=== PATIENT | female | born 1985 | race Caucasian/White ===

== ENCOUNTER → 2018-02-19 11:28 | Outpatient (CLI) | payer OTHER, MEDICAID, SELFPAY | PROVIDERS: Visit Provider Obstetrics & Gynecology | DX: Z34.02 Encounter for supervision of normal first pregnancy, second trimester (principal); Z53.9 Procedure and treatment not carried out, unspecified reason ==

== ENCOUNTER → 2018-03-06 10:58 | Outpatient (CLI) | payer OTHER, MEDICAID, SELFPAY ==
[2018-03-06 12:52] LABS: Hematocrit 36.6 % (36-46); Hemoglobin 12.4 g/dL (12.0-16.0)
[2018-03-06 13:40] LABS: GTT (PREG) 1 Hour PP 50gm Dose 102 mg/dL (76-139)
== END ==
PROVIDERS: Visit Provider Obstetrics & Gynecology
DX: Z34.02 Encounter for supervision of normal first pregnancy, second trimester (principal)
CPT/HCPCS: 36415; 82950; 85014; 85018

== ENCOUNTER → 2018-05-08 14:38 | Outpatient (CLI) | payer OTHER, MEDICAID, SELFPAY ==
[2018-05-09 16:52] LABS: Strep Grp B PCR POS for Grp B Strep
== END ==
PROVIDERS: Visit Provider Obstetrics & Gynecology
DX: Z34.03 Encounter for supervision of normal first pregnancy, third trimester (principal)
CPT/HCPCS: 87653

== ENCOUNTER 2018-05-15 15:46 | Outpatient (CLI) | payer OTHER, MEDICAID, SELFPAY ==
--- NOTE | 2018-05-15 16:25 | P.TNLD_ITS ---
Visit Information Visit Information Date of evaluation: 05/15/18 Primary OB Provider: Nadeen Mcgovern On-call OB Provider: Nadeen Mcgovern Reason for Evaluation: Yes non-stress test non-stress test reason: other (SGA, borderline oligo) Evaluation Evaluation Baseline heart rate: 135 Variability: Moderate (11-25) monitor accelerations: Present monitor decelerations: Absent Category of Tracing: I Diagnosis, Plan/Disposition Final Diagnosis (1) SGA (small for gestational age), , affecting care of mother, antepartum : Current Visit: Yes Status: Acute Plan/Disposition Plan: D/C to home Follow up 3 days for NST kick counts OB Disposition: home
== END 2018-05-15 16:45 | disposition home or self-care (01) ==
LOC: LABOR 15:58 → OB 05-16 14:46
PROVIDERS: Visit Provider Obstetrics & Gynecology
DX: Z34.03 Encounter for supervision of normal first pregnancy, third trimester (principal); Z3A.37 37 weeks gestation of pregnancy
CPT/HCPCS: 59025; G0378; G0379

== ENCOUNTER 2018-05-18 10:25 | Outpatient (CLI) | payer OTHER, MEDICAID, SELFPAY | END 2018-05-18 11:11 | disposition home or self-care (01) | LOC: OB 05-20 11:13 | PROVIDERS: Visit Provider Family Medicine | DX: Z34.03 Encounter for supervision of normal first pregnancy, third trimester (principal); Z3A.38 38 weeks gestation of pregnancy | CPT/HCPCS: 59025; G0378; G0379 ==

== ENCOUNTER → 2018-05-20 16:48 | Outpatient (CLI) | payer OTHER, MEDICAID, SELFPAY | END | disposition home or self-care (01) | PROVIDERS: Visit Provider Obstetrics & Gynecology | DX: Z34.03 Encounter for supervision of normal first pregnancy, third trimester (principal); Z3A.38 38 weeks gestation of pregnancy | CPT/HCPCS: 59025; 76815; G0378; G0379 ==

== ENCOUNTER 2018-05-24 11:23 | Outpatient (CLI) | payer OTHER, MEDICAID, SELFPAY | END 2018-05-24 12:17 | disposition home or self-care (01) | LOC: OB 05-28 15:49 | PROVIDERS: Visit Provider Obstetrics & Gynecology | DX: Z34.03 Encounter for supervision of normal first pregnancy, third trimester (principal); Z3A.38 38 weeks gestation of pregnancy | CPT/HCPCS: 59025; G0378; G0379 ==

== ENCOUNTER 2018-05-27 21:20 | Inpatient (IN) | payer OTHER, MEDICAID, SELFPAY ==
[2018-05-27] MEDS: PENICILLIN G POTASSIUM 5,000,000 UNIT in DEXTROSE 5% IN WATER 250 ML IV (22:20)
[2018-05-27] MEDS: miSOPROStol 25 MCG TABLET VAG (22:20)
[2018-05-27] MEDS: LACTATED RINGERS 1,000 ML 125 ML IV (22:20)
[2018-05-27 23:39] VITALS: BP 120/81
[2018-05-28 01:56] LABS: Add Manual Diff / Slide Review NO; Basophils Percent Auto 0.5 % (0-2); Eosinophils Percent Auto 0.4 % (2-4); Hematocrit 41.3 % (36-46); Hemoglobin 13.9 g/dL (12.0-16.0); Lymphocytes Percent Auto 21.5 % (25-40); Mean Corpuscular HGB Conc 33.5 % (30-36); Mean Corpuscular Hemoglobin 31.1 PG (26-34); Mean Corpuscular Volume 92.9 fL (80-100); Monocytes Percent Auto 5.9 % (3-14); Neutrophils Absolute Auto 6900 /uL (3000-5900); Neutrophils Percent Auto 71.7 % (50-75); Platelet Count 298 X10^3/uL (150-400); Red Blood Cell Count 4.45 X10^6/uL (4.0-5.2); Red Cell Distribution Width 13.3 % (11.6-14.8); White Blood Cell Count 9.6 X10^3/uL (4.5-11.0)
[2018-05-28] MEDS: PENICILLIN G POTASSIUM 3,000,000 UNIT/50 ML FROZ.PIGGY 100 UNIT IV (02:53)
[2018-05-28] MEDS: ONDANSETRON 4 MG/2 ML INJ IV (05:24)
[2018-05-29 06:54] LABS: Hematocrit 35.9 % (36-46); Hemoglobin 12.3 g/dL (12.0-16.0)
[2018-05-29] MEDS: DOCUSATE 250 MG CAPSULE PO (13:15)
[2018-05-29] MEDS: ACETAMINOPHEN 325 MG TABLET 650 MG PO (13:15)
[2018-05-29] MEDS: PRENATAL VIT,CALC/IRON/FOLIC 1 TABLET 1 TAB PO (13:15)
[2018-05-29 18:13] VITALS: BP 120/81; PULSE 76; RESP 18; TEMP 36.4
--- NOTE | 2018-07-04 15:01 | PM.OBHP.1 ---
OB HPI Date/Time Date of admission: 05/27/18 Date Patient Seen: 05/27/18 Time Patient Seen: 07:40 History of Present Condition Chief complaint: : 1 Para: 0 Estimated Date of Delivery: 06/01/18 Estimated Gestational Age (weeks): 39+ 3 Narrative: Amalia Mortensen is a 32 year old female 1 para 0 at 39-,2/7 weeks gestation who presents for induction of labor secondary to oligohydramnios Indications Indication for induction OB: other (Oligohydramnios) History of Present care: good care, initiated at week # (9), number of visits (11) and pounds weight gain (25) Dating criteria: LMP confirmed by 1st trimester US Ultrasounds: normal 1st trimester US and abnormal US findings (Echogenic intracardiac focus) Obstetrical complications: none Medical complications: none Preadmission Labs Blood type: O (+) positive -: Antibody screen: negative, GBS status: positive, HBsAG: negative, HIV: negative, HSV 1: positive, HSV 2: negative and RPR/VDLR: negative -: Chlamydia screen: not detected and Gonorrhea screen: not detected -: Rubella: immune and Varicella: immune HCT: 36.6 HCAB: negative PAP: Normal Quad screen: Normal Urine: Negative 1 hr GTT: 102 Prior (ies) History: None Evaluation Evaluation Baseline heart rate: 130 Variability: Moderate (11-25) monitor accelerations: Present monitor decelerations: Absent Category of Tracing: I Cervical dilation (cm): 1 Cervical effacement (%): 80 station: -1 Laboratory results: Laboratory Tests 05/27/18 05/27/18 05/29/18 01:36 22:45 06:37 WBC 9.6 RBC 4.45 Hgb 13.9 12.3 Hct 41.3 35.9 L MCV 92.9 MCH 31.1 MCHC 33.5 RDW 13.3 Plt Count 298 Neut % (Auto) 71.7 Lymph % (Auto) 21.5 L [place] % (Auto) 5.9 Eos % (Auto) 0.4 L Baso % (Auto) 0.5 Neut # (Auto) 6900 H Blood Type O Positive Antibody Screen Negative PFSH Social History Smoking Status: Never smoker Meds Home Medications Medication Instructions Recorded Confirmed Type breast pump #1 each 05/08/18 05/28/18 Rx Allergies Allergy/AdvReac Type Severity Reaction Status Date / Time No Known Drug Allergies Allergy Verified 05/27/18 23:43 Exam Vital Signs (past 8 hours): Generally: Patient is sitting up in bed, no acute distress Lungs: Clear to auscultation bilaterally Cardiovascular: Regular rate and rhythm Abdomen: Soft, good bowel sounds Fundal height: 38 cm Estimated weight: 6 and 0.5 lb Extremities: Negative Homans, no edema Objective Labs Result Diagrams: 05/29/18 06:37 Assessment and Plan (1) 39 weeks gestation of : Current visit: No Status: Acute (2) Oligohydramnios: Current visit: No Status: Acute (3) Positive GBS test: Current visit: No Status: Acute Plan: Plan: Assessment: 32-year-old 1 para 0 at 39-,3/7 weeks gestation with oligohydramnios and group B strep positive status post 1 dose of Cytotec Active labor Epidural in place Plan: Expectant management of spontaneous vaginal delivery
--- NOTE | 2018-07-04 15:10 | PM.OBPRVD ---
Events: Labor Induction and Oligohydramnios Delivery date: 05/28/18 Intrapartal events: None Induction method: per misoprostol protocol Delivery augmentation: rupture of membranes Delivery monitor: external FHT and external uterine Route of delivery: Laceration description: Superficial Delivery repair: chromic Estimated blood loss (mL): 100 Anesthesia type: Epidural Complications: None Narrative: Patient complete and pushed for 1 hr and 18 min. At 9:20 a.m., a live male delivered spontaneously over an intact perineum. Nuchal cord x1 was reduced. The remainder of the body delivered without difficulty and was placed on mom's abdomen. The cord was double clamped and cut. Cord bloods were obtained. The placenta delivered intact with a 3 vessel cord at 9:22 a.m.. Apgars 9 at 1 min and 9 at 5 min. Estimated blood loss 100 cc. . A superficial laceration was repaired with 3 0 chromic. Epidural analgesia. Mom and stable to recovery.
--- NOTE | 2018-07-04 15:13 | PM.OBDS.1 ---
Discharge Providers Date of admission: 05/27/18 21:20 Consults: 05/28/18 11:47 Consult to [employer] Waste Technician Routine Comment: Discharge provider: Ndaeen Mcgovern MD Summary Date Patient Seen: 05/29/18 Time Patient Seen: 13:30 Hospital Course: Patient is a 32-year-old 1 para 1 who presented on 05/27/2018 for Cytotec for cervical ripening. Patient was being induced due to oligohydramnios. She received 1 dose of Cytotec which put her into active labor. She had a spontaneous vaginal delivery in the morning of 05/28/2018 without complication. Her course was unremarkable. She was discharged home on postop day # 1. Peripartum Data Infant Delivery Method: Natural Vaginal Laceration description: Superficial Episiotomy description: None Procedures: Spontaneous vaginal delivery Epidural analgesia Cytotec cervical ripening complications: none Discharge Diagnosis (1) 39 weeks gestation of : Status: Acute (2) Oligohydramnios: Status: Acute (3) Positive GBS test: Status: Acute Status at Discharge Functional status at discharge: independent ambulation Overall status at discharge: patient is progressing back to baseline Time Spent with Patient Total time spent providing and/or coordinating discharge services: Less than 30 minutes Objective Labs Result Diagrams: 05/29/18 06:37 Discharge Plan Discharge Plan Patient Disposition: Home Discharge Med Rec/Prescriptions Prescriptions: No Action breast pump [Pump In Style Advanced] device .ROUTE .MEDSUPPLY Qty: 1 RF: 0 Follow up/Referrals: Nadeen Mcgovern MD [Physician] - 07/10/18 3:00 pm Provider Discharge Instructions Diet: Diet as Tolerated Activity: No intercourse Skin/Wound/Dressing Care Report to your healthcare provider any signs of infection, such as:: chills, fever, increased pain and unusual drainage Visit Report/Discharge Packet Instructions: DI for Labor and Delivery, Vaginal Stand Alone Forms: Discharge: Care Visit Report Forms: Stroke Signs & Symptoms Discharge Data Attending Provider: Nadeen Mcgovern Admit Date/Time: 05/27/18 21:20 Discharges patient from system. Discharge Date/Time: 05/29/18 17:30
--- NOTE | 2018-07-04 15:16 | PM.OBHP.1 ---
OB HPI Date/Time Date of admission: 06/25/18 Date Patient Seen: 06/25/18 Time Patient Seen: 07:30 History of Present Condition Chief complaint: : 2 Para: 1 Estimated Date of Delivery: 07/04/18 Estimated Gestational Age (weeks): 38+ 5 Narrative: Amalia Mortensen is a 32 year old female 2 para 1 at 38-,5/7 weeks gestation who presented in active labor with ruptured membranes. She is group B strep positive Patient also has ITP Comments: Platelet count on admission 48,000 Indications Other reason(s) for admission: Active labor History of Present care: limited care, initiated at week # (17), number of visits (3) and pounds weight gain (25) Dating criteria: LMP confirmed by 1st trimester US Ultrasounds: normal mid trimester US Obstetrical complications: other (ITP) Medical complications: other Narrative: ITP Preadmission Labs Blood type: B (+) positive -: Antibody screen: negative, GBS status: positive, HBsAG: negative, HIV: negative, HSV 1: positive, HSV 2: negative and RPR/VDLR: negative -: Rubella: unknown and Varicella: unknown HCT: 36.6 HCAB: negative PAP: Abnormal (Low-grade [place]RISTINA common high-risk HPV negative) Urine: Enterococcus Prior (ies) History: 11/19/2016 39 week spontaneous vaginal delivery [facility] 7 lb 9 oz Evaluation Evaluation Baseline heart rate: 140 Variability: Moderate (11-25) monitor accelerations: Present monitor decelerations: Absent Contraction Frequency (minutes): 2 Category of Tracing: I Cervical dilation (cm): 6 Cervical effacement (%): 75 station: -1 Laboratory results: Laboratory Tests 05/27/18 05/27/18 05/29/18 01:36 22:45 06:37 WBC 9.6 RBC 4.45 Hgb 13.9 12.3 Hct 41.3 35.9 L MCV 92.9 MCH 31.1 MCHC 33.5 RDW 13.3 Plt Count 298 Neut % (Auto) 71.7 Lymph % (Auto) 21.5 L [place] % (Auto) 5.9 Eos % (Auto) 0.4 L Baso % (Auto) 0.5 Neut # (Auto) 6900 H Blood Type O Positive Antibody Screen Negative [facility] Social History Smoking Status: Never smoker Meds Home Medications Medication Instructions Recorded Confirmed Type breast pump #1 each 05/08/18 05/28/18 Rx Allergies Allergy/AdvReac Type Severity Reaction Status Date / Time No Known Drug Allergies Allergy Verified 05/27/18 23:43 Exam Vital Signs (past 8 hours): Generally: A well-developed, well-nourished white female, in moderate distress secondary to contractions Lungs: Clear to auscultation bilaterally Cardiovascular: Regular rate and rhythm Fundal height: 39 cm Estimated weight 7 and 0.5 lb Extremities: Negative Homans, no edema Objective Labs Result Diagrams: 05/29/18 06:37 Labs: Platelet count 48 on admission Assessment and Plan (1) 39 weeks gestation of : Current visit: No Status: Acute (2) Oligohydramnios: Current visit: No Status: Acute (3) Positive GBS test: Current visit: No Status: Acute (4) 38 weeks gestation of : Current visit: No Status: Acute
== END 2018-05-29 17:30 | disposition home or self-care (01) | DRG 560 ==
PROVIDERS: Admitting Provider Obstetrics & Gynecology; Visit Provider Obstetrics & Gynecology
DX: O41.03X0 Oligohydramnios, third trimester, not applicable or unspecified (principal); Z3A.39 39 weeks gestation of pregnancy; Z37.0 Single live birth; O69.81X0 Labor and delivery complicated by cord around neck, without compression, not applicable or unspecified; O70.0 First degree perineal laceration during delivery; O99.824 Streptococcus B carrier state complicating childbirth
CPT/HCPCS: 01967; 36415; 59050; 59200; 59409; 85014; 85018; 85025; 86850; 86900; 86901; G0379; J2405; J2540

== ENCOUNTER 2019-02-16 01:21 | Emergency (ER) | payer OTHER, MEDICAID, SELFPAY ==
[2019-02-16 01:30] VITALS: BP 106/73; PULSE 81; RESP 18; TEMP 37; O2SAT 95; BMI 20.6
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
[2019-02-16 01:58] VITALS: BP 95/53; PULSE 73; RESP 36
[2019-02-16 03:26] VITALS: BP 94/57; PULSE 78; RESP 21
[2019-02-16 04:22] VITALS: BP 92/63; PULSE 75; RESP 15
[2019-02-16 07:48] VITALS: BP 125/82; PULSE 87; RESP 16; O2SAT 98
== END 2019-02-16 07:49 | disposition home or self-care (01) ==
PROVIDERS: Emergency Provider Emergency Medicine
DX: F10.929 Alcohol use, unspecified with intoxication, unspecified (principal); R55 Syncope and collapse; V49.3XXA Car occupant (driver) (passenger) injured in unspecified nontraffic accident, initial encounter
CPT/HCPCS: 93005; 93010; 99283

== ENCOUNTER 2019-11-18 03:04 | Emergency (ER) | payer OTHER, MEDICAID, SELFPAY ==
[2019-11-18 03:12] VITALS: BP 144/99; PULSE 81; RESP 24; TEMP 36.7; O2SAT 98; BMI 21.7
[2019-11-18] MEDS: ONDANSETRON 4 MG/2 ML INJ IV (03:51)
[2019-11-18 04:07] LABS: Add Manual Diff / Slide Review NO; Basophils Absolute Auto 100 /uL (0-100); Basophils Percent Auto 2.3 % (0-2); Eosinophils Absolute Auto 0 /uL (0-450); Eosinophils Percent Auto 0.1 % (2-4); Hematocrit 39.1 % (36-46); Hemoglobin 13.2 g/dL (12.0-16.0); Lymphocytes Absolute Auto 500 /uL (1100-4500); Lymphocytes Percent Auto 14.9 % (25-40); Mean Corpuscular HGB Conc 33.7 % (30-36); Mean Corpuscular Hemoglobin 33.4 PG (26-34); Monocytes Absolute Auto 200 /uL (0-900); Monocytes Percent Auto 6.2 % (3-14); Neutrophils Absolute Auto 2800 /uL (1500-7000); Neutrophils Percent Auto 76.5 % (50-75); Platelet Count 152 X10^3/uL (150-400); Red Blood Cell Count 3.95 X10^6/uL (4.0-5.2); White Blood Cell Count 3.7 X10^3/uL (4.5-11.0)
[2019-11-18 04:08] LABS: Alanine Aminotransferase 120 IU/L (<35); Albumin 4.4 g/dL (3.5-5.0); Albumin Globulin Ratio 1.2 (1.0-2.8); Alkaline Phosphatase 133 U/L (38-126); Aspartate Aminotransferase 167 IU/L (14-36); BUN Creatinine Ratio 22.5 (6-22); Bilirubin Total 1.3 mg/dL (0.2-1.3); Blood Urea Nitrogen 9 mg/dL (7-17); Calcium 9.5 mg/dL (8.4-10.2); Carbon Dioxide 27 mmol/L (22-32); Chloride 94 mmol/L (98-107); Creatine Kinase 74 U/L (30-135); Estimated Glomerular Filt Rate > 60.0 mL/min (>60); Globulin 3.6 g/dL (1.7-4.1); Glucose 126 mg/dL (70-100); HEMOLYSIS < 15 (0-50); Magnesium 1.5 mg/dL (1.6-2.3); Sodium 135 mmol/L (137-145)
[2019-11-18 04:23] LABS: Lactate (Lactic Acid) 3.2 mmol/L (0.7-2.1)
[2019-11-18 04:25] LABS: Prolactin 89.8 ng/mL (3.0-18.6)
--- NOTE | 2019-11-18 04:31 | ED_ITS ---
HPI - Seizure General Chief Complaint: Seizure Stated Complaint: Seizure Time Seen by Provider: 11/18/19 03:48 Source: patient Mode of arrival: EMS Limitations: no limitations History of Present Illness HPI Narrative: Chief complaint: Generalized seizure History of present illness the patient is a 34-year-old female who has no previous history of seizures. The patient was transported to the emergency department by EMS and reported that the patient had her 1st grand mal seizure. The history is a little bit sketchy as to who witnessed the patient seizure. The patient was reported to have gone upstairs in then there was a thud and the patient was found on the floor by a roommate who who is a nurse, reported that the patient was for shaking, unresponsive, and incontinent of urine. The patient's significant other then came upstairs and found the patient unresponsive. The patient was out for approximately 2 minutes. The patient then started to move about normal melena and some and in a postictal state until the paramedics arrived. The patient does not remember what happened. She denies a history of asthma hypertension or diabetes mellitus. She denies being . She does not smoke but she drinks daily. She admits to drinking 3+ drinks per day which is most often wine. She denies any pain or discomfort. She has had no headache no numbness or tingling paresthesias in his seizures or paresis. She has had some nasal drainage and a sore throat approximately 1 week ago. She has also had an associated cough at that time. But she denies any of that at this time. She denies any fall or head injury recently. She she denies any chest pain nausea vomiting diarrhea dysuria. She however was incontinent of urine during her seizure. Related Data Home Medications Medication Instructions Recorded Confirmed prenat.vits,barbara,[id number] 1 tab PO DAILY 07/10/18 07/10/18 Previous Rx's Medication Instructions Recorded breast pump #1 each 05/08/18 citalopram 20 mg tablet 20 mg PO DAILY #30 tab 09/25/18 chlordiazepoxide HCl 10 mg PO Q12H PRN #18 cap 11/18/19 levetiracetam [Keppra] 500 mg PO Q12H #60 tab 11/18/19 Allergies Allergy/AdvReac Type Severity Reaction Status Date / Time No Known Drug Allergies Allergy Verified 07/10/18 15:01 Review of Systems Review of Systems ROS Unobtainable: All systems reviewed & are unremarkable except as noted in HPI and below Patient History Medical History Medical history unknown (Acute) Social History Smoking Status: Never smoker Smoking Status: Never smoker alcohol intake frequency: 3 or more drinks per day Substance Use Type: does not use Exam Narrative Exam Narrative: PHYSICAL EXAM: CONSTITUTIONAL: At the time that we are evaluating the patient in the emergency department he she appeared to be awake, alert apprehensive and cooperative. She did not appear to be in any acute distress. She did not appear toxic or ill. HEAD: AT/NC except for a small abrasion over the right lateral the nose with a streak of blood down the cheek. EENT: PERRL, FROM of eyes, no discharge, bilateral horizontal nystagmus. No drainage from the ears, Tympanic membranes intact bilaterally without hemotympanum. The external auditory canals were partially occluded. No epistaxis or nasal drainage Oral mucosa is moist and pink, posterior pharynx is without erythema or exudate. I did not appreciate any tongue biting. NECK: Supple, no obvious JVD, Trachea is midline without stridor, no palpable LN or masses. Full range of motion of the neck to flexion extension right and left lateral rotation and lateral flexion SPINE: No gross deformity, no palpable tenderness of the cervical, thoracic, lumbar or sacral spine. No CVA tenderness. THORAX: No deformity, retractions, chest wall tenderness, subcutaneous air or crepitice. LUNGS: Clear with symmetrical breath sounds without respiratory distress HEART: Normal heart tones, regular rhythm and rate without murmur. ABDOMEN: Soft, non-tender, normal bowel sounds without guarding, rebound, rigidity or palpable mass or organomegaly. LYMPHATIC: no palpable lymph nodes EXTREMITIES: No edema, cyanosis, deformity or tenderness. SKIN: No rash, bruising, petechiae or purpura. NEURO: Awake, alert, oriented, conversive, cranial nerves II-XII are symmetrical and normal, moves all 4 extremities and is ambulatory. The patient appears to have my year old tremor. Initial Vital Signs Initial Vital Signs: Vital Signs Temperature 98.0 F 11/18/19 03:12 Pulse Rate 81 11/18/19 03:12 Respiratory Rate 24 11/18/19 03:12 Blood Pressure 144/99 H 11/18/19 03:12 Pulse Oximetry 98 11/18/19 03:12 Course Course Course Narrative: 0432 the patient admits to drinking alcohol and the old records reveal that she drinks 3 or more drinks per day. She states that she mcnamara s not had a drink in 3 days. I question whether not the patient had an alcohol withdrawal seizure. She denies that she has a history of delirium tremens or alcohol withdrawal seizures. 0550 the patient is much more awake and alert. She has mild tremor so we administered 1 mg of Ativan IV. It was at this time that the patient informed me that she has not had drink in over 1 week. 0645; the patient's CT of her head revealed no acute intracranial abnormality. 0700 I discussed the options with the patient about being admitted for alcohol withdrawal and assistance with her alcohol consumption. She declined and will be discharged home on tapering dose of Librium, 10 mg t.i.d. x3 days, 2 caps x3 days followed by 1 cap x 3 days. Keppra 500 Mg. BID Orders Ordered: Discontinued Medications Sodium Chloride (Normal Saline 0.9%) 1,000 mls @ 1,000 mls/hr IV BOLUS ONE Stop: 11/18/19 04:48 Last Infusion: 11/18/19 05:54 Dose: 0 mls/hr Documented by: Admin: 11/18/19 05:01 Dose: 1,000 mls/hr Documented by: VERA Levetiracetam 1,000 mg/ Sodium (Chloride) 110 mls @ 440 mls/hr IV NOW ONE Stop: 11/18/19 04:43 Last Infusion: 11/18/19 05:32 Dose: 0 mls/hr Documented by: Admin: 11/18/19 05:13 Dose: 440 mls/hr Documented by: VERA Lorazepam (Ativan) 1 mg IV NOW ONE Stop: 11/18/19 05:42 Last Admin: 11/18/19 05:48 Dose: 1 mg Documented by: VERA Ondansetron HCl (Zofran) 4 mg IV NOW ONE Stop: 11/18/19 03:49 Last Admin: 11/18/19 03:51 Dose: 4 mg Documented by: LATESHA Vital Signs Vital signs: Vital Signs - 8 hr 11/18/19 03:12 Temperature 98.0 F Pulse Rate 81 Respiratory Rate 24 Blood Pressure 144/99 H Pulse Oximetry 98 MDM - Seizure Medical Records Attestation: I reviewed the patient's medical records. Lab Data Attestation: I reviewed the patient's lab results. Result diagrams: 11/18/19 03:35 11/18/19 03:35 Labs: Lab Results 11/18/19 11/18/19 11/18/19 Range/Units 03:35 03:35 03:58 WBC 3.7 L (4.5-11.0) X10^3/uL RBC 3.95 L (4.0-5.2) X10^6/uL Hgb 13.2 (12.0-16.0) g/dL Hct 39.1 (36-46) % MCV 99.0 (80-100) fL MCH 33.4 (26-34) PG MCHC 33.7 (30-36) % RDW 14.0 (11.6-14.8) % Plt Count 152 (150-400) X10^3/uL Neut % (Auto) 76.5 H (50-75) % Lymph % (Auto) 14.9 L (25-40) % [place] % (Auto) 6.2 (3-14) % Eos % (Auto) 0.1 L (2-4) % Baso % (Auto) 2.3 H (0-2) % Neut # (Auto) 2800 (8900-0291) /uL Lymph # (Auto) 500 L (9717-0132) /uL [place] # (Auto) 200 (0-900) /uL Eos # (Auto) 0 (0-450) /uL Baso # (Auto) 100 (0-100) /uL Sodium 135 L (137-145) mmol/L Potassium 3.0 L (3.4-5.1) mmol/L Chloride 94 L (98-107) mmol/L Carbon Dioxide 27 (22-32) mmol/L BUN 9 (7-17) mg/dL Creatinine 0.40 L (0.52-1.04) mg/dL Estimated GFR > 60.0 (>60) mL/min BUN/Creatinine Ratio 22.5 H (6-22) Glucose 126 H (70-100) mg/dL Lactate 3.2 H (0.7-2.1) mmol/L Calcium 9.5 (8.4-10.2) mg/dL Magnesium 1.5 L (1.6-2.3) mg/dL Total Bilirubin 1.3 (0.2-1.3) mg/dL AST 167 H (14-36) IU/L ALT 120 H (<35) IU/L Alkaline Phosphatase 133 H (38-126) U/L Total Creatine Kinase 74 (30-135) U/L Total Protein 8.0 (6.3-8.2) g/dL Albumin 4.4 (3.5-5.0) g/dL Globulin 3.6 (1.7-4.1) g/dL Albumin/Globulin Ratio 1.2 (1.0-2.8) Prolactin 89.8 H (3.0-18.6) ng/mL Urine Color Urine Appearance Urine pH (4.5-8.0) Ur Specific [place] (1.000-1.035) Urine Protein (Negative) Urine Glucose (UA) (Negative) g/dL Urine Ketones (NEGATIVE) Urine Occult Blood (Negative) Urine Nitrate (Negative) Urine Bilirubin (NEGATIVE) Urine Urobilinogen (0.2) E.U./dL Ur Leukocyte Esterase (NEGATIVE) U Opiates 300ng/mL cut (Negative) Ur Oxycodone Screen (Negative) Urine Methadone Screen (Negative) Ur Barbiturates Screen (Negative) U Tricyclic Antidepress (Negative) Ur Phencyclidine Scrn (Negative) Ur Amphetamines Screen (Negative) U Methamphetamines Scrn (Negative) Ur MDMA Scrn (Ecstasy) (Negative) U Benzodiazepines Scrn (Negative) Urine Cocaine Screen (Negative) U Marijuana (THC) Screen (Negative) Ethyl Alcohol ( - 10) mg/dL 11/18/19 11/18/19 11/18/19 Range/Units 06:19 06:19 06:45 WBC (4.5-11.0) X10^3/uL RBC (4.0-5.2) X10^6/uL Hgb (12.0-16.0) g/dL Hct (36-46) % MCV (80-100) fL MCH (26-34) PG MCHC (30-36) % RDW (11.6-14.8) % Plt Count (150-400) X10^3/uL Neut % (Auto) (50-75) % Lymph % (Auto) (25-40) % [place] % (Auto) (3-14) % Eos % (Auto) (2-4) % Baso % (Auto) (0-2) % Neut # (Auto) (4063-2380) /uL Lymph # (Auto) (5527-0417) /uL [place] # (Auto) (0-900) /uL Eos # (Auto) (0-450) /uL Baso # (Auto) (0-100) /uL Sodium (137-145) mmol/L Potassium (3.4-5.1) mmol/L Chloride (98-107) mmol/L Carbon Dioxide (22-32) mmol/L BUN (7-17) mg/dL Creatinine (0.52-1.04) mg/dL Estimated GFR (>60) mL/min BUN/Creatinine Ratio (6-22) Glucose (70-100) mg/dL Lactate 1.4 (0.7-2.1) mmol/L Calcium (8.4-10.2) mg/dL Magnesium (1.6-2.3) mg/dL Total Bilirubin (0.2-1.3) mg/dL AST (14-36) IU/L ALT (<35) IU/L Alkaline Phosphatase (38-126) U/L Total Creatine Kinase (30-135) U/L Total Protein (6.3-8.2) g/dL Albumin (3.5-5.0) g/dL Globulin (1.7-4.1) g/dL Albumin/Globulin Ratio (1.0-2.8) Prolactin (3.0-18.6) ng/mL Urine Color Yellow Urine Appearance Clear Urine pH 5.5 (4.5-8.0) Ur Specific [place] 1.025 (1.000-1.035) Urine Protein Trace H (Negative) Urine Glucose (UA) Negative (Negative) g/dL Urine Ketones 1+ H (NEGATIVE) Urine Occult Blood Trace-lysed (Negative) Urine Nitrate Negative (Negative) Urine Bilirubin Negative (NEGATIVE) Urine Urobilinogen 0.2 (0.2) E.U./dL Ur Leukocyte Esterase Negative (NEGATIVE) U Opiates 300ng/mL cut (Negative) Ur Oxycodone Screen (Negative) Urine Methadone Screen (Negative) Ur Barbiturates Screen (Negative) U Tricyclic Antidepress (Negative) Ur Phencyclidine Scrn (Negative) Ur Amphetamines Screen (Negative) U Methamphetamines Scrn (Negative) Ur MDMA Scrn (Ecstasy) (Negative) U Benzodiazepines Scrn (Negative) Urine Cocaine Screen (Negative) U Marijuana (THC) Screen (Negative) Ethyl Alcohol < 10 ( - 10) mg/dL 11/18/19 Range/Units 06:45 WBC (4.5-11.0) X10^3/uL RBC (4.0-5.2) X10^6/uL Hgb (12.0-16.0) g/dL Hct (36-46) % MCV (80-100) fL MCH (26-34) PG MCHC (30-36) % RDW (11.6-14.8) % Plt Count (150-400) X10^3/uL Neut % (Auto) (50-75) % Lymph % (Auto) (25-40) % [place] % (Auto) (3-14) % Eos % (Auto) (2-4) % Baso % (Auto) (0-2) % Neut # (Auto) (5692-8463) /uL Lymph # (Auto) (9827-5646) /uL [place] # (Auto) (0-900) /uL Eos # (Auto) (0-450) /uL Baso # (Auto) (0-100) /uL Sodium (137-145) mmol/L Potassium (3.4-5.1) mmol/L Chloride (98-107) mmol/L Carbon Dioxide (22-32) mmol/L BUN (7-17) mg/dL Creatinine (0.52-1.04) mg/dL Estimated GFR (>60) mL/min BUN/Creatinine Ratio (6-22) Glucose (70-100) mg/dL Lactate (0.7-2.1) mmol/L Calcium (8.4-10.2) mg/dL Magnesium (1.6-2.3) mg/dL Total Bilirubin (0.2-1.3) mg/dL AST (14-36) IU/L ALT (<35) IU/L Alkaline Phosphatase (38-126) U/L Total Creatine Kinase (30-135) U/L Total Protein (6.3-8.2) g/dL Albumin (3.5-5.0) g/dL Globulin (1.7-4.1) g/dL Albumin/Globulin Ratio (1.0-2.8) Prolactin (3.0-18.6) ng/mL Urine Color Urine Appearance Urine pH (4.5-8.0) Ur Specific [place] (1.000-1.035) Urine Protein (Negative) Urine Glucose (UA) (Negative) g/dL Urine Ketones (NEGATIVE) Urine Occult Blood (Negative) Urine Nitrate (Negative) Urine Bilirubin (NEGATIVE) Urine Urobilinogen (0.2) E.U./dL Ur Leukocyte Esterase (NEGATIVE) U Opiates 300ng/mL cut Negative (Negative) Ur Oxycodone Screen Negative (Negative) Urine Methadone Screen Negative (Negative) Ur Barbiturates Screen Negative (Negative) U Tricyclic Antidepress Negative (Negative) Ur Phencyclidine Scrn Negative (Negative) Ur Amphetamines Screen Negative (Negative) U Methamphetamines Scrn Negative (Negative) Ur MDMA Scrn (Ecstasy) Negative (Negative) U Benzodiazepines Scrn Negative (Negative) Urine Cocaine Screen Negative (Negative) U Marijuana (THC) Screen Negative (Negative) Ethyl Alcohol ( - 10) mg/dL ECG Data Attestation: I personally reviewed and interpreted this ECG as follows: Interpretation: The patient's EKG obtained on November 18 at 04:1 12:03 a.m. reveals a normal sinus rhythm with normal intervals. Her QTC is normal at 441 milliseconds. [place] is normal. The patient has inverted T-waves in leads III and V1. There are no other acute diagnostic ST segment changes or T-wave inversions. Her EKG does not show any evidence of ischemia. Discharge Plan Departure Patient Disposition: Home Clinical Impression: Generalized seizure Alcohol withdrawal seizure Qualifiers: Complication of substance-induced condition: with unspecified complication Qualified Code(s): F10.239 - Alcohol dependence with withdrawal, unspecified Discharge Date/Time: 11/18/19 08:22 Instructions: DI for Seizure Disorder -- Adult Activity Restrictions/Additional Instructions: If you have more seizures you need to return to the emergency department. You need to follow-up with your primary care physician. You cannot drive or operate over the any dangerous machinery until he you are cleared and evaluated by your primary care physician. In order to help prevent seizures you have been placed on any anticonvulsant Keppra 500 mg twice a day. To help with the withdrawal and tremors take the tapering dose of Librium as prescribed. Prescriptions: New levetiracetam [Keppra] 500 mg tablet 500 mg PO Q12H Qty: 60 RF: 0 chlordiazepoxide HCl 10 mg capsule 10 mg PO Q12H PRN (Reason: anxiety) Qty: 18 RF: 0 No Action citalopram 20 mg tablet 20 mg PO DAILY Qty: 30 RF: 3 (DME) breast pump [Pump In Style Advanced] device See Dose Instructions .ROUTE .MEDSUPPLY Qty: 1 RF: 0 prenat.vits,barbara,[id number] tablet 1 tab PO DAILY RF: 0
[2019-11-18] MEDS: SODIUM CHLORIDE 0.9% 1,000 ML 1000 ML IV (05:01)
[2019-11-18] MEDS: levETIRAcetam 1,000 MG in SODIUM CHLORIDE 0.9% 100 ML 440 ML IV (05:13)
--- NOTE | 2019-11-18 05:45 | DI.CT.S_ITS ---
PROCEDURE: CT HEAD/BRAIN WO CON INDICATIONS: first time seizure TECHNIQUE: Noncontrast 4.5 mm thick angled axial sections acquired from the foramen magnum to the vertex, with coronal and sagittal reformats. For radiation dose reduction, the following was used: automated exposure control, adjustment of mA and/or kV according to patient size. COMPARISON: None. FINDINGS: Image quality: Excellent. CSF spaces: Basal cisterns are patent. No extra-axial fluid collections. Ventricles are normal in size and shape. Brain: No midline shift. No intracranial masses or hemorrhage. Stanton-white matter interface is normal. Skull and face: Calvarium and visualized facial bones are intact, without suspicious lesions. Sinuses: Visualized sinuses and mastoids are clear. IMPRESSION: CT head without acute intracranial abnormalities. No mass or mass effect identified. No significant discrepancy with the table games shift manager radiology preliminary report. Dictated by: Francisco Dale M.D. on 11/18/2019 at 7:06 Approved by: Francisco Dale M.D. on 11/18/2019 at 7:07
[2019-11-18] MEDS: LORazepam 2 MG/ML INJ 1 MG IV (05:48)
[2019-11-18 06:05] LABS: Reflexed Lactate in 2 Hours Y
[2019-11-18 06:40] LABS: Ethanol (ETOH) < 10 mg/dL
[2019-11-18 06:41] LABS: Lactate 2HR (Lactic Acid Rflx) 1.4 mmol/L (0.7-2.1)
[2019-11-18 06:59] LABS: Appearance Urine UA CLEAR; Bilirubin Urine UA NEGATIVE (NEGATIVE); Color Urine UA YELLOW; Glucose Urine UA NEGATIVE (Negative); Ketones Urine UA 1+ (NEGATIVE); Leukocyte Esterase Urine UA NEGATIVE (NEGATIVE); Nitrite Urine UA NEGATIVE (Negative); Occult Blood Urine UA TRACE-LYSED (Negative); Protein Urine UA TRACE (Negative); Specific Gravity Urine UA 1.025 (1.000-1.035); Urobilinogen Urine UA 0.2 E.U./dL (0.2)
[2019-11-18 07:00] LABS: pH Urine UA 5.5 (4.5-8.0)
[2019-11-18 07:04] LABS: Ur Creatinine Normal (Normal); Ur Specific Gravity Normal (Normal); Urine pH Normal (Normal)
[2019-11-18 07:05] LABS: UR Morphine/Opiate cutoff 300 Negative (Negative); Urine Amphetamines Negative (Negative); Urine Barbiturates Negative (Negative); Urine Benzodiazepines Negative (Negative); Urine Cocaine Negative (Negative); Urine MDMA Negative (Negative); Urine Methadone Negative (Negative); Urine Methamphetamines Negative (Negative); Urine Oxycodone Negative (Negative); Urine Phencyclidine Negative (Negative); Urine Tetrahydrocannabinol Negative (Negative); Urine Tricyclic Antidepressant Negative (Negative)
[2019-11-18 07:41] VITALS: BP 119/84; PULSE 74; RESP 24; O2SAT 98
[2019-11-18 07:58] VITALS: BP 119/84; PULSE 72; RESP 15; O2SAT 99
== END 2019-11-18 08:22 | disposition home or self-care (01) ==
PROVIDERS: Emergency Provider Emergency Medicine
DX: R56.9 Unspecified convulsions (principal); F10.239 Alcohol dependence with withdrawal, unspecified
CPT/HCPCS: 36415; 70450; 80053; 80305; 80320; 81003; 82550; 83605; 83735; 84146; 85025; 93005; 96365; 96375; 99284; 99285; J1953; J2060; J2405

== ENCOUNTER 2020-03-22 18:48 | Observation (INO) | payer OTHER, MEDICAID, SELFPAY ==
[2020-03-22 18:52] VITALS: BP 140/101; PULSE 130; RESP 23; TEMP 36.9; O2SAT 100
[2020-03-22 19:30] VITALS: BP 133/93; PULSE 96; RESP 16; O2SAT 97
--- NOTE | 2020-03-22 19:30 | PC.NURSE ---
Pt arrived via EMS. per EMS pt had witnessed tonic clonic seizure by roomate of unk duration. may have had urinary incontinence. h/o known seizure disorder. states she has only had 2 seizures, the first one being in November. Pt does not see neurologist or take any meds. h/o ETOH. was given 1mg versed in ambulance. IV and labs obtained by EMS. NS infusing on arrival. AAOx3, on arrival HR 123 ST, HR 95 NSR at this time. 97% RA. Seizure precautions in place. suction available. at bedside.
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
[2020-03-22 19:44] LABS: Add Manual Diff / Slide Review NO; Basophils Absolute Auto 100 /uL (0-100); Basophils Percent Auto 2.1 % (0-2); Eosinophils Absolute Auto 0 /uL (0-450); Eosinophils Percent Auto 0.2 % (2-4); Hematocrit 42.3 % (36-46); Hemoglobin 14.4 g/dL (12.0-16.0); Lymphocytes Absolute Auto 1900 /uL (1100-4500); Lymphocytes Percent Auto 42.8 % (25-40); Mean Corpuscular Hemoglobin 34.3 PG (26-34); Monocytes Absolute Auto 300 /uL (0-900); Monocytes Percent Auto 6.8 % (3-14); Neutrophils Absolute Auto 2100 /uL (1500-7000); Neutrophils Percent Auto 48.1 % (50-75); Platelet Count 117 X10^3/uL (150-400); Red Blood Cell Count 4.18 X10^6/uL (4.0-5.2); Red Cell Distribution Width 12.8 % (11.6-14.8); White Blood Cell Count 4.5 X10^3/uL (4.5-11.0)
[2020-03-22 19:48] LABS: BUN Creatinine Ratio 8.6 (6-22); Blood Urea Nitrogen 6 mg/dL (7-17); Calcium 9.4 mg/dL (8.4-10.2); Carbon Dioxide 15 mmol/L (22-32); Chloride 90 mmol/L (98-107); Estimated Glomerular Filt Rate > 60.0 mL/min (>60); Ethanol (ETOH) < 10 mg/dL; Glucose 241 mg/dL (70-100); HEMOLYSIS 18 (0-50); Magnesium 1.5 mg/dL (1.6-2.3); Sodium 136 mmol/L (137-145)
--- NOTE | 2020-03-22 19:49 | DI.CT.S_ITS ---
PROCEDURE: CT HEAD/BRAIN WO CON INDICATIONS: LOC. Probable seizure. TECHNIQUE: Noncontrast 4.5 mm thick angled axial sections acquired from the foramen magnum to the vertex, with coronal and sagittal reformats. For radiation dose reduction, the following was used: automated exposure control, adjustment of mA and/or kV according to patient size. COMPARISON: [facility], CT, CT HEAD/BRAIN WO CON, 11/18/2019, 5:46. FINDINGS: Image quality: Excellent. CSF spaces: Basal cisterns are patent. No extra-axial fluid collections. Ventricles are normal in size and shape. Brain: There is a 8 mm hypodensity in the right putamen, most likely caused by a dilated perivascular. No midline shift. No intracranial masses or hemorrhage. Stanton-white matter interface is normal. Skull and face: Calvarium and visualized facial bones are intact, without suspicious lesions. Sinuses: Visualized sinuses and mastoids are clear. IMPRESSION: 1. No acute intracranial abnormalities. 2. A 8 mm hypodensity in the right putamen, most likely caused by a dilated perivascular space. The differential diagnosis is an old infarct which would be unusual in this young patient. Dictated by: Sven Palacios M.D. on 03/22/2020 at 21:03 Approved by: Sven Palacios M.D. on 03/22/2020 at 21:12
[2020-03-22 20:08] LABS: Potassium 2.5 mmol/L (3.4-5.1)
[2020-03-22 20:10] LABS: Prolactin 124.5 ng/mL (3.0-18.6)
[2020-03-22] MEDS: LORazepam 2 MG/ML INJ IV (20:13)
[2020-03-22] MEDS: POTASSIUM CHLORIDE 20 MEQ TAB PO (20:14)
[2020-03-22] MEDS: POTASSIUM CHLORIDE 20 MEQ in SODIUM CHLORIDE 0.9% 250 ML 130 ML IV (20:33)
[2020-03-22 20:42] LABS: HCG Quantitative /Beta subunit < 2.4 mIU/mL
[2020-03-22] MEDS: MAGNESIUM SULFATE 2 GM/50 ML PIGGYBACK IV (21:00)
[2020-03-22 21:50] VITALS: BP 119/78; PULSE 86; RESP 18; O2SAT 97
[2020-03-22 21:57] LABS: Fractionated Inspired Oxygen 21; HCO3 ABG 31 mmol/L (22-26); Oxygen Saturation ABG 98 % (95-100); PCO2 ABG 39.3 mmHg (35-45); PO2 ABG 94 mmHg (80-100); TCO2 ABG 32 mmol/L (21-31); pH ABG 7.51 (7.35-7.45)
[2020-03-22 22:25] VITALS: BP 119/78; PULSE 79; RESP 20; O2SAT 97
[2020-03-22] MEDS: levETIRAcetam 250 MG TABLET 500 MG PO (23:54)
[2020-03-23 00:09] VITALS: BP 147/96; PULSE 97; RESP 18; TEMP 36.8; O2SAT 100
[2020-03-23 00:13] LABS: HEMOLYSIS < 15 (0-50); Magnesium 2.2 mg/dL (1.6-2.3); Potassium 3.5 mmol/L (3.4-5.1)
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
[2020-03-23 00:26] VITALS: BP 122/69; PULSE 89; RESP 14; O2SAT 99
[2020-03-23] MEDS: SODIUM CHLORIDE 0.9% 1,000 ML 100 ML IV (00:26)
[2020-03-23] MEDS: SODIUM CHLORIDE 0.9% FLUSH 10 ML IV (00:26)
[2020-03-23 00:28] VITALS: BMI 17.8
[2020-03-23] MEDS: POTASSIUM CHLORIDE 20 MEQ TAB 40 MEQ PO (00:46)
[2020-03-23] MEDS: THIAMINE 100 MG TABLET PO ×2 (00:46→08:28)
--- NOTE | 2020-03-23 02:23 | PC.NURSE ---
Patient admitted to room 209 from ER per stretcher at 0009. Ambulated from stretcher into room and then to/from bathroom; shaky on feet. Is alert and oriented. Breath sounds CTA with RA sat of 100%. HRR w/telemetry reading of SR. BP elevated at 147/96. Denies nausea. BT present and abdomen is soft. Denies dysuria, frequency or urgency. Able to move self in bed. Bruising noted on left forearm, left hip and bilateral LE. Has an abrasion on medial aspect of right 4th toe. Seizure pads placed on bed. CIWA score is 1 for mild headache and slight tremor. Bilateral calf SCD's applied. Reported she fell off couch during seizure last evening which is what brought her to the ER. States she has 1-2 drinks/day with last drink being 3 days ago. Fall risk score is high and bed alarm is activated. Oriented to bed controls and call light.
[2020-03-23 03:28] VITALS: BMI 17.8
[2020-03-23 03:29] VITALS: BP 114/75; PULSE 64; RESP 18; TEMP 36.9; O2SAT 97
[2020-03-23 07:00] VITALS: O2SAT 100
[2020-03-23 07:23] LABS: BUN Creatinine Ratio 12.5 (6-22); Blood Urea Nitrogen 6 mg/dL (7-17); Calcium 8.8 mg/dL (8.4-10.2); Carbon Dioxide 28 mmol/L (22-32); Chloride 99 mmol/L (98-107); Estimated Glomerular Filt Rate > 60.0 mL/min (>60); Glucose 94 mg/dL (70-100); HEMOLYSIS < 15 (0-50); Magnesium 2.1 mg/dL (1.6-2.3); Potassium 3.4 mmol/L (3.4-5.1); Sodium 134 mmol/L (137-145)
[2020-03-23 08:00] VITALS: BP 126/95; PULSE 95; RESP 16; TEMP 36.6; O2SAT 100
[2020-03-23] MEDS: levETIRAcetam 250 MG TABLET 500 MG PO (08:28)
[2020-03-23] MEDS: ACETAMINOPHEN 325 MG TABLET 650 MG PO (08:28)
[2020-03-23] MEDS: FOLIC ACID 1 MG TABLET PO (08:28)
[2020-03-23] MEDS: MULTIVITAMIN 1 TABLET 1 TAB PO (08:28)
--- NOTE | 2020-03-23 09:00 | DI.MRI.S_ITS ---
PROCEDURE: MR HEAD/BRAIN WO/W CON INDICATIONS: Abnormality on CT, old TBI TECHNIQUE: Noncontrast axial T1 spin echo, axial T2 fast spin echo, sagittal and axial FLAIR, coronal T2 fast spin echo, axial gradient echo, axial diffusion and ADC through the brain. After the administration of contrast, axial and coronal 3D VIBE or T1 spin echo with fat saturation through the brain. COMPARISON: Located Within [facility], CT, CT HEAD/BRAIN WO CON, 03/22/2020, 20:42. Located Within [facility], CT, CT HEAD/BRAIN WO CON, 11/18/2019, 5:46. FINDINGS: Image quality: Excellent. CSF Spaces: Basal cisterns are patent. No extra-axial fluid collections. Ventricles are normal in size and shape. Note is again made of a mildly dilated perivascular space within the deep white matter below the insular cortex of the right hemisphere, present without globe changer time from the earliest available CT scanning that includes this area, 11/18/19. This measures approximately 8 mm in maximal dimension. Brain: No midline shift. No intracranial bleeds or masses. No abnormal intracranial enhancement. The brainstem appears normal. Diffusion-weighted images demonstrate no acute ischemic insults. No chronic ischemic insults. Normal intravascular flow voids are present. Incidental note is made of a mildly prominent draining vein crossing the right cerebellar hemisphere as a normal variant. No associated hemosiderin deposition. Skull and face: Calvarial marrow is normal in signal. Orbits appear normal. Sinuses: Sinuses and mastoids appear clear. IMPRESSION: Source of suspected seizure activity is not seen, no enhancing lesion is identified. By this examination no acute or subacute ischemic injury is suspected. There is stable appearance of a mildly prominent perivascular space within the deep white matter of the right hemisphere, and also a normal anatomic variant mildly prominent draining vein crossing the right cerebellar hemisphere. No associated hemosiderin deposition, no followup recommended. Dictated by: Noel Sutherland M.D. on 03/23/2020 at 8:44 Approved by: Noel Sutherland M.D. on 03/23/2020 at 8:49
--- NOTE | 2020-03-23 12:13 | PC.NURSE ---
Pt is dressed and ready for discharge home with Spouse. Went over d/c instructions with Pt and Spouse-discussed d/c meds, time of last dose, stroke education, diet (electrolyte management) preventing dehydration, and decreasing alcohol consumption. Pt has a follow up appointment scheduled at [facility]. Pt denies further questions and was taken to [facility] via w/c by RN with all belongings.
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
== END 2020-03-23 12:17 | disposition home or self-care (01) ==
LOC: ED 19:42 → AC 03-23 02:32
PROVIDERS: Admitting Provider Nurse Practitioner Family; Emergency Provider Emergency Medicine; Referring Provider Emergency Medicine; Visit Provider Nurse Practitioner Family
DX: G40.909 Epilepsy, unspecified, not intractable, without status epilepticus (principal); E87.6 Hypokalemia; E83.42 Hypomagnesemia; F10.21 Alcohol dependence, in remission; Z87.820 Personal history of traumatic brain injury; F41.9 Anxiety disorder, unspecified
CPT/HCPCS: 36415; 36600; 70450; 70553; 80048; 80320; 82805; 83735; 84132; 84146; 84702; 85025; 93005; 96361; 96365; 96366; 96374; 96375; 99284; 99291; G0378; J2060; J3480

== ENCOUNTER → 2020-04-21 12:57 | Outpatient (CLI) | payer OTHER, MEDICAID, SELFPAY ==
[2020-03-23 03:28] VITALS: BMI 17.8
[2020-04-21 13:50] LABS: Free T3, Triiodothyronine Free 5.31 pg/mL (2.77-5.27); Free T4, Direct Thyroxine 0.82 ng/dL (0.78-2.19)
[2020-04-21 14:04] LABS: Thyroid Stimulating Hormone 2.46 uIU/mL (0.47-4.68)
[2020-04-21 14:12] LABS: Alanine Aminotransferase 166 IU/L (<35); Albumin 4.4 g/dL (3.5-5.0); Albumin Globulin Ratio 1.4 (1.0-2.8); Alkaline Phosphatase 114 U/L (38-126); Aspartate Aminotransferase 120 IU/L (14-36); BUN Creatinine Ratio 22.7 (6-22); Bilirubin Total 0.4 mg/dL (0.2-1.3); Blood Urea Nitrogen 10 mg/dL (7-17); Calcium 9.7 mg/dL (8.4-10.2); Carbon Dioxide 28 mmol/L (22-32); Chloride 101 mmol/L (98-107); Estimated Glomerular Filt Rate > 60.0 mL/min (>60); Globulin 3.1 g/dL (1.7-4.1); Glucose 99 mg/dL (70-100); HEMOLYSIS < 15 (0-50); Potassium 3.7 mmol/L (3.4-5.1); Sodium 136 mmol/L (137-145); Total Protein 7.5 g/dL (6.3-8.2)
== END ==
PROVIDERS: PCP Nurse Practitioner; Referring Provider Nurse Practitioner; Visit Provider Nurse Practitioner
DX: E83.42 Hypomagnesemia (principal); E87.6 Hypokalemia; F10.11 Alcohol abuse, in remission; R56.9 Unspecified convulsions; R79.89 Other specified abnormal findings of blood chemistry
CPT/HCPCS: 36415; 80053; 84439; 84443; 84481

== ENCOUNTER 2020-05-17 20:50 | Emergency (ER) | payer OTHER, MEDICAID, SELFPAY ==
[2020-05-17 20:53] VITALS: BP 168/101; PULSE 100; RESP 20; TEMP 36.9; O2SAT 98; BMI 20.7
--- NOTE | 2020-05-17 21:31 | ED_ITS ---
HPI - Animal Bite General Chief Complaint: Animal Bite Stated Complaint: dog bite Time Seen by Provider: 05/17/20 21:08 Source: patient Mode of arrival: Ambulatory Limitations: no limitations History of Present Illness HPI narrative: 34-year-old female smoker with noncontributory medical history presents with family in the chief complaint of a dog bite to her left forearm with a puncture wound and minimal bleeding. Her tetanus is current. Her dog and another were starting to become aggressive with 1 another and she to separate them on the other dog bit her arm. She has some pain and minimal bleeding visible wall MD complaint: animal bite Onset (ago): minute(s) Animal: dog Description of animal: unknown animal Mechanism: bite Location - Extremities: Left: arm Pain description: constant Context: animals fighting Associated symptoms: bleeding Treatments prior to arrival: wound dressing(s) Related Data Patient tetanus UTD: Yes Previous Rx's Medication Instructions Recorded levetiracetam 500 mg tablet 500 mg PO BID #90 tab 03/30/20 buspirone 5 mg tablet 5 mg PO BID #60 tab 04/21/20 fluconazole 100 mg tablet 100 mg PO DAILY #2 tab 04/21/20 amoxicillin-pot clavulanate 1 tab PO BID #20 tab 05/17/20 [Augmentin] Allergies Allergy/AdvReac Type Severity Reaction Status Date / Time hydroxyzine Allergy Intermediate Rash Verified 04/21/20 14:40 Review of Systems Constitutional Constitutional: Denies chills, Denies fatigue, Denies fever(s), Denies frequent falls, Denies lethargy and Denies weakness Eyes Eyes: Denies change in vision, Denies eye discharge, Denies irritation and Denies loss of vision ENT Ears, Nose, Mouth, and Throat: Denies change in voice, Denies dizziness, Denies neck pain, Denies sore throat and Denies throat swelling Cardiovascular Cardiovascular: Denies chest pain, Denies irregular heart rhythm, Denies lightheadedness, Denies palpitations, Denies dyspnea, Denies dyspnea on exertion and Denies orthopnea Respiratory Respiratory: Denies cough, Denies dyspnea, Denies dyspnea on exertion and Denies wheezing Gastrointestinal Gastrointestinal: Denies abdominal pain, Denies change in bowel habits, Denies diarrhea, Denies nausea and Denies vomiting Musculoskeletal Musculoskeletal: Denies neck pain and Denies numbness Integumentary/Breasts Skin/Breast: Denies pruritus, Denies erythema, Denies rash and Reports wounds Neurologic Neurologic: Denies behavioral changes, Denies confusion, Denies dizziness, Denies frequent falls, Denies loss of vision, Denies numbness and Denies weakness Psychiatric Psychiatric: Denies anxiety, Denies behavioral changes, Denies confusion, Denies depression, Denies homicidal ideation and Denies suicidal ideation Endocrine Endocrine: Denies fatigue, Denies flushing and Denies palpitations Hematologic/Lymphatic Hematologic/Lymphatic: Denies easy bruising Allergic/Immunologic Allergic/Immunologic: Denies urticaria, Denies throat swelling and Denies wheezing Patient History Medical History Anxiety and depression (Acute) Breast self examination education, encounter for (Acute) Elevated LFTs (Acute) History of alcohol abuse (Chronic) Medical history unknown (Acute) Normal breast exam (Acute) Right foot injury (Acute) Seizure (Acute) TBI (traumatic brain injury) (Acute) Vaginal yeast infection (Acute) Well woman exam (Acute) Surgical History Right arm fracture (Acute) Family History Mother Breast cancer in female Father CVA (cerebral vascular accident) Social History household members: spouse, children and friend(s) Smoking Status: Former smoker alcohol intake: current Smoking Status: Former smoker alcohol intake frequency: 3 or more drinks per day Substance Use Type: does not use Exam Narrative Exam Narrative: GEN: AOx3 and in mild distress EYES: Pupils are equal, round, and reactive to light and accommodation. Extraoccular muscles are intact bilaterally. There is no subconjunctival hemorrhage or exudate. CHEST: Lungs are clear to auscultation bilaterally and free of wheezes, rales, or rhonchi. Heart rate is regular rhythm, there are no murmurs, clicks, rubs, or gallops. There is no chest wall tenderness. ABD: Abdomen is soft and nontender. There is no guarding or rebound. Bowel sounds are normal in all 4 quadrants. There is no mass or organomegaly. EXT: Full painless ROM of all extremities with no loss of sensation or strength. SKIN: 2cm deep puncture with exposed subQ fat on volar left fore arm. Minimal active bleeding. Otherwise warm, pink, and dry. No erythema or rash Initial Vital Signs Initial Vital Signs: Vital Signs Temperature 98.4 F 05/17/20 20:53 Pulse Rate 100 H 05/17/20 20:53 Respiratory Rate 20 05/17/20 20:53 Blood Pressure 168/101 H 05/17/20 20:53 Pulse Oximetry 98 05/17/20 20:53 Procedures Laceration Repair Laceration 1: Site: upper extremity Side (If applicable): left Size (cm): 2 Description: linear and clean Depth: involves muscle layer Local Anesthetic: bupivacaine 0.25% and with epi Amount of anesthesia used (mL): 6 Pre-repair: wound explored Skin layer closed with: nylon Size (cm): 4-0 Number of sutures: 3 Technique: simple, interrupted Subcutaneous layer closed with: vicryl Size: 4-0 Technique: simple, interrupted Course Orders Ordered: ED Orders 05/17/20 21:36 XR forearm LT 2V Stat Discontinued Medications Acetaminophen (Tylenol) 975 mg PO NOW ONE Stop: 05/17/20 21:37 Last Admin: 05/17/20 22:19 Dose: 975 mg Documented by: JAYDA Amoxicillin/Clavulanate Potassium (Augmentin 875-125 Mg) 1 tab PO NOW ONE Stop: 05/17/20 21:37 Last Admin: 05/17/20 22:15 Dose: Not Given Documented by: JAYDA Amoxicillin/Clavulanate Potassium (Augmentin 875-125 Mg) 1 tab PO NOW ONE Stop: 05/17/20 22:16 Last Admin: 05/17/20 22:19 Dose: 1 tab Documented by: JAYDA Bupivacaine HCl/Epinephrine Bitart (Sensorcaine 0.5% W/ Epi (Pf)) 5 ml SUBCUT NOW ONE Stop: 05/17/20 21:37 Last Admin: 05/17/20 22:19 Dose: 5 ml Documented by: JAYDA Vital Signs Vital signs: Vital Signs - 8 hr 05/17/20 20:53 Temperature 98.4 F Pulse Rate 100 H Respiratory Rate 20 Blood Pressure 168/101 H Pulse Oximetry 98 MDM - Animal Bite Imaging Data Extremity x-ray #1: Attestation: I personally reviewed and interpreted this imaging study as follows: My Impression: No fx or FB Discharge Plan Departure Patient Disposition: Home Clinical Impression: Dog bite of extremity Discharge Date/Time: 05/17/20 22:50 Instructions: DI for Animal Bites Activity Restrictions/Additional Instructions: Please keep the wound clean and dry to the best of your ability. Please monitor for signs of infection such as redness to the skin or increasing pain. Have the sutures removed by your doctor in about 7 days. If you are unable to get into your doctor, we would be happy to remove the sutures in that same timefram e. Prescriptions: New amoxicillin-pot clavulanate [Augmentin] 875-125 mg tablet 1 tab PO BID Qty: 20 RF: 0 No Action levetiracetam [Keppra] 500 mg tablet 500 mg PO BID Qty: 90 RF: 3 buspirone 5 mg tablet 5 mg PO BID Qty: 60 RF: 3 fluconazole [Diflucan] 100 mg tablet 100 mg PO DAILY Qty: 2 RF: 0 Referrals: Domenica Crawford ARNP [Primary Care Provider] -
--- NOTE | 2020-05-17 21:36 | DI.RAD.S_ITS ---
PROCEDURE: XR FOREARM RT 2V INDICATIONS: dog bite TECHNIQUE: 2 views of the forearm were acquired. COMPARISON: None. FINDINGS: Bones: No fractures or dislocations. No suspicious bony lesions. Soft tissues: No suspicious soft tissue calcifications or masses. No soft tissue gas or foreign bodies. IMPRESSION: No fracture. No osseous lesion. If symptoms and/or clinical suspicion for pathology persists, further assessment with repeat radiographs (7-10 days) or advanced imaging (e.g. CT, MRI or bone scan) may be helpful. Dictated by: Chandrika Ledbetter MD, PhD on 05/18/2020 at 8:48 Approved by: Chandrika Ledbetter MD, PhD on 05/18/2020 at 8:49
[2020-05-17] MEDS: BUPIVACAINE 0.5% W/ EPI (PF) 30 ML VIAL 5 ML SUBCUT (22:19)
[2020-05-17] MEDS: AMOXICILLIN/CLAV 875/125 MG 1 TAB PO (22:19)
[2020-05-17] MEDS: ACETAMINOPHEN 325 MG TABLET 975 MG PO (22:19)
== END 2020-05-17 22:50 | disposition home or self-care (01) ==
PROVIDERS: Emergency Provider Emergency Medicine; PCP Nurse Practitioner; Referring Provider Nurse Practitioner
DX: S51.852A Open bite of left forearm, initial encounter (principal); W54.0XXA Bitten by dog, initial encounter
CPT/HCPCS: 13120; 73090; 99283

== ENCOUNTER 2020-11-05 19:43 | Emergency (ER) | payer OTHER, MEDICAID, SELFPAY ==
[2020-11-05 19:52] VITALS: BP 120/56; PULSE 88; RESP 18; TEMP 36.7; O2SAT 97
[2020-11-05 20:00] VITALS: PULSE 101; O2SAT 98
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
[2020-11-05 20:01] VITALS: BP 151/70; PULSE 101; O2SAT 97
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
[2020-11-05 20:20] LABS: UR Morphine/Opiate cutoff 300 Negative (Negative); Ur Creatinine Normal (Normal); Ur Specific Gravity Normal (Normal); Urine Amphetamines Negative (Negative); Urine Barbiturates Negative (Negative); Urine Benzodiazepines Negative (Negative); Urine Cocaine Negative (Negative); Urine MDMA Negative (Negative); Urine Methadone Negative (Negative); Urine Methamphetamines Negative (Negative); Urine Oxycodone Negative (Negative); Urine Phencyclidine Negative (Negative); Urine Tetrahydrocannabinol Negative (Negative); Urine Tricyclic Antidepressant Negative (Negative); Urine pH Normal (Normal)
[2020-11-05 20:25] LABS: Add Manual Diff / Slide Review NO; Basophils Absolute Auto 0 /uL (0-100); Basophils Percent Auto 0.4 % (0-2); Eosinophils Absolute Auto 0 /uL (0-450); Eosinophils Percent Auto 0.1 % (2-4); Hematocrit 39.9 % (36-46); Hemoglobin 12.8 g/dL (12.0-16.0); Lymphocytes Absolute Auto 2900 /uL (1100-4500); Lymphocytes Percent Auto 46.3 % (25-40); Mean Corpuscular HGB Conc 32.1 % (30-36); Mean Corpuscular Hemoglobin 30.5 PG (26-34); Mean Corpuscular Volume 94.8 fL (80-100); Monocytes Absolute Auto 300 /uL (0-900); Monocytes Percent Auto 4.8 % (3-14); Neutrophils Absolute Auto 3100 /uL (1500-7000); Neutrophils Percent Auto 48.4 % (50-75); Platelet Count 658 X10^3/uL (150-400); Red Blood Cell Count 4.21 X10^6/uL (4.0-5.2); Red Cell Distribution Width 15.8 % (11.6-14.8); White Blood Cell Count 6.3 X10^3/uL (4.5-11.0)
[2020-11-05 20:34] LABS: BUN Creatinine Ratio 10.3 (6-22); Blood Urea Nitrogen 4 mg/dL (7-17); Calcium 8.8 mg/dL (8.4-10.2); Carbon Dioxide 24 mmol/L (22-32); Chloride 107 mmol/L (98-107); Estimated Glomerular Filt Rate > 60.0 mL/min (>60); Glucose 105 mg/dL (70-100); HEMOLYSIS < 15 (0-50); Potassium 3.4 mmol/L (3.4-5.1); Sodium 145 mmol/L (137-145)
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
[2020-11-05] MEDS: levETIRAcetam 250 MG TABLET 500 MG PO (22:05)
[2020-11-05 23:18] LABS: Ethanol (ETOH) 346 mg/dL
[2020-11-05 23:21] LABS: Prolactin 88.3 ng/mL (3.0-18.6)
[2020-11-05] MEDS: BACITRACIN OINT 0.9 GM PCKT 2 APPLIC TOP (23:22)
[2020-11-05 23:44] VITALS: BP 110/71; PULSE 95; RESP 18; O2SAT 97
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
== END 2020-11-05 23:41 | disposition home or self-care (01) ==
PROVIDERS: Emergency Provider Emergency Medicine; PCP Nurse Practitioner
DX: R41.82 Altered mental status, unspecified (principal); S09.90XA Unspecified injury of head, initial encounter; F10.129 Alcohol abuse with intoxication, unspecified; Y90.8 Blood alcohol level of 240 mg/100 ml or more; S60.511A Abrasion of right hand, initial encounter; S60.512A Abrasion of left hand, initial encounter; Z00.8 Encounter for other general examination; Z86.69 Personal history of other diseases of the nervous system and sense organs; V89.2XXA Person injured in unspecified motor-vehicle accident, traffic, initial encounter
CPT/HCPCS: 36415; 70450; 71046; 72170; 74019; 80048; 80305; 80320; 81025; 84146; 85025; 99284

== ENCOUNTER 2021-01-12 09:22 | Emergency (ER) | payer OTHER, MEDICAID, SELFPAY ==
[2021-01-12] VITALS (24 sets, daily range): BP systolic 110–161; BP diastolic 62–106; PULSE 74–127; RESP 12–46; TEMP 37.1; O2SAT 94–99; BMI 20.1
--- NOTE | 2021-01-12 09:45 | ED_ITS ---
HPI - Seizure General Chief Complaint: Seizure Stated Complaint: hx of seizures/had 3 episodes today Time Seen by Provider: 01/12/21 09:45 Source: patient and old records reviewed Mode of arrival: Ambulatory Limitations: no limitations History of Present Illness HPI Narrative: This is a 35-year-old female who comes to the emergency department with complaint of seizure activity. Patient states she had 3 seizures last evening. She states that she typically has tingling as her prodrome and then develops what sounds like tonic-clonic generalized seizures. Patient states that they were witnessed by her roommates and family. She believes she had 3. She is states they typically last for 15-30 minutes. She states she does have an abrasion on her inner lip. Patient denies any fevers or chills. She does have some nausea and has been vomiting for the last several days. She has been taking her Keppra which was increased from 500 to a 1000 mg b.i.d. patient states when she has a bowel movement of diarrhea like. No acute urinary symptoms. She has not had any incontinence. Patient states that she does drink alcohol, most days of the week is what she describes in typically either a bottle of wine or a bottle of vodka depending on how bad her day is. Patient states she has had withdrawals in the past and has had withdraws in the past and that she has even had hallucinations. She is unsure if she has ever had seizures from her withdraws and states she has never been told this or diagnosed with this specifically. She does have history of anxiety and depression she endorses some suicidal ideation particularly when toxic aided but states she does not right now. She states she feels safe, contracts for safety and does not have any intent to harm herself and defers discussion with social Work. Patient states she is taking her Keppra as well as a antidepressant twice daily. She has had orthopedic surgery on her right upper extremity in her right foot. She denies any tobacco or illicit or recreational drugs. She did see a neurologist in November in Dr. Darian Saldaña. Related Data Home Medications Medication Instructions Recorded Confirmed levetiracetam 500 mg tablet 1,000 mg PO BID tab 11/09/20 Previous Rx's Medication Instructions Recorded buspirone 5 mg tablet 5 mg PO BID #180 tab 09/30/20 cephalexin 500 mg PO BID #10 cap 01/12/21 Allergies Allergy/AdvReac Type Severity Reaction Status Date / Time hydroxyzine Allergy Intermediate Rash Verified 01/12/21 09:34 Review of Systems Review of Systems ROS Unobtainable: All systems reviewed & are unremarkable except as noted in HPI and below Patient History Medical History 39 weeks gestation of Anxiety and depression Breast self examination education, encounter for Elevated LFTs History of alcohol abuse Medical history unknown Normal breast exam Right foot injury Seizure SGA (small for gestational age), , affecting care of mother, antepartum TBI (traumatic brain injury) Vaginal yeast infection Well woman exam Surgical History Right arm fracture Family History Mother Breast cancer in female Father CVA (cerebral vascular accident) Social History household members: spouse, children and friend(s) Smoking Status: Former smoker alcohol intake: current Smoking Status: Former smoker alcohol intake frequency: 3 or more drinks per day Alcohol type: wine Substance Use Type: does not use Exam Narrative Exam Narrative: GEN: Thin female, alert and oriented x 3, patient appears to be in mild distress. Patient is sitting up in the bed cross linking. HEENT: Atraumatic, pupils are equal round reactive to light, extraocular movements are intact, nares are clear, TMs are clear with no fluid, no hemotympanum. Throat is clear without any exudates, erythema, tonsillar enlargement or uvular deviation, there is some mild erythema on the inner lower lip no obvious laceration or abrasions noted. HEART: Tachycardic but Regular rate and rhythm without murmur, clicks, rubs. LUNGS:Lungs clear to auscultation, no wheezes, rales, crackles, chest moves symmetrically ABD:bowel sounds normal, soft, non-tender, no guarding, rebound, rigidity, no masses noted, no hepatosplenomegaly :No CVA tenderness MSCL: Non-tender, no muscle atrophy, muscles strength 5/5 upper and lower extremities, full range of motion, normal gait NEURO:CN 2-12 intact, sensation normal. No tremors noted. SKIN: No rash or other skin changes appreciated. Initial Vital Signs Initial Vital Signs: Vital Signs Temperature 98.8 F 01/12/21 09:28 Pulse Rate 114 H 01/12/21 09:28 Respiratory Rate 18 01/12/21 09:28 Blood Pressure 161/91 H 01/12/21 09:28 Pulse Oximetry 98 01/12/21 09:28 Scores GCS Otley coma scale eye opening: Spontaneous Nahun coma scale verbal response: Orientated Nahun coma scale motor response: Obey commands Nahun coma scale total score: 15 Course Orders Ordered: Discontinued Medications Cephalexin HCl (Cephalexin 250 Mg Capsule) 500 mg PO NOW ONE Stop: 01/12/21 17:11 Last Admin: 01/12/21 17:25 Dose: 500 mg Documented by: ILDA Sodium Chloride (Normal Saline 0.9%) 1,000 mls @ 1,000 mls/hr IV BOLUS ONE Stop: 01/12/21 10:49 Last Infusion: 01/12/21 11:49 Dose: 0 mls/hr Documented by: Admin: 01/12/21 09:57 Dose: 1,000 mls/hr Documented by: MATT Levetiracetam 1,700 mg/ Sodium (Chloride) 117 mls @ 468 mls/hr IV NOW ONE Stop: 01/12/21 09:59 Last Infusion: 01/12/21 11:01 Dose: 0 mls/hr Documented by: Admin: 01/12/21 10:39 Dose: 468 mls/hr Documented by: MATT Lorazepam (Lorazepam 2 Mg/Ml Inj) 1 mg IV NOW ONE Stop: 01/12/21 09:45 Last Admin: 01/12/21 09:49 Dose: 1 mg Documented by: MATT Ondansetron HCl (Ondansetron 4 Mg/2 Ml Inj) 4 mg IV Q6HR PRN PRN Reason: Nausea And Vomiting Last Admin: 01/12/21 17:25 Dose: 4 mg Documented by: ILDA Reevaluation(s) Time: 12:18 Reevaluation #2: Patient awake. She is talking with social work currently. She states that she saw Dr. Peña with neurology but their office states they have never followed with this patient before. Patient has not seen Neurology recently so perhaps she had a very remote visit and has fallen off their list. Time: 13:39 Vital Signs Vital signs: Vital Signs - 8 hr 01/12/21 11:00 01/12/21 11:30 01/12/21 12:00 Pulse Rate 81 82 80 Respiratory Rate 24 21 21 Blood Pressure 119/75 110/63 113/73 Pulse Oximetry 94 94 95 01/12/21 12:30 01/12/21 13:00 01/12/21 13:30 Pulse Rate 84 85 111 H Respiratory Rate 12 17 19 Blood Pressure 110/65 115/73 123/85 Pulse Oximetry 95 95 97 01/12/21 14:00 01/12/21 14:01 01/12/21 14:30 Pulse Rate 93 H 100 H 80 Respiratory Rate 22 26 H 22 Blood Pressure 126/81 114/75 Pulse Oximetry 98 99 97 01/12/21 15:00 01/12/21 15:30 01/12/21 16:00 Pulse Rate 104 H 87 88 Respiratory Rate 18 21 17 Blood Pressure 114/76 124/75 111/62 Pulse Oximetry 97 96 97 01/12/21 16:30 01/12/21 16:40 01/12/21 17:01 Pulse Rate 87 87 Respiratory Rate 32 H Blood Pressure 123/78 Pulse Oximetry 97 99 01/12/21 17:02 01/12/21 17:30 01/12/21 18:00 Pulse Rate 91 H 83 74 Respiratory Rate 17 16 Blood Pressure 118/62 124/76 122/84 Pulse Oximetry 99 98 97 01/12/21 18:30 Pulse Rate 81 Respiratory Rate Blood Pressure 119/82 Pulse Oximetry 97 MDM - Seizure Lab Data Attestation: I reviewed the patient's lab results. Result diagrams: 01/12/21 09:39 01/12/21 09:39 Labs: Lab Results 01/12/21 01/12/21 01/12/21 Range/Units 09:39 09:39 09:58 WBC 7.2 (4.5-11.0) X10^3/uL RBC 4.52 (4.0-5.2) X10^6/uL Hgb 14.3 (12.0-16.0) g/dL Hct 41.8 (36-46) % MCV 92.4 (80-100) fL MCH 31.7 (26-34) PG MCHC 34.3 (30-36) % RDW 13.5 (11.6-14.8) % Plt Count 253 (150-400) X10^3/uL Neut % (Auto) 59.8 (50-75) % Lymph % (Auto) 35.9 (25-40) % [place] % (Auto) 3.2 (3-14) % Eos % (Auto) 0.1 L (2-4) % Baso % (Auto) 1.0 (0-2) % Neut # (Auto) 4300 (5383-5318) /uL Lymph # (Auto) 2600 (8060-8677) /uL [place] # (Auto) 200 (0-900) /uL Eos # (Auto) 0 (0-450) /uL Baso # (Auto) 100 (0-100) /uL Sodium 141 (137-145) mmol/L Potassium 3.5 (3.4-5.1) mmol/L Chloride 99 (98-107) mmol/L Carbon Dioxide 22 (22-32) mmol/L BUN 7 (7-17) mg/dL Creatinine 0.49 L (0.52-1.04) mg/dL Estimated GFR > 60.0 (>60) mL/min BUN/Creatinine Ratio 14.3 (6-22) Glucose 102 H (70-100) mg/dL Calcium 9.0 (8.4-10.2) mg/dL Magnesium 1.9 (1.6-2.3) mg/dL Total Bilirubin 0.6 (0.2-1.3) mg/dL Conjugated Bilirubin 0.0 (0.0-0.3) md/dL Unconjugated Bilirubin 0.6 (0.0-1.1) mg/dL AST 106 H (14-36) IU/L ALT 86 H (<35) IU/L Alkaline Phosphatase 134 H (38-126) U/L Total Protein 9.1 H (6.3-8.2) g/dL Albumin 5.0 (3.5-5.0) g/dL Globulin 4.1 (1.7-4.1) g/dL Albumin/Globulin Ratio 1.2 (1.0-2.8) Lipase 243 (23-300) U/L TSH (0.47-4.68) uIU/mL Prolactin 40.0 H (3.0-18.6) ng/mL Urine RBC (0-5/HPF) Urine WBC (0-5/HPF) Ur Squamous Epith Cells (0-5/HPF) Urine Bacteria (None) Ur Culture Indicated? U Opiates 300ng/mL cut (Negative) Ur Oxycodone Screen (Negative) Urine Methadone Screen (Negative) Ur Barbiturates Screen (Negative) U Tricyclic Antidepress (Negative) Ur Phencyclidine Scrn (Negative) Ur Amphetamines Screen (Negative) U Methamphetamines Scrn (Negative) Ur MDMA Scrn (Ecstasy) (Negative) U Benzodiazepines Scrn (Negative) Urine Cocaine Screen (Negative) U Marijuana (THC) Screen (Negative) Ethyl Alcohol 341 H ( - 10) mg/dL SARS-CoV-2 (PCR) (Negative) 01/12/21 01/12/21 01/12/21 Range/Units 09:58 10:15 17:00 WBC (4.5-11.0) X10^3/uL RBC (4.0-5.2) X10^6/uL Hgb (12.0-16.0) g/dL Hct (36-46) % MCV (80-100) fL MCH (26-34) PG MCHC (30-36) % RDW (11.6-14.8) % Plt Count (150-400) X10^3/uL Neut % (Auto) (50-75) % Lymph % (Auto) (25-40) % [place] % (Auto) (3-14) % Eos % (Auto) (2-4) % Baso % (Auto) (0-2) % Neut # (Auto) (7148-3856) /uL Lymph # (Auto) (0220-6729) /uL [place] # (Auto) (0-900) /uL Eos # (Auto) (0-450) /uL Baso # (Auto) (0-100) /uL Sodium (137-145) mmol/L Potassium (3.4-5.1) mmol/L Chloride (98-107) mmol/L Carbon Dioxide (22-32) mmol/L BUN (7-17) mg/dL Creatinine (0.52-1.04) mg/dL Estimated GFR (>60) mL/min BUN/Creatinine Ratio (6-22) Glucose (70-100) mg/dL Calcium (8.4-10.2) mg/dL Magnesium (1.6-2.3) mg/dL Total Bilirubin (0.2-1.3) mg/dL Conjugated Bilirubin (0.0-0.3) md/dL Unconjugated Bilirubin (0.0-1.1) mg/dL AST (14-36) IU/L ALT (<35) IU/L Alkaline Phosphatase (38-126) U/L Total Protein (6.3-8.2) g/dL Albumin (3.5-5.0) g/dL Globulin (1.7-4.1) g/dL Albumin/Globulin Ratio (1.0-2.8) Lipase (23-300) U/L TSH 1.34 (0.47-4.68) uIU/mL Prolactin (3.0-18.6) ng/mL Urine RBC (0-5/HPF) Urine WBC (0-5/HPF) Ur Squamous Epith Cells (0-5/HPF) Urine Bacteria (None) Ur Culture Indicated? U Opiates 300ng/mL cut Negative (Negative) Ur Oxycodone Screen Negative (Negative) Urine Methadone Screen Negative (Negative) Ur Barbiturates Screen Negative (Negative) U Tricyclic Antidepress Negative (Negative) Ur Phencyclidine Scrn Negative (Negative) Ur Amphetamines Screen Negative (Negative) U Methamphetamines Scrn Negative (Negative) Ur MDMA Scrn (Ecstasy) Negative (Negative) U Benzodiazepines Scrn Negative (Negative) Urine Cocaine Screen Negative (Negative) U Marijuana (THC) Screen Negative (Negative) Ethyl Alcohol ( - 10) mg/dL SARS-CoV-2 (PCR) Negative (Negative) 01/12/21 Range/Units 17:00 WBC (4.5-11.0) X10^3/uL RBC (4.0-5.2) X10^6/uL Hgb (12.0-16.0) g/dL Hct (36-46) % MCV (80-100) fL MCH (26-34) PG MCHC (30-36) % RDW (11.6-14.8) % Plt Count (150-400) X10^3/uL Neut % (Auto) (50-75) % Lymph % (Auto) (25-40) % [place] % (Auto) (3-14) % Eos % (Auto) (2-4) % Baso % (Auto) (0-2) % Neut # (Auto) (4355-0248) /uL Lymph # (Auto) (3922-2326) /uL [place] # (Auto) (0-900) /uL Eos # (Auto) (0-450) /uL Baso # (Auto) (0-100) /uL Sodium (137-145) mmol/L Potassium (3.4-5.1) mmol/L Chloride (98-107) mmol/L Carbon Dioxide (22-32) mmol/L BUN (7-17) mg/dL Creatinine (0.52-1.04) mg/dL Estimated GFR (>60) mL/min BUN/Creatinine Ratio (6-22) Glucose (70-100) mg/dL Calcium (8.4-10.2) mg/dL Magnesium (1.6-2.3) mg/dL Total Bilirubin (0.2-1.3) mg/dL Conjugated Bilirubin (0.0-0.3) md/dL Unconjugated Bilirubin (0.0-1.1) mg/dL AST (14-36) IU/L ALT (<35) IU/L Alkaline Phosphatase (38-126) U/L Total Protein (6.3-8.2) g/dL Albumin (3.5-5.0) g/dL Globulin (1.7-4.1) g/dL Albumin/Globulin Ratio (1.0-2.8) Lipase (23-300) U/L TSH (0.47-4.68) uIU/mL Prolactin (3.0-18.6) ng/mL Urine RBC None seen (0-5/HPF) Urine WBC 5-10/hpf H (0-5/HPF) Ur Squamous Epith Cells 0-1 /hpf (0-5/HPF) Urine Bacteria Many (>30) H (None) Ur Culture Indicated? Specimen cultured U Opiates 300ng/mL cut (Negative) Ur Oxycodone Screen (Negative) Urine Methadone Screen (Negative) Ur Barbiturates Screen (Negative) U Tricyclic Antidepress (Negative) Ur Phencyclidine Scrn (Negative) Ur Amphetamines Screen (Negative) U Methamphetamines Scrn (Negative) Ur MDMA Scrn (Ecstasy) (Negative) U Benzodiazepines Scrn (Negative) Urine Cocaine Screen (Negative) U Marijuana (THC) Screen (Negative) Ethyl Alcohol ( - 10) mg/dL SARS-CoV-2 (PCR) (Negative) Point of Care Testing Test Results Negative Urine Dip Bedside Urine Glucose Negative Bedside Urine Bilirubin - Negative Bedside Urine Ketone +++ 80 Urine Specific Dennison 1.030 Bedside Urine Occult Blood +/- Bedside Urine pH 6.0 Bedside Urine Protein +/- 15 Bedside Urine Urobilinogen - Negative Bedside Urine Nitrite + Positive Bedside Urine Leukocytes - Negative Esterase Imaging Data CT scan - head: Radiologist's Impression: [address] [id number] Scan ReportSigned Patient: Amalia Reed JMR#: [id number]: [id number]:[id number]/Sex: 2 te of Service: 01/12/21Loc: EDAccession Number: [id number] Procedure: CT head/brain wo con Ordering Provider: Syeda Venegas D.O. PROCEDURE: CT HEAD/BRAIN WO CON INDICATIONS: seizures, recurrent, hx etoh TECHNIQUE: Noncontrast 4.5 mm thick angled axial sections acquired from the foramen magnum to the vertex, with coronal and sagittal reformats. For radiation dose reduction, the following was used: automated exposure control, adjustment of mA and/or kV according to patient size. COMPARISON: [facility], CT, CT HEAD/BRAIN WO CON, 03/22/2020, 20:42. [facility], CT, CT HEAD/BRAIN WO CON, 11/18/2019, 5:46. [facility], CT, CT HEAD/BRAIN WO CON, 11/05/2020, 21:35. FINDINGS: Image quality: Excellent. CSF spaces: Basal cisterns are patent. No extra-axial fluid collections. Ventricles are normal in size and shape. Brain: No midline shift. No intracranial masses or hemorrhage. Stanton-white matter interface is normal. Within the right basal ganglia, there is a hypodense lesion again seen measuring 8 mm. Skull and face: Calvarium and visualized facial bones are intact, without suspicious lesions. Sinuses: Visualized sinuses and mastoids are clear. IMPRESSION: No acute abnormality can be seen on this noncontrast head CT, without a cause of seizures identified. Stable 8 mm right basal ganglia hypodensity. Differential diagnosis includes a remote lacunar infarct or a prominent perivascular space. Dictated by: Darron Neal M.D. on 01/12/2021 at 9:13 Approved by: Darron Neal M.D. on 01/12/2021 at 9:15 ECG Data Attestation: I personally reviewed and interpreted this ECG as follows: Prior ECG tracings: available for review Interpretation: Normal sinus rhythm rate of 95 WI 134 QRS is 78 QTC 449. Nonspecific change. Patient has similar EKG from 03/22/[address] segments. MDM Narrative Medical decision making narrative: 35-year-old female comes emergency department with concern for seizures. After discussion with her during her episodes he describes her as still being able to interact, she will sort of move her extremities but does not really describe a tonic clonic specifically type movement pattern. They will typically state with numbness or tingling in her extremities and then resolved. By his description does not really sound like a postictal state typically occurs. Patient here today had questionable seizure activity with no postictal state afterwards. She was given Ativan. Her alcohol was quite elevated. She does drink chronically and typically abuses. We did have a long discussion that if she does have a seizure disorder this will lower her seizure threshold and make her more likely to have active seizures. We also discussed with withdrawing if she has had hallucinations in the past she has very high risk for alcohol withdrawal seizures. She was offered observation for possible medical detox although we did discuss she might require transfer with her seizure history to be properly cared for. I did contact Neurology who stated she had not seen their neurologist but she states that she is sure she saw them on November [id number]. There may have been some misunderstanding about which neurologist she saw during our discussion. Patient has been able to ambulate safely in the department. Her labs do show that she has a urine inf ection and this increase her risk for seizure activity and she was started on oral antibiotics which she tolerated in the department. Social Work also saw the patient and she and her have also been making multiple efforts to help her get assistance for her alcohol abuse and sounds like they have been making strides towards this. JORDAN contacted for phone follow up tomorrow at request of social work. Likely between 11-12pm tomorrow. Patient aware of plan for phone follow up. Patient has been able to ambulate safely in the department without issue. Discharge Plan Departure Patient Disposition: Home Clinical Impression: Alcohol abuse Activity Restrictions/Additional Instructions: Follow up with your physician. They can assist with options for treatment of your alcohol abuse. Alcohol will decrease your seizure threshold and cause you to have seizures. Alcohol withdrawals can also call seizures. These are different from a true seizure and are secondary to actual withdrawals. Please continue your Keppra. Take keflex until gone. Prescription to [facility] in [place]. You should expect a phone call from [facility] for follow up today. If you're feeling suicidal or having suicidal thoughts, contact the suicide hotline (this is also the [facility] resource number for follow up and counseling). . I would recommend that you go through alcohol detox in a medically assisted program or in the hospital as you are high risk for seizures with withdrawl. You may return at any time. Please return if you have fevers, recurrent seizures, severe headaches, persistent vomiting, difficulty with breathing new weakness numbness or loss of sensation or other new or concerning symptoms. Prescriptions: New cephalexin 500 mg capsule 500 mg PO BID Qty: 10 RF: 0 No Action buspirone 5 mg tablet 5 mg PO BID Qty: 180 RF: 3 levetiracetam [Keppra] 500 mg tablet 1,000 mg PO BID RF: 0 Referrals: Domenica Crawford ARNP [Primary Care Provider] - Filiberto Faremr MD [Non-Staff] -
[2021-01-12 09:49] LABS: Add Manual Diff / Slide Review NO; Basophils Absolute Auto 100 /uL (0-100); Eosinophils Absolute Auto 0 /uL (0-450); Eosinophils Percent Auto 0.1 % (2-4); Hematocrit 41.8 % (36-46); Hemoglobin 14.3 g/dL (12.0-16.0); Lymphocytes Absolute Auto 2600 /uL (1100-4500); Lymphocytes Percent Auto 35.9 % (25-40); Mean Corpuscular HGB Conc 34.3 % (30-36); Mean Corpuscular Hemoglobin 31.7 PG (26-34); Mean Corpuscular Volume 92.4 fL (80-100); Monocytes Absolute Auto 200 /uL (0-900); Monocytes Percent Auto 3.2 % (3-14); Neutrophils Absolute Auto 4300 /uL (1500-7000); Neutrophils Percent Auto 59.8 % (50-75); Platelet Count 253 X10^3/uL (150-400); Red Blood Cell Count 4.52 X10^6/uL (4.0-5.2); Red Cell Distribution Width 13.5 % (11.6-14.8); White Blood Cell Count 7.2 X10^3/uL (4.5-11.0)
[2021-01-12] MEDS: LORazepam 2 MG/ML INJ 1 MG IV (09:49)
[2021-01-12] MEDS: ONDANSETRON 4 MG/2 ML INJ (09:50)
[2021-01-12 09:56] LABS: BUN Creatinine Ratio 14.3 (6-22); Blood Urea Nitrogen 7 mg/dL (7-17); Carbon Dioxide 22 mmol/L (22-32); Chloride 99 mmol/L (98-107); Estimated Glomerular Filt Rate > 60.0 mL/min (>60); Glucose 102 mg/dL (70-100); Magnesium 1.9 mg/dL (1.6-2.3); Potassium 3.5 mmol/L (3.4-5.1); Sodium 141 mmol/L (137-145)
[2021-01-12] MEDS: SODIUM CHLORIDE 0.9% 1,000 ML 1000 ML IV (09:57)
--- NOTE | 2021-01-12 09:57 | PC.NURSE ---
Pt AAO x 3 at this time. arrives with and reports 3 seizures--at 4am, 6am, 8am tonic clonic in nature. takes keppra and reports compliance. states she drinks often and has hallucinated in the past. last drink 2200 last night. has been under a large amount of stress lately and states she was supposed to be in court this morning. HR 114-120. BP 161/92. IV placed. seizure pads in place, suction and O2 via NC at bedside. At 0945 pt states she felt like she was about to have a seizure, 1mg ativan and 4mg zofran given via verbal order from Dr Venegas. all other precautions in place.
--- NOTE | 2021-01-12 09:59 | DI.CT.S_ITS ---
PROCEDURE: CT HEAD/BRAIN WO CON INDICATIONS: seizures, recurrent, hx etoh TECHNIQUE: Noncontrast 4.5 mm thick angled axial sections acquired from the foramen magnum to the vertex, with coronal and sagittal reformats. For radiation dose reduction, the following was used: automated exposure control, adjustment of mA and/or kV according to patient size. COMPARISON: [facility], CT, CT HEAD/BRAIN WO CON, 03/22/2020, 20:42. [facility], CT, CT HEAD/BRAIN WO CON, 11/18/2019, 5:46. [facility], CT, CT HEAD/BRAIN WO CON, 11/05/2020, 21:35. FINDINGS: Image quality: Excellent. CSF spaces: Basal cisterns are patent. No extra-axial fluid collections. Ventricles are normal in size and shape. Brain: No midline shift. No intracranial masses or hemorrhage. Stanton-white matter interface is normal. Within the right basal ganglia, there is a hypodense lesion again seen measuring 8 mm. Skull and face: Calvarium and visualized facial bones are intact, without suspicious lesions. Sinuses: Visualized sinuses and mastoids are clear. IMPRESSION: No acute abnormality can be seen on this noncontrast head CT, without a cause of seizures identified. Stable 8 mm right basal ganglia hypodensity. Differential diagnosis includes a remote lacunar infarct or a prominent perivascular space. Dictated by: Darron Neal M.D. on 01/12/2021 at 9:13 Approved by: Darron Neal M.D. on 01/12/2021 at 9:15
[2021-01-12 10:07] LABS: HEMOLYSIS 18 (0-50)
[2021-01-12 10:14] LABS: Alanine Aminotransferase 86 IU/L (<35); Albumin Globulin Ratio 1.2 (1.0-2.8); Alkaline Phosphatase 134 U/L (38-126); Aspartate Aminotransferase 106 IU/L (14-36); Bilirubin Total 0.6 mg/dL (0.2-1.3); Bilirubin Unconjugated 0.6 mg/dL (0.0-1.1); Globulin 4.1 g/dL (1.7-4.1); Lipase 243 U/L (23-300); Total Protein 9.1 g/dL (6.3-8.2)
[2021-01-12 10:16] LABS: HEMOLYSIS < 15 (0-50)
[2021-01-12] MEDS: LEVETIRACETAM IV (10:39)
[2021-01-12] MEDS: SODIUM CHLORIDE 0.9% IV (10:39)
[2021-01-12 10:45] LABS: Thyroid Stimulating Hormone 1.34 uIU/mL (0.47-4.68)
[2021-01-12 10:50] LABS: Ethanol (ETOH) 341 mg/dL
[2021-01-12 12:28] LABS: COVID19 - ADMIT (NP swab/PCR) Negative (Negative)
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
[2021-01-12 17:21] LABS: RBC Urine None Seen (0-5/HPF)
[2021-01-12] MEDS: ONDANSETRON 4 MG/2 ML INJ IV (17:25)
[2021-01-12] MEDS: cephALEXin 250 MG CAPSULE 500 MG PO (17:25)
[2021-01-12 17:28] LABS: UR Morphine/Opiate cutoff 300 Negative (Negative); Ur Creatinine Normal (Normal); Ur Specific Gravity Normal (Normal); Urine Amphetamines Negative (Negative); Urine Barbiturates Negative (Negative); Urine Benzodiazepines Negative (Negative); Urine Cocaine Negative (Negative); Urine MDMA Negative (Negative); Urine Methadone Negative (Negative); Urine Methamphetamines Negative (Negative); Urine Oxycodone Negative (Negative); Urine Phencyclidine Negative (Negative); Urine Tetrahydrocannabinol Negative (Negative); Urine Tricyclic Antidepressant Negative (Negative); Urine pH Normal (Normal)
[2021-01-12 18:20] LABS: Bacteria Urine Many (>30); Culture Indicated Urine Specimen Cultured; Squamous Epithelial Cell Urine 0-1 /HPF (0-5/HPF); WBC Urine 5-10/HPF (0-5/HPF)
== END 2021-01-12 18:52 | disposition home or self-care (01) ==
PROVIDERS: Emergency Provider Emergency Medicine; PCP Nurse Practitioner
DX: F10.10 Alcohol abuse, uncomplicated (principal)
CPT/HCPCS: 36415; 70450; 80048; 80076; 80305; 80320; 81003; 81015; 81025; 83690; 83735; 84146; 84443; 85025; 87077; 87086; 87186; 87635; 93005; 96361; 96365; 96375; 99284; C9803; J1953; J2060; J2405

== ENCOUNTER 2022-10-04 02:16 | Emergency (ER) | payer OTHER, MEDICAID, SELFPAY ==
[2022-03-16 13:38] VITALS: BMI 17.8
[2022-10-04 02:15] VITALS: BP 126/91; PULSE 120; RESP 18; TEMP 36.4; O2SAT 97
--- NOTE | 2022-10-04 02:24 | ED.GENADULT ---
HPI - General Adult General Chief complaint: Seizure Stated complaint: Seizure Time Seen by Provider: 10/04/22 02:22 History of Present Illness HPI narrative: 37-year-old female former smoker with extensive alcohol history, seizure history, anxiety presents by EMS for evaluation of a seizure tonight. She states that she has been highly anxious lately and admits that she did not take her Keppra at all yesterday. She started feeling a bit off and this evening had at least 1 and maybe more seizures. She denies any injury as a consequence, she did not bite her tongue which she did lose control of her bladder. She states that the last time she had a seizure was about 3 months ago. She denies any recent trauma or injury and has no headache, blurred vision, neck pain or fever. She denies chest pain or shortness of breath. Additionally, she states that she had been drinking about half a 5th of vodka daily but had her last drink on . She states she is had withdrawals before and has had seizures as a consequence of her withdrawals before. She denies headache or blurred vision but does feel anxious and a bit agitated. She denies auditory or visual hallucinations. She denies any tactile hallucinations. She denies nausea, vomiting or abdominal pain. Related Data Home Medications Medication Instructions Recorded Confirmed buspirone 15 mg tablet 15 mg PO TID 10/04/22 10/04/22 Previous Rx's Medication Instructions Recorded cetirizine 5 mg-pseudoephedrine ER 1 tab PO Q12H #180 tabs 12/08/21 120 mg tablet,extended release,12hr clonidine HCl 0.1 mg tablet 0.1 mg PO BID PRN anxiety #180 tabs 12/08/21 gabapentin 100 mg capsule 100 mg PO BID #180 caps 12/08/21 levetiracetam 500 mg tablet 1,000 mg PO BID #180 tabs 12/08/21 (Keppra) naltrexone 50 mg tablet 50 mg PO DAILY #90 tabs 12/08/21 rizatriptan 10 mg tablet See Rx Instructions PO .COMPLEX #9 12/08/21 tabs topiramate 50 mg tablet 50 mg PO BID #180 tabs 12/08/21 trazodone 150 mg tablet 150 mg PO BEDTIME PRN insomnia #90 12/08/21 tabs hydroxyzine pamoate 50 mg capsule 50 mg PO BID PRN anxiety #180 caps 12/12/21 venlafaxine 37.5 mg 37.5 mg PO BEDTIME #30 caps 03/30/22 capsule,extended release 24 hr fluticasone propionate 50 2 spray intranasal DAILY #16 grams 08/11/22 mcg/actuation nasal spray,suspension (Flonase Allergy Relief) Allergies Allergy/AdvReac Type Severity Reaction Status Date / Time No Known Drug Allergies Allergy Unverified 08/11/22 13:19 Review of Systems Review of Systems Narrative: GENERAL: Denies chills, fatigue, malaise, fever, sweats. HEENT: Denies sinus pain, ear pain, sore throat, difficulty swallowing, dizziness. RESPIRATORY: Denies dyspnea, cough, wheezing, hemoptysis, sputum. CARDIOVASCULAR: Denies chest pain, palpitations, orthopnea, edema, GASTROINTESTINAL: Denies nausea, vomiting, abdominal pain, diarrhea, constipation, melena. : Denies dysuria, frequency, incontinence, hematuria, urinary retention. MUSCULOSKELETAL: denies weakness, joint pain, or bony pain SKIN: Denies rash, skin lesions, or other NEUROLOGIC: See HPI PSYCHIATRIC: See HPI 12 point review of systems is negative except for those stated above Patient History Medical History 39 weeks gestation of Alcohol dependence in early full remission Allergies Anxiety and depression Breast self examination education, encounter for Elevated LFTs History of alcohol abuse Insomnia Medical history unknown Migraine Normal breast exam Right foot injury SGA (small for gestational age), , affecting care of mother, antepartum Suicidal ideation TBI (traumatic brain injury) Vaginal yeast infection Well woman exam Surgical History Right arm fracture Family History Mother Breast cancer in female Father CVA (cerebral vascular accident) Social History household members: spouse, children and friend(s) Smoking Status: Former smoker alcohol intake: current Smoking Status: Former smoker alcohol intake frequency: 3 or more drinks per day Alcohol type: wine Substance Use Type: does not use Exam Narrative Exam Narrative: GENERAL: [37] year old patient appears stated age. Well-developed patient, in mild distress. HEAD: Atraumatic. Normocephalic. EYES: Pupils equal round and reactive. Extraocular motions intact. No scleral icterus. No injection or drainage. ENT: Nose without bleeding, purulent drainage. Throat without erythema, tonsillar hypertrophy or exudate. Airway patent. NECK: Trachea midline. Non tender CARDIOVASCULAR: Tachycardic but a regular rhythm without murmurs, gallops, or rubs. RESPIRATORY: Clear to auscultation. Breath sounds equal bilaterally. No wheezes, rales, or rhonchi. GASTROINTESTINAL: Abdomen soft, non-tender, nondistended. EXTREMITIES: No edema or joint tenderness. BACK: Nontender without deformity or crepitance. No flank tenderness. NEURO: AOx3. SKIN: No rash or erythema of visible areas Initial Vital Signs Initial Vital Signs: Vital Signs Temperature 97.6 F 10/04/22 02:15 Pulse Rate 120 H 10/04/22 02:15 Respiratory Rate 18 10/04/22 02:15 Blood Pressure 126/91 H 10/04/22 02:15 Pulse Oximetry 97 10/04/22 02:15 Oxygen Delivery Method 10/04/22 02:15 Course Orders Ordered: ED Orders 10/04/22 02:20 Acetaminophen Stat Complete Blood Count AUTO DIFF Stat Comprehensive Metabolic Panel Stat Ethanol (ETOH) Stat Lactate (Lactic Acid) Stat Lipase Stat Magnesium Stat Prothrombin Time INR Stat Salicylate Stat 10/04/22 02:23 Urine Drug Screen, Rapid Stat EKG-12 Lead Stat Discontinued Medications Sodium Chloride (Normal Saline 0.9%) 1,000 mls @ 1,000 mls/hr IV BOLUS ONE Stop: 10/04/22 03:21 Last Infusion: 10/04/22 03:51 Dose: 0 mls/hr Documented By: Admin: 10/04/22 02:51 Dose: 1,000 mls/hr Documented By: GC Levetiracetam 1,000 mg/ Sodium (Chloride) 110 mls @ 440 mls/hr IV NOW ONE Stop: 10/04/22 02:24 Last Infusion: 10/04/22 03:04 Dose: 0 mls/hr Documented By: Admin: 10/04/22 02:49 Dose: 440 mls/hr Documented By: DONNA Lorazepam (Lorazepam 2 Mg/Ml Inj) 1 mg IV NOW ONE Stop: 10/04/22 03:37 Last Admin: 10/04/22 03:53 Dose: 1 mg Documented By: GC Ondansetron HCl (Ondansetron 4 Mg/2 Ml Inj) 4 mg IV NOW ONE Stop: 10/04/22 04:54 Last Admin: 10/04/22 05:04 Dose: 4 mg Documented By: GC Pantoprazole Sodium (Pantoprazole 40 Mg Vial) 40 mg IV NOW ONE Stop: 10/04/22 04:54 Last Admin: 10/04/22 05:03 Dose: 40 mg Documented By: GC Phenobarbital (Phenobarbital 65 Mg/Ml Vial) 260 mg IV NOW ONE Stop: 10/04/22 03:08 Last Admin: 10/04/22 06:29 Dose: Not Given Documented By: AP Vital Signs Vital signs: Vital Signs - 8 hr 10/04/22 02:15 Temperature 97.6 F Pulse Rate 120 H Respiratory Rate 18 Blood Pressure 126/91 H Pulse Oximetry 97 Oxygen Delivery Method Room Air Medical Decision Making Lab Data Result diagrams: 10/04/22 02:20 10/04/22 02:20 Labs: Lab Results 10/04/22 10/04/22 10/04/22 Range/Units 02:20 02:20 02:20 WBC 6.0 (4.5-11.0) X10^3/uL RBC 4.65 (4.0-5.2) X10^6/uL Hgb 14.5 (12.0-16.0) g/dL Hct 43.1 (36-46) % MCV 92.7 (80-100) fL MCH 31.2 (26-34) PG MCHC 33.6 (30-36) % RDW 14.9 H (11.6-14.8) % Plt Count 331 (150-400) X10^3/uL Neut % (Auto) 41.4 L (50-75) % Lymph % (Auto) 54.2 H (25-40) % Mcdonald % (Auto) 3.4 (3-14) % Eos % (Auto) 0.0 L (2-4) % Baso % (Auto) 1.0 (0-2) % Neut # (Auto) 2500 (2115-1067) /uL Lymph # (Auto) 3300 (3022-8259) /uL Mcdonald # (Auto) 200 (0-900) /uL Eos # (Auto) 0 (0-450) /uL Baso # (Auto) 100 (0-100) /uL PT 13.5 H (10.1-12.7) SECONDS INR 1.2 (0.9-1.3) Sodium (137-145) mmol/L Potassium (3.4-5.1) mmol/L Chloride (98-107) mmol/L Carbon Dioxide (22-32) mmol/L BUN (7-17) mg/dL Creatinine (0.52-1.04) mg/dL Estimated GFR (>60) mL/min BUN/Creatinine Ratio (6-22) Glucose (70-100) mg/dL Lactate (0.7-2.1) mmol/L Calcium (8.4-10.2) mg/dL Magnesium (1.6-2.3) mg/dL Total Bilirubin (0.2-1.3) mg/dL AST (14-36) IU/L ALT (<35) IU/L Alkaline Phosphatase (38-126) U/L Total Protein (6.3-8.2) g/dL Albumin (3.5-5.0) g/dL Globulin (1.7-4.1) g/dL Albumin/Globulin Ratio (1.0-2.8) Lipase (23-300) U/L Salicylates < 1.0 (<20) mg/dL Acetaminophen < 10 (10-30) ug/mL Ethyl Alcohol 411 H* ( - 10) mg/dL 10/04/22 10/04/22 10/04/22 Range/Units 02:20 02:20 05:45 WBC (4.5-11.0) X10^3/uL RBC (4.0-5.2) X10^6/uL Hgb (12.0-16.0) g/dL Hct (36-46) % MCV (80-100) fL MCH (26-34) PG MCHC (30-36) % RDW (11.6-14.8) % Plt Count (150-400) X10^3/uL Neut % (Auto) (50-75) % Lymph % (Auto) (25-40) % Mcdonald % (Auto) (3-14) % Eos % (Auto) (2-4) % Baso % (Auto) (0-2) % Neut # (Auto) (4245-1133) /uL Lymph # (Auto) (6146-4155) /uL Mcdonald # (Auto) (0-900) /uL Eos # (Auto) (0-450) /uL Baso # (Auto) (0-100) /uL PT (10.1-12.7) SECONDS INR (0.9-1.3) Sodium 141 (137-145) mmol/L Potassium 3.3 L (3.4-5.1) mmol/L Chloride 97 L (98-107) mmol/L Carbon Dioxide 27 (22-32) mmol/L BUN 4 L (7-17) mg/dL Creatinine 0.46 L (0.52-1.04) mg/dL Estimated GFR > 60 (>60) mL/min BUN/Creatinine Ratio 8.7 (6-22) Glucose 133 H (70-100) mg/dL Lactate 2.7 H 2.3 H (0.7-2.1) mmol/L Calcium 8.5 (8.4-10.2) mg/dL Magnesium 1.8 (1.6-2.3) mg/dL Total Bilirubin 0.7 (0.2-1.3) mg/dL AST 100 H (14-36) IU/L ALT 78 H (<35) IU/L Alkaline Phosphatase 120 (38-126) U/L Total Protein 9.1 H (6.3-8.2) g/dL Albumin 4.7 (3.5-5.0) g/dL Globulin 4.4 H (1.7-4.1) g/dL Albumin/Globulin Ratio 1.1 (1.0-2.8) Lipase 233 (23-300) U/L Salicylates (<20) mg/dL Acetaminophen (10-30) ug/mL Ethyl Alcohol ( - 10) mg/dL MDM Narrative Medical decision making narrative: [29-year-old female heavy drinker with history of seizures presents with a chief complaint of at least 1 seizure tonight] Multiple etiologies for patient's symptoms considered including, but not limited to: [Epileptic seizure, breakthrough versus medical noncompliance versus alcohol withdrawal Given her alcohol level is well over 400 seems highly unlikely that patient has seizure was due to withdrawal. She does state that she had not taken her Keppra and a solid 24 hours which is a much more likely etiology based on this. Other considerations include electrolyte abnormality, none of which are noted] Prior Charts reviewed: Including prior visits from January of 2021 Labs reviewed and interpreted by myself: No significant abnormalities, elevated lactate thought to be related to seizure as she has no infectious complaints, fever, elevated white blood cell count Patient is awake, alert and oriented in the department, speaking without slurring and walking with steady gait in a straight line Patient's symptoms improved over duration of stay with above-stated therapies. Findings and discharge diagnosis discussed with patient/family followed by verbalization of understanding Return precautions discussed with patient/family whom verbalize understanding of diagnosis and plan Discharge Plan Departure Patient Disposition: Home Clinical Impression: Seizure, Alcohol abuse Instructions: DI for Seizure Disorder -- Adult Activity Restrictions/Additional Instructions: *You have been diagnosed with [seizure, likely due to medical noncompliance.] *What to do: *Please continue to take your regular medications as directed. *Please follow up with your primary care provider in 2-3 days, call for an appointment. Let them know you were seen in the Emergency Department and that we ask that you be seen in follow up. We will electronically transmit a record of today's note if your PCP is in our system *If you do not have a primary care provider please contact the [facility] Resource line at [phone]. They will ask some questions about your medical history and help get you set up with a doctor in the community. *Return to Emergency Department if you should have any new, worsening or concerning symptoms, such as [fever greater than 101 F, shaking chills, worsening pain, persistent vomiting or other bothersome symptoms] Prescriptions: No Action hydroxyzine pamoate 50 mg capsule 50 mg PO BID PRN (Reason: anxiety) Qty: 180 3RF Rx Instructions: Take 1 tab twice daily as needed for anxiety gabapentin 100 mg capsule 100 mg PO BID Qty: 180 3RF Rx Instructions: Take 1 capsule up to twice per day for muscle spasms topiramate 50 mg tablet 50 mg PO BID Qty: 180 3RF Rx Instructions: Take 1 tab twice per day for migraine prevention. trazodone 150 mg tablet 150 mg PO BEDTIME PRN (Reason: insomnia) Qty: 90 3RF Rx Instructions: Take 1 tab at bedtime daily for insomnia cetirizine-pseudoephedrine 5-120 mg tablet extended release 12 hr 1 tab PO Q12H Qty: 180 0RF Rx Instructions: Take 1 tab every 12 hours for allergies rizatriptan 10 mg tablet See Rx Instructions PO .COMPLEX Qty: 9 3RF Rx Instructions: take 1 tab at onset of headache; if no relief may repeat 1 tab after at least 2 hrs; max = 3 tabs/24 hr PO clonidine HCl 0.1 mg tablet 0.1 mg PO BID PRN (Reason: anxiety) Qty: 180 3RF Rx Instructions: Take 1 tab twice daily for anxiety levetiracetam [Keppra] 500 mg tablet 1,000 mg PO BID Qty: 180 3RF Rx Instructions: Take 1 tab twice daily for seizures naltrexone 50 mg tablet 50 mg PO DAILY Qty: 90 3RF Rx Instructions: Take 1 tab daily for craving suppression fluticasone propionate [Flonase Allergy Relief] 50 mcg/actuation spray,suspension 2 spray intranasal DAILY Qty: 16 5RF Rx Instructions: administer into each nostril venlafaxine 37.5 mg capsule,extended release 24hr 37.5 mg PO BEDTIME Qty: 30 3RF Rx Instructions: Take 1 capsule at bedtime daily for depression and anxiety buspirone 15 mg tablet 15 mg PO TID Rx Instructions: Take 15mg tab 2x/day Referrals: Domenica Crawford ARNP [Primary Care Provider] -
[2022-10-04 02:34] LABS: Add Manual Diff / Slide Review NO; Basophils Absolute Auto 100 /uL (0-100); Eosinophils Absolute Auto 0 /uL (0-450); Hematocrit 43.1 % (36-46); Hemoglobin 14.5 g/dL (12.0-16.0); Lymphocytes Absolute Auto 3300 /uL (1100-4500); Lymphocytes Percent Auto 54.2 % (25-40); Mean Corpuscular HGB Conc 33.6 % (30-36); Mean Corpuscular Hemoglobin 31.2 PG (26-34); Mean Corpuscular Volume 92.7 fL (80-100); Monocytes Absolute Auto 200 /uL (0-900); Monocytes Percent Auto 3.4 % (3-14); Neutrophils Absolute Auto 2500 /uL (1500-7000); Neutrophils Percent Auto 41.4 % (50-75); Platelet Count 331 X10^3/uL (150-400); Red Blood Cell Count 4.65 X10^6/uL (4.0-5.2); Red Cell Distribution Width 14.9 % (11.6-14.8)
[2022-10-04 02:43] LABS: INR 1.2 (0.9-1.3); Prothrombin Time 13.5 SECONDS (10.1-12.7)
[2022-10-04 02:48] LABS: Acetaminophen < 10 ug/mL (10-30); Salicylate < 1.0 mg/dL (<20)
[2022-10-04 02:49] LABS: Alanine Aminotransferase 78 IU/L (<35); Albumin 4.7 g/dL (3.5-5.0); Albumin Globulin Ratio 1.1 (1.0-2.8); Alkaline Phosphatase 120 U/L (38-126); Aspartate Aminotransferase 100 IU/L (14-36); BUN Creatinine Ratio 8.7 (6-22); Bilirubin Total 0.7 mg/dL (0.2-1.3); Blood Urea Nitrogen 4 mg/dL (7-17); Calcium 8.5 mg/dL (8.4-10.2); Carbon Dioxide 27 mmol/L (22-32); Chloride 97 mmol/L (98-107); Estimated Glomerular Filt Rate > 60 mL/min (>60); Globulin 4.4 g/dL (1.7-4.1); Glucose 133 mg/dL (70-100); HEMOLYSIS < 15 (0-50); Lactate (Lactic Acid) 2.7 mmol/L (0.7-2.1); Lipase 233 U/L (23-300); Magnesium 1.8 mg/dL (1.6-2.3); Potassium 3.3 mmol/L (3.4-5.1); Sodium 141 mmol/L (137-145); Total Protein 9.1 g/dL (6.3-8.2)
[2022-10-04] MEDS: levETIRAcetam 1,000 MG in SODIUM CHLORIDE 0.9% 100 ML 440 MG IV (02:49)
[2022-10-04] MEDS: SODIUM CHLORIDE 0.9% 1,000 ML 1000 ML IV (02:51)
[2022-10-04 03:13] LABS: Ethanol (ETOH) 411 mg/dL
[2022-10-04] MEDS: LORazepam 2 MG/ML INJ 1 MG IV (03:53)
[2022-10-04 04:30] LABS: Reflexed Lactate in 2 Hours Y
[2022-10-04] MEDS: PANTOPRAZOLE 40 MG VIAL IV (05:03)
[2022-10-04] MEDS: ONDANSETRON 4 MG/2 ML INJ IV (05:04)
[2022-10-04 06:04] LABS: Lactate 2HR (Lactic Acid Rflx) 2.3 mmol/L (0.7-2.1)
[2022-10-04 06:53] VITALS: BP 126/78; PULSE 96; RESP 18; TEMP 36.3; O2SAT 97
== END 2022-10-04 07:00 | disposition home or self-care (01) ==
PROVIDERS: Emergency Provider Emergency Medicine; PCP Nurse Practitioner
DX: G40.909 Epilepsy, unspecified, not intractable, without status epilepticus (principal); F10.129 Alcohol abuse with intoxication, unspecified; Y90.8 Blood alcohol level of 240 mg/100 ml or more
CPT/HCPCS: 36415; 80053; 80320; 80329; 83605; 83690; 83735; 85025; 85610; 93005; 96361; 96374; 96375; 99284; C9113; G0480; J1953; J2060; J2405

== ENCOUNTER → 2022-11-13 13:25 | Outpatient (CLI) | payer OTHER, MEDICAID, SELFPAY ==
[2022-03-16 13:38] VITALS: BMI 17.8
[2022-11-13 13:55] LABS: Hematocrit 34.7 % (36-46); Hemoglobin 11.7 g/dL (12.0-16.0); Mean Corpuscular HGB Conc 33.8 % (30-36); Mean Corpuscular Volume 91.7 fL (80-100); Platelet Count 681 X10^3/uL (150-400); Red Blood Cell Count 3.79 X10^6/uL (4.0-5.2); Red Cell Distribution Width 14.8 % (11.6-14.8); White Blood Cell Count 8.2 X10^3/uL (4.5-11.0)
[2022-11-13 14:20] LABS: Alanine Aminotransferase 280 IU/L (<35); Albumin Globulin Ratio 1.1 (1.0-2.8); Alkaline Phosphatase 104 U/L (38-126); Aspartate Aminotransferase 170 IU/L (14-36); BUN Creatinine Ratio 16.7 (6-22); Bilirubin Total 0.4 mg/dL (0.2-1.3); Blood Urea Nitrogen 6 mg/dL (7-17); Calcium 8.7 mg/dL (8.4-10.2); Carbon Dioxide 29 mmol/L (22-32); Chloride 99 mmol/L (98-107); Cholesterol 225 mg/dL (140-199); Estimated Glomerular Filt Rate > 60 mL/min (>60); Globulin 3.8 g/dL (1.7-4.1); Glucose 82 mg/dL (70-100); HDL Cholesterol 54 mg/dL (40-60); HEMOLYSIS < 15 (0-50); LDL Cholesterol Calculated 157 mg/dL (<100); Potassium 3.3 mmol/L (3.4-5.1); Sodium 137 mmol/L (137-145); Total Protein 7.8 g/dL (6.3-8.2); Triglycerides 69 mg/dL (35-150)
[2022-11-13 14:35] LABS: Free T3, Triiodothyronine Free 4.45 pg/mL (2.77-5.27); Free T4, Direct Thyroxine 0.98 ng/dL (0.78-2.19)
[2022-11-13 14:49] LABS: Thyroid Stimulating Hormone 1.98 uIU/mL (0.47-4.68)
== END ==
PROVIDERS: PCP Nurse Practitioner; Referring Provider Nurse Practitioner; Visit Provider Nurse Practitioner
DX: Z00.00 Encounter for general adult medical examination without abnormal findings (principal)
CPT/HCPCS: 36415; 80053; 80061; 84439; 84443; 84481; 85027

== ENCOUNTER → 2022-11-23 15:09 | Outpatient (CLI) | payer OTHER, MEDICAID, SELFPAY ==
[2022-03-16 13:38] VITALS: BMI 17.8
--- NOTE | 2022-11-23 15:10 | DI.US.S_ITS ---
PROCEDURE: US ABDOMEN LIMITED INDICATIONS: ELEVATED LFTS TECHNIQUE: Real-time focused scanning was performed of the abdomen, with image documentation. COMPARISON: None. FINDINGS: The liver demonstrates enlarged size. The liver demonstrates generalized mildly to moderately increased echogenicity. This decreases ultrasound sensitivity for detection of hepatic masses. No findings of gallstones or sludge are seen. The gallbladder wall is not thickened, measuring 3 mm or less. No specific pericholecystic fluid is seen. The sonographic Harvey sign is negative. There is no biliary dilatation, the common bile duct measures 3 mm. No significant pancreatic abnormality is seen on these images. IMPRESSION: Enlarged, fatty liver. Dictated by: Darron Neal M.D. on 11/23/2022 at 16:03 Approved by: Darron Neal M.D. on 11/23/2022 at 16:04
== END ==
PROVIDERS: PCP Nurse Practitioner; Referring Provider Nurse Practitioner; Visit Provider Nurse Practitioner
DX: K76.0 Fatty (change of) liver, not elsewhere classified (principal); R79.89 Other specified abnormal findings of blood chemistry; F10.21 Alcohol dependence, in remission
CPT/HCPCS: 76705

== ENCOUNTER 2023-01-31 07:22 | Inpatient (IN) | payer OTHER, MEDICAID, SELFPAY ==
[2022-03-16 13:38] VITALS: BMI 17.8
[2023-01-31] VITALS (59 sets, daily range): BP systolic 95–138; BP diastolic 56–94; PULSE 69–119; RESP 12–26; TEMP 36.9–37.2; O2SAT 93–100; BMI 21.7
[2023-01-31 07:47] LABS: Add Manual Diff / Slide Review NO; Basophils Absolute Auto 0 /uL (0-100); Basophils Percent Auto 0.6 % (0-2); Eosinophils Absolute Auto 0 /uL (0-450); Hematocrit 42.9 % (36-46); Hemoglobin 14.8 g/dL (12.0-16.0); Lymphocytes Absolute Auto 2500 /uL (1100-4500); Lymphocytes Percent Auto 33.4 % (25-40); Mean Corpuscular HGB Conc 34.6 % (30-36); Mean Corpuscular Volume 89.7 fL (80-100); Monocytes Absolute Auto 400 /uL (0-900); Monocytes Percent Auto 5.8 % (3-14); Neutrophils Absolute Auto 4400 /uL (1500-7000); Neutrophils Percent Auto 60.2 % (50-75); Platelet Count 228 X10^3/uL (150-400); Red Blood Cell Count 4.78 X10^6/uL (4.0-5.2); Red Cell Distribution Width 13.9 % (11.6-14.8); White Blood Cell Count 7.4 X10^3/uL (4.5-11.0)
[2023-01-31] MEDS: SODIUM CHLORIDE 0.9% 1,000 ML 1000 ML IV (07:52)
[2023-01-31] MEDS: PHENobarbital 65 MG/ML VIAL 260 MG IV (07:52)
[2023-01-31 07:53] LABS: Alanine Aminotransferase 66 IU/L (<35); Albumin 4.6 g/dL (3.5-5.0); Albumin Globulin Ratio 1.1 (1.0-2.8); Alkaline Phosphatase 114 U/L (38-126); Aspartate Aminotransferase 156 IU/L (14-36); BUN Creatinine Ratio 15.8 (6-22); Bilirubin Total 0.5 mg/dL (0.2-1.3); Blood Urea Nitrogen 6 mg/dL (7-17); Calcium 8.5 mg/dL (8.4-10.2); Carbon Dioxide 31 mmol/L (22-32); Chloride 90 mmol/L (98-107); Estimated Glomerular Filt Rate > 60 mL/min (>60); Globulin 4.1 g/dL (1.7-4.1); Glucose 155 mg/dL (70-100); HEMOLYSIS 31 (0-50); Lipase 200 U/L (23-300); Magnesium 1.9 mg/dL (1.6-2.3); Potassium 2.8 mmol/L (3.4-5.1); Sodium 137 mmol/L (137-145); Total Protein 8.7 g/dL (6.3-8.2)
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
[2023-01-31] MEDS: PANTOPRAZOLE 40 MG VIAL IV (08:08)
[2023-01-31] MEDS: ONDANSETRON 4 MG/2 ML INJ IV ×2 (08:08→13:47)
[2023-01-31] MEDS: THIAMINE 200 MG in SODIUM CHLORIDE 0.9% 100 ML 408 MG IV (08:08)
[2023-01-31 08:11] LABS: Appearance Urine UA CLEAR; Bilirubin Urine UA NEGATIVE (NEGATIVE); Color Urine UA YELLOW; Glucose Urine UA NEGATIVE (Negative); Ketones Urine UA NEGATIVE (NEGATIVE); Leukocyte Esterase Urine UA 1+ (NEGATIVE); Nitrite Urine UA POSITIVE (Negative); Occult Blood Urine UA TRACE-INTACT (Negative); Protein Urine UA NEGATIVE (Negative); Specific Gravity Urine UA <=1.005 (1.000-1.035); Urobilinogen Urine UA 0.2 E.U./dL (0.2)
[2023-01-31 08:14] LABS: Pregnancy Test Urine Negative (Negative)
[2023-01-31 08:19] LABS: pH Urine UA 6.5 (4.5-8.0)
[2023-01-31 08:20] LABS: Bacteria Urine Many (>30); Culture Indicated Urine Specimen Cultured; RBC Urine 1-5/HPF (0-5/HPF); Squamous Epithelial Cell Urine 5-10 /HPF (0-5/HPF); WBC Urine 5-10/HPF (0-5/HPF)
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
[2023-01-31] MEDS: PHENobarbital 65 MG/ML VIAL 130 MG IV ×2 (09:19→10:15)
[2023-01-31 09:22] LABS: Lactate (Lactic Acid) 3.2 mmol/L (0.7-2.1)
[2023-01-31] MEDS: LACTATED RINGERS 1,000 ML 1000 ML IV (09:36)
[2023-01-31 09:48] LABS: Ethanol (ETOH) 483 mg/dL
[2023-01-31] MEDS: SODIUM CHLORIDE 0.9% 1,000 ML 150 ML IV (10:23)
[2023-01-31] MEDS: levETIRAcetam 1,000 MG in SODIUM CHLORIDE 0.9% 100 ML 440 MG IV (10:34)
[2023-01-31] MEDS: POTASSIUM CHLORIDE IN WATER 10 MEQ/100 ML PIGGYBACK 100 MEQ IV ×4 (10:53→14:51)
[2023-01-31 11:12] LABS: Reflexed Lactate in 2 Hours Y
[2023-01-31 11:43] LABS: COVID19 -Nasal RAPID Negative (Negative)
[2023-01-31 11:57] LABS: Lactate 2HR (Lactic Acid Rflx) 2.6 mmol/L (0.7-2.1)
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
[2023-01-31] MEDS: dexmedeTOMIDine in 0.9 % NaCL 400 MCG/100 ML PLAST..BAG 7.654 MCG IV (13:37)
[2023-01-31] MEDS: LORazepam 2 MG/ML INJ IV ×2 (13:41→21:53)
--- NOTE | 2023-01-31 13:43 | PC.NURSE ---
Addendum entered by Chelsie Barragan R.N. 01/31/23 13:47: MD and nurse aware of patient's comments. she is still intoxicated and rolling around the bed. Original Note: pt took off her radiation monitor leads several times. reportsmy alcohol level is zero . I haven't had a drink in 3 days. When I asked if she had any children her response was a boy. he is a brat. later I asked the patient how old her boy is and what is his name. Her response was david. he is over 4 years and he is an ass. reports he is not cute anymore. states the coin machine collector supervisor takes care of him.
--- NOTE | 2023-01-31 13:53 | PC.NURSE ---
Patient admitted from ED at approximately 1330. Patient extremely agitated and restless, admission assessment and questions completed as best as possible.
[2023-01-31] MEDS: cefTRIAXone 1,000 MG in SODIUM CHLORIDE 0.9% 100 ML 200 MG IV (14:41)
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
[2023-01-31 18:22] LABS: MRSA (Nasal) PCR Not Detected (Not Detect)
[2023-01-31] MEDS: levETIRAcetam 1,000 MG in SODIUM CHLORIDE 0.9% 100 ML 420 MG IV (20:27)
[2023-01-31 22:08] LABS: UR Morphine/Opiate cutoff 300 Negative (Negative); Ur Creatinine 20 (Normal); Ur Specific Gravity 1.025 (Normal); Urine Amphetamines Negative (Negative); Urine Barbiturates Positive (Negative); Urine Benzodiazepines Positive (Negative); Urine Cocaine Negative (Negative); Urine MDMA Negative (Negative); Urine Methadone Negative (Negative); Urine Methamphetamines Negative (Negative); Urine Oxycodone Negative (Negative); Urine Phencyclidine Negative (Negative); Urine Tetrahydrocannabinol Negative (Negative); Urine Tricyclic Antidepressant Negative (Negative); Urine pH 5 (Normal)
[2023-02-01] VITALS (86 sets, daily range): BP systolic 88–129; BP diastolic 51–89; PULSE 53–93; RESP 7–31; TEMP 36.8–37.2; O2SAT 93–100
[2023-02-01] MEDS: dexmedeTOMIDine in 0.9 % NaCL 400 MCG/100 ML PLAST..BAG 6.124 MCG IV ×2 (03:55→16:24)
--- NOTE | 2023-02-01 05:02 | PC.NURSE ---
Addendum entered by Demlis Gandhi R.N. 02/01/23 06:26: abnormal lab results called to Dr. Middleton and new orders noted. medicated with KCL po and IV magnesium. Original Note: Patient remains cooperative and pleasant. Precedex remains at 0.4 at current time. only using ativan once.
[2023-02-01 05:22] LABS: Add Manual Diff / Slide Review NO; Basophils Absolute Auto 100 /uL (0-100); Basophils Percent Auto 0.8 % (0-2); Eosinophils Absolute Auto 0 /uL (0-450); Eosinophils Percent Auto 0.7 % (2-4); Hematocrit 31.4 % (36-46); Hemoglobin 10.8 g/dL (12.0-16.0); Lymphocytes Absolute Auto 1400 /uL (1100-4500); Lymphocytes Percent Auto 22.6 % (25-40); Magnesium 1.2 mg/dL (1.6-2.3); Mean Corpuscular HGB Conc 34.4 % (30-36); Mean Corpuscular Hemoglobin 30.8 PG (26-34); Mean Corpuscular Volume 89.6 fL (80-100); Monocytes Absolute Auto 300 /uL (0-900); Monocytes Percent Auto 4.6 % (3-14); Neutrophils Absolute Auto 4600 /uL (1500-7000); Neutrophils Percent Auto 71.3 % (50-75); Platelet Count 115 X10^3/uL (150-400); Red Cell Distribution Width 13.4 % (11.6-14.8); White Blood Cell Count 6.4 X10^3/uL (4.5-11.0)
[2023-02-01 05:23] LABS: Alanine Aminotransferase 50 IU/L (<35); Albumin 3.1 g/dL (3.5-5.0); Albumin Globulin Ratio 1.1 (1.0-2.8); Alkaline Phosphatase 70 U/L (38-126); Aspartate Aminotransferase 93 IU/L (14-36); BUN Creatinine Ratio 14.3 (6-22); Bilirubin Total 0.7 mg/dL (0.2-1.3); Blood Urea Nitrogen 6 mg/dL (7-17); Calcium 6.9 mg/dL (8.4-10.2); Carbon Dioxide 27 mmol/L (22-32); Chloride 95 mmol/L (98-107); Estimated Glomerular Filt Rate > 60 mL/min (>60); Globulin 2.8 g/dL (1.7-4.1); Glucose 78 mg/dL (70-100); HEMOLYSIS < 15 (0-50); Sodium 129 mmol/L (137-145); Total Protein 5.9 g/dL (6.3-8.2)
[2023-02-01 05:26] LABS: Potassium 2.5 mmol/L (3.4-5.1)
[2023-02-01 05:54] LABS: TSH w/ Reflex to FT4 3.31 uIU/mL (0.47-4.68)
[2023-02-01] MEDS: POTASSIUM CHLORIDE 20 MEQ TAB 40 MEQ PO ×3 (06:01→14:06)
[2023-02-01] MEDS: MAGNESIUM SULFATE 4 GM/100 ML PIGGYBACK IV (06:01)
[2023-02-01] MEDS: FOLIC ACID 1 MG TABLET PO (08:55)
[2023-02-01] MEDS: MULTIVITAMIN 1 TABLET 1 TAB PO (08:55)
[2023-02-01] MEDS: levETIRAcetam 1,000 MG in SODIUM CHLORIDE 0.9% 100 ML 420 MG IV (08:56)
[2023-02-01] MEDS: THIAMINE 100 MG in SODIUM CHLORIDE 0.9% 100 ML 404 MG IV (08:56)
--- NOTE | 2023-02-01 09:44 | P.TELICUPN_ITS ---
Subjective Subjective IF CAMERA ACTIVATED, patient seen via real-time interactive audiovisual communication: Camera activated Consent obtained for tele-machine guide base winder care: Yes Patient Location: ICU Provider location (State): [place] Other participants/roles: RN Interval history: Overnight, patient on Precedex drip and CIWA. Currently at 0.4 on Precedex. Is tolerating PO. Reports mild headache. Current Medications Current Medications Medications: Home Medications clonidine HCl 0.1 mg tablet 0.1 mg PO BID PRN anxiety #180 tabs 12/08/21 [Rx Confirmed 11/13/22] gabapentin 100 mg capsule 100 mg PO BID #180 caps 12/08/21 [Rx Confirmed 11/13/22] levetiracetam 500 mg tablet (Keppra) 1,000 mg PO BID #180 tabs 12/08/21 [Rx Confirmed 11/13/22] naltrexone 50 mg tablet 50 mg PO DAILY #90 tabs 12/08/21 [Rx Confirmed 11/13/22] rizatriptan 10 mg tablet See Rx Instructions PO .COMPLEX #9 tabs 12/08/21 [Rx Confirmed 11/13/22] topiramate 50 mg tablet 50 mg PO BID #180 tabs 12/08/21 [Rx Confirmed 11/13/22] trazodone 150 mg tablet 150 mg PO BEDTIME PRN insomnia #90 tabs 12/08/21 [Rx Confirmed 11/13/22] hydroxyzine pamoate 50 mg capsule 50 mg PO BID PRN anxiety #180 caps 12/12/21 [Rx Confirmed 11/13/22] venlafaxine 37.5 mg capsule,extended release 24 hr 37.5 mg PO BEDTIME #30 caps 03/30/22 [Rx Confirmed 11/13/22] fluticasone propionate 50 mcg/actuation nasal spray,suspension (Flonase Allergy Relief) 2 spray intranasal DAILY #16 grams 08/11/22 [Rx Confirmed 11/13/22] buspirone 15 mg tablet 15 mg PO TID 10/04/22 [History Confirmed 11/13/22] [facility] Iron Supplement See Rx Instructions .Route .COMPLEX 11/13/22 [History Confirmed 11/13/22] cetirizine 5 mg-pseudoephedrine ER 120 mg tablet,extended release,12hr 1 tab PO Q12H #180 tabs 12/26/22 [Rx] Visit Medications (administered) Generic Name Dose Route Start Last Admin Trade Name Jovita PRN Reason Stop Dose Admin Folic Acid 1 mg 02/01/23 09:00 02/01/23 08:55 Folic Acid 1 Mg Tablet PO 1 mg DAILY ZACARIAS Administration Ceftriaxone Sodium 1,000 mg/ 100 mls @ 200 mls/hr 01/31/23 12:00 01/31/23 15:18 Sodium Chloride IV 02/03/23 11:59 Infused Q24H ZACARIAS Infusion Thiamine HCl 100 mg/ Sodium 101 mls @ 404 mls/hr 02/01/23 09:00 02/01/23 08:56 Chloride IV 404 mls/hr DAILY ZACARIAS Administration dexmedeTOMIDine in 0.9 % NaCL 400 mcg in 100 mls @ 3.062 mls/hr 01/31/23 12:00 02/01/23 03:55 Precedex IV 0.4 mcg/kg/hr TITRATE ZACARIAS 6.124 mls/hr Administration Protocol 0.2 MCG/KG/HR Levetiracetam 1,000 mg/ Sodium 110 mls @ 420 mls/hr 01/31/23 21:00 02/01/23 08:56 Chloride IV 420 mls/hr Q12H ZACARIAS Administration Lorazepam 0 mg 01/31/23 11:50 01/31/23 21:53 Lorazepam 2 Mg/Ml Inj IV 2 mg CIWAPRN PRN Administration Alcohol Withdrawal Protocol Multivitamins 1 tab 02/01/23 09:00 02/01/23 08:55 Multivitamin 1 Tablet PO 1 tab DAILY ZACARIAS Administration Objective Labs 02/01/23 04:31 02/01/23 04:31 Labs: Laboratory Results - last 24 hr 01/31/23 01/31/23 01/31/23 07:50 11:12 11:35 WBC RBC Hgb Hct MCV MCH MCHC RDW Plt Count Neut % (Auto) Lymph % (Auto) [place] % (Auto) Eos % (Auto) Baso % (Auto) Neut # (Auto) Lymph # (Auto) [place] # (Auto) Eos # (Auto) Baso # (Auto) Sodium Potassium Chloride Carbon Dioxide BUN Creatinine Estimated GFR BUN/Creatinine Ratio Glucose Lactate 2.6 H Calcium Magnesium Total Bilirubin AST ALT Alkaline Phosphatase Total Protein Albumin Globulin Albumin/Globulin Ratio TSH Nasal Screen MRSA (PCR) U Opiates 300ng/mL cut Ur Oxycodone Screen Urine Methadone Screen Ur Barbiturates Screen U Tricyclic Antidepress Ur Phencyclidine Scrn Ur Amphetamines Screen U Methamphetamines Scrn Ur MDMA Scrn (Ecstasy) U Benzodiazepines Scrn Urine Cocaine Screen U Marijuana (THC) Screen Ethyl Alcohol 483 H* SARS-CoV-2 (PCR) Negative 01/31/23 01/31/23 02/01/23 16:02 21:50 04:13 WBC RBC Hgb Hct MCV MCH MCHC RDW Plt Count Neut % (Auto) Lymph % (Auto) [place] % (Auto) Eos % (Auto) Baso % (Auto) Neut # (Auto) Lymph # (Auto) [place] # (Auto) Eos # (Auto) Baso # (Auto) Sodium Potassium Chloride Carbon Dioxide BUN Creatinine Estimated GFR BUN/Creatinine Ratio Glucose Lactate Calcium Magnesium Total Bilirubin AST ALT Alkaline Phosphatase Total Protein Albumin Globulin Albumin/Globulin Ratio TSH 3.31 Nasal Screen MRSA (PCR) Not detected U Opiates 300ng/mL cut Negative Ur Oxycodone Screen Negative Urine Methadone Screen Negative Ur Barbiturates Screen Positive H U Tricyclic Antidepress Negative Ur Phencyclidine Scrn Negative Ur Amphetamines Screen Negative U Methamphetamines Scrn Negative Ur MDMA Scrn (Ecstasy) Negative U Benzodiazepines Scrn Positive H Urine Cocaine Screen Negative U Marijuana (THC) Screen Negative Ethyl Alcohol SARS-CoV-2 (PCR) 02/01/23 02/01/23 02/01/23 04:31 04:31 04:31 WBC 6.4 RBC 3.50 L Hgb 10.8 L Hct 31.4 L MCV 89.6 MCH 30.8 MCHC 34.4 RDW 13.4 Plt Count 115 L Neut % (Auto) 71.3 Lymph % (Auto) 22.6 L [place] % (Auto) 4.6 Eos % (Auto) 0.7 L Baso % (Auto) 0.8 Neut # (Auto) 4600 Lymph # (Auto) 1400 [place] # (Auto) 300 Eos # (Auto) 0 Baso # (Auto) 100 Sodium 129 L Potassium 2.5 L* Chloride 95 L Carbon Dioxide 27 BUN 6 L Creatinine 0.42 L Estimated GFR > 60 BUN/Creatinine Ratio 14.3 Glucose 78 Lactate Calcium 6.9 L Magnesium 1.2 L Total Bilirubin 0.7 AST 93 H ALT 50 H Alkaline Phosphatase 70 Total Protein 5.9 L Albumin 3.1 L Globulin 2.8 Albumin/Globulin Ratio 1.1 TSH Nasal Screen MRSA (PCR) U Opiates 300ng/mL cut Ur Oxycodone Screen Urine Methadone Screen Ur Barbiturates Screen U Tricyclic Antidepress Ur Phencyclidine Scrn Ur Amphetamines Screen U Methamphetamines Scrn Ur MDMA Scrn (Ecstasy) U Benzodiazepines Scrn Urine Cocaine Screen U Marijuana (THC) Screen Ethyl Alcohol SARS-CoV-2 (PCR) Exam Vital Signs (past 8 hours): - 02/01/23 02:00 02/01/23 02:00 02/01/23 02:02 Temperature Pulse Rate 61 62 Respiratory Rate 19 19 Blood Pressure 100/64 Pulse Oximetry 98 95 Oxygen Delivery Method 02/01/23 02:30 02/01/23 02:30 02/01/23 03:00 Temperature Pulse Rate 60 59 L Respiratory Rate 18 18 Blood Pressure 111/72 Pulse Oximetry 98 96 Oxygen Delivery Method 02/01/23 03:00 02/01/23 03:03 02/01/23 03:30 Temperature Pulse Rate 60 61 Respiratory Rate 19 23 Blood Pressure 106/66 Pulse Oximetry 96 96 Oxygen Delivery Method 02/01/23 03:30 02/01/23 04:00 02/01/23 04:00 Temperature 98.3 F Pulse Rate 73 Respiratory Rate 22 Blood Pressure 101/67 110/70 Pulse Oximetry 98 Oxygen Delivery Method 02/01/23 04:25 02/01/23 04:30 02/01/23 04:30 Temperature Pulse Rate 65 65 Respiratory Rate 20 26 H Blood Pressure 118/70 Pulse Oximetry 95 97 Oxygen Delivery Method 02/01/23 05:00 02/01/23 05:00 02/01/23 05:14 Temperature Pulse Rate 56 L 58 L Respiratory Rate 21 21 Blood Pressure 106/64 Pulse Oximetry 97 97 Oxygen Delivery Method 02/01/23 05:30 02/01/23 05:30 02/01/23 06:01 Temperature Pulse Rate 61 Respiratory Rate 26 H Blood Pressure 93/57 L 106/58 L Pulse Oximetry 97 Oxygen Delivery Method 02/01/23 06:01 02/01/23 06:21 02/01/23 06:00 Temperature Pulse Rate 61 64 76 Respiratory Rate 21 19 21 Blood Pressure Pulse Oximetry 97 98 98 Oxygen Delivery Method 02/01/23 06:15 02/01/23 06:30 02/01/23 06:30 Temperature Pulse Rate 61 67 Respiratory Rate 20 20 Blood Pressure 105/61 Pulse Oximetry 97 97 Oxygen Delivery Method 02/01/23 06:45 02/01/23 07:00 02/01/23 07:47 Temperature 98.8 F Pulse Rate 66 64 Respiratory Rate 19 20 Blood Pressure Pulse Oximetry 96 97 Oxygen Delivery Method 02/01/23 07:00 02/01/23 07:01 02/01/23 07:01 Temperature Pulse Rate 64 Respiratory Rate 14 Blood Pressure 96/51 L Pulse Oximetry 98 Oxygen Delivery Method Room Air 02/01/23 07:15 02/01/23 07:30 02/01/23 07:30 Temperature Pulse Rate 65 65 Respiratory Rate 22 20 Blood Pressure 103/71 Pulse Oximetry 97 97 Oxygen Delivery Method 02/01/23 07:45 02/01/23 08:00 02/01/23 08:00 Temperature Pulse Rate 66 65 Respiratory Rate 20 19 Blood Pressure 98/59 L Pulse Oximetry 97 98 Oxygen Delivery Method Oxygen Delivery Method Room Air Narrative Exam Narrative: HR in the high 50s. VS are otherwise WNL. Patient is awake and conversant. On precedex drip. Assessment & Plan Assessment & Plan narrative: # ETOH Withdrawal # History of Seizures - recent seizure episode in the setting of Keppra noncomp liance, unclear if also due to above # Hypokalemia, HypoMg # Elevated LFTs # History of bipolar disorder - Continue CIWA protocol. Continue Precedex drip today. Would start Librium PO taper and wean off Precedex. - Repeat lactate. If elevated, bolus with LR - Follow up Keppra level. - Continue Keppra but switch to PO - Encourage PO intake - Aggressive electrolyte repletion. Monitor frequently until normalizing. Given poor PO intake, consider refeeding syndrome - Follow up UCx. Continue Ceftriaxone course - MV, Folate, Thiamine ongoing - Seizure precautions.
[2023-02-01] MEDS: cefTRIAXone 1,000 MG in SODIUM CHLORIDE 0.9% 100 ML 200 MG IV (11:50)
[2023-02-01 12:44] LABS: BUN Creatinine Ratio 8.3 (6-22); Blood Urea Nitrogen 3 mg/dL (7-17); Calcium 7.3 mg/dL (8.4-10.2); Carbon Dioxide 28 mmol/L (22-32); Chloride 92 mmol/L (98-107); Estimated Glomerular Filt Rate > 60 mL/min (>60); Glucose 105 mg/dL (70-100); HEMOLYSIS < 15 (0-50); Magnesium 2.2 mg/dL (1.6-2.3); Sodium 127 mmol/L (137-145)
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
[2023-02-01] MEDS: chlordiazePOXIDE 25 MG CAPSULE PO ×2 (14:32→21:23)
[2023-02-01] MEDS: LORATADINE 10 MG TABLET PO (14:34)
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
[2023-02-01] MEDS: LORazepam 1 MG TABLET PO (19:56)
--- NOTE | 2023-02-01 20:56 | PM.ICURNDS ---
- :: This patient was seen via real time interactive two-way audiovisual telecommunication. Note: comfortable, received 1mg of Ativan, continue weaning Precedex.
[2023-02-01] MEDS: levETIRAcetam 250 MG TABLET 1000 MG PO (21:23)
[2023-02-02] VITALS (62 sets, daily range): BP systolic 83–146; BP diastolic 51–89; PULSE 51–100; RESP 11–43; TEMP 36.6–37.2; O2SAT 67–100
[2023-02-02 04:30] LABS: Add Manual Diff / Slide Review NO; Basophils Absolute Auto 0 /uL (0-100); Eosinophils Absolute Auto 200 /uL (0-450); Eosinophils Percent Auto 4.4 % (2-4); Hematocrit 34.6 % (36-46); Hemoglobin 11.8 g/dL (12.0-16.0); Lymphocytes Absolute Auto 1800 /uL (1100-4500); Mean Corpuscular HGB Conc 34.2 % (30-36); Mean Corpuscular Hemoglobin 30.9 PG (26-34); Mean Corpuscular Volume 90.2 fL (80-100); Monocytes Absolute Auto 300 /uL (0-900); Monocytes Percent Auto 6.8 % (3-14); Neutrophils Absolute Auto 1700 /uL (1500-7000); Neutrophils Percent Auto 42.8 % (50-75); Platelet Count 117 X10^3/uL (150-400); Red Blood Cell Count 3.83 X10^6/uL (4.0-5.2); Red Cell Distribution Width 13.3 % (11.6-14.8)
[2023-02-02 04:41] LABS: Alanine Aminotransferase 41 IU/L (<35); Albumin 3.4 g/dL (3.5-5.0); Albumin Globulin Ratio 1.1 (1.0-2.8); Alkaline Phosphatase 90 U/L (38-126); Aspartate Aminotransferase 54 IU/L (14-36); BUN Creatinine Ratio 19.1 (6-22); Bilirubin Total 0.7 mg/dL (0.2-1.3); Blood Urea Nitrogen 9 mg/dL (7-17); Calcium 8.2 mg/dL (8.4-10.2); Carbon Dioxide 25 mmol/L (22-32); Chloride 96 mmol/L (98-107); Estimated Glomerular Filt Rate > 60 mL/min (>60); Globulin 3.2 g/dL (1.7-4.1); Glucose 101 mg/dL (70-100); HEMOLYSIS < 15 (0-50); Potassium 3.2 mmol/L (3.4-5.1); Sodium 130 mmol/L (137-145); Total Protein 6.6 g/dL (6.3-8.2)
[2023-02-02] MEDS: dexmedeTOMIDine in 0.9 % NaCL 400 MCG/100 ML PLAST..BAG 6.124 MCG IV (07:41)
[2023-02-02] MEDS: POTASSIUM CHLORIDE 20 MEQ TAB 40 MEQ PO (08:40)
[2023-02-02] MEDS: chlordiazePOXIDE 25 MG CAPSULE PO ×3 (08:40→21:04)
[2023-02-02] MEDS: FOLIC ACID 1 MG TABLET PO (08:41)
[2023-02-02] MEDS: levETIRAcetam 250 MG TABLET 1000 MG PO ×2 (08:41→21:03)
[2023-02-02] MEDS: MULTIVITAMIN 1 TABLET 1 TAB PO (08:41)
[2023-02-02] MEDS: THIAMINE 100 MG TABLET PO (08:41)
[2023-02-02] MEDS: LORATADINE 10 MG TABLET PO (08:42)
[2023-02-02] MEDS: cefTRIAXone 1,000 MG in SODIUM CHLORIDE 0.9% 100 ML 200 MG IV (11:36)
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
[2023-02-02] MEDS: GABAPENTIN 100 MG CAPSULE PO ×2 (15:59→21:04)
[2023-02-02] MEDS: TOPIRAMATE 25 MG TABLET 50 MG PO ×2 (15:59→21:04)
[2023-02-02] MEDS: BUSPIRONE 5 MG TABLET 15 MG PO ×2 (16:00→21:03)
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
[2023-02-02] MEDS: MELATONIN 3 MG TABLET 6 MG PO (21:04)
[2023-02-02] MEDS: VENLAFAXINE 37.5 MG TABLET PO (21:04)
--- NOTE | 2023-02-02 21:16 | PC.NURSE ---
2100-Patient sitting in bed conversing with her room mate. Patient denies any s/s of withdrawl. Patient states she feels back to normal. Ciwaa is 0. Will discontinue q4hr unless patient is having symptoms at which time will do Ciwaa prn.
[2023-02-03 04:13] VITALS: BP 139/89; PULSE 56; RESP 16; TEMP 37.1; O2SAT 99
[2023-02-03 04:51] LABS: Alanine Aminotransferase 40 IU/L (<35); Albumin 4.1 g/dL (3.5-5.0); Albumin Globulin Ratio 1.2 (1.0-2.8); Alkaline Phosphatase 102 U/L (38-126); Aspartate Aminotransferase 47 IU/L (14-36); BUN Creatinine Ratio 26.8 (6-22); Bilirubin Total 0.7 mg/dL (0.2-1.3); Blood Urea Nitrogen 11 mg/dL (7-17); Calcium 8.7 mg/dL (8.4-10.2); Carbon Dioxide 22 mmol/L (22-32); Chloride 99 mmol/L (98-107); Estimated Glomerular Filt Rate > 60 mL/min (>60); Globulin 3.5 g/dL (1.7-4.1); Glucose 95 mg/dL (70-100); HEMOLYSIS < 15 (0-50); Potassium 3.7 mmol/L (3.4-5.1); Sodium 131 mmol/L (137-145); Total Protein 7.6 g/dL (6.3-8.2)
[2023-02-03 04:53] LABS: Magnesium 1.8 mg/dL (1.6-2.3)
[2023-02-03 05:00] LABS: Add Manual Diff / Slide Review NO; Basophils Absolute Auto 0 /uL (0-100); Basophils Percent Auto 0.7 % (0-2); Eosinophils Absolute Auto 100 /uL (0-450); Eosinophils Percent Auto 1.1 % (2-4); Hematocrit 36.4 % (36-46); Hemoglobin 12.5 g/dL (12.0-16.0); Lymphocytes Absolute Auto 1800 /uL (1100-4500); Lymphocytes Percent Auto 32.4 % (25-40); Mean Corpuscular HGB Conc 34.3 % (30-36); Mean Corpuscular Volume 90.3 fL (80-100); Monocytes Absolute Auto 500 /uL (0-900); Monocytes Percent Auto 8.9 % (3-14); Neutrophils Absolute Auto 3200 /uL (1500-7000); Neutrophils Percent Auto 56.9 % (50-75); Platelet Count 152 X10^3/uL (150-400); Red Blood Cell Count 4.03 X10^6/uL (4.0-5.2); Red Cell Distribution Width 13.4 % (11.6-14.8); White Blood Cell Count 5.7 X10^3/uL (4.5-11.0)
[2023-02-03] MEDS: BUSPIRONE 5 MG TABLET 15 MG PO (08:18)
[2023-02-03] MEDS: chlordiazePOXIDE 25 MG CAPSULE PO (08:18)
[2023-02-03] MEDS: GABAPENTIN 100 MG CAPSULE PO (08:18)
[2023-02-03] MEDS: FOLIC ACID 1 MG TABLET PO (08:18)
[2023-02-03] MEDS: TOPIRAMATE 25 MG TABLET 50 MG PO (08:18)
[2023-02-03] MEDS: MULTIVITAMIN 1 TABLET 1 TAB PO (08:18)
[2023-02-03] MEDS: levETIRAcetam 250 MG TABLET 1000 MG PO (08:18)
[2023-02-03] MEDS: THIAMINE 100 MG TABLET PO (08:18)
[2023-02-03] MEDS: LORATADINE 10 MG TABLET PO (08:18)
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
[2023-02-03] MEDS: cefTRIAXone 1,000 MG in SODIUM CHLORIDE 0.9% 100 ML 200 MG IV (09:02)
[2023-02-05 13:36] LABS: Levetiracetam Keppra 2.2 ug/mL (10.0-40.0)
== END 2023-02-03 09:45 | disposition home or self-care (01) | DRG 53 ==
LOC: ED 10:01 → AC 11:47 → ICU 13:20
PROVIDERS: Emergency Medicine; Admitting Provider Student in an Organized Health Care Education/Training Program; Emergency Provider Emergency Medicine; PCP Nurse Practitioner; Referring Provider Emergency Medicine; Visit Provider Student in an Organized Health Care Education/Training Program
DX: G40.909 Epilepsy, unspecified, not intractable, without status epilepticus (principal); F10.239 Alcohol dependence with withdrawal, unspecified; N39.0 Urinary tract infection, site not specified; E87.6 Hypokalemia; B96.20 Unspecified Escherichia coli [E. coli] as the cause of diseases classified elsewhere; F32.A Depression, unspecified; F41.9 Anxiety disorder, unspecified; Y90.8 Blood alcohol level of 240 mg/100 ml or more; F10.229 Alcohol dependence with intoxication, unspecified; S00.83XA Contusion of other part of head, initial encounter; Y04.2XXA Assault by strike against or bumped into by another person, initial encounter; Z91.148 Patient's other noncompliance with medication regimen for other reason; Z20.822 Contact with and (suspected) exposure to COVID-19; Z87.891 Personal history of nicotine dependence
CPT/HCPCS: 36415; 70450; 70486; 72125; 80048; 80053; 80177; 80305; 80320; 81001; 81025; 83605; 83690; 83735; 84100; 84443; 85025; 87077; 87086; 87186; 87635; 87797; 96365; 96366; 96367; 96368; 96375; 96376; 99233; 99284; 99291; C9803; C9113; J0696; J1953; J2060; J2405; J2560; J3475

== ENCOUNTER 2023-02-16 08:59 | Inpatient (IN) | payer OTHER, MEDICAID, SELFPAY ==
[2023-01-31 12:06] VITALS: BMI 21.7
[2023-02-16] VITALS (17 sets, daily range): BP systolic 110–165; BP diastolic 66–107; PULSE 69–133; RESP 16–23; TEMP 36–36.9; O2SAT 94–99; BMI 21.7
[2023-02-16] MEDS: PHENobarbital 65 MG/ML VIAL 260 MG IV (09:19)
[2023-02-16] MEDS: MULTIVITAMIN 1 TABLET 1 TAB PO (09:20)
[2023-02-16] MEDS: THIAMINE 100 MG TABLET PO (09:20)
[2023-02-16] MEDS: FOLIC ACID 1 MG TABLET PO (09:20)
--- NOTE | 2023-02-16 09:20 | ED.ALCOHOL ---
HPI - Alcohol General Chief Complaint: Toxicology Problem Stated Complaint: ETOH withdrawl, seizures Time Seen by Provider: 02/16/23 09:10 Source: patient, RN notes reviewed and old records reviewed Limitations: no limitations History of Present Illness HPI narrative: This is a 37-year-old female with history of alcohol abuse and reported seizure disorder who takes Keppra. Patient states she has not had any alcohol for at least 3 days she states she is been starting to go with withdrawals and reportedly had 3 seizures this morning. Patient is unaccompanied. She states her roommate saw them she does not know how long they lasted, what they look like or have any other information patient denies any hallucinations. She states that she would like for the seizures to stop but is not interested in detox or other treatment. She states she was drinking a half bottle of vodka daily until 3 days ago. She denies fevers or chills. Denies headache, denies chest pain or shortness of breath. States she is had nausea and vomiting and emesis looked like bile. She states she is had diarrhea alternating with constipation. No bloody stools. She states she is had dark stools for 1 or 2 days. Patient denies any urinary symptoms. She states she feels tingling all over. Patient states she has been taking her Keppra and does not think that she is been throwing it up. She notes that she is had prior orthopedic surgeries. Domenica chance is her primary care physician. She states she is seen a neurologist in the past but not currently. Related Data Home Medications Medication Instructions Recorded Confirmed buspirone 15 mg tablet 15 mg PO TID 10/04/22 11/13/22 [facility] Iron Supplement See Rx Instructions .Route .COMPLEX 11/13/22 11/13/22 Previous Rx's Medication Instructions Recorded clonidine HCl 0.1 mg tablet 0.1 mg PO BID PRN anxiety #180 tabs 12/08/21 gabapentin 100 mg capsule 100 mg PO BID #180 caps 12/08/21 levetiracetam 500 mg tablet 1,000 mg PO BID #180 tabs 12/08/21 (Keppra) naltrexone 50 mg tablet 50 mg PO DAILY #90 tabs 12/08/21 rizatriptan 10 mg tablet See Rx Instructions PO .COMPLEX #9 12/08/21 tabs topiramate 50 mg tablet 50 mg PO BID #180 tabs 12/08/21 trazodone 150 mg tablet 150 mg PO BEDTIME PRN insomnia #90 12/08/21 tabs hydroxyzine pamoate 50 mg capsule 50 mg PO BID PRN anxiety #180 caps 12/12/21 venlafaxine 37.5 mg 37.5 mg PO BEDTIME #30 caps 03/30/22 capsule,extended release 24 hr fluticasone propionate 50 2 spray intranasal DAILY #16 grams 08/11/22 mcg/actuation nasal spray,suspension (Flonase Allergy Relief) cetirizine 5 mg-pseudoephedrine ER 1 tab PO Q12H #180 tabs 12/26/22 120 mg tablet,extended release,12hr chlordiazepoxide HCl 25 mg capsule See Rx Instructions .Route 02/03/23 .COMPLEX #12 caps Allergies Allergy/AdvReac Type Severity Reaction Status Date / Time No Known Drug Allergies Allergy Verified 02/16/23 09:00 Review of Systems Review of Systems ROS Unobtainable: All systems reviewed & are unremarkable except as noted in HPI and below Patient History Medical History 39 weeks gestation of Alcohol dependence in early full remission Alcohol withdrawal seizure Allergies Anxiety and depression Breast self examination education, encounter for Elevated LFTs History of alcohol abuse Insomnia Medical history unknown Migraine Normal breast exam Right foot injury SGA (small for gestational age), , affecting care of mother, antepartum Suicidal ideation TBI (traumatic brain injury) Vaginal yeast infection Well woman exam Surgical History Right arm fracture Family History Mother Breast cancer in female Father CVA (cerebral vascular accident) Social History household members: spouse, children and friend(s) Smoking Status: Former smoker alcohol intake: current Smoking Status: Former smoker alcohol intake frequency: 3 or more drinks per day Alcohol type: wine Substance Use Type: does not use Exam Narrative Exam Narrative: GEN: well nourished, well appearing female, alert and oriented, patient appears to be in moderate distress. HEENT: Atraumatic, pupils are equal round reactive to light, extraocular movements are intact, nares are clear, there is no conjunctival pallor. Throat is clear without any exudates, erythema, tonsillar enlargement or uvular deviation HEART: Tachycardic but Regular rate and rhythm without murmur, clicks, rubs. Pulses are equal in upper and lower extremities LUNGS:Lungs clear to auscultation, no wheezes, rales, crackles, chest moves symmetrically, no tachypnea or accessory muscle use ABD:bowel sounds normal, soft, non-tender, no guarding, rebound, rigidity, no masses noted, no hepatosplenomegaly :No CVA tenderness MSCL: Non-tender, no muscle atrophy, muscles strength 5/5 upper and lower extremities, full range of motion. NEURO:CN 2-12 intact, sensation normal, reflexes 2/4 upper and lower extremities. Patient has generalized tremor. Patient changes position continuing on the bed moving from on her knees on her back with good range of motion but does appear slightly agitated. SKIN: Patient has ecchymosis over the left elbow. Initial Vital Signs Initial Vital Signs: Vital Signs Pulse Rate 133 H 02/16/23 09:03 Pulse Oximetry 97 02/16/23 09:03 Course Orders Ordered: ED Orders 02/16/23 10:00 EKG-12 Lead Stat 02/16/23 10:57 Urine Drug Screen, Rapid Stat Urine Microscopic Stat Acetaminophen (Acetaminophen 325 Mg Tablet) 650 mg PO Q6H PRN PRN Reason: Fever/Mild Pain (1-3) Buspirone HCl (Buspirone 5 Mg Tablet) 15 mg PO TID ZACARIAS Last Admin: 02/16/23 15:00 Dose: Not Given Documented By: SHEILA Clonidine HCl (Clonidine 0.1 Mg Tablet) 0.1 mg PO BID PRN PRN Reason: anxiety Folic Acid (Folic Acid 1 Mg Tablet) 1 mg PO DAILY ZACARIAS Gabapentin (Gabapentin 100 Mg Capsule) 100 mg PO BID ZACARIAS Sodium Chloride (Normal Saline 0.9%) 1,000 mls @ 100 mls/hr IV CONT ZACARIAS Stop: 02/17/23 01:14 Last Admin: 02/16/23 13:49 Dose: 100 mls/hr Documented By: SHEILA dexmedeTOMIDine in 0.9 % NaCL (Precedex) 400 mcg in 100 mls @ 3.062 mls/hr IV TITRATE ZACARIAS; Protocol Last Titration: 02/16/23 15:06 Dose: 0.6 mcg/kg/hr, 9.185 mls/hr Documented By: Admin: 02/16/23 13:49 Dose: 0.4 mcg/kg/hr, 6.124 mls/hr Documented By: SHEILA Levetiracetam 1,000 mg/ Sodium (Chloride) 110 mls @ 440 mls/hr IV Q12H ZACARIAS Lorazepam (Lorazepam 2 Mg/Ml Inj) 0 mg IV CIWAPRN PRN; Protocol PRN Reason: Alcohol Withdrawal Lorazepam (Lorazepam 1 Mg Tablet) 0 mg PO CIWAPRN PRN; Protocol PRN Reason: Alcohol Withdrawal Multivitamins (Multivitamin 1 Tablet) 1 tab PO DAILY ZACARIAS Naloxone HCl (Naloxone 0.4 Mg/Ml Vial) 0.2 mg IV Q2MIN PRN PRN Reason: Opiate Reversal Ondansetron HCl (Ondansetron 4 Mg/2 Ml Inj) 4 mg IV Q4HR [facility] Last Admin: 02/16/23 16:54 Dose: Not Given Documented By: SHEILA Pantoprazole Sodium (Pantoprazole 40 Mg Vial) 40 mg IV DAILY ZACARIAS Last Admin: 02/16/23 13:58 Dose: 40 mg Documented By: SHEILA Thiamine HCl (Thiamine 100 Mg Tablet) 100 mg PO DAILY ZACARIAS Stop: 02/20/23 09:01 Topiramate (Topiramate 25 Mg Tablet) 50 mg PO BID ZACARIAS Venlafaxine HCl (Venlafaxine Er 37.5 Mg Cap) 37.5 mg PO BEDTIME ZACARIAS Discontinued Medications Folic Acid (Folic Acid 1 Mg Tablet) 1 mg PO DAILY ONE Stop: 02/16/23 09:12 Last Admin: 02/16/23 09:20 Dose: 1 mg Documented By: BAY Sodium Chloride (Normal Saline 0.9%) 1,000 mls @ 1,000 mls/hr IV BOLUS ONE Stop: 02/16/23 10:34 Last Infusion: 02/16/23 11:17 Dose: 0 mls/hr Documented By: Admin: 02/16/23 09:46 Dose: 1,000 mls/hr Documented By: GALINA Lactated Ringer's (Lactated Ringers) 1,000 mls @ 1,000 mls/hr IV BOLUS ONE Stop: 02/16/23 12:54 Last Infusion: 02/16/23 13:38 Dose: 0 mls/hr Documented By: Admin: 02/16/23 12:12 Dose: 1,000 mls/hr Documented By: BAY Levetiracetam 1,000 mg/ Sodium (Chloride) 110 mls @ 440 mls/hr IV NOW ONE Stop: 02/16/23 13:00 Last Infusion: 02/16/23 13:38 Dose: 0 mls/hr Documented By: Admin: 02/16/23 13:09 Dose: 440 mls/hr Documented By: BAY Magnesium Sulfate (Magnesium Sulfate) 4 gm in 100 mls @ 25 mls/hr IV NOW ONE Stop: 02/16/23 17:09 Last Admin: 02/16/23 14:09 Dose: 25 mls/hr Documented By: SHEILA Co-signed By: POTASSIUM CHLORIDE IN WATER (Potassium Cl 10 Meq/100 Ml Darline) 10 meq in 100 mls @ 100 mls/hr IV Q1H ZACARIAS Stop: 02/16/23 17:59 Last Admin: 02/16/23 16:52 Dose: 100 mls/hr Documented By: Infusion: 02/16/23 16:50 Dose: 100 mls/hr Documented By: Admin: 02/16/23 15:50 Dose: 100 mls/hr Documented By: Infusion: 02/16/23 15:50 Dose: 100 mls/hr Documented By: Admin: 02/16/23 15:02 Dose: 100 mls/hr Documented By: Infusion: 02/16/23 14:55 Dose: 100 mls/hr Documented By: Admin: 02/16/23 13:55 Dose: 100 mls/hr Documented By: SHEILA Lorazepam (Lorazepam 2 Mg/Ml Inj) 2 mg IV NOW ONE Stop: 02/16/23 09:37 Last Admin: 02/16/23 09:45 Dose: Not Given Documented By: GALINA Lorazepam (Lorazepam 2 Mg/Ml Inj) 1 mg IV NOW ONE Stop: 02/16/23 12:30 Last Admin: 02/16/23 12:31 Dose: 1 mg Documented By: BAY Multivitamins (Multivitamin 1 Tablet) 1 tab PO DAILY ONE Stop: 02/16/23 09:12 Last Admin: 02/16/23 09:20 Dose: 1 tab Documented By: BAY Phenobarbital (Phenobarbital 65 Mg/Ml Vial) 260 mg IV NOW ONE Stop: 02/16/23 09:11 Last Admin: 02/16/23 09:19 Dose: 260 mg Documented By: BAY Phenobarbital (Phenobarbital 65 Mg/Ml Vial) 130 mg IV NOW ONE Stop: 02/16/23 09:39 Last Admin: 02/16/23 09:46 Dose: 130 mg Documented By: GALINA Phenobarbital (Phenobarbital 65 Mg/Ml Vial) 130 mg IV NOW ONE Stop: 02/16/23 11:56 Last Admin: 02/16/23 12:12 Dose: 130 mg Documented By: BAY Thiamine HCl (Thiamine 100 Mg Tablet) 100 mg PO DAILY ONE Stop: 02/16/23 09:12 Last Admin: 02/16/23 09:20 Dose: 100 mg Documented By: BAY Vital Signs Vital signs: Vital Signs - 8 hr 02/16/23 11:30 02/16/23 12:00 02/16/23 12:30 Pulse Rate 119 H 111 H Respiratory Rate 20 20 22 Blood Pressure 165/107 H Pulse Oximetry 98 98 98 Oxygen Delivery Method Room Air Room Air Room Air 02/16/23 13:00 Pulse Rate 89 Respiratory Rate 18 Blood Pressure 132/84 Pulse Oximetry 98 Oxygen Delivery Method Room Air MDM - Alcohol Lab Data 02/16/23 09:10 02/16/23 09:10 Labs: Lab Results 02/16/23 02/16/23 02/16/23 Range/Units 09:10 09:10 09:10 WBC 3.3 L (4.5-11.0) X10^3/uL RBC 4.48 (4.0-5.2) X10^6/uL Hgb 13.9 (12.0-16.0) g/dL Hct 40.0 (36-46) % MCV 89.4 (80-100) fL MCH 30.9 (26-34) PG MCHC 34.6 (30-36) % RDW 14.1 (11.6-14.8) % Plt Count 140 L (150-400) X10^3/uL Neut % (Auto) 48.1 L (50-75) % Lymph % (Auto) 43.6 H (25-40) % Blaine % (Auto) 5.4 (3-14) % Eos % (Auto) 0.0 L (2-4) % Baso % (Auto) 2.9 H (0-2) % Neut # (Auto) 1600 (7444-1609) /uL Lymph # (Auto) 1500 (3877-9850) /uL Blaine # (Auto) 200 (0-900) /uL Eos # (Auto) 0 (0-450) /uL Baso # (Auto) 100 (0-100) /uL PT 13.0 H (10.1-12.7) SECONDS INR 1.1 (0.9-1.3) APTT 27 (26-36) SECONDS Sodium 135 L (137-145) mmol/L Potassium 3.0 L (3.4-5.1) mmol/L Chloride 89 L (98-107) mmol/L Carbon Dioxide 30 (22-32) mmol/L BUN 4 L (7-17) mg/dL Creatinine 0.43 L (0.52-1.04) mg/dL Estimated GFR > 60 (>60) mL/min BUN/Creatinine Ratio 9.3 (6-22) Glucose 160 H (70-100) mg/dL Calcium 8.8 (8.4-10.2) mg/dL Magnesium (1.6-2.3) mg/dL Total Bilirubin 0.7 (0.2-1.3) mg/dL AST 363 H (14-36) IU/L ALT 146 H (<35) IU/L Alkaline Phosphatase 140 H (38-126) U/L Total Protein 8.5 H (6.3-8.2) g/dL Albumin 4.5 (3.5-5.0) g/dL Globulin 4.0 (1.7-4.1) g/dL Albumin/Globulin Ratio 1.1 (1.0-2.8) Lipase 325 H (23-300) U/L Serum , Qual (Negative) Urine RBC (0-5/HPF) Urine WBC (0-5/HPF) Ur Squamous Epith Cells (0-5/HPF) Ur Renal Epithelial Cell (0-1/HPF) Urine Bacteria (None) Ur Culture Indicated? U Opiates 300ng/mL cut (Negative) Ur Oxycodone Screen (Negative) Urine Methadone Screen (Negative) Ur Barbiturates Screen (Negative) U Tricyclic Antidepress (Negative) Ur Phencyclidine Scrn (Negative) Ur Amphetamines Screen (Negative) U Methamphetamines Scrn (Negative) Ur MDMA Scrn (Ecstasy) (Negative) U Benzodiazepines Scrn (Negative) Urine Cocaine Screen (Negative) U Marijuana (THC) Screen (Negative) Ethyl Alcohol 305 H ( - 10) mg/dL 02/16/23 02/16/23 02/16/23 Range/Units 09:10 09:10 10:57 WBC (4.5-11.0) X10^3/uL RBC (4.0-5.2) X10^6/uL Hgb (12.0-16.0) g/dL Hct (36-46) % MCV (80-100) fL MCH (26-34) PG MCHC (30-36) % RDW (11.6-14.8) % Plt Count (150-400) X10^3/uL Neut % (Auto) (50-75) % Lymph % (Auto) (25-40) % Blaine % (Auto) (3-14) % Eos % (Auto) (2-4) % Baso % (Auto) (0-2) % Neut # (Auto) (8825-6581) /uL Lymph # (Auto) (1275-8033) /uL Blaine # (Auto) (0-900) /uL Eos # (Auto) (0-450) /uL Baso # (Auto) (0-100) /uL PT (10.1-12.7) SECONDS INR (0.9-1.3) APTT (26-36) SECONDS Sodium (137-145) mmol/L Potassium (3.4-5.1) mmol/L Chloride (98-107) mmol/L Carbon Dioxide (22-32) mmol/L BUN (7-17) mg/dL Creatinine (0.52-1.04) mg/dL Estimated GFR (>60) mL/min BUN/Creatinine Ratio (6-22) Glucose (70-100) mg/dL Calcium (8.4-10.2) mg/dL Magnesium 1.5 L (1.6-2.3) mg/dL Total Bilirubin (0.2-1.3) mg/dL AST (14-36) IU/L ALT (<35) IU/L Alkaline Phosphatase (38-126) U/L Total Protein (6.3-8.2) g/dL Albumin (3.5-5.0) g/dL Globulin (1.7-4.1) g/dL Albumin/Globulin Ratio (1.0-2.8) Lipase (23-300) U/L Serum , Qual Negative (Negative) Urine RBC (0-5/HPF) Urine WBC (0-5/HPF) Ur Squamous Epith Cells (0-5/HPF) Ur Renal Epithelial Cell (0-1/HPF) Urine Bacteria (None) Ur Culture Indicated? U Opiates 300ng/mL cut Negative (Negative) Ur Oxycodone Screen Negative (Negative) Urine Methadone Screen Negative (Negative) Ur Barbiturates Screen Positive H (Negative) U Tricyclic Antidepress Negative (Negative) Ur Phencyclidine Scrn Negative (Negative) Ur Amphetamines Screen Negative (Negative) U Methamphetamines Scrn Negative (Negative) Ur MDMA Scrn (Ecstasy) Negative (Negative) U Benzodiazepines Scrn Positive H (Negative) Urine Cocaine Screen Negative (Negative) U Marijuana (THC) Screen Negative (Negative) Ethyl Alcohol ( - 10) mg/dL 02/16/23 Range/Units 10:57 WBC (4.5-11.0) X10^3/uL RBC (4.0-5.2) X10^6/uL Hgb (12.0-16.0) g/dL Hct (36-46) % MCV (80-100) fL MCH (26-34) PG MCHC (30-36) % RDW (11.6-14.8) % Plt Count (150-400) X10^3/uL Neut % (Auto) (50-75) % Lymph % (Auto) (25-40) % Blaine % (Auto) (3-14) % Eos % (Auto) (2-4) % Baso % (Auto) (0-2) % Neut # (Auto) (0347-7959) /uL Lymph # (Auto) (2513-8065) /uL Blaine # (Auto) (0-900) /uL Eos # (Auto) (0-450) /uL Baso # (Auto) (0-100) /uL PT (10.1-12.7) SECONDS INR (0.9-1.3) APTT (26-36) SECONDS Sodium (137-145) mmol/L Potassium (3.4-5.1) mmol/L Chloride (98-107) mmol/L Carbon Dioxide (22-32) mmol/L BUN (7-17) mg/dL Creatinine (0.52-1.04) mg/dL Estimated GFR (>60) mL/min BUN/Creatinine Ratio (6-22) Glucose (70-100) mg/dL Calcium (8.4-10.2) mg/dL Magnesium (1.6-2.3) mg/dL Total Bilirubin (0.2-1.3) mg/dL AST (14-36) IU/L ALT (<35) IU/L Alkaline Phosphatase (38-126) U/L Total Protein (6.3-8.2) g/dL Albumin (3.5-5.0) g/dL Globulin (1.7-4.1) g/dL Albumin/Globulin Ratio (1.0-2.8) Lipase (23-300) U/L Serum , Qual (Negative) Urine RBC 0-1/hpf (0-5/HPF) Urine WBC 0-1/hpf (0-5/HPF) Ur Squamous Epith Cells 1-5 /hpf (0-5/HPF) Ur Renal Epithelial Cell 0-1/hpf (0-1/HPF) Urine Bacteria None seen (None) Ur Culture Indicated? Cult not indicated U Opiates 300ng/mL cut (Negative) Ur Oxycodone Screen (Negative) Urine Methadone Screen (Negative) Ur Barbiturates Screen (Negative) U Tricyclic Antidepress (Negative) Ur Phencyclidine Scrn (Negative) Ur Amphetamines Screen (Negative) U Methamphetamines Scrn (Negative) Ur MDMA Scrn (Ecstasy) (Negative) U Benzodiazepines Scrn (Negative) Urine Cocaine Screen (Negative) U Marijuana (THC) Screen (Negative) Ethyl Alcohol ( - 10) mg/dL Point of Care Testing Test Results Negative Urine Dip Bedside Urine Glucose Negative Bedside Urine Bilirubin - Negative Bedside Urine Ketone +/- 5 Urine Specific [place] 1.01 Bedside Urine Occult Blood - Negative Bedside Urine pH 6 Bedside Urine Protein +/- 15 Bedside Urine Urobilinogen - Negative Bedside Urine Nitrite - Negative Bedside Urine Leukocytes +/- 15 Esterase ECG Data Attestation: I personally reviewed and interpreted this ECG as follows: Interpretation: Possible junctional rhythm rate of 101 QRS is 74 QTC 466. Patient may have P waves but they are difficult to see with motion artifact throughout the EKG. MDM Narrative Medical decision making narrative: This is a 37-year-old female with concern for alcohol withdrawal induced seizures, patient does not appear postictal but does appear to be in withdrawal she is tachycardic, while she is alert and oriented and appropriate and answering questions she does appear agitated and has tremor. Patient given phenobarb 260 mg, thiamine, folic acid multivitamin and reassessed patient was still in pretty significant symptoms. Was given additional dose of 130 mg of phenobarbital and on reassessment has improved her heart rate and is now resting comfortably. Workup shows white count 3.3, platelets are slightly low at 140 consistent with patient's prior, no anemia. INR is negative, sodium is 135 testing was 3 was replaced orally, chloride 89 BUN of 4 with a glucose of 160, Mag was low at 1.5 with AST ALT [id number] normal bilirubin and lipase of 325. Patient's ETOH is 305. EKG shows tachycardia appears junctional. Head CT is negative. Urine tox positive for barbiturates but patient had received this in the department. Discussed with hospitalist who accepts for admission. Discussed loading with Carly is patient has reported history of seizures has not had any seizure activity here in the department. She had improvement with phenobarbital but still is having withdrawal symptoms and felt to be appropriate for admission. Patient was given 1 dose of benzodiazepines she was having vomiting here in the department. Discharge Plan Departure Patient Disposition: Admitted As Inpatient Clinical Impression: Alcohol withdrawal Admit Date/Time: 02/16/23 13:02 Admit Provider: Fidel Shields
[2023-02-16 09:28] LABS: Alanine Aminotransferase 146 IU/L (<35); Albumin 4.5 g/dL (3.5-5.0); Albumin Globulin Ratio 1.1 (1.0-2.8); Alkaline Phosphatase 140 U/L (38-126); Aspartate Aminotransferase 363 IU/L (14-36); BUN Creatinine Ratio 9.3 (6-22); Bilirubin Total 0.7 mg/dL (0.2-1.3); Blood Urea Nitrogen 4 mg/dL (7-17); Calcium 8.8 mg/dL (8.4-10.2); Carbon Dioxide 30 mmol/L (22-32); Chloride 89 mmol/L (98-107); Estimated Glomerular Filt Rate > 60 mL/min (>60); Glucose 160 mg/dL (70-100); HEMOLYSIS < 15 (0-50); Lipase 325 U/L (23-300); Magnesium 1.5 mg/dL (1.6-2.3); Sodium 135 mmol/L (137-145); Total Protein 8.5 g/dL (6.3-8.2)
[2023-02-16 09:29] LABS: INR 1.1 (0.9-1.3)
[2023-02-16 09:30] LABS: Add Manual Diff / Slide Review NO; Basophils Absolute Auto 100 /uL (0-100); Basophils Percent Auto 2.9 % (0-2); Eosinophils Absolute Auto 0 /uL (0-450); Hemoglobin 13.9 g/dL (12.0-16.0); Lymphocytes Absolute Auto 1500 /uL (1100-4500); Lymphocytes Percent Auto 43.6 % (25-40); Mean Corpuscular HGB Conc 34.6 % (30-36); Mean Corpuscular Hemoglobin 30.9 PG (26-34); Mean Corpuscular Volume 89.4 fL (80-100); Monocytes Absolute Auto 200 /uL (0-900); Monocytes Percent Auto 5.4 % (3-14); Neutrophils Absolute Auto 1600 /uL (1500-7000); Neutrophils Percent Auto 48.1 % (50-75); Platelet Count 140 X10^3/uL (150-400); Red Blood Cell Count 4.48 X10^6/uL (4.0-5.2); Red Cell Distribution Width 14.1 % (11.6-14.8); White Blood Cell Count 3.3 X10^3/uL (4.5-11.0)
[2023-02-16 09:32] LABS: PTT Partial Thromboplastin Tim 27 SECONDS (26-36)
[2023-02-16 09:35] LABS: Ethanol (ETOH) 305 mg/dL
--- NOTE | 2023-02-16 09:35 | DI.CT.S_ITS ---
PROCEDURE: CT HEAD/BRAIN WO CON INDICATIONS: reported seizure, etoh withdrawl TECHNIQUE: Noncontrast 4.5 mm thick angled axial sections acquired from the foramen magnum to the vertex, with coronal and sagittal reformats. For radiation dose reduction, the following was used: automated exposure control, adjustment of mA and/or kV according to patient size. COMPARISON: [facility], CT, CT HEAD/BRAIN WO CON, 01/31/2023, 9:14. [facility], CT, CT HEAD/BRAIN WO CON, 01/12/2021, 10:03. FINDINGS: Image quality: Excellent. CSF spaces: Basal cisterns are patent. No extra-axial fluid collections. Ventricles are normal in size and shape. Brain: No midline shift. No intracranial masses or hemorrhage. Stanton-white matter interface is normal. Stable small hypodensity in the region of the right basal ganglia. This may represent a remote lacunar infarct. Skull and face: Calvarium and visualized facial bones are intact, without suspicious lesions. Sinuses: Visualized sinuses and mastoids are clear. IMPRESSION: CT head without acute intracranial abnormalities. No mass or mass effect visualized. Dictated by: Francisco Dale M.D. on 02/16/2023 at 10:06 Approved by: Francisco Dale M.D. on 02/16/2023 at 10:07
[2023-02-16] MEDS: PHENobarbital 65 MG/ML VIAL 130 MG IV ×2 (09:46→12:12)
[2023-02-16] MEDS: SODIUM CHLORIDE 0.9% 1,000 ML 1000 ML IV (09:46)
--- NOTE | 2023-02-16 09:59 | PC.NURSE ---
[employer] made aware of situation. wardrobe specialty worker, Jerardo Herrera, #[id number]
--- NOTE | 2023-02-16 10:45 | PC.NURSE ---
Attempted to get pt up to BS for a urine sample. She did not urinate at this time. Pt back to bed and ate some ice chips
[2023-02-16 11:10] LABS: Pregnancy Test Serum,Qual Negative (Negative)
[2023-02-16 11:34] LABS: Urine Benzodiazepines Positive (Negative)
[2023-02-16 11:35] LABS: UR Morphine/Opiate cutoff 300 Negative (Negative); Ur Creatinine Normal (Normal); Ur Specific Gravity Normal (Normal); Urine Amphetamines Negative (Negative); Urine Barbiturates Positive (Negative); Urine Cocaine Negative (Negative); Urine MDMA Negative (Negative); Urine Methadone Negative (Negative); Urine Methamphetamines Negative (Negative); Urine Oxycodone Negative (Negative); Urine Phencyclidine Negative (Negative); Urine Tetrahydrocannabinol Negative (Negative); Urine Tricyclic Antidepressant Negative (Negative); Urine pH Normal (Normal)
[2023-02-16 11:41] LABS: Bacteria Urine None Seen; Culture Indicated Urine Cult Not Indicated; RBC Urine 0-1/HPF (0-5/HPF); Renal Epithelial Cells Urine 0-1/HPF (0-1/HPF); Squamous Epithelial Cell Urine 1-5 /HPF (0-5/HPF); WBC Urine 0-1/HPF (0-5/HPF)
[2023-02-16] MEDS: LACTATED RINGERS 1,000 ML 1000 ML IV (12:12)
[2023-02-16] MEDS: LORazepam 2 MG/ML INJ 1 MG IV (12:31)
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
[2023-02-16] MEDS: levETIRAcetam 1,000 MG in SODIUM CHLORIDE 0.9% 100 ML 440 MG IV ×2 (13:09→23:28)
--- NOTE | 2023-02-16 13:15 | PC.NURSE ---
Pt sleeping at this time. VS WNL. Resp even and unlabored
[2023-02-16] MEDS: SODIUM CHLORIDE 0.9% 1,000 ML 100 ML IV ×2 (13:49→23:07)
[2023-02-16] MEDS: dexmedeTOMIDine in 0.9 % NaCL 400 MCG/100 ML PLAST..BAG 6.124 MCG IV (13:49)
[2023-02-16] MEDS: POTASSIUM CHLORIDE IN WATER 10 MEQ/100 ML PIGGYBACK 100 MEQ IV ×6 (13:55→23:06)
[2023-02-16] MEDS: PANTOPRAZOLE 40 MG VIAL IV (13:58)
--- NOTE | 2023-02-16 14:03 | PC.NURSE ---
Patient still intoxicated and medicated, admission questions answered to best of ability.
[2023-02-16] MEDS: MAGNESIUM SULFATE 4 GM/100 ML PIGGYBACK IV (14:09)
--- NOTE | 2023-02-16 18:59 | P.TELICUCN_ITS ---
History of Present Illness Consult details IF CAMERA ACTIVATED, patient seen via real-time interactive audiovisual communication: Camera activated Date Patient Seen: 02/16/23 Chief complaint: ETOH withdrawl, seizures Reason for consult: Alcohol withdrawal Requesting provider: Fidel Shields Consent obtained for tele-cvt tech care: Yes Patient Location: ICU Provider location (State): [place] Other participants/roles: Bedside RN Narrative: Patient is a 37 year old female wiht history of seizure on keppra and alcohol a buse who presents with alcohol intoxication and seizures. By report patient had 3 seizures prior to admission. In ER she was agitated and started on precedex gtt follow by phenobarb IV. Admitted to ICU for alcohol withdrawal management on precedex gtt. [facility] Medical History 39 weeks gestation of Alcohol dependence in early full remission Alcohol withdrawal seizure Allergies Anxiety and depression Breast self examination education, encounter for Elevated LFTs History of alcohol abuse Insomnia Medical history unknown Migraine Normal breast exam Right foot injury SGA (small for gestational age), , affecting care of mother, antepartum Suicidal ideation TBI (traumatic brain injury) Vaginal yeast infection Well woman exam Surgical History Right arm fracture Family History Mother Breast cancer in female Father CVA (cerebral vascular accident) Social History household members: spouse, children and friend(s) Smoking Status: Former smoker alcohol intake: current Current Medications Current Medications Medications: Home Medications clonidine HCl 0.1 mg tablet 0.1 mg PO BID PRN anxiety #180 tabs 12/08/21 [Rx Confirmed 11/13/22] gabapentin 100 mg capsule 100 mg PO BID #180 caps 12/08/21 [Rx Confirmed 11/13/22] levetiracetam 500 mg tablet (Keppra) 1,000 mg PO BID #180 tabs 12/08/21 [Rx Confirmed 11/13/22] naltrexone 50 mg tablet 50 mg PO DAILY #90 tabs 12/08/21 [Rx Confirmed 11/13/22] rizatriptan 10 mg tablet See Rx Instructions PO .COMPLEX #9 tabs 12/08/21 [Rx Confirmed 11/13/22] topiramate 50 mg tablet 50 mg PO BID #180 tabs 12/08/21 [Rx Confirmed 11/13/22] trazodone 150 mg tablet 150 mg PO BEDTIME PRN insomnia #90 tabs 12/08/21 [Rx Confirmed 11/13/22] hydroxyzine pamoate 50 mg capsule 50 mg PO BID PRN anxiety #180 caps 12/12/21 [Rx Confirmed 11/13/22] venlafaxine 37.5 mg capsule,extended release 24 hr 37.5 mg PO BEDTIME #30 caps 03/30/22 [Rx Confirmed 11/13/22] fluticasone propionate 50 mcg/actuation nasal spray,suspension (Flonase Allergy Relief) 2 spray intranasal DAILY #16 grams 08/11/22 [Rx Confirmed 11/13/22] buspirone 15 mg tablet 15 mg PO TID 10/04/22 [History Confirmed 11/13/22] [facility] Iron Supplement See Rx Instructions .Route .COMPLEX 11/13/22 [History Confirmed 11/13/22] cetirizine 5 mg-pseudoephedrine ER 120 mg tablet,extended release,12hr 1 tab PO Q12H #180 tabs 12/26/22 [Rx] chlordiazepoxide HCl 25 mg capsule See Rx Instructions .Route .COMPLEX #12 caps 02/03/23 [Rx] Visit Medications (administered) Generic Name Dose Route Start Last Admin Trade Name Freq PRN Reason Stop Dose Admin Buspirone HCl 15 mg 02/16/23 15:00 02/16/23 15:00 Buspirone 5 Mg Tablet PO Not Given TID ZACARIAS Sodium Chloride 1,000 mls @ 100 mls/hr 02/16/23 13:15 02/16/23 13:49 Normal Saline 0.9% IV 02/17/23 01:14 100 mls/hr CONT ZACARIAS Administration dexmedeTOMIDine in 0.9 % NaCL 400 mcg in 100 mls @ 3.062 mls/hr 02/16/23 13:15 02/16/23 15:06 Precedex IV 0.6 mcg/kg/hr TITRATE ZACARIAS 9.185 mls/hr Titration Protocol 0.2 MCG/KG/HR Ondansetron HCl 4 mg 02/16/23 17:00 02/16/23 16:54 Ondansetron 4 Mg/2 Ml Inj IV Not Given Q4HR ZACARIAS Pantoprazole Sodium 40 mg 02/16/23 13:15 02/16/23 13:58 Pantoprazole 40 Mg Vial IV 40 mg DAILY ZACARIAS Administration Exam Vital Signs (past 8 hours): - 02/16/23 11:30 02/16/23 12:00 02/16/23 12:30 Temperature Pulse Rate 119 H 111 H Respiratory Rate 20 20 22 Blood Pressure 165/107 H Pulse Oximetry 98 98 98 Oxygen Delivery Method Room Air Room Air Room Air Oxygen Flow Rate 02/16/23 13:00 02/16/23 13:30 02/16/23 13:52 Temperature 96.8 F L Pulse Rate 89 87 122 H Respiratory Rate 18 18 23 Blood Pressure 132/84 116/69 121/66 Pulse Oximetry 98 96 98 Oxygen Delivery Method Room Air Room Air Oxygen Flow Rate 0 02/16/23 13:06 02/16/23 16:54 Temperature 98 F Pulse Rate 90 Respiratory Rate 18 Blood Pressure 114/76 Pulse Oximetry 98 Oxygen Delivery Method Room Air Oxygen Flow Rate 0 Oxygen Delivery Method Room Air Oxygen Flow Rate 0 Narrative Exam Narrative: Sleeping comfortably on precedex gtt at 0.6 mcg. Objective Labs 02/16/23 09:10 02/16/23 09:10 Labs: Laboratory Results - last 24 hr 02/16/23 02/16/23 02/16/23 09:10 09:10 09:10 WBC 3.3 L RBC 4.48 Hgb 13.9 Hct 40.0 MCV 89.4 MCH 30.9 MCHC 34.6 RDW 14.1 Plt Count 140 L Neut % (Auto) 48.1 L Lymph % (Auto) 43.[address] [place] % (Auto) 5.4 Eos % (Auto) 0.0 L Baso % (Auto) 2.9 H Neut # (Auto) 1600 Lymph # (Auto) 1500 [place] # (Auto) 200 Eos # (Auto) 0 Baso # (Auto) 100 PT 13.0 H INR 1.1 APTT 27 Sodium 135 L Potassium 3.0 L Chloride 89 L Carbon Dioxide 30 BUN 4 L Creatinine 0.43 L Estimated GFR > 60 BUN/Creatinine Ratio 9.3 Glucose 160 H Calcium 8.8 Magnesium Total Bilirubin 0.7 AST 363 H ALT 146 H Alkaline Phosphatase 140 H Total Protein 8.5 H Albumin 4.5 Globulin 4.0 Albumin/Globulin Ratio 1.1 Lipase 325 H Serum , Qual Urine RBC Urine WBC Ur Squamous Epith Cells Ur Renal Epithelial Cell Urine Bacteria Ur Culture Indicated? U Opiates 300ng/mL cut Ur Oxycodone Screen Urine Methadone Screen Ur Barbiturates Screen U Tricyclic Antidepress Ur Phencyclidine Scrn Ur Amphetamines Screen U Methamphetamines Scrn Ur MDMA Scrn (Ecstasy) U Benzodiazepines Scrn Urine Cocaine Screen U Marijuana (THC) Screen Ethyl Alcohol 305 H 02/16/23 02/16/23 02/16/23 09:10 09:10 10:57 WBC RBC Hgb Hct MCV MCH MCHC RDW Plt Count Neut % (Auto) Lymph % (Auto) [place] % (Auto) Eos % (Auto) Baso % (Auto) Neut # (Auto) Lymph # (Auto) [place] # (Auto) Eos # (Auto) Baso # (Auto) PT INR APTT Sodium Potassium Chloride Carbon Dioxide BUN Creatinine Estimated GFR BUN/Creatinine Ratio Glucose Calcium Magnesium 1.5 L Total Bilirubin AST ALT Alkaline Phosphatase Total Protein Albumin Globulin Albumin/Globulin Ratio Lipase Serum , Qual Negative Urine RBC Urine WBC Ur Squamous Epith Cells Ur Renal Epithelial Cell Urine Bacteria Ur Culture Indicated? U Opiates 300ng/mL cut Negative Ur Oxycodone Screen Negative Urine Methadone Screen Negative Ur Barbiturates Screen Positive H U Tricyclic Antidepress Negative Ur Phencyclidine Scrn Negative Ur Amphetamines Screen Negative U Methamphetamines Scrn Negative Ur MDMA Scrn (Ecstasy) Negative U Benzodiazepines Scrn Positive H Urine Cocaine Screen Negative U Marijuana (THC) Screen Negative Ethyl Alcohol 02/16/23 10:57 WBC RBC Hgb Hct MCV MCH MCHC RDW Plt Count Neut % (Auto) Lymph % (Auto) [place] % (Auto) Eos % (Auto) Baso % (Auto) Neut # (Auto) Lymph # (Auto) [place] # (Auto) Eos # (Auto) Baso # (Auto) PT INR APTT Sodium Potassium Chloride Carbon Dioxide BUN Creatinine Estimated GFR BUN/Creatinine Ratio Glucose Calcium Magnesium Total Bilirubin AST ALT Alkaline Phosphatase Total Protein Albumin Globulin Albumin/Globulin Ratio Lipase Serum , Qual Urine RBC 0-1/hpf Urine WBC 0-1/hpf Ur Squamous Epith Cells 1-5 /hpf Ur Renal Epithelial Cell 0-1/hpf Urine Bacteria None seen Ur Culture Indicated? Cult not indicated U Opiates 300ng/mL cut Ur Oxycodone Screen Urine Methadone Screen Ur Barbiturates Screen U Tricyclic Antidepress Ur Phencyclidine Scrn Ur Amphetamines Screen U Methamphetamines Scrn Ur MDMA Scrn (Ecstasy) U Benzodiazepines Scrn Urine Cocaine Screen U Marijuana (THC) Screen Ethyl Alcohol Assessment & Plan Assessment & Plan narrative: NEURO: # Alcohol withdrawal -- On precedex gtt -- Cont thiamine, MTV, and folic acid -- Received phenobarb push -- Cont ativan per [facility] protocol # Seizure -- Secondary to noncompliance and alcohol abuse -- On keppra and topiramate -- On seizure precaution -- Ativan as needed for seizure RESP: -- On room air -- Encourage IS and OOB ENDO: -- Goal BS < 180 Time Spent With Patient Time with patient: less than 30 minutes
[2023-02-16] MEDS: ONDANSETRON 4 MG/2 ML INJ IV (19:45)
[2023-02-16 19:55] LABS: HEMOLYSIS < 15 (0-50); Magnesium 2.3 mg/dL (1.6-2.3); Potassium 2.8 mmol/L (3.4-5.1)
[2023-02-16] MEDS: TOPIRAMATE 25 MG TABLET 50 MG PO (21:58)
[2023-02-16] MEDS: BUSPIRONE 5 MG TABLET 15 MG PO (21:59)
[2023-02-16] MEDS: GABAPENTIN 100 MG CAPSULE PO (21:59)
[2023-02-16] MEDS: VENLAFAXINE ER 37.5 MG CAP PO (22:00)
[2023-02-17] VITALS (22 sets, daily range): BP systolic 119–148; BP diastolic 73–96; PULSE 52–95; RESP 15–33; TEMP 36.7–37.1; O2SAT 98–100
[2023-02-17] MEDS: POTASSIUM CHLORIDE IN WATER 10 MEQ/100 ML PIGGYBACK 100 MEQ IV ×2 (00:14→02:22)
[2023-02-17] MEDS: dexmedeTOMIDine in 0.9 % NaCL 400 MCG/100 ML PLAST..BAG 9.185 MCG IV (00:16)
[2023-02-17 05:22] LABS: Add Manual Diff / Slide Review NO; Basophils Absolute Auto 0 /uL (0-100); Eosinophils Absolute Auto 0 /uL (0-450); Eosinophils Percent Auto 0.9 % (2-4); Hematocrit 32.4 % (36-46); Hemoglobin 11.2 g/dL (12.0-16.0); Lymphocytes Absolute Auto 700 /uL (1100-4500); Lymphocytes Percent Auto 29.6 % (25-40); Mean Corpuscular HGB Conc 34.5 % (30-36); Mean Corpuscular Volume 89.7 fL (80-100); Monocytes Absolute Auto 200 /uL (0-900); Monocytes Percent Auto 6.8 % (3-14); Neutrophils Absolute Auto 1400 /uL (1500-7000); Neutrophils Percent Auto 60.7 % (50-75); Red Blood Cell Count 3.61 X10^6/uL (4.0-5.2); Red Cell Distribution Width 13.7 % (11.6-14.8); White Blood Cell Count 2.2 X10^3/uL (4.5-11.0)
[2023-02-17 05:29] LABS: Magnesium 1.9 mg/dL (1.6-2.3)
[2023-02-17 05:45] LABS: Platelet Count 76 X10^3/uL (150-400)
[2023-02-17 06:44] LABS: BUN Creatinine Ratio 7.7 (6-22); Blood Urea Nitrogen 3 mg/dL (7-17); Calcium 7.7 mg/dL (8.4-10.2); Carbon Dioxide 24 mmol/L (22-32); Chloride 92 mmol/L (98-107); Estimated Glomerular Filt Rate > 60 mL/min (>60); Glucose 94 mg/dL (70-100); HEMOLYSIS < 15 (0-50); Sodium 126 mmol/L (137-145)
[2023-02-17] MEDS: FOLIC ACID 1 MG TABLET PO (09:52)
[2023-02-17] MEDS: PANTOPRAZOLE 40 MG VIAL IV (09:52)
[2023-02-17] MEDS: TOPIRAMATE 25 MG TABLET 50 MG PO ×2 (09:53→21:03)
[2023-02-17] MEDS: BUSPIRONE 5 MG TABLET 15 MG PO ×3 (09:53→21:03)
[2023-02-17] MEDS: THIAMINE 100 MG TABLET PO (09:53)
[2023-02-17] MEDS: MULTIVITAMIN 1 TABLET 1 TAB PO (09:56)
[2023-02-17] MEDS: GABAPENTIN 100 MG CAPSULE PO ×2 (09:56→21:04)
[2023-02-17] MEDS: POTASSIUM CHLORIDE 20 MEQ TAB 40 MEQ PO ×2 (10:04→14:58)
[2023-02-17] MEDS: levETIRAcetam 1,000 MG in SODIUM CHLORIDE 0.9% 100 ML 440 MG IV ×2 (11:12→22:57)
[2023-02-17] MEDS: CALCIUM GLUCONATE 9.3 MEQ in SODIUM CHLORIDE 0.9% 50 ML 140 MEQ IV (12:14)
[2023-02-17] MEDS: SODIUM CHLORIDE 0.9% 1,000 ML 125 ML IV ×2 (12:15→20:36)
[2023-02-17] MEDS: ACETAMINOPHEN 325 MG TABLET 650 MG PO ×2 (12:31→23:06)
--- NOTE | 2023-02-17 15:11 | P.TELICUPN_ITS ---
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 in NAD Current Medications Current Medications Medications: Home Medications clonidine HCl 0.1 mg tablet 0.1 mg PO BID PRN anxiety #180 tabs 12/08/21 [Rx Confirmed 11/13/22] gabapentin 100 mg capsule 100 mg PO BID #180 caps 12/08/21 [Rx Confirmed 11/13/22] levetiracetam 500 mg tablet (Keppra) 1,000 mg PO BID #180 tabs 12/08/21 [Rx Confirmed 11/13/22] naltrexone 50 mg tablet 50 mg PO DAILY #90 tabs 12/08/21 [Rx Confirmed 11/13/22] rizatriptan 10 mg tablet See Rx Instructions PO .COMPLEX #9 tabs 12/08/21 [Rx Confirmed 11/13/22] topiramate 50 mg tablet 50 mg PO BID #180 tabs 12/08/21 [Rx Confirmed 11/13/22] trazodone 150 mg tablet 150 mg PO BEDTIME PRN insomnia #90 tabs 12/08/21 [Rx Confirmed 11/13/22] hydroxyzine pamoate 50 mg capsule 50 mg PO BID PRN anxiety #180 caps 12/12/21 [Rx Confirmed 11/13/22] venlafaxine 37.5 mg capsule,extended release 24 hr 37.5 mg PO BEDTIME #30 caps 03/30/22 [Rx Confirmed 11/13/22] fluticasone propionate 50 mcg/actuation nasal spray,suspension (Flonase Allergy Relief) 2 spray intranasal DAILY #16 grams 08/11/22 [Rx Confirmed 11/13/22] buspirone 15 mg tablet 15 mg PO TID 10/04/22 [History Confirmed 11/13/22] [facility] Iron Supplement See Rx Instructions .Route .COMPLEX 11/13/22 [History Confirmed 11/13/22] cetirizine 5 mg-pseudoephedrine ER 120 mg tablet,extended release,12hr 1 tab PO Q12H #180 tabs 12/26/22 [Rx] chlordiazepoxide HCl 25 mg capsule See Rx Instructions .Route .COMPLEX #12 caps 02/03/23 [Rx] Visit Medications (administered) Generic Name Dose Route Start Last Admin Trade Name Jovita PRN Reason Stop Dose Admin Acetaminophen 650 mg 02/16/23 13:12 02/17/23 12:31 Acetaminophen 325 Mg Tablet PO 650 mg Q6H PRN Administration Fever/Mild Pain (1-3) Buspirone HCl 15 mg 02/16/23 15:00 02/17/23 14:58 Buspirone 5 Mg Tablet PO 15 mg TID ZACARIAS Administration Folic Acid 1 mg 02/17/23 09:00 02/17/23 09:52 Folic Acid 1 Mg Tablet PO 1 mg DAILY ZACARIAS Administration Gabapentin 100 mg 02/16/23 21:00 02/17/23 09:56 Gabapentin 100 Mg Capsule PO 100 mg BID ZACARIAS Administration dexmedeTOMIDine in 0.9 % NaCL 400 mcg in 100 mls @ 3.062 mls/hr 02/16/23 13:15 02/17/23 00:16 Precedex IV 0.6 mcg/kg/hr TITRATE ZACARIAS 9.185 mls/hr Administration Protocol 0.2 MCG/KG/HR Levetiracetam 1,000 mg/ Sodium 110 mls @ 440 mls/hr 02/16/23 23:00 02/17/23 12:14 Chloride IV Infused Q12H ZACARIAS Infusion Sodium Chloride 1,000 mls @ 125 mls/hr 02/17/23 12:00 02/17/23 12:15 Normal Saline 0.9% IV 125 mls/hr CONT ZACARIAS Administration Multivitamins 1 tab 02/17/23 09:00 02/17/23 09:56 Multivitamin 1 Tablet PO 1 tab DAILY ZACARIAS Administration Ondansetron HCl 4 mg 02/16/23 17:00 02/17/23 12:39 Ondansetron 4 Mg/2 Ml Inj IV Not Given Q4HR ZACARIAS Pantoprazole Sodium 40 mg 02/16/23 13:15 02/17/23 09:52 Pantoprazole 40 Mg Vial IV 40 mg DAILY ZACARIAS Administration Thiamine HCl 100 mg 02/17/23 09:00 02/17/23 09:53 Thiamine 100 Mg Tablet PO 02/20/23 09:01 100 mg DAILY ZACARIAS Administration Topiramate 50 mg 02/16/23 21:00 02/17/23 09:53 Topiramate 25 Mg Tablet PO 50 mg BID ZACARIAS Administration Venlafaxine HCl 37.5 mg 02/16/23 21:00 02/16/23 22:00 Venlafaxine Er 37.5 Mg Cap PO 37.5 mg BEDTIME ZACARIAS Administration Objective Labs 02/17/23 04:45 02/17/23 04:45 Labs: Laboratory Results - last 24 hr 02/16/23 02/17/23 02/17/23 19:30 04:45 04:45 WBC 2.2 L RBC 3.61 L Hgb 11.2 L Hct 32.4 L MCV 89.7 MCH 31.0 MCHC 34.5 RDW 13.7 Plt Count 76 L Neut % (Auto) 60.7 Lymph % (Auto) 29.6 [place] % (Auto) 6.8 Eos % (Auto) 0.9 L Baso % (Auto) 2.0 Neut # (Auto) 1400 L Lymph # (Auto) 700 L [place] # (Auto) 200 Eos # (Auto) 0 Baso # (Auto) 0 Sodium Potassium 2.8 L Chloride Carbon Dioxide BUN Creatinine Estimated GFR BUN/Creatinine Ratio Glucose Calcium Magnesium 2.3 1.9 02/17/23 04:45 WBC RBC Hgb Hct MCV MCH MCHC RDW Plt Count Neut % (Auto) Lymph % (Auto) [place] % (Auto) Eos % (Auto) Baso % (Auto) Neut # (Auto) Lymph # (Auto) [place] # (Auto) Eos # (Auto) Baso # (Auto) Sodium 126 L Potassium 3.0 L Chloride 92 L Carbon Dioxide 24 BUN 3 L Creatinine 0.39 L Estimated GFR > 60 BUN/Creatinine Ratio 7.7 Glucose 94 Calcium 7.7 L Magnesium Exam Vital Signs (past 8 hours): - 02/17/23 07:30 02/17/23 07:36 02/17/23 07:36 Temperature Pulse Rate 56 L 95 H Respiratory Rate 17 15 Blood Pressure 148/96 H Pulse Oximetry 99 98 Oxygen Flow Rate 02/17/23 08:00 02/17/23 08:00 02/17/23 08:30 Temperature Pulse Rate 59 L 68 Respiratory Rate 16 17 Blood Pressure 132/90 Pulse Oximetry 99 98 Oxygen Flow Rate 02/17/23 13:05 Temperature 98.8 F Pulse Rate 75 Respiratory Rate 18 Blood Pressure 132/93 H Pulse Oximetry 100 Oxygen Flow Rate 0 Oxygen Delivery Method Room Air Oxygen Flow Rate 0 Narrative Exam Narrative: surrogate for full exam is primary team Const Other: NAD Resp Other: aymmetric chest rise Cardio Other: edwige on monitor Assessment & Plan Assessment & Plan narrative: NEURO: # Alcohol withdrawal -- On precedex gtt - wean off as tolerated -- Cont thiamine, MTV, and folic acid -- Cont ativan per [facility] protocol # Seizure -- Secondary to noncompliance and alcohol abuse -- On keppra and topiramate -- On seizure precaution -- Ativan as needed for seizure total criticl care time 35 min Time Spent With Patient Time with patient: less than 30 minutes
[2023-02-17 15:34] LABS: Alanine Aminotransferase 120 IU/L (<35); Albumin 4.1 g/dL (3.5-5.0); Albumin Globulin Ratio 1.1 (1.0-2.8); Alkaline Phosphatase 113 U/L (38-126); Aspartate Aminotransferase 195 IU/L (14-36); Blood Urea Nitrogen 3 mg/dL (7-17); Calcium 9.1 mg/dL (8.4-10.2); Carbon Dioxide 24 mmol/L (22-32); Chloride 94 mmol/L (98-107); Estimated Glomerular Filt Rate > 60 mL/min (>60); Globulin 3.8 g/dL (1.7-4.1); Glucose 93 mg/dL (70-100); HEMOLYSIS < 15 (0-50); Potassium 3.5 mmol/L (3.4-5.1); Sodium 129 mmol/L (137-145); Total Protein 7.9 g/dL (6.3-8.2)
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
--- NOTE | 2023-02-17 17:41 | P.PN_ITS ---
Subjective Subjective Interval history: Patient feeling better. Eager to eat real food for dinner. No new complaints. Exam Vital Signs (past 8 hours): - 02/17/23 13:05 Temperature 98.8 F Pulse Rate 75 Respiratory Rate 18 Blood Pressure 132/93 H Pulse Oximetry 100 Oxygen Flow Rate 0 Oxygen Delivery Method Room Air Oxygen Flow Rate 0 Narrative Exam Narrative: GEN: answers questions appropriately, in no acute distress. HEENT: moist mucous membranes, PERRL NECK: trachea midline, no JVD CV: regular rate and rhythm, no murmurs PULM: clear bilaterally ABD: soft, nontender, nondistended, no organomegaly EXT: warm and well perfused with no edema NEURO: oriented, no focal deficits Objective Labs 02/17/23 04:45 02/17/23 15:00 Labs: Laboratory Results - last 24 hr 02/16/23 02/17/23 02/17/23 19:30 04:45 04:45 WBC 2.2 L RBC 3.61 L Hgb 11.2 L Hct 32.4 L MCV 89.7 MCH 31.0 MCHC 34.5 RDW 13.7 Plt Count 76 L Neut % (Auto) 60.7 Lymph % (Auto) 29.6 [place] % (Auto) 6.8 Eos % (Auto) 0.9 L Baso % (Auto) 2.0 Neut # (Auto) 1400 L Lymph # (Auto) 700 L [place] # (Auto) 200 Eos # (Auto) 0 Baso # (Auto) 0 Sodium Potassium 2.8 L Chloride Carbon Dioxide BUN Creatinine Estimated GFR BUN/Creatinine Ratio Glucose Calcium Magnesium 2.3 1.9 Total Bilirubin AST ALT Alkaline Phosphatase Total Protein Albumin Globulin Albumin/Globulin Ratio 02/17/23 02/17/23 04:45 15:00 WBC RBC Hgb Hct MCV MCH MCHC RDW Plt Count Neut % (Auto) Lymph % (Auto) [place] % (Auto) Eos % (Auto) Baso % (Auto) Neut # (Auto) Lymph # (Auto) [place] # (Auto) Eos # (Auto) Baso # (Auto) Sodium 126 L 129 L Potassium 3.0 L 3.5 Chloride 92 L 94 L Carbon Dioxide 24 24 BUN 3 L 3 L Creatinine 0.39 L 0.43 L Estimated GFR > 60 > 60 BUN/Creatinine Ratio 7.7 7.0 Glucose 94 93 Calcium 7.7 L 9.1 Magnesium Total Bilirubin 1.0 AST 195 H ALT 120 H Alkaline Phosphatase 113 Total Protein 7.9 Albumin 4.1 Globulin 3.8 Albumin/Globulin Ratio 1.1 PFSH Medical History 39 weeks gestation of Alcohol dependence in early full remission Alcohol withdrawal seizure Allergies Anxiety and depression Breast self examination education, encounter for Elevated LFTs History of alcohol abuse Insomnia Medical history unknown Migraine Normal breast exam Right foot injury SGA (small for gestational age), , affecting care of mother, antepartum Suicidal ideation TBI (traumatic brain injury) Vaginal yeast infection Well woman exam Surgical History Right arm fracture Family History Mother Breast cancer in female Father CVA (cerebral vascular accident) Social History household members: spouse, children and friend(s) Smoking Status: Former smoker alcohol intake: current Assessment & Plan Assessment & Plan narrative: # acute alcohol withdrawals/DT's with seizures in setting of seizure disorder and noncompliance with keppra -agitated in DT's in the ED, given phenobarb. Unclear if seizure was from not taking keppra or withdrawals. -keppra level during last admission low at 2.2, repeat pending -loaded with keppra and continue 1g keppra IV BID -seizure precautions -ethanol level of 305 on admission, although she states last drink 3 days ago -CIWA ordered, precedex drip -receivedp phenobarb in ED due to agitation -currently has stabilized. # alcohol dependence -PARTNER MANAGEMENT CONSULTANT consult for treatment options -patient has been resistant in the past to substance abuse treatment # hypokalemia and hypomagnesemia -K 3.0 on admission, mag 1.5 -now both normal. -replete and monitor # elevated LFT's -2:1 ratio of AST:ALT suggesting alcohol related -trend, improving, continue to follow # elevated lipase. Improving. Continue to follow. # hyponatremia. Improving. Continue follow. Code status is full code. COVID negative. DVT prophylaxis with SCDs.
[2023-02-17 19:37] LABS: HEMOLYSIS < 15 (0-50); Potassium 3.7 mmol/L (3.4-5.1)
[2023-02-17] MEDS: ONDANSETRON 4 MG/2 ML INJ IV (21:03)
[2023-02-17] MEDS: VENLAFAXINE ER 37.5 MG CAP PO (21:04)
[2023-02-18 04:00] VITALS: BP 140/94; PULSE 79; RESP 17; TEMP 37.2; O2SAT 100
[2023-02-18 04:28] LABS: Alanine Aminotransferase 102 IU/L (<35); Albumin 4.3 g/dL (3.5-5.0); Albumin Globulin Ratio 1.2 (1.0-2.8); Alkaline Phosphatase 117 U/L (38-126); Aspartate Aminotransferase 123 IU/L (14-36); Bilirubin Total 0.8 mg/dL (0.2-1.3); Bilirubin Unconjugated 0.5 mg/dL (0.0-1.1); Globulin 3.6 g/dL (1.7-4.1); HEMOLYSIS < 15 (0-50); Total Protein 7.9 g/dL (6.3-8.2)
[2023-02-18 04:29] LABS: Basophils Absolute Auto 0 /uL (0-100); Basophils Percent Auto 1.2 % (0-2); Eosinophils Absolute Auto 0 /uL (0-450); Eosinophils Percent Auto 0.3 % (2-4); Hematocrit 36.6 % (36-46); Hemoglobin 12.6 g/dL (12.0-16.0); Lymphocytes Absolute Auto 800 /uL (1100-4500); Lymphocytes Percent Auto 25.2 % (25-40); Mean Corpuscular HGB Conc 34.4 % (30-36); Mean Corpuscular Hemoglobin 30.8 PG (26-34); Mean Corpuscular Volume 89.6 fL (80-100); Monocytes Absolute Auto 200 /uL (0-900); Monocytes Percent Auto 7.4 % (3-14); Neutrophils Absolute Auto 2200 /uL (1500-7000); Neutrophils Percent Auto 65.9 % (50-75); Platelet Count 96 X10^3/uL (150-400); Red Blood Cell Count 4.09 X10^6/uL (4.0-5.2); Red Cell Distribution Width 13.8 % (11.6-14.8); White Blood Cell Count 3.3 X10^3/uL (4.5-11.0)
[2023-02-18 04:30] LABS: Magnesium 1.6 mg/dL (1.6-2.3)
[2023-02-18 04:31] LABS: Alanine Aminotransferase 103 IU/L (<35); Albumin 4.1 g/dL (3.5-5.0); Albumin Globulin Ratio 1.1 (1.0-2.8); Alkaline Phosphatase 111 U/L (38-126); Aspartate Aminotransferase 120 IU/L (14-36); BUN Creatinine Ratio 7.1 (6-22); Bilirubin Total 0.7 mg/dL (0.2-1.3); Blood Urea Nitrogen 3 mg/dL (7-17); Calcium 8.3 mg/dL (8.4-10.2); Carbon Dioxide 21 mmol/L (22-32); Chloride 96 mmol/L (98-107); Estimated Glomerular Filt Rate > 60 mL/min (>60); Globulin 3.6 g/dL (1.7-4.1); Glucose 98 mg/dL (70-100); HEMOLYSIS < 15 (0-50); Lipase 361 U/L (23-300); Potassium 3.4 mmol/L (3.4-5.1); Sodium 129 mmol/L (137-145); Total Protein 7.7 g/dL (6.3-8.2)
[2023-02-18] MEDS: ACETAMINOPHEN 325 MG TABLET 650 MG PO (04:41)
[2023-02-18 04:48] LABS: Add Manual Diff / Slide Review SLIDE REVIEW
[2023-02-18 05:06] LABS: RBC Morphology Normal Morphology
[2023-02-18] MEDS: PANTOPRAZOLE DR 40 MG TABLET PO (06:39)
[2023-02-18] MEDS: BUSPIRONE 5 MG TABLET 15 MG PO (09:19)
[2023-02-18] MEDS: THIAMINE 100 MG TABLET PO (09:20)
[2023-02-18] MEDS: GABAPENTIN 100 MG CAPSULE PO (09:20)
[2023-02-18] MEDS: MULTIVITAMIN 1 TABLET 1 TAB PO (09:20)
[2023-02-18] MEDS: FOLIC ACID 1 MG TABLET PO (09:20)
[2023-02-18] MEDS: TOPIRAMATE 25 MG TABLET 50 MG PO (09:20)
[2023-02-18] MEDS: POTASSIUM CHLORIDE 20 MEQ TAB 40 MEQ PO (09:23)
[2023-02-18] MEDS: MAGNESIUM CHLORIDE 64 MG TABLET 128 MG PO (10:26)
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
[2023-02-18] MEDS: levETIRAcetam 1,000 MG in SODIUM CHLORIDE 0.9% 100 ML 440 MG IV (11:48)
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
[2023-02-19 18:34] LABS: Levetiracetam Keppra 38.8 ug/mL (10.0-40.0)
== END 2023-02-18 13:34 | disposition home or self-care (01) | DRG 775 ==
LOC: ED 13:02 → AC 13:03 → ICU 13:22
PROVIDERS: Internal Medicine Pulmonary Disease; Neuromusculoskeletal Medicine, Sports Medicine; Admitting Provider Student in an Organized Health Care Education/Training Program; Emergency Provider Emergency Medicine; PCP Nurse Practitioner; Referring Provider Emergency Medicine; Visit Provider Student in an Organized Health Care Education/Training Program
DX: F10.231 Alcohol dependence with withdrawal delirium (principal); E87.1 Hypo-osmolality and hyponatremia; G40.909 Epilepsy, unspecified, not intractable, without status epilepticus; E83.42 Hypomagnesemia; F10.229 Alcohol dependence with intoxication, unspecified; F41.9 Anxiety disorder, unspecified; G47.00 Insomnia, unspecified; F32.A Depression, unspecified; E83.51 Hypocalcemia; Y90.8 Blood alcohol level of 240 mg/100 ml or more; Z91.148 Patient's other noncompliance with medication regimen for other reason; Z87.891 Personal history of nicotine dependence; Z20.822 Contact with and (suspected) exposure to COVID-19
CPT/HCPCS: 36415; 70450; 80048; 80053; 80076; 80177; 80305; 80320; 81003; 81015; 81025; 83690; 83735; 84132; 84703; 85025; 85610; 85730; 93005; 96365; 96375; 96376; 99284; 99285; C9113; J0612; J1953; J2060; J2405; J2560; J3475

== ENCOUNTER 2023-04-03 16:16 | Emergency (ER) | payer OTHER, MEDICAID, SELFPAY ==
[2023-04-03] VITALS (13 sets, daily range): BP systolic 106–135; BP diastolic 60–87; PULSE 74–101; RESP 15–37; TEMP 36.8; O2SAT 95–99; BMI 20.9
--- NOTE | 2023-04-03 16:26 | ED_ITS ---
HPI - Seizure General Chief Complaint: Seizure Stated Complaint: seizures Time Seen by Provider: 04/03/23 16:20 History of Present Illness HPI Narrative: Patient is a 37-year-old female history of alcohol abuse and reported seizure disorder who takes 1000 mg of Keppra twice a day. She reports that she drank yesterday and says that she had 2 seizures today. She says no seizures were not witnessed but she just knows that she woke up and seizure. Sometimes she gets left hand tingling after a seizure. She was very confused. She says that she bit her tongue. She was actually seen and admitted here February 16 through February 18 for an alcohol withdrawal seizure. She reports that she drinks vodka regularly. She denies any infection like symptoms she has no abdominal pain, no fever chills or painful or frequent urination. Related Data Home Medications Medication Instructions Recorded Confirmed buspirone 15 mg tablet 15 mg PO TID 10/04/22 11/13/22 [facility] Iron Supplement See Rx Instructions .Route .COMPLEX 11/13/22 11/13/22 Previous Rx's Medication Instructions Recorded clonidine HCl 0.1 mg tablet 0.1 mg PO BID PRN anxiety #180 tabs 12/08/21 gabapentin 100 mg capsule 100 mg PO BID #180 caps 12/08/21 levetiracetam 500 mg tablet 1,000 mg PO BID #180 tabs 12/08/21 (Keppra) naltrexone 50 mg tablet 50 mg PO DAILY #90 tabs 12/08/21 rizatriptan 10 mg tablet See Rx Instructions PO .COMPLEX #9 12/08/21 tabs topiramate 50 mg tablet 50 mg PO BID #180 tabs 12/08/21 trazodone 150 mg tablet 150 mg PO BEDTIME PRN insomnia #90 12/08/21 tabs hydroxyzine pamoate 50 mg capsule 50 mg PO BID PRN anxiety #180 caps 12/12/21 venlafaxine 37.5 mg 37.5 mg PO BEDTIME #30 caps 03/30/22 capsule,extended release 24 hr fluticasone propionate 50 2 spray intranasal DAILY #16 grams 08/11/22 mcg/actuation nasal spray,suspension (Flonase Allergy Relief) cetirizine 5 mg-pseudoephedrine ER 1 tab PO Q12H #180 tabs 12/26/22 120 mg tablet,extended release,12hr chlordiazepoxide HCl 25 mg capsule See Rx Instructions .Route 02/03/23 .COMPLEX #12 caps folic acid 1 mg tablet 1 mg PO DAILY #15 tabs 02/18/23 multivitamin with folic acid 400 1 tab PO DAILY #30 tabs 02/18/23 mcg tablet (Tab-A-Mickey) pantoprazole 40 mg granules 40 mg PO DAILY #30 ea 02/18/23 delayed-release for susp in packet thiamine mononitrate (vit B1) 100 100 mg PO DAILY #15 tabs 02/18/23 mg tablet cephalexin 500 mg capsule 500 mg PO BID 5 days #10 caps 04/03/23 Allergies Allergy/AdvReac Type Severity Reaction Status Date / Time No Known Drug Allergies Allergy Verified 04/03/23 16:24 Review of Systems Review of Systems ROS Unobtainable: All systems reviewed & are unremarkable except as noted in HPI and below Patient History Medical History 39 weeks gestation of Alcohol dependence in early full remission Alcohol withdrawal seizure Allergies Anxiety and depression Breast self examination education, encounter for Elevated LFTs History of alcohol abuse Insomnia Medical history unknown Migraine Normal breast exam Right foot injury SGA (small for gestational age), , affecting care of mother, antepartum Suicidal ideation TBI (traumatic brain injury) Vaginal yeast infection Well woman exam Surgical History Right arm fracture Family History Mother Breast cancer in female Father CVA (cerebral vascular accident) Social History household members: spouse, children and friend(s) Smoking Status: Former smoker alcohol intake: current Smoking Status: Former smoker alcohol intake frequency: 3 or more drinks per day Alcohol type: wine Substance Use Type: does not use Exam Initial Vital Signs Initial Vital Signs: Vital Signs Temperature 98.3 F 04/03/23 16:17 Pulse Rate 97 H 04/03/23 16:17 Respiratory Rate 15 04/03/23 16:17 Blood Pressure 135/87 04/03/23 16:17 Pulse Oximetry 97 04/03/23 16:17 Oxygen Delivery Method Room Air 04/03/23 16:17 GENERAL: Alert 37-year-old female HEENT: Head atraumatic,EOMI, pupils reactive, face symmetric, moist mucous membranes CARDIOVASCULAR: Regular rate and rhythm without murmurs, rubs or gallops. RESPIRATORY: Breath sounds equal bilaterally, no wheezes rales or rhonchi. ABDOMEN: Soft, nontender. Normoactive bowel sounds all 4 quadrants. No guarding or rebound. EXTREMITIES: Normal range of motion, no clubbing or edema. Neurovascularly intact NEUROLOGICAL: Alert and oriented x4. Moving all extremities slurring of speech. Repairer Helper strength equal bilaterally SKIN: Warm, dry, no laceration, no petechiae, no rashes or lesions. Course Orders Ordered: ED Orders 04/03/23 16:25 CBC Auto Diff [Complete Blood Count AUTO DIFF] Stat CMP [Comprehensive Metabolic Panel] Stat ETOH [Ethanol (ETOH)] Stat Lipase Stat PT [Prothrombin Time INR] Stat PTT Partial Thromboplastin Nilesh Stat Test Serum,Qual Stat Prolactin Stat 04/03/23 16:38 CT head/brain wo con Stat 04/03/23 18:05 Urine Culture Stat Urine Drug Screen, Rapid Stat Urine Microscopic Stat Discontinued Medications Sodium Chloride (Normal Saline 0.9%) 1,000 mls @ 1,000 mls/hr IV BOLUS ONE Stop: 04/03/23 17:26 Last Infusion: 04/03/23 18:05 Dose: 0 mls/hr Documented By: Admin: 04/03/23 16:47 Dose: 1,000 mls/hr Documented By: CASA Vital Signs Vital signs: Vital Signs - 8 hr 04/03/23 16:17 04/03/23 16:22 04/03/23 16:22 Temperature 98.3 F Pulse Rate 97 H 97 H Respiratory Rate 15 Blood Pressure 135/87 135/87 Pulse Oximetry 97 96 Oxygen Delivery Method Room Air 04/03/23 16:30 04/03/23 16:31 04/03/23 16:31 Temperature Pulse Rate 101 H 98 H Respiratory Rate 22 21 Blood Pressure 135/80 Pulse Oximetry 97 97 Oxygen Delivery Method 04/03/23 16:45 04/03/23 17:00 04/03/23 17:00 Temperature Pulse Rate 100 H 88 Respiratory Rate 32 H Blood Pressure 127/69 Pulse Oximetry Oxygen Delivery Method 04/03/23 17:15 04/03/23 17:30 04/03/23 17:30 Temperature Pulse Rate 74 82 Respiratory Rate 23 37 H Blood Pressure 109/60 Pulse Oximetry 95 99 Oxygen Delivery Method 04/03/23 17:45 04/03/23 18:00 04/03/23 18:09 Temperature Pulse Rate 86 80 Respiratory Rate Blood Pressure 106/80 Pulse Oximetry 99 97 Oxygen Delivery Method 04/03/23 18:09 04/03/23 18:15 04/03/23 18:15 Temperature Pulse Rate 85 78 Respiratory Rate Blood Pressure 108/82 Pulse Oximetry 98 99 Oxygen Delivery Method 04/03/23 18:30 04/03/23 18:30 Temperature Pulse Rate 92 H Respiratory Rate Blood Pressure 118/86 Pulse Oximetry 98 Oxygen Delivery Method MDM - Seizure Lab Data 04/03/23 16:25 04/03/23 16:25 Labs: Lab Results 04/03/23 04/03/23 04/03/23 Range/Units 16:25 16:25 16:25 WBC 5.2 (4.5-11.0) X10^3/uL RBC 4.40 (4.0-5.2) X10^6/uL Hgb 13.4 (12.0-16.0) g/dL Hct 39.7 (36-46) % MCV 90.2 (80-100) fL MCH 30.5 (26-34) PG MCHC 33.9 (30-36) % RDW 16.1 H (11.6-14.8) % Plt Count 599 H (150-400) X10^3/uL Neut % (Auto) 62.1 (50-75) % Lymph % (Auto) 32.6 (25-40) % Hill % (Auto) 3.1 (3-14) % Eos % (Auto) 0.0 L (2-4) % Baso % (Auto) 2.2 H (0-2) % Neut # (Auto) 3200 (9778-7351) /uL Lymph # (Auto) 1700 (2013-3747) /uL Hill # (Auto) 200 (0-900) /uL Eos # (Auto) 0 (0-450) /uL Baso # (Auto) 100 (0-100) /uL PT 11.4 (10.1-12.7) SECONDS INR 1.0 (0.9-1.3) APTT 27 (26-36) SECONDS Sodium 141 (137-145) mmol/L Potassium 3.0 L (3.4-5.1) mmol/L Chloride 95 L (98-107) mmol/L Carbon Dioxide 31 (22-32) mmol/L BUN 4 L (7-17) mg/dL Creatinine 0.37 L (0.52-1.04) mg/dL Estimated GFR > 60 (>60) mL/min BUN/Creatinine Ratio 10.8 (6-22) Glucose 134 H (70-100) mg/dL Calcium 8.1 L (8.4-10.2) mg/dL Total Bilirubin 0.4 (0.2-1.3) mg/dL AST 103 H (14-36) IU/L ALT 99 H (<35) IU/L Alkaline Phosphatase 128 H (38-126) U/L Total Protein 8.1 (6.3-8.2) g/dL Albumin 4.5 (3.5-5.0) g/dL Globulin 3.6 (1.7-4.1) g/dL Albumin/Globulin Ratio 1.3 (1.0-2.8) Lipase 455 H (23-300) U/L Prolactin 50.2 H (3.0-18.6) ng/mL Serum , Qual (Negative) Urine RBC (0-5/HPF) Urine WBC (0-5/HPF) Ur Squamous Epith Cells (0-5/HPF) Urine Bacteria (None) U Opiates 300ng/mL cut (Negative) Ur Oxycodone Screen (Negative) Urine Methadone Screen (Negative) Ur Barbiturates Screen (Negative) U Tricyclic Antidepress (Negative) Ur Phencyclidine Scrn (Negative) Ur Amphetamines Screen (Negative) U Methamphetamines Scrn (Negative) Ur MDMA Scrn (Ecstasy) (Negative) U Benzodiazepines Scrn (Negative) Urine Cocaine Screen (Negative) U Marijuana (THC) Screen (Negative) Ethyl Alcohol 487 H* ( - 10) mg/dL 04/03/23 04/03/23 04/03/23 Range/Units 16:25 18:05 18:05 WBC (4.5-11.0) X10^3/uL RBC (4.0-5.2) X10^6/uL Hgb (12.0-16.0) g/dL Hct (36-46) % MCV (80-100) fL MCH (26-34) PG MCHC (30-36) % RDW (11.6-14.8) % Plt Count (150-400) X10^3/uL Neut % (Auto) (50-75) % Lymph % (Auto) (25-40) % Hill % (Auto) (3-14) % Eos % (Auto) (2-4) % Baso % (Auto) (0-2) % Neut # (Auto) (8614-6410) /uL Lymph # (Auto) (0986-4377) /uL Hill # (Auto) (0-900) /uL Eos # (Auto) (0-450) /uL Baso # (Auto) (0-100) /uL PT (10.1-12.7) SECONDS INR (0.9-1.3) APTT (26-36) SECONDS Sodium (137-145) mmol/L Potassium (3.4-5.1) mmol/L Chloride (98-107) mmol/L Carbon Dioxide (22-32) mmol/L BUN (7-17) mg/dL Creatinine (0.52-1.04) mg/dL Estimated GFR (>60) mL/min BUN/Creatinine Ratio (6-22) Glucose (70-100) mg/dL Calcium (8.4-10.2) mg/dL Total Bilirubin (0.2-1.3) mg/dL AST (14-36) IU/L ALT (<35) IU/L Alkaline Phosphatase (38-126) U/L Total Protein (6.3-8.2) g/dL Albumin (3.5-5.0) g/dL Globulin (1.7-4.1) g/dL Albumin/Globulin Ratio (1.0-2.8) Lipase (23-300) U/L Prolactin (3.0-18.6) ng/mL Serum , Qual Negative (Negative) Urine RBC 0-1/hpf (0-5/HPF) Urine WBC 10-30/hpf H (0-5/HPF) Ur Squamous Epith Cells 10-30 /hpf H D (0-5/HPF) Urine Bacteria Many (>30) H (None) U Opiates 300ng/mL cut Negative (Negative) Ur Oxycodone Screen Negative (Negative) Urine Methadone Screen Negative (Negative) Ur Barbiturates Screen Negative (Negative) U Tricyclic Antidepress Negative (Negative) Ur Phencyclidine Scrn Negative (Negative) Ur Amphetamines Screen Negative (Negative) U Methamphetamines Scrn Negative (Negative) Ur MDMA Scrn (Ecstasy) Negative (Negative) U Benzodiazepines Scrn Negative (Negative) Urine Cocaine Screen Negative (Negative) U Marijuana (THC) Screen Negative (Negative) Ethyl Alcohol ( - 10) mg/dL Urine Dip Bedside Urine Glucose Negative Bedside Urine Bilirubin - Negative Bedside Urine Ketone - Negative Urine Specific Cl[place] 1.010 Bedside Urine Occult Blood +/- Bedside Urine pH 6.0 Bedside Urine Protein - Negative Bedside Urine Urobilinogen 0.2 Bedside Urine Nitrite + Positive Bedside Urine Leukocytes +/- [address] scan - head: Radiologist's Impression: PROCEDURE:? CT HEAD/BRAIN WO CON ? INDICATIONS:? seizure, ETOH ? TECHNIQUE:? Noncontrast 4.5 mm thick angled axial sections acquired from the foramen magnum to the vertex, with coronal and sagittal reformats.? For radiation dose reduction, the following was used:? automated exposure control, adjustment of mA and/or kV according to patient size.? ? COMPARISON:? [facility], CT, CT HEAD/BRAIN WO CON, 02/16/2023, 9:41. ? FINDINGS:? Image quality:? Good ? CSF spaces: Basal cisterns are patent. Lateral ventricles are symmetric. Volume:? Vascular calcifications. Periventricular white matter disease is commonly seen with chronic microangiopathy. Volume loss is present. These findings are mild, but probably premature for age ? Brain: No intracranial hemorrhage. Stanton-white differentiation is grossly maintained. ? Craniofacial structures:? Small right maxillary mucous retention cyst. ? IMPRESSION: ? no acute intracranial abnormality.? If there is high concern for parenchymal pathology, consider further evaluation with MRI. ? ? Dictated by: Chencho Stern M.D. on 04/03/2023 at 16:54 ? ? Approved by: Chencho Stern M.D. on 04/03/2023 at 16:56 ? MDM Narrative Medical decision making narrative: Patient 37-year-old female with alcohol dependence and seizure disorder presenting today with possible seizure. He reports having 2 seizures today her prolactin is elevated at 50 however her alcohol level significantly elevated 487. Patient denies drinking any alcohol today. She reports that she is compliant with her Keppra 1000 twice daily. It appears that she has been on topiramate 50 mg twice a day for migraine prevention she reports that she only takes it on an as-needed basis. She level if she had alcohol withdrawal seizure versus seizure secondary to alcohol use. I do not suspect an alcohol withdrawal seizure at this time she is still slurring her words and slightly clinically intoxicated although still able to talk on the phone. I spoke with Dr. Graham on-call [facility] neurologist in regards to patient. At this time he does not recommend changing any of her medication. She will need an EEG. He is happy to help arrange a tele health follow-up appointment. Discussion with Neurology follow-up and alcohol use patient. Patient is strongly encouraged to detox she will likely have seizures from alcohol withdrawal. She reports that she is been to detox he clearly did not work she also was admitted at least twice here for alcohol withdrawal. She also may need seizure medication adjustment. Patient has a friend at bedside who is happy to drive her home slurring of speech has improved and is now more clinically sober Discharge Plan Departure Patient Disposition: Home Clinical Impression: Seizure, UTI (urinary tract infection), Alcohol abuse Instructions: DI for Seizure Disorder -- Adult, DI for Urinary Tract Infection (UTI) Activity Restrictions/Additional Instructions: *You have been diagnosed with alcohol abuse, UTI *What to do: At this time if you choose to stop drinking it definitely needs to be done under supervision you will need medication and you will likely have seizures. A neurologist from [facility] will call you within the next week to schedule telehealth follow-up appointment to discuss medication and options. *Continue to take medications as directed Continue Keppra 1000 mg twice a day Take topiramate 50 mg twice daily (this is also for seizures not just migraine) Keflex 500 mg twice a day for 5 days--> [facility] *Follow up with your primary care provider in 2-3 days or call [phone] *Return to ER if you should have recurrent seizure [or] any new, worsening or concerning symptoms Prescriptions: New cephalexin 500 mg capsule 500 mg PO BID 5 Days Qty: 10 0RF No Action hydroxyzine pamoate 50 mg capsule 50 mg PO BID PRN (Reason: anxiety) Qty: 180 3RF Rx Instructions: Take 1 tab twice daily as needed for anxiety cetirizine-pseudoephedrine 5-120 mg tablet extended release 12 hr 1 tab PO Q12H Qty: 180 3RF Rx Instructions: Take 1 tab every 12 hours for allergies gabapentin 100 mg capsule 100 mg PO BID Qty: 180 3RF Rx Instructions: Take 1 capsule up to twice per day for muscle spasms topiramate 50 mg tablet 50 mg PO BID Qty: 180 3RF Rx Instructions: Take 1 tab twice per day for migraine prevention. trazodone 150 mg tablet 150 mg PO BEDTIME PRN (Reason: insomnia) Qty: 90 3RF Rx Instructions: Take 1 tab at bedtime daily for insomnia rizatriptan 10 mg tablet See Rx Instructions PO .COMPLEX Qty: 9 3RF Rx Instructions: take 1 tab at onset of headache; if no relief may repeat 1 tab after at least 2 hrs; max = 3 tabs/24 hr PO clonidine HCl 0.1 mg tablet 0.1 mg PO BID PRN (Reason: anxiety) Qty: 180 3RF Rx Instructions: Take 1 tab twice daily for anxiety levetiracetam [Keppra] 500 mg tablet 1,000 mg PO BID Qty: 180 3RF Rx Instructions: Take 1 tab twice daily for seizures naltrexone 50 mg tablet 50 mg PO DAILY Qty: 90 3RF Rx Instructions: Take 1 tab daily for craving suppression fluticasone propionate [Flonase Allergy Relief] 50 mcg/actuation spray,suspen soy 2 spray intranasal DAILY Qty: 16 5RF Rx Instructions: administer into each nostril venlafaxine 37.5 mg capsule,extended release 24hr 37.5 mg PO BEDTIME Qty: 30 3RF Rx Instructions: Take 1 capsule at bedtime daily for depression and anxiety [facility] Iron Supplement See Rx Instructions .ROUTE .COMPLEX Rx Instructions: 1-2 capsules daily for iron supplement; folic acid 1 mg Tablet 1 mg PO DAILY Qty: 15 0RF multivitamin with folic acid [Tab-A-Mickey] 400 mcg Tablet 1 tab PO DAILY Qty: 30 0RF pantoprazole [address] for susp in packet 40 mg PO DAILY Qty: 30 0RF thiamine mononitrate (vit B1) 100 mg Tablet 100 mg PO DAILY Qty: 15 0RF buspirone 15 mg tablet 15 mg PO TID Rx Instructions: Take 15mg tab 2x/day chlordiazepoxide HCl 25 mg capsule See Rx Instructions .ROUTE .COMPLEX Qty: 12 0RF Rx Instructions: take 25mg orally three times daily for 2 days, then 25mg twice daily for 2 days, then 25mg daily for 2 days then stop Referrals: Domenica Crawford ARNP [Primary Care Provider] - Stand Alone Forms: Patient Portal/API
--- NOTE | 2023-04-03 16:38 | DI.CT.S_ITS ---
PROCEDURE: CT HEAD/BRAIN WO CON INDICATIONS: seizure, ETOH TECHNIQUE: Noncontrast 4.5 mm thick angled axial sections acquired from the foramen magnum to the vertex, with coronal and sagittal reformats. For radiation dose reduction, the following was used: automated exposure control, adjustment of mA and/or kV according to patient size. COMPARISON: [facility], CT, CT HEAD/BRAIN WO CON, 02/16/2023, 9:41. FINDINGS: Image quality: Good CSF spaces: Basal cisterns are patent. Lateral ventricles are symmetric. Volume: Vascular calcifications. Periventricular white matter disease is commonly seen with chronic microangiopathy. Volume loss is present. These findings are mild, but probably premature for age Brain: No intracranial hemorrhage. Stanton-white differentiation is grossly maintained. Craniofacial structures: Small right maxillary mucous retention cyst. IMPRESSION: no acute intracranial abnormality. If there is high concern for parenchymal pathology, consider further evaluation with MRI. Dictated by: Chencho Stern M.D. on 04/03/2023 at 16:54 Approved by: Chencho Stern M.D. on 04/03/2023 at 16:56
[2023-04-03 16:41] LABS: Add Manual Diff / Slide Review NO; Basophils Absolute Auto 100 /uL (0-100); Basophils Percent Auto 2.2 % (0-2); Eosinophils Absolute Auto 0 /uL (0-450); Hematocrit 39.7 % (36-46); Hemoglobin 13.4 g/dL (12.0-16.0); Lymphocytes Absolute Auto 1700 /uL (1100-4500); Lymphocytes Percent Auto 32.6 % (25-40); Mean Corpuscular HGB Conc 33.9 % (30-36); Mean Corpuscular Hemoglobin 30.5 PG (26-34); Mean Corpuscular Volume 90.2 fL (80-100); Monocytes Absolute Auto 200 /uL (0-900); Monocytes Percent Auto 3.1 % (3-14); Neutrophils Absolute Auto 3200 /uL (1500-7000); Neutrophils Percent Auto 62.1 % (50-75); Platelet Count 599 X10^3/uL (150-400); Red Cell Distribution Width 16.1 % (11.6-14.8); White Blood Cell Count 5.2 X10^3/uL (4.5-11.0)
[2023-04-03] MEDS: SODIUM CHLORIDE 0.9% 1,000 ML 1000 ML IV (16:47)
[2023-04-03 17:04] LABS: Alanine Aminotransferase 99 IU/L (<35); Albumin 4.5 g/dL (3.5-5.0); Albumin Globulin Ratio 1.3 (1.0-2.8); Alkaline Phosphatase 128 U/L (38-126); Aspartate Aminotransferase 103 IU/L (14-36); BUN Creatinine Ratio 10.8 (6-22); Bilirubin Total 0.4 mg/dL (0.2-1.3); Blood Urea Nitrogen 4 mg/dL (7-17); Calcium 8.1 mg/dL (8.4-10.2); Carbon Dioxide 31 mmol/L (22-32); Chloride 95 mmol/L (98-107); Estimated Glomerular Filt Rate > 60 mL/min (>60); Globulin 3.6 g/dL (1.7-4.1); Glucose 134 mg/dL (70-100); HEMOLYSIS < 15 (0-50); Lipase 455 U/L (23-300); Prothrombin Time 11.4 SECONDS (10.1-12.7); Sodium 141 mmol/L (137-145); Total Protein 8.1 g/dL (6.3-8.2)
[2023-04-03 17:06] LABS: Pregnancy Test Serum,Qual Negative (Negative)
[2023-04-03 17:07] LABS: PTT Partial Thromboplastin Tim 27 SECONDS (26-36)
[2023-04-03 17:12] LABS: Ethanol (ETOH) 487 mg/dL
[2023-04-03 17:20] LABS: Prolactin 50.2 ng/mL (3.0-18.6)
[2023-04-03 18:28] LABS: UR Morphine/Opiate cutoff 300 Negative (Negative); Ur Creatinine Normal (Normal); Ur Specific Gravity Normal (Normal); Urine Amphetamines Negative (Negative); Urine Barbiturates Negative (Negative); Urine Benzodiazepines Negative (Negative); Urine Cocaine Negative (Negative); Urine MDMA Negative (Negative); Urine Methadone Negative (Negative); Urine Methamphetamines Negative (Negative); Urine Oxycodone Negative (Negative); Urine Phencyclidine Negative (Negative); Urine Tetrahydrocannabinol Negative (Negative); Urine Tricyclic Antidepressant Negative (Negative); Urine pH Normal (Normal)
[2023-04-03 18:30] LABS: Bacteria Urine Many (>30); RBC Urine 0-1/HPF (0-5/HPF); Squamous Epithelial Cell Urine 10-30 /HPF (0-5/HPF); WBC Urine 10-30/HPF (0-5/HPF)
== END 2023-04-03 18:42 | disposition home or self-care (01) ==
PROVIDERS: Emergency Medicine; Emergency Provider Emergency Medicine; PCP Nurse Practitioner
DX: G40.909 Epilepsy, unspecified, not intractable, without status epilepticus (principal); N39.0 Urinary tract infection, site not specified; F10.129 Alcohol abuse with intoxication, unspecified; Y90.8 Blood alcohol level of 240 mg/100 ml or more; Z79.899 Other long term (current) drug therapy
CPT/HCPCS: 36415; 70450; 80053; 80305; 80320; 81003; 81015; 83690; 84146; 84703; 85025; 85610; 85730; 87077; 87086; 87186; 96360; 99284

== ENCOUNTER 2023-04-05 04:09 | Emergency (ER) | payer OTHER, MEDICAID, SELFPAY ==
[2023-04-05] VITALS (25 sets, daily range): BP systolic 96–153; BP diastolic 55–93; PULSE 58–97; RESP 14–27; TEMP 36.1; O2SAT 95–100; BMI 20.9
--- NOTE | 2023-04-05 04:13 | ED_ITS ---
HPI - General Adult <Darien White DO - Last Filed: 04/06/23 03:50> General Chief complaint: Seizure Stated complaint: seizures, vomiting Time Seen by Provider: 04/05/23 04:13 History of Present Illness HPI narrative: 37-year-old female former smoker with history of heavy alcohol abuse and prior alcohol withdrawal including seizures and?seizure disorder on Keppra presents this morning with a chief complaint of 3 seizures this morning which lasted upwards of 20 minutes a piece the most recent being about 1 hour ago. She states that the seizures were witnessed by a friend, she states she did bite her tongue and lose control of her bladder. She states that she has been taking her medications as directed. She denies any recent trauma or injury. She is had no fever or chills. Though she does admit to a history of heavy alcohol abuse she states that she has not had any alcohol since her last visit here a few days ago. Related Data Home Medications Medication Instructions Recorded Confirmed buspirone 15 mg tablet 15 mg PO TID 10/04/22 11/13/22 [facility] Iron Supplement See Rx Instructions .Route .COMPLEX 11/13/22 11/13/22 Previous Rx's Medication Instructions Recorded clonidine HCl 0.1 mg tablet 0.1 mg PO BID PRN anxiety #180 tabs 12/08/21 gabapentin 100 mg capsule 100 mg PO BID #180 caps 12/08/21 levetiracetam 500 mg tablet 1,000 mg PO BID #180 tabs 12/08/21 (Keppra) naltrexone 50 mg tablet 50 mg PO DAILY #90 tabs 12/08/21 rizatriptan 10 mg tablet See Rx Instructions PO .COMPLEX #9 12/08/21 tabs topiramate 50 mg tablet 50 mg PO BID #180 tabs 12/08/21 trazodone 150 mg tablet 150 mg PO BEDTIME PRN insomnia #90 12/08/21 tabs hydroxyzine pamoate 50 mg capsule 50 mg PO BID PRN anxiety #180 caps 12/12/21 venlafaxine 37.5 mg 37.5 mg PO BEDTIME #30 caps 03/30/22 capsule,extended release 24 hr fluticasone propionate 50 2 spray intranasal DAILY #16 grams 08/11/22 mcg/actuation nasal spray,suspension (Flonase Allergy Relief) cetirizine 5 mg-pseudoephedrine ER 1 tab PO Q12H #180 tabs 12/26/22 120 mg tablet,extended release,12hr chlordiazepoxide HCl 25 mg capsule See Rx Instructions .Route 02/03/23 .COMPLEX #12 caps folic acid 1 mg tablet 1 mg PO DAILY #15 tabs 02/18/23 multivitamin with folic acid 400 1 tab PO DAILY #30 tabs 02/18/23 mcg tablet (Tab-A-Mickey) pantoprazole 40 mg granules 40 mg PO DAILY #30 ea 02/18/23 delayed-release for susp in packet thiamine mononitrate (vit B1) 100 100 mg PO DAILY #15 tabs 02/18/23 mg tablet cephalexin 500 mg capsule 500 mg PO BID 5 days #10 caps 04/03/23 Allergies Allergy/AdvReac Type Severity Reaction Status Date / Time No Known Drug Allergies Allergy Verified 04/03/23 16:24 Review of Systems <Darien White DO - Last Filed: 04/06/23 03:50> Review of Systems Narrative: GENERAL: Denies chills, fatigue, malaise, fever, sweats. HEENT: Denies sinus pain, ear pain, sore throat, difficulty swallowing, dizziness. RESPIRATORY: Denies dyspnea, cough, wheezing, hemoptysis, sputum. CARDIOVASCULAR: Denies chest pain, palpitations, orthopnea, edema, GASTROINTESTINAL: Denies nausea, vomiting, abdominal pain, diarrhea, constipation, melena. : Denies dysuria, frequency, incontinence, hematuria, urinary retention. MUSCULOSKELETAL: denies weakness, joint pain, or bony pain SKIN: Denies rash, skin lesions, or other NEUROLOGIC: See HPI PSYCHIATRIC: No concerning psychosocial issues. 12 point review of systems is negative except for those stated above Patient History <Darien White DO - Last Filed: 04/06/23 03:50> Medical History 39 weeks gestation of Alcohol dependence in early full remission Alcohol withdrawal seizure Allergies Anxiety and depression Breast self examination education, encounter for Elevated LFTs History of alcohol abuse Insomnia Medical history unknown Migraine Normal breast exam Right foot injury SGA (small for gestational age), , affecting care of mother, antepartum Suicidal ideation TBI (traumatic brain injury) Vaginal yeast infection Well woman exam Surgical History Right arm fracture Family History Mother Breast cancer in female Father CVA (cerebral vascular accident) Social History household members: spouse, children and friend(s) Smoking Status: Former smoker alcohol intake: current Smoking Status: Former smoker alcohol intake frequency: 3 or more drinks per day Alcohol type: wine Substance Use Type: does not use Exam <Darien White DO - Last Filed: 04/06/23 03:50> Narrative Exam Narrative: GENERAL: [37] year old patient appears stated age. Well-developed patient, in mild distress. Anxious, minimal resting tremor, answering appropriately but slurring slightly HEAD: Atraumatic. Normocephalic. EYES: Pupils equal round and reactive. Extraocular motions intact. No scleral icterus. No injection or drainage. ENT: No tongue laceration Nose without bleeding, purulent drainage. Throat without erythema, tonsillar hypertrophy or exudate. Airway patent. NECK: Trachea midline. Non tender CARDIOVASCULAR: Regular rate and rhythm without murmurs, gallops, or rubs. RESPIRATORY: Clear to auscultation. Breath sounds equal bilaterally. No wheezes, rales, or rhonchi. GASTROINTESTINAL: Abdomen soft, non-tender, nondistended. EXTREMITIES: No edema or joint tenderness. BACK: Nontender without deformity or crepitance. No flank tenderness. NEURO: AOx3. SKIN: No rash or erythema of visible areas Initial Vital Signs Initial Vital Signs: Vital Signs Temperature 97 F L 04/05/23 04:15 Pulse Rate 97 H 04/05/23 04:15 Respiratory Rate 15 04/05/23 04:15 Blood Pressure 142/93 H 04/05/23 04:15 Pulse Oximetry 98 04/05/23 04:15 Oxygen Delivery Method Room Air 04/05/23 04:15 <Leighann Dean DO - Last Filed: 04/05/23 10:01> Initial Vital Signs Initial Vital Signs: Vital Signs Temperature 97 F L 04/05/23 04:15 Pulse Rate 97 H 04/05/23 04:15 Respiratory Rate 15 04/05/23 04:15 Blood Pressure 142/93 H 04/05/23 04:15 Pulse Oximetry 98 04/05/23 04:15 Oxygen Delivery Method Room Air 04/05/23 04:15 Course <Darien White, DO - Last Filed: 04/06/23 03:50> Orders Ordered: Discontinued Medications Sodium Chloride (Normal Saline 0.9%) 1,000 mls @ 1,000 mls/hr IV BOLUS ONE Stop: 04/05/23 05:14 Last Infusion: 04/05/23 05:41 Dose: 0 mls/hr Documented By: Admin: 04/05/23 04:35 Dose: 1,000 mls/hr Documented By: JONATHON Thiamine HCl 200 mg/ Sodium (Chloride) 102 mls @ 408 mls/hr IV NOW ONE Stop: 04/05/23 04:24 Last Infusion: 04/05/23 05:05 Dose: 0 mls/hr Documented By: Admin: 04/05/23 04:47 Dose: 408 mls/hr Documented By: JONATHON POTASSIUM CHLORIDE IN WATER (Potassium Cl 10 Meq/100 Ml Darline) 10 meq in 100 mls @ 100 mls/hr IV Q1H ZACARIAS Stop: 04/05/23 09:14 Last Infusion: 04/05/23 09:40 Dose: 0 mls/hr Documented By: Admin: 04/05/23 08:57 Dose: Not Given Documented By: Admin: 04/05/23 08:33 Dose: 100 mls/hr Documented By: Infusion: 04/05/23 08:25 Dose: 100 mls/hr Documented By: Admin: 04/05/23 07:25 Dose: 100 mls/hr Documented By: Infusion: 04/05/23 07:18 Dose: 0 mls/hr Documented By: Infusion: 04/05/23 06:37 Dose: 100 mls/hr Documented By: Infusion: 04/05/23 06:00 Dose: 0 mls/hr Documented By: Admin: 04/05/23 05:33 Dose: 100 mls/hr Documented By: VANDANA Levetiracetam 1,000 mg/ Sodium (Chloride) 110 mls @ 440 mls/hr IV NOW ONE Stop: 04/05/23 05:52 Last Infusion: 04/05/23 06:36 Dose: 0 mls/hr Documented By: Admin: 04/05/23 06:01 Dose: 440 mls/hr Documented By: JONATHON Sodium Chloride (Normal Saline 0.9%) 1,000 mls @ 1,000 mls/hr IV BOLUS ONE Stop: 04/05/23 08:29 Last Infusion: 04/05/23 09:40 Dose: 0 mls/hr Documented By: Admin: 04/05/23 07:44 Dose: 600 mls/hr Documented By: CASA Ceftriaxone Sodium 1,000 mg/ (Sodium Chloride) 100 mls @ 200 mls/hr IV NOW ONE Stop: 04/05/23 07:31 Last Infusion: 04/05/23 08:19 Dose: 0 mls/hr Documented By: Admin: 04/05/23 07:43 Dose: 200 mls/hr Documented By: CASA Metoclopramide HCl (Metoclopramide 10 Mg/2 Ml Inj) 10 mg IV NOW ONE Stop: 04/05/23 07:49 Last Admin: 04/05/23 07:58 Dose: 10 mg Documented By: CASA Ondansetron HCl (Ondansetron 4 Mg/2 Ml Inj) 4 mg IV NOW ONE Stop: 04/05/23 04:16 Last Admin: 04/05/23 04:44 Dose: 4 mg Documented By: JONATHON Pantoprazole Sodium (Pantoprazole 40 Mg Vial) 40 mg IV NOW ONE Stop: 04/05/23 04:16 Last Admin: 04/05/23 04:46 Dose: 40 mg Documented By: JONATHON Phenobarbital (Phenobarbital 65 Mg/Ml Vial) 260 mg IV NOW ONE Stop: 04/05/23 04:24 Last Admin: 04/05/23 04:49 Dose: 260 mg Documented By: JONATHON Potassium Chloride (Potassium Chloride 20 Meq/15 Ml Udc) 40 meq PO NOW ONE Stop: 04/05/23 05:10 Last Admin: 04/05/23 05:33 Dose: 40 meq Documented By: VANDANA Vital Signs Vital signs: Vital Signs - 8 hr 04/05/23 04:15 04/05/23 04:54 04/05/23 05:00 Temperature 97 F L Pulse Rate 97 H 64 Respiratory Rate 15 20 Blood Pressure 142/93 H 108/63 Pulse Oximetry 98 97 Oxygen Delivery Method Room Air 04/05/23 05:00 04/05/23 05:15 04/05/23 05:30 Temperature Pulse Rate 61 76 Respiratory Rate 25 H 24 Blood Pressure 132/91 H Pulse Oximetry 98 99 Oxygen Delivery Method 04/05/23 05:30 04/05/23 05:45 04/05/23 06:00 Temperature Pulse Rate 76 76 Respiratory Rate 27 H 26 H Blood Pressure 110/62 Pulse Oximetry 100 99 Oxygen Delivery Method 04/05/23 06:00 04/05/23 06:15 04/05/23 06:30 Temperature Pulse Rate 74 66 Respiratory Rate 23 21 Blood Pressure 96/55 L Pulse Oximetry 96 95 Oxygen Delivery Method 04/05/23 06:30 04/05/23 06:45 04/05/23 07:00 Temperature Pulse Rate 69 64 Respiratory Rate 19 17 Blood Pressure 116/67 Pulse Oximetry 95 95 Oxygen Delivery Method 04/05/23 07:00 04/05/23 07:15 04/05/23 07:30 Temperature Pulse Rate 66 90 Respiratory Rate 18 17 Blood Pressure 148/91 H Pulse Oximetry 95 99 Oxygen Delivery Method 04/05/23 07:30 04/05/23 07:45 04/05/23 07:46 Temperature Pulse Rate 81 76 76 Respiratory Rate 27 H 14 19 Blood Pressure Pulse Oximetry 99 99 100 Oxygen Delivery Method 04/05/23 07:46 04/05/23 08:00 04/05/23 08:01 Temperature Pulse Rate 73 Respiratory Rate Blood Pressure 116/82 153/93 H Pulse Oximetry 99 Oxygen Delivery Method 04/05/23 08:01 04/05/23 08:15 04/05/23 08:15 Temperature Pulse Rate 77 77 Respiratory Rate Blood Pressure 131/72 Pulse Oximetry 98 100 Oxygen Delivery Method 04/05/23 08:30 04/05/23 08:30 04/05/23 08:47 Temperature Pulse Rate 68 84 Respiratory Rate Blood Pressure 120/80 Pulse Oximetry 96 96 Oxygen Delivery Method 04/05/23 08:49 04/05/23 08:49 04/05/23 09:00 Temperature Pulse Rate 80 Respiratory Rate 19 Blood Pressure 139/77 112/67 Pulse Oximetry 100 Oxygen Delivery Method 04/05/23 09:00 04/05/23 09:15 04/05/23 09:15 Temperature Pulse Rate 58 L 62 Respiratory Rate Blood Pressure 101/62 Pulse Oximetry 96 96 Oxygen Delivery Method 04/05/23 09:30 04/05/23 09:30 04/05/23 09:35 Temperature Pulse Rate 58 L Respiratory Rate 19 Blood Pressure 105/68 103/68 Pulse Oximetry 96 Oxygen Delivery Method 04/05/23 09:35 Temperature Pulse Rate 85 Respiratory Rate 22 Blood Pressure Pulse Oximetry 96 Oxygen Delivery Method <Leighann Dean DO - Last Filed: 04/05/23 10:01> Orders Ordered: Discontinued Medications Sodium Chloride (Normal Saline 0.9%) 1,000 mls @ 1,000 mls/hr IV BOLUS ONE Stop: 04/05/23 05:14 Last Infusion: 04/05/23 05:41 Dose: 0 mls/hr Documented By: Admin: 04/05/23 04:35 Dose: 1,000 mls/hr Documented By: JONATHON Thiamine HCl 200 mg/ Sodium (Chloride) 102 mls @ 408 mls/hr IV NOW ONE Stop: 04/05/23 04:24 Last Infusion: 04/05/23 05:05 Dose: 0 mls/hr Documented By: Admin: 04/05/23 04:47 Dose: 408 mls/hr Documented By: JONATHON POTASSIUM CHLORIDE IN WATER (Potassium Cl 10 Meq/100 Ml Darline) 10 meq in 100 mls @ 100 mls/hr IV Q1H ZACARIAS Stop: 04/05/23 09:14 Last Infusion: 04/05/23 09:40 Dose: 0 mls/hr Documented By: Admin: 04/05/23 08:57 Dose: Not Given Documented By: Admin: 04/05/23 08:33 Dose: 100 mls/hr Documented By: Infusion: 04/05/23 08:25 Dose: 100 mls/hr Documented By: Admin: 04/05/23 07:25 Dose: 100 mls/hr Documented By: Infusion: 04/05/23 07:18 Dose: 0 mls/hr Documented By: Infusion: 04/05/23 06:37 Dose: 100 mls/hr Documented By: Infusion: 04/05/23 06:00 Dose: 0 mls/hr Documented By: Admin: 04/05/23 05:33 Dose: 100 mls/hr Documented By: VANDANA Levetiracetam 1,000 mg/ Sodium (Chloride) 110 mls @ 440 mls/hr IV NOW ONE Stop: 04/05/23 05:52 Last Infusion: 04/05/23 06:36 Dose: 0 mls/hr Documented By: Admin: 04/05/23 06:01 Dose: 440 mls/hr Documented By: JONATHON Sodium Chloride (Normal Saline 0.9%) 1,000 mls @ 1,000 mls/hr IV BOLUS ONE Stop: 04/05/23 08:29 Last Infusion: 04/05/23 09:40 Dose: 0 mls/hr Documented By: Admin: 04/05/23 07:44 Dose: 600 mls/hr Documented By: RB Ceftriaxone Sodium 1,000 mg/ (Sodium Chloride) 100 mls @ 200 mls/hr IV NOW ONE Stop: 04/05/23 07:31 Last Infusion: 04/05/23 08:19 Dose: 0 mls/hr Documented By: Admin: 04/05/23 07:43 Dose: 200 mls/hr Documented By: CASA Metoclopramide HCl (Metoclopramide 10 Mg/2 Ml Inj) 10 mg IV NOW ONE Stop: 04/05/23 07:49 Last Admin: 04/05/23 07:58 Dose: 10 mg Documented By: CASA Ondansetron HCl (Ondansetron 4 Mg/2 Ml Inj) 4 mg IV NOW ONE Stop: 04/05/23 04:16 Last Admin: 04/05/23 04:44 Dose: 4 mg Documented By: JONATHON Pantoprazole Sodium (Pantoprazole 40 Mg Vial) 40 mg IV NOW ONE Stop: 04/05/23 04:16 Last Admin: 04/05/23 04:46 Dose: 40 mg Documented By: JONATHON Phenobarbital (Phenobarbital 65 Mg/Ml Vial) 260 mg IV NOW ONE Stop: 04/05/23 04:24 Last Admin: 04/05/23 04:49 Dose: 260 mg Documented By: JONATHON Potassium Chloride (Potassium Chloride 20 Meq/15 Ml Udc) 40 meq PO NOW ONE Stop: 04/05/23 05:10 Last Admin: 04/05/23 05:33 Dose: 40 meq Documented By: MAIG Vital Signs Vital signs: Vital Signs - 8 hr 04/05/23 04:15 04/05/23 04:54 04/05/23 05:00 Temperature 97 F L Pulse Rate 97 H 64 Respiratory Rate 15 20 Blood Pressure 142/93 H 108/63 Pulse Oximetry 98 97 Oxygen Delivery Method Room Air 04/05/23 05:00 04/05/23 05:15 04/05/23 05:30 Temperature Pulse Rate 61 76 Respiratory Rate 25 H 24 Blood Pressure 132/91 H Pulse Oximetry 98 99 Oxygen Delivery Method 04/05/23 05:30 04/05/23 05:45 04/05/23 06:00 Temperature Pulse Rate 76 76 Respiratory Rate 27 H 26 H Blood Pressure 110/62 Pulse Oximetry 100 99 Oxygen Delivery Method 04/05/23 06:00 04/05/23 06:15 04/05/23 06:30 Temperature Pulse Rate 74 66 Respiratory Rate 23 21 Blood Pressure 96/55 L Pulse Oximetry 96 95 Oxygen Delivery Method 04/05/23 06:30 04/05/23 06:45 04/05/23 07:00 Temperature Pulse Rate 69 64 Respiratory Rate 19 17 Blood Pressure 116/67 Pulse Oximetry 95 95 Oxygen Delivery Method 04/05/23 07:00 04/05/23 07:15 04/05/23 07:30 Temperature Pulse Rate 66 90 Respiratory Rate 18 17 Blood Pressure 148/91 H Pulse Oximetry 95 99 Oxygen Delivery Method 04/05/23 07:30 04/05/23 07:45 04/05/23 07:46 Temperature Pulse Rate 81 76 76 Respiratory Rate 27 H 14 19 Blood Pressure Pulse Oximetry 99 99 100 Oxygen Delivery Method 04/05/23 07:46 04/05/23 08:00 04/05/23 08:01 Temperature Pulse Rate 73 Respiratory Rate Blood Pressure 116/82 153/93 H Pulse Oximetry 99 Oxygen Delivery Method 04/05/23 08:01 04/05/23 08:15 04/05/23 08:15 Temperature Pulse Rate 77 77 Respiratory Rate Blood Pressure 131/72 Pulse Oximetry 98 100 Oxygen Delivery Method 04/05/23 08:30 04/05/23 08:30 04/05/23 08:47 Temperature Pulse Rate 68 84 Respiratory Rate Blood Pressure 120/80 Pulse Oximetry 96 96 Oxygen Delivery Method 04/05/23 08:49 04/05/23 08:49 04/05/23 09:00 Temperature Pulse Rate 80 Respiratory Rate 19 Blood Pressure 139/77 112/67 Pulse Oximetry 100 Oxygen Delivery Method 04/05/23 09:00 04/05/23 09:15 04/05/23 09:15 Temperature Pulse Rate 58 L 62 Respiratory Rate Blood Pressure 101/62 Pulse Oximetry 96 96 Oxygen Delivery Method 04/05/23 09:30 04/05/23 09:30 04/05/23 09:35 Temperature Pulse Rate 58 L Respiratory Rate 19 Blood Pressure 105/68 103/68 Pulse Oximetry 96 Oxygen Delivery Method 04/05/23 09:35 Temperature Pulse Rate 85 Respiratory Rate 22 Blood Pressure Pulse Oximetry 96 Oxygen Delivery Method Medical Decision Making <Darien White, DO - Last Filed: 04/06/23 03:50> Lab Data 04/05/23 04:38 04/05/23 04:38 Labs: Lab Results 04/05/23 04/05/23 04/05/23 Range/Units 04:38 04:38 04:38 WBC 4.2 L (4.5-11.0) X10^3/uL RBC 4.44 (4.0-5.2) X10^6/uL Hgb 13.6 (12.0-16.0) g/dL Hct 39.7 (36-46) % MCV 89.3 (80-100) fL MCH 30.7 (26-34) PG MCHC 34.4 (30-36) % RDW 15.9 H (11.6-14.8) % Plt Count 448 H (150-400) X10^3/uL Neut % (Auto) 37.6 L D (50-75) % Lymph % (Auto) 56.2 H D (25-40) % Schuyler % (Auto) 4.0 (3-14) % Eos % (Auto) 0.1 L (2-4) % Baso % (Auto) 2.1 H (0-2) % Neut # (Auto) 1600 (0800-9664) /uL Lymph # (Auto) 2300 (0177-0382) /uL Schuyler # (Auto) 200 (0-900) /uL Eos # (Auto) 0 (0-450) /uL Baso # (Auto) 100 (0-100) /uL Sodium 143 (137-145) mmol/L Potassium 2.9 L (3.4-5.1) mmol/L Chloride 97 L (98-107) mmol/L Carbon Dioxide 33 H (22-32) mmol/L BUN 3 L (7-17) mg/dL Creatinine 0.44 L (0.52-1.04) mg/dL Estimated GFR > 60 (>60) mL/min BUN/Creatinine Ratio 6.8 (6-22) Glucose 102 H (70-100) mg/dL Lactate (0.7-2.1) mmol/L Calcium 8.3 L (8.4-10.2) mg/dL Magnesium 1.9 (1.6-2.3) mg/dL Total Bilirubin 0.6 (0.2-1.3) mg/dL AST 237 H (14-36) IU/L ALT 117 H (<35) IU/L Alkaline Phosphatase 119 (38-126) U/L Total Protein 8.0 (6.3-8.2) g/dL Albumin 4.4 (3.5-5.0) g/dL Globulin 3.6 (1.7-4.1) g/dL Albumin/Globulin Ratio 1.2 (1.0-2.8) Lipase 349 H (23-300) U/L Prolactin 74.1 H (3.0-18.6) ng/mL Ethyl Alcohol ( - 10) mg/dL 04/05/23 04/05/23 04/05/23 Range/Units 04:38 04:38 07:13 WBC (4.5-11.0) X10^3/uL RBC (4.0-5.2) X10^6/uL Hgb (12.0-16.0) g/dL Hct (36-46) % MCV (80-100) fL MCH (26-34) PG MCHC (30-36) % RDW (11.6-14.8) % Plt Count (150-400) X10^3/uL Neut % (Auto) (50-75) % Lymph % (Auto) (25-40) % Schuyler % (Auto) (3-14) % Eos % (Auto) (2-4) % Baso % (Auto) (0-2) % Neut # (Auto) (3641-7022) /uL Lymph # (Auto) (4393-7621) /uL Schuyler # (Auto) (0-900) /uL Eos # (Auto) (0-450) /uL Baso # (Auto) (0-100) /uL Sodium (137-145) mmol/L Potassium (3.4-5.1) mmol/L Chloride (98-107) mmol/L Carbon Dioxide (22-32) mmol/L BUN (7-17) mg/dL Creatinine (0.52-1.04) mg/dL Estimated GFR (>60) mL/min BUN/Creatinine Ratio (6-22) Glucose (70-100) mg/dL Lactate 3.0 H 2.6 H (0.7-2.1) mmol/L Calcium (8.4-10.2) mg/dL Magnesium (1.6-2.3) mg/dL Total Bilirubin (0.2-1.3) mg/dL AST (14-36) IU/L ALT (<35) IU/L Alkaline Phosphatase (38-126) U/L Total Protein (6.3-8.2) g/dL Albumin (3.5-5.0) g/dL Globulin (1.7-4.1) g/dL Albumin/Globulin Ratio (1.0-2.8) Lipase (23-300) U/L Prolactin (3.0-18.6) ng/mL Ethyl Alcohol 503 H* ( - 10) mg/dL Urine Dip Bedside Urine Glucose Negative Bedside Urine Bilirubin - Negative Bedside Urine Ketone - Negative Urine Specific [place] 1.010 Bedside Urine Occult Blood - Negative Bedside Urine pH 6.5 Bedside Urine Protein - Negative Bedside Urine Urobilinogen - Negative Bedside Urine Nitrite + Positive Bedside Urine Leukocytes + 70 Esterase Point of care testing: Urine Dip Bedside Urine Glucose Negative Bedside Urine Bilirubin - Negative Bedside Urine Ketone - Negative Urine Specific [place] 1.010 Bedside Urine Occult Blood - Negative Bedside Urine pH 6.5 Bedside Urine Protein - Negative Bedside Urine Urobilinogen - Negative Bedside Urine Nitrite + Positive Bedside Urine Leukocytes + 70 Esterase <Leighann Dean, DO - Last Filed: 04/05/23 10:01> Lab Data Labs: Lab Results 04/05/23 04/05/23 04/05/23 Range/Units 04:38 04:38 04:38 WBC 4.2 L (4.5-11.0) X10^3/uL RBC 4.44 (4.0-5.2) X10^6/uL Hgb 13.6 (12.0-16.0) g/dL Hct 39.7 (36-46) % MCV 89.3 (80-100) fL MCH 30.7 (26-34) PG MCHC 34.4 (30-36) % RDW 15.9 H (11.6-14.8) % Plt Count 448 H (150-400) X10^3/uL Neut % (Auto) 37.6 L D (50-75) % Lymph % (Auto) 56.2 H D (25-40) % Schuyler % (Auto) 4.0 (3-14) % Eos % (Auto) 0.1 L (2-4) % Baso % (Auto) 2.1 H (0-2) % Neut # (Auto) 1600 (2592-7563) /uL Lymph # (Auto) 2300 (7345-3923) /uL Schuyler # (Auto) 200 (0-900) /uL Eos # (Auto) 0 (0-450) /uL Baso # (Auto) 100 (0-100) /uL Sodium 143 (137-145) mmol/L Potassium 2.9 L (3.4-5.1) mmol/L Chloride 97 L (98-107) mmol/L Carbon Dioxide 33 H (22-32) mmol/L BUN 3 L (7-17) mg/dL Creatinine 0.44 L (0.52-1.04) mg/dL Estimated GFR > 60 (>60) mL/min BUN/Creatinine Ratio 6.8 (6-22) Glucose 102 H (70-100) mg/dL Lactate (0.7-2.1) mmol/L Calcium 8.3 L (8.4-10.2) mg/dL Magnesium 1.9 (1.6-2.3) mg/dL Total Bilirubin 0.6 (0.2-1.3) mg/dL AST 237 H (14-36) IU/L ALT 117 H (<35) IU/L Alkaline Phosphatase 119 (38-126) U/L Total Protein 8.0 (6.3-8.2) g/dL Albumin 4.4 (3.5-5.0) g/dL Globulin 3.6 (1.7-4.1) g/dL Albumin/Globulin Ratio 1.2 (1.0-2.8) Lipase 349 H (23-300) U/L Prolactin 74.1 H (3.0-18.6) ng/mL Ethyl Alcohol ( - 10) mg/dL 04/05/23 04/05/23 04/05/23 Range/Units 04:38 04:38 07:13 WBC (4.5-11.0) X10^3/uL RBC (4.0-5.2) X10^6/uL Hgb (12.0-16.0) g/dL Hct (36-46) % MCV (80-100) fL MCH (26-34) PG MCHC (30-36) % RDW (11.6-14.8) % Plt Count (150-400) X10^3/uL Neut % (Auto) (50-75) % Lymph % (Auto) (25-40) % Schuyler % (Auto) (3-14) % Eos % (Auto) (2-4) % Baso % (Auto) (0-2) % Neut # (Auto) (3016-6309) /uL Lymph # (Auto) (5787-1481) /uL Schuyler # (Auto) (0-900) /uL Eos # (Auto) (0-450) /uL Baso # (Auto) (0-100) /uL Sodium (137-145) mmol/L Potassium (3.4-5.1) mmol/L Chloride (98-107) mmol/L Carbon Dioxide (22-32) mmol/L BUN (7-17) mg/dL Creatinine (0.52-1.04) mg/dL Estimated GFR (>60) mL/min BUN/Creatinine Ratio (6-22) Glucose (70-100) mg/dL Lactate 3.0 H 2.6 H (0.7-2.1) mmol/L Calcium (8.4-10.2) mg/dL Magnesium (1.6-2.3) mg/dL Total Bilirubin (0.2-1.3) mg/dL AST (14-36) IU/L ALT (<35) IU/L Alkaline Phosphatase (38-126) U/L Total Protein (6.3-8.2) g/dL Albumin (3.5-5.0) g/dL Globulin (1.7-4.1) g/dL Albumin/Globulin Ratio (1.0-2.8) Lipase (23-300) U/L Prolactin (3.0-18.6) ng/mL Ethyl Alcohol 503 H* ( - 10) mg/dL Urine Dip Bedside Urine Glucose Negative Bedside Urine Bilirubin - Negative Bedside Urine Ketone - Negative Urine Specific [place] 1.010 Bedside Urine Occult Blood - Negative Bedside Urine pH 6.5 Bedside Urine Protein - Negative Bedside Urine Urobilinogen - Negative Bedside Urine Nitrite + Positive Bedside Urine Leukocytes + 70 Esterase Point of care testing: Urine Dip Bedside Urine Glucose Negative Bedside Urine Bilirubin - Negative Bedside Urine Ketone - Negative Urine Specific [place] 1.010 Bedside Urine Occult Blood - Negative Bedside Urine pH 6.5 Bedside Urine Protein - Negative Bedside Urine Urobilinogen - Negative Bedside Urine Nitrite + Positive Bedside Urine Leukocytes + 70 Esterase MDM Narrative Medical decision making narrative: Patient signed out to me by Dr. White I have seen evaluated patient myself. I am familiar with the patient I saw her 2 days ago. History of alcohol abuse and seizure disorder. She reports that she is been taking her Keppra. She was diagnosed with a UTI 2 days ago Keflex was sent to safely but she is not picked up her prescription she is again positive for nitrates in her urine. She has no sign of sepsis. He apparently has been seen by [facility]. Awaiting call back from them. She continues to be significantly intoxicated with an alcohol level greater than 500 but still able to communicate. I spoke with , neurology at [facility], at this time does not recommend any change in medication. Recommends with staining alcohol use agrees with measuring Keppra level. Discussion with hospitalist in regards to admission versus discharge home. At this time patient would benefit from outpatient detox. Long micheal discussion with patient about needing to stop alcohol use and to go to detox. She reports that she previously went to detox and rehab for 6 months and was sober for 9 months in 2020. She apparently is going through a divorce. At this time she does not want to be admitted to the hospital she would like to go to detox. Nursing staff made calls and arrangements [facility] had bed available however patient is choosing to go home. Patient was discharged she had a ride however ride decided not to pick her up. Patient left the department before we could call her a taxi cab. She would a steady gait speaking clearly. Attempted to call patient back however no answer. Discharge Plan Departure Patient Disposition: Home Clinical Impression: Seizure, Alcohol abuse Instructions: DI for Seizure Disorder -- Adult, Alcohol Withdrawal Activity Restrictions/Additional Instructions: *You have been diagnosed with UTI, alcohol abuse and seizure disorder *What to do: In order for your seizures to permanently. You must stop drinking. You will need to go to detox you need to stop drinking under direct supervision. 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 If you have multiple do not reading consciousness than please come to the emergency department *Continue to take medications as directed *Follow up with your primary care provider in 2-3 days or call [phone] *Return to ER if you should have unconscious, multiple recurrent seizures, or any new, worsening or concerning symptoms Prescriptions: No Action hydroxyzine pamoate 50 mg capsule 50 mg PO BID PRN (Reason: anxiety) Qty: 180 3RF Rx Instructions: Take 1 tab twice daily as needed for anxiety cetirizine-pseudoephedrine 5-120 mg tablet extended release 12 hr 1 tab PO Q12H Qty: 180 3RF Rx Instructions: Take 1 tab every 12 hours for allergies gabapentin 100 mg capsule 100 mg PO BID Qty: 180 3RF Rx Instructions: Take 1 capsule up to twice per day for muscle spasms topiramate 50 mg tablet 50 mg PO BID Qty: 180 3RF Rx Instructions: Take 1 tab twice per day for migraine prevention. trazodone 150 mg tablet 150 mg PO BEDTIME PRN (Reason: insomnia) Qty: 90 3RF Rx Instructions: Take 1 tab at bedtime daily for insomnia rizatriptan 10 mg tablet See Rx Instructions PO .COMPLEX Qty: 9 3RF Rx Instructions: take 1 tab at onset of headache; if no relief may repeat 1 tab after at least 2 hrs; max = 3 tabs/24 hr PO clonidine HCl 0.1 mg tablet 0.1 mg PO BID PRN (Reason: anxiety) Qty: 180 3RF Rx Instructions: Take 1 tab twice daily for anxiety levetiracetam [Keppra] 500 mg tablet 1,000 mg PO BID Qty: 180 3RF Rx Instructions: Take 1 tab twice daily for seizures naltrexone 50 mg tablet 50 mg PO DAILY Qty: 90 3RF Rx Instructions: Take 1 tab daily for craving suppression fluticasone propionate [Flonase Allergy Relief] 50 mcg/actuation spray,suspension 2 spray intranasal DAILY Qty: 16 5RF Rx Instructions: administer into each nostril venlafaxine 37.5 mg capsule,extended release 24hr 37.5 mg PO BEDTIME Qty: 30 3RF Rx Instructions: Take 1 capsule at bedtime daily for depression and anxiety [facility] Iron Supplement See Rx Instructions .ROUTE .COMPLEX Rx Instructions: 1-2 capsules daily for iron supplement; folic acid 1 mg Tablet 1 mg PO DAILY Qty: 15 0RF multivitamin with folic acid [Tab-A-Mickey] 400 mcg Tablet 1 tab PO DAILY Qty: 30 0RF pantoprazole [address] for susp in packet 40 mg PO DAILY Qty: 30 0RF thiamine mononitrate (vit B1) 100 mg Tablet 100 mg PO DAILY Qty: 15 0RF cephalexin 500 mg capsule 500 mg PO BID 5 Days Qty: 10 0RF buspirone 15 mg tablet 15 mg PO TID Rx Instructions: Take 15mg tab 2x/day chlordiazepoxide HCl 25 mg capsule See Rx Instructions .ROUTE .COMPLEX Qty: 12 0RF Rx Instructions: take 25mg orally three times daily for 2 days, then 25mg twice daily for 2 d ays, then 25mg daily for 2 days then stop Referrals: Domenica Crawford ARNP [Primary Care Provider] - Stand Alone Forms: Patient Portal/API
[2023-04-05] MEDS: SODIUM CHLORIDE 0.9% 1,000 ML 1000 ML IV (04:35)
[2023-04-05] MEDS: ONDANSETRON 4 MG/2 ML INJ IV (04:44)
[2023-04-05] MEDS: PANTOPRAZOLE 40 MG VIAL IV (04:46)
[2023-04-05] MEDS: THIAMINE 200 MG in SODIUM CHLORIDE 0.9% 100 ML 408 MG IV (04:47)
[2023-04-05] MEDS: PHENobarbital 65 MG/ML VIAL 260 MG IV (04:49)
[2023-04-05 04:58] LABS: Add Manual Diff / Slide Review NO; Basophils Absolute Auto 100 /uL (0-100); Basophils Percent Auto 2.1 % (0-2); Eosinophils Absolute Auto 0 /uL (0-450); Eosinophils Percent Auto 0.1 % (2-4); Hematocrit 39.7 % (36-46); Hemoglobin 13.6 g/dL (12.0-16.0); Lymphocytes Absolute Auto 2300 /uL (1100-4500); Lymphocytes Percent Auto 56.2 % (25-40); Mean Corpuscular HGB Conc 34.4 % (30-36); Mean Corpuscular Hemoglobin 30.7 PG (26-34); Mean Corpuscular Volume 89.3 fL (80-100); Monocytes Absolute Auto 200 /uL (0-900); Neutrophils Absolute Auto 1600 /uL (1500-7000); Neutrophils Percent Auto 37.6 % (50-75); Platelet Count 448 X10^3/uL (150-400); Red Blood Cell Count 4.44 X10^6/uL (4.0-5.2); Red Cell Distribution Width 15.9 % (11.6-14.8); White Blood Cell Count 4.2 X10^3/uL (4.5-11.0)
[2023-04-05 05:04] LABS: Alanine Aminotransferase 117 IU/L (<35); Albumin 4.4 g/dL (3.5-5.0); Albumin Globulin Ratio 1.2 (1.0-2.8); Alkaline Phosphatase 119 U/L (38-126); Aspartate Aminotransferase 237 IU/L (14-36); BUN Creatinine Ratio 6.8 (6-22); Bilirubin Total 0.6 mg/dL (0.2-1.3); Blood Urea Nitrogen 3 mg/dL (7-17); Calcium 8.3 mg/dL (8.4-10.2); Carbon Dioxide 33 mmol/L (22-32); Chloride 97 mmol/L (98-107); Estimated Glomerular Filt Rate > 60 mL/min (>60); Globulin 3.6 g/dL (1.7-4.1); Glucose 102 mg/dL (70-100); HEMOLYSIS < 15 (0-50); Lipase 349 U/L (23-300); Magnesium 1.9 mg/dL (1.6-2.3); Potassium 2.9 mmol/L (3.4-5.1); Sodium 143 mmol/L (137-145)
[2023-04-05 05:15] LABS: Ethanol (ETOH) 503 mg/dL
[2023-04-05 05:20] LABS: Prolactin 74.1 ng/mL (3.0-18.6)
[2023-04-05] MEDS: POTASSIUM CHLORIDE 20 MEQ/15 ML UDC 40 MEQ PO (05:33)
[2023-04-05] MEDS: POTASSIUM CHLORIDE IN WATER 10 MEQ/100 ML PIGGYBACK 100 MEQ IV ×3 (05:33→08:33)
[2023-04-05] MEDS: levETIRAcetam 1,000 MG in SODIUM CHLORIDE 0.9% 100 ML 440 MG IV (06:01)
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
[2023-04-05 06:52] LABS: Reflexed Lactate in 2 Hours Y
--- NOTE | 2023-04-05 07:03 | PC.NURSE ---
Friend Noal called States Pt texted family that she is being discharged now This Chartered Wealth Manager informed Nola that the Pt is currently resting on her gurney with her eyes closed. Nola States The family wants her committed for Tx and would like SW to call her/Them when they can.
[2023-04-05 07:40] LABS: Lactate 2HR (Lactic Acid Rflx) 2.6 mmol/L (0.7-2.1)
[2023-04-05] MEDS: cefTRIAXone 1,000 MG in SODIUM CHLORIDE 0.9% 100 ML 200 MG IV (07:43)
[2023-04-05] MEDS: SODIUM CHLORIDE 0.9% 1,000 ML 600 ML IV (07:44)
[2023-04-05] MEDS: METOCLOPRAMIDE 10 MG/2 ML INJ IV (07:58)
--- NOTE | 2023-04-05 08:30 | PC.NURSE ---
TUGBOAT DISPATCHER Notes: Paged out to [facility] Neuro Dr. Linda for consultation at [phone].
--- NOTE | 2023-04-05 08:49 | PC.NURSE ---
This RN with provider talked to patient about detox options. Provider reviewed inpatient option and patient declined. This RN reached out to [facility] and recieved list of detox facilities that were available locally. This RN reviewed the list with the patient who expressed interest in going to [facility]. This RN called and talked to the facility and confirmed that they had open beds and that the patient would need an ETOH level below 300 for acceptance. When representing this option patient was grateful but refused to enter a facility prior to seeing their child. Patient requested the information to contact the facility herself after discharge. This RN provided the resource per patient wishes.
--- NOTE | 2023-04-05 09:45 | PC.NURSE ---
Patient was asked to call for her ride. Patient stated that ride was coming to get her. Patient discharge instructions were gone over and encouraged to fruit or nut picker her previous prescription for antibiotics. Patient provided information for [facility]. Patient called her ride again while this RN was in the room. Patient friend stated that they were not coming to get them. Patient asked to wait for ride to come pick them up. Patient refused and said she was leaving and left the room and the department. Patient had normal gait without slurred speech and was alert and orientated x 4. Provider immediately notified and asked for this RN to try to encourage patient to accept a taxi ride with taxi voucher system in place. This RN went to the lobby and outside to try to catch the patient. This RN called patient on file phone number and there was no answer. This RN left patient message and asked them to return. The second phone call was sent straight to voicemail.
[2023-04-09 17:04] LABS: Levetiracetam Keppra 3.1 ug/mL (10.0-40.0)
== END 2023-04-05 09:45 | disposition home or self-care (01) ==
PROVIDERS: Emergency Medicine; Emergency Provider Emergency Medicine; PCP Nurse Practitioner
DX: G40.909 Epilepsy, unspecified, not intractable, without status epilepticus (principal); F10.129 Alcohol abuse with intoxication, unspecified; Y90.8 Blood alcohol level of 240 mg/100 ml or more
CPT/HCPCS: 36415; 80053; 80177; 80320; 81003; 83605; 83690; 83735; 84146; 85025; 96365; 96367; 96375; 99284; C9113; J0696; J1953; J2405; J2560; J2765

== ENCOUNTER → 2023-04-12 12:12 | Outpatient (CLI) | payer OTHER, MEDICAID, SELFPAY | PROVIDERS: PCP Nurse Practitioner; Visit Provider Nurse Practitioner Family | DX: N89.8 Other specified noninflammatory disorders of vagina (principal) | CPT/HCPCS: 87210 ==

== ENCOUNTER 2023-05-19 04:40 | Emergency (ER) | payer OTHER, MEDICAID, SELFPAY ==
[2023-05-19] VITALS (11 sets, daily range): BP systolic 131–150; BP diastolic 77–108; PULSE 85–119; RESP 17; TEMP 36.7–36.9; O2SAT 92–97; BMI 20.9
--- NOTE | 2023-05-19 04:56 | ED_ITS ---
HPI - Seizure General Chief Complaint: Seizure Stated Complaint: has had 5 seizures since 12 am Time Seen by Provider: 05/19/23 04:41 Source: patient Mode of arrival: Wheelchair Limitations: no limitations History of Present Illness HPI Narrative: Patient is a 37-year-old female. Has a history of seizure disorder. Is on Keppra. She also has a significant history of alcohol abuse. Has been seen here in the emergency department multiple times for alcohol withdrawal seizures, seizures and also alcohol intoxication. She states that she is taking her Keppra. She states she is been taking 1000 mg of Keppra 1 time a day. She states that since midnight last night she is had 5 seizures. She states that her last drink was 3 days ago. She comes in the emergency department today because of the seizures. Related Data Home Medications Medication Instructions Recorded Confirmed buspirone 15 mg tablet 15 mg PO TID 10/04/22 04/12/23 [facility] Iron Supplement See Rx Instructions .Route .COMPLEX 11/13/22 04/12/23 Previous Rx's Medication Instructions Recorded clonidine HCl 0.1 mg tablet 0.1 mg PO BID PRN anxiety #180 tabs 12/08/21 gabapentin 100 mg capsule 100 mg PO BID #180 caps 12/08/21 levetiracetam 500 mg tablet 1,000 mg PO BID #180 tabs 12/08/21 (Keppra) naltrexone 50 mg tablet 50 mg PO DAILY #90 tabs 12/08/21 rizatriptan 10 mg tablet See Rx Instructions PO .COMPLEX #9 12/08/21 tabs topiramate 50 mg tablet 50 mg PO BID #180 tabs 12/08/21 trazodone 150 mg tablet 150 mg PO BEDTIME PRN insomnia #90 12/08/21 tabs hydroxyzine pamoate 50 mg capsule 50 mg PO BID PRN anxiety #180 caps 12/12/21 venlafaxine 37.5 mg 37.5 mg PO BEDTIME #30 caps 03/30/22 capsule,extended release 24 hr fluticasone propionate 50 2 spray intranasal DAILY #16 grams 08/11/22 mcg/actuation nasal spray,suspension (Flonase Allergy Relief) cetirizine 5 mg-pseudoephedrine ER 1 tab PO Q12H #180 tabs 12/26/22 120 mg tablet,extended release,12hr folic acid 1 mg tablet 1 mg PO DAILY #15 tabs 02/18/23 multivitamin with folic acid 400 1 tab PO DAILY #30 tabs 02/18/23 mcg tablet (Tab-A-Mickey) pantoprazole 40 mg granules 40 mg PO DAILY #30 ea 02/18/23 delayed-release for susp in packet thiamine mononitrate (vit B1) 100 100 mg PO DAILY #15 tabs 02/18/23 mg tablet miconazole nitrate 4 % (200 mg)-2 See Rx Instructions vaginal 04/12/23 % (9 gram)vaginal,prefill .COMPLEX #24 grams appl,cream (Monistat 3) Allergies Allergy/AdvReac Type Severity Reaction Status Date / Time No Known Drug Allergies Allergy Verified 04/12/23 12:05 Review of Systems Constitutional Constitutional: Reports system reviewed and no additional complaints, except as documented Integumentary/Breasts Skin/Breast: Reports system reviewed and no additional complaints, except as documented Neurologic Neurologic: Reports system reviewed and no additional complaints, except as documented Psychiatric Psychiatric: Reports system reviewed and no additional complaints, except as documented Patient History Medical History 39 weeks gestation of Alcohol dependence in early full remission Alcohol withdrawal seizure Allergies Anxiety and depression Breast self examination education, encounter for Elevated LFTs History of alcohol abuse Insomnia Medical history unknown Migraine Normal breast exam Right foot injury SGA (small for gestational age), , affecting care of mother, antepartum Suicidal ideation TBI (traumatic brain injury) Vaginal itching Vaginal yeast infection Well woman exam Surgical History Right arm fracture Family History Mother Breast cancer in female Father CVA (cerebral vascular accident) Social History household members: spouse, children and friend(s) Smoking Status: Former smoker alcohol intake: current Smoking Status: Former smoker alcohol intake frequency: 3 or more drinks per day Alcohol type: wine Substance Use Type: does not use Exam Initial Vital Signs Initial Vital Signs: Vital Signs Temperature 98.4 F 05/19/23 04:50 Pulse Rate 108 H 05/19/23 04:50 Respiratory Rate 17 05/19/23 04:50 Blood Pressure 135/99 H 05/19/23 04:50 Pulse Oximetry 97 05/19/23 04:50 Oxygen Delivery Method Room Air 05/19/23 04:50 Const General: cooperative, comfortable and No ill appearing HENIN Head: normal to inspection and normocephalic Resp Effort & Inspection: normal respiratory effort Cardio Rate: regular rate GI Inspection: non-distended Neuro General: patient alert, patient awake and moves all extremities Speech: speech normal Extrem General: capillary refill normal Course Orders Ordered: ED Orders 05/19/23 05:05 Basic Metabolic Panel Stat Complete Blood Count AUTO DIFF Stat Ethanol (ETOH) Stat Levetiracetam Keppra Stat Discontinued Medications Levetiracetam 1,000 mg/ Sodium (Chloride) 110 mls @ 440 mls/hr IV NOW ONE Stop: 05/19/23 05:14 Last Infusion: 05/19/23 06:08 Dose: 0 mls/hr Documented By: Admin: 05/19/23 05:46 Dose: 440 mls/hr Documented By: ALEJO Vital Signs Vital signs: Vital Signs - 8 hr 05/19/23 04:50 Temperature 98.4 F Pulse Rate 108 H Respiratory Rate 17 Blood Pressure 135/99 H Pulse Oximetry 97 Oxygen Delivery Method Room Air MDM - Seizure Lab Data 05/19/23 05:05 05/19/23 05:05 Labs: Lab Results 05/19/23 05/19/23 Range/Units 05:05 05:05 WBC 5.7 (4.5-11.0) X10^3/uL RBC 4.66 (4.0-5.2) X10^6/uL Hgb 14.5 (12.0-16.0) g/dL Hct 42.5 (36-46) % MCV 91.2 (80-100) fL MCH 31.0 (26-34) PG MCHC 34.0 (30-36) % RDW 15.3 H (11.6-14.8) % Plt Count 308 (150-400) X10^3/uL Neut % (Auto) 46.9 L (50-75) % Lymph % (Auto) 50.6 H (25-40) % Walker % (Auto) 1.6 L (3-14) % Eos % (Auto) 0.1 L (2-4) % Baso % (Auto) 0.8 (0-2) % Neut # (Auto) 2700 (0898-5592) /uL Lymph # (Auto) 2900 (5526-1299) /uL Walker # (Auto) 100 (0-900) /uL Eos # (Auto) 0 (0-450) /uL Baso # (Auto) 0 (0-100) /uL Sodium 141 (137-145) mmol/L Potassium 3.1 L (3.4-5.1) mmol/L Chloride 95 L (98-107) mmol/L Carbon Dioxide 30 (22-32) mmol/L BUN 5 L (7-17) mg/dL Creatinine 0.43 L (0.52-1.04) mg/dL Estimated GFR > 60 (>60) mL/min BUN/Creatinine Ratio 11.6 (6-22) Glucose 114 H (70-100) mg/dL Calcium 8.0 L (8.4-10.2) mg/dL Ethyl Alcohol 416 H* ( - 10) mg/dL MDM Narrative Medical decision making narrative: Patient is intoxicated with his significant a elevated alcohol level despite stating that her last drink was 3 days ago. During her time here in the ER she called the nurse stating that she was having a seizure. I went into evaluate her. She did seem to be dry heaving. She would no shaking activity. She told me that she was having a seizure. I informed her that her symptoms were not consistent with seizure activity. I had a discussion with her upon arrival in appears that she has only been taking her Keppra once a day. I showed her her medication list from her last primary doctor's appointment that shows she should be taking 1000 mg twice a day. It appears this is not been what is happening. I told her that this maybe what is causing her seizures. She was given 1 g of Keppra here in the ER. She is been sleeping afterwards. This is not a postictal state. Given her significantly elevated alcohol level patient should be observed for period of time until you can be re-evaluated. Care turned over to Dr. Venegas to follow up and dispo. Discharge Plan Departure Clinical Impression: Alcohol intoxication Prescriptions: No Action hydroxyzine pamoate 50 mg capsule 50 mg PO BID PRN (Reason: anxiety) Qty: 180 3RF Rx Instructions: Take 1 tab twice daily as needed for anxiety cetirizine-pseudoephedrine 5-120 mg tablet extended release 12 hr 1 tab PO Q12H Qty: 180 3RF Rx Instructions: Take 1 tab every 12 hours for allergies miconazole nitrate [Monistat 3] 4 % (200 mg)- 2 % (9 gram) comb pack,prefill appl, cream See Rx Instructions vaginal .COMPLEX Qty: 24 0RF Rx Instructions: put 1 supp in vagina at bedtime x 3nites;use cream on area outside vagina 2X/day for up to 7days vaginal gabapentin 100 mg capsule 100 mg PO BID Qty: 180 3RF Rx Instructions: Take 1 capsule up to twice per day for muscle spasms topiramate 50 mg tablet 50 mg PO BID Qty: 180 3RF Rx Instructions: Take 1 tab twice per day for migraine prevention. trazodone 150 mg tablet 150 mg PO BEDTIME PRN (Reason: insomnia) Qty: 90 3RF Rx Instructions: Take 1 tab at bedtime daily for insomnia rizatriptan 10 mg tablet See Rx Instructions PO .COMPLEX Qty: 9 3RF Rx Instructions: take 1 tab at onset of headache; if no relief may repeat 1 tab after at least 2 hrs; max = 3 tabs/24 hr PO clonidine HCl 0.1 mg tablet 0.1 mg PO BID PRN (Reason: anxiety) Qty: 180 3RF Rx Instructions: Take 1 tab twice daily for anxiety levetiracetam [Keppra] 500 mg tablet 1,000 mg PO BID Qty: 180 3RF Rx Instructions: Take 1 tab twice daily for seizures naltrexone 50 mg tablet 50 mg PO DAILY Qty: 90 3RF Rx Instructions: Take 1 tab daily for craving suppression fluticasone propionate [Flonase Allergy Relief] 50 mcg/actuation spray,suspension 2 spray intranasal DAILY Qty: 16 5RF Rx Instructions: administer into each nostril venlafaxine 37.5 mg capsule,extended release 24hr 37.5 mg PO BEDTIME Qty: 30 3RF Rx Instructions: Take 1 capsule at bedtime daily for depression and anxiety [facility] Iron Supplement See Rx Instructions .ROUTE .COMPLEX Rx Instructions: 1-2 capsules daily for iron supplement; folic acid 1 mg Tablet 1 mg PO DAILY Qty: 15 0RF multivitamin with folic acid [Tab-A-Mickey] 400 mcg Tablet 1 tab PO DAILY Qty: 30 0RF pantoprazole [address] for susp in packet 40 mg PO DAILY Qty: 30 0RF thiamine mononitrate (vit B1) 100 mg Tablet 100 mg PO DAILY Qty: 15 0RF buspirone 15 mg tablet 15 mg PO TID Rx Instructions: Take 15mg tab 2x/day Referrals: Domenica Crawford ARNP [Primary Care Provider] -
[2023-05-19 05:13] LABS: Add Manual Diff / Slide Review NO; Basophils Absolute Auto 0 /uL (0-100); Basophils Percent Auto 0.8 % (0-2); Eosinophils Absolute Auto 0 /uL (0-450); Eosinophils Percent Auto 0.1 % (2-4); Hematocrit 42.5 % (36-46); Hemoglobin 14.5 g/dL (12.0-16.0); Lymphocytes Absolute Auto 2900 /uL (1100-4500); Lymphocytes Percent Auto 50.6 % (25-40); Mean Corpuscular Volume 91.2 fL (80-100); Monocytes Absolute Auto 100 /uL (0-900); Monocytes Percent Auto 1.6 % (3-14); Neutrophils Absolute Auto 2700 /uL (1500-7000); Neutrophils Percent Auto 46.9 % (50-75); Platelet Count 308 X10^3/uL (150-400); Red Blood Cell Count 4.66 X10^6/uL (4.0-5.2); Red Cell Distribution Width 15.3 % (11.6-14.8); White Blood Cell Count 5.7 X10^3/uL (4.5-11.0)
[2023-05-19 05:22] LABS: BUN Creatinine Ratio 11.6 (6-22); Blood Urea Nitrogen 5 mg/dL (7-17); Carbon Dioxide 30 mmol/L (22-32); Chloride 95 mmol/L (98-107); Estimated Glomerular Filt Rate > 60 mL/min (>60); Glucose 114 mg/dL (70-100); HEMOLYSIS < 15 (0-50); Potassium 3.1 mmol/L (3.4-5.1); Sodium 141 mmol/L (137-145)
[2023-05-19 05:35] LABS: Ethanol (ETOH) 416 mg/dL
[2023-05-19] MEDS: levETIRAcetam 1,000 MG in SODIUM CHLORIDE 0.9% 100 ML 440 MG IV (05:46)
[2023-05-19 07:39] LABS: Pregnancy Test Serum,Qual Negative (Negative)
--- NOTE | 2023-05-19 08:04 | ED.SEIZURE ---
HPI - Seizure General Chief Complaint: Seizure Stated Complaint: has had 5 seizures since 12 am Time Seen by Provider: 05/19/23 04:41 Source: patient Mode of arrival: Wheelchair Limitations: no limitations Related Data Home Medications Medication Instructions Recorded Confirmed buspirone 15 mg tablet 15 mg PO TID 10/04/22 04/12/23 [facility] Iron Supplement See Rx Instructions .Route .COMPLEX 11/13/22 04/12/23 Previous Rx's Medication Instructions Recorded clonidine HCl 0.1 mg tablet 0.1 mg PO BID PRN anxiety #180 tabs 12/08/21 gabapentin 100 mg capsule 100 mg PO BID #180 caps 12/08/21 levetiracetam 500 mg tablet 1,000 mg PO BID #180 tabs 12/08/21 (Keppra) naltrexone 50 mg tablet 50 mg PO DAILY #90 tabs 12/08/21 rizatriptan 10 mg tablet See Rx Instructions PO .COMPLEX #9 12/08/21 tabs topiramate 50 mg tablet 50 mg PO BID #180 tabs 12/08/21 trazodone 150 mg tablet 150 mg PO BEDTIME PRN insomnia #90 12/08/21 tabs hydroxyzine pamoate 50 mg capsule 50 mg PO BID PRN anxiety #180 caps 12/12/21 venlafaxine 37.5 mg 37.5 mg PO BEDTIME #30 caps 03/30/22 capsule,extended release 24 hr fluticasone propionate 50 2 spray intranasal DAILY #16 grams 08/11/22 mcg/actuation nasal spray,suspension (Flonase Allergy Relief) cetirizine 5 mg-pseudoephedrine ER 1 tab PO Q12H #180 tabs 12/26/22 120 mg tablet,extended release,12hr folic acid 1 mg tablet 1 mg PO DAILY #15 tabs 02/18/23 multivitamin with folic acid 400 1 tab PO DAILY #30 tabs 02/18/23 mcg tablet (Tab-A-Mickey) pantoprazole 40 mg granules 40 mg PO DAILY #30 ea 02/18/23 delayed-release for susp in packet thiamine mononitrate (vit B1) 100 100 mg PO DAILY #15 tabs 02/18/23 mg tablet miconazole nitrate 4 % (200 mg)-2 See Rx Instructions vaginal 04/12/23 % (9 gram)vaginal,prefill .COMPLEX #24 grams appl,cream (Monistat 3) Allergies Allergy/AdvReac Type Severity Reaction Status Date / Time No Known Drug Allergies Allergy Verified 04/12/23 12:05 Review of Systems Neurologic Neurologic: Reports system reviewed and no additional complaints, except as documented Patient History Medical History 39 weeks gestation of Alcohol dependence in early full remission Alcohol withdrawal seizure Allergies Anxiety and depression Breast self examination education, encounter for Elevated LFTs History of alcohol abuse Insomnia Medical history unknown Migraine Normal breast exam Right foot injury SGA (small for gestational age), , affecting care of mother, antepartum Suicidal ideation TBI (traumatic brain injury) Vaginal itching Vaginal yeast infection Well woman exam Surgical History Right arm fracture Family History Mother Breast cancer in female Father CVA (cerebral vascular accident) Social History household members: spouse, children and friend(s) Smoking Status: Former smoker alcohol intake: current Smoking Status: Former smoker alcohol intake frequency: 3 or more drinks per day Alcohol type: wine Substance Use Type: does not use Exam Initial Vital Signs Initial Vital Signs: Vital Signs Pulse Rate 119 H 05/19/23 04:44 Blood Pressure 135/99 H 05/19/23 04:44 Pulse Oximetry 96 05/19/23 04:44 Course Orders Ordered: Discontinued Medications Levetiracetam 1,000 mg/ Sodium (Chloride) 110 mls @ 440 mls/hr IV NOW ONE Stop: 05/19/23 05:14 Last Infusion: 05/19/23 06:08 Dose: 0 mls/hr Documented By: Admin: 05/19/23 05:46 Dose: 440 mls/hr Documented By: ALEJO Vital Signs Vital signs: Vital Signs - 8 hr 05/19/23 04:50 Temperature 98.4 F Pulse Rate 108 H Respiratory Rate 17 Blood Pressure 135/99 H Pulse Oximetry 97 Oxygen Delivery Method Room Air MDM - Seizure Lab Data 05/19/23 05:05 05/19/23 05:05 Labs: Lab Results 05/19/23 05/19/23 05/19/23 Range/Units 05:05 05:05 05:05 WBC 5.7 (4.5-11.0) X10^3/uL RBC 4.66 (4.0-5.2) X10^6/uL Hgb 14.5 (12.0-16.0) g/dL Hct 42.5 (36-46) % MCV 91.2 (80-100) fL MCH 31.0 (26-34) PG MCHC 34.0 (30-36) % RDW 15.3 H (11.6-14.8) % Plt Count 308 (150-400) X10^3/uL Neut % (Auto) 46.9 L (50-75) % Lymph % (Auto) 50.6 H (25-40) % [place]verse % (Auto) 1.6 L (3-14) % Eos % (Auto) 0.1 L (2-4) % Baso % (Auto) 0.8 (0-2) % Neut # (Auto) 2700 (0817-2567) /uL Lymph # (Auto) 2900 (2279-3968) /uL [place]verse # (Auto) 100 (0-900) /uL Eos # (Auto) 0 (0-450) /uL Baso # (Auto) 0 (0-100) /uL Sodium 141 (137-145) mmol/L Potassium 3.1 L (3.4-5.1) mmol/L Chloride 95 L (98-107) mmol/L Carbon Dioxide 30 (22-32) mmol/L BUN 5 L (7-17) mg/dL Creatinine 0.43 L (0.52-1.04) mg/dL Estimated GFR > 60 (>60) mL/min BUN/Creatinine Ratio 11.6 (6-22) Glucose 114 H (70-100) mg/dL Calcium 8.0 L (8.4-10.2) mg/dL Serum , Qual Negative (Negative) Ethyl Alcohol 416 H* ( - 10) mg/dL Discharge Plan Departure Patient Disposition: Home Clinical Impression: Alcohol intoxication Activity Restrictions/Additional Instructions: Follow-up with your physicians. It is recommend you increase your Keppra to a 1000 mg or 2 tablets twice daily. Is also recommended you avoid any use of alcohol. There is a Keppra level pending, this is a send out lab and typically take several days to result. Please return for new or worsening changes, altered mental status, persistent vomiting or other new or concerning changes. Prescriptions: No Action hydroxyzine pamoate 50 mg capsule 50 mg PO BID PRN (Reason: anxiety) Qty: 180 3RF Rx Instructions: Take 1 tab twice daily as needed for anxiety cetirizine-pseudoephedrine 5-120 mg tablet extended release 12 hr 1 tab PO Q12H Qty: 180 3RF Rx Instructions: Take 1 tab every 12 hours for allergies miconazole nitrate [Monistat 3] 4 % (200 mg)- 2 % (9 gram) comb pack,prefill appl, cream See Rx Instructions vaginal .COMPLEX Qty: 24 0RF Rx Instructions: put 1 supp in vagina at bedtime x 3nites;use cream on area outside vagina 2X/day for up to 7days vaginal gabapentin 100 mg capsule 100 mg PO BID Qty: 180 3RF Rx Instructions: Take 1 capsule up to twice per day for muscle spasms topiramate 50 mg tablet 50 mg PO BID Qty: 180 3RF Rx Instructions: Take 1 tab twice per day for migraine prevention. trazodone 150 mg tablet 150 mg PO BEDTIME PRN (Reason: insomnia) Qty: 90 3RF Rx Instructions: Take 1 tab at bedtime daily for insomnia rizatriptan 10 mg tablet See Rx Instructions PO .COMPLEX Qty: 9 3RF Rx Instructions: take 1 tab at onset of headache; if no relief may repeat 1 tab after at least 2 hrs; max = 3 tabs/24 hr PO clonidine HCl 0.1 mg tablet 0.1 mg PO BID PRN (Reason: anxiety) Qty: 180 3RF Rx Instructions: Take 1 tab twice daily for anxiety levetiracetam [Keppra] 500 mg tablet 1,000 mg PO BID Qty: 180 3RF Rx Instructions: Take 1 tab twice daily for seizures naltrexone 50 mg tablet 50 mg PO DAILY Qty: 90 3RF Rx Instructions: Take 1 tab daily for craving suppression fluticasone propionate [Flonase Allergy Relief] 50 mcg/actuation spray,suspension 2 spray intranasal DAILY Qty: 16 5RF Rx Instructions: administer into each nostril venlafaxine 37.5 mg capsule,extended release 24hr 37.5 mg PO BEDTIME Qty: 30 3RF Rx Instructions: Take 1 capsule at bedtime daily for depression and anxiety [facility] Iron Supplement See Rx Instructions .ROUTE .COMPLEX Rx Instructions: 1-2 capsules daily for iron supplement; folic acid 1 mg Tablet 1 mg PO DAILY Qty: 15 0RF multivitamin with folic acid [Tab-A-Mickey] 400 mcg Tablet 1 tab PO DAILY Qty: 30 0RF pantoprazole [address] for susp in packet 40 mg PO DAILY Qty: 30 0RF thiamine mononitrate (vit B1) 100 mg Tablet 100 mg PO DAILY Qty: 15 0RF buspirone 15 mg tablet 15 mg PO TID Rx Instructions: Take 15mg tab 2x/day Referrals: Domenica Crawford ARNP [Primary Care Provider] - Stand Alone Forms: Patient Portal/API
[2023-05-22 13:10] LABS: Levetiracetam Keppra 2.9 ug/mL (10.0-40.0)
== END 2023-05-19 08:15 | disposition home or self-care (01) ==
PROVIDERS: Emergency Medicine; Emergency Provider Emergency Medicine; PCP Nurse Practitioner
DX: F10.129 Alcohol abuse with intoxication, unspecified (principal); Y90.8 Blood alcohol level of 240 mg/100 ml or more
CPT/HCPCS: 36415; 80048; 80177; 80320; 84703; 85025; 96365; 99284; J1953

== ENCOUNTER → 2023-12-07 10:03 | Outpatient (CLI) | payer OTHER, MEDICAID, SELFPAY ==
--- NOTE | 2023-12-07 10:08 | DI.RAD.S_ITS ---
PROCEDURE: XR SHOULDER RT MIN 2V INDICATIONS: Right shoulder pain TECHNIQUE: 3 views of the shoulder were acquired. COMPARISON: None. FINDINGS: Bones: No acute fractures or dislocations. No suspicious bony lesions. Visualized ribs appear intact. Soft tissues: No suspicious soft tissue calcifications. IMPRESSION: No acute osseous abnormality. If symptoms persist or if there is continued clinical concern, cross-sectional imaging such as MRI may be helpful for further evaluation. Approved by: Renato Gonsalez M.D. on 12/07/2023 at 14:15
== END ==
PROVIDERS: PCP Nurse Practitioner; Referring Provider Nurse Practitioner Family; Visit Provider Nurse Practitioner Family
DX: M25.511 Pain in right shoulder (principal)
CPT/HCPCS: 73030

== ENCOUNTER 2023-12-18 01:47 | Emergency (ER) | payer OTHER, MEDICAID, SELFPAY ==
[2023-12-18 01:49] VITALS: BP 134/88; PULSE 106; RESP 16; TEMP 36.5; O2SAT 98; BMI 21.7
--- NOTE | 2023-12-18 02:30 | ED_ITS ---
HPI - Extremity Injury (Upper) General Chief Complaint: Extremity Injury, Upper Stated Complaint: seizure, torn rotator cuff rt Time Seen by Provider: 12/18/23 02:29 Source: patient Mode of arrival: Ambulatory History of Present Illness HPI narrative: Patient is a 38-year-old female history of seizure disorder presenting today with right shoulder pain. She reports that 2 weeks ago she actually threw a remote at a TV and dislocated her shoulder. It isn't uncommon for to dislocate her shoulders her put it back in for her. She has had continued pain. She was seen evaluated walk-in clinic she had a negative x-ray on December 06. She has been taking Tylenol ibuprofen without any sort of relief. Tonight it is hurting very bad. She has an appointment with PCP in the morning. But would like something to help her sleep. Numbness tingling or weakness. However she does have significant decreased range of motion. Related Data Home Medications Medication Instructions Recorded Confirmed buspirone 15 mg tablet 15 mg PO TID 10/04/22 12/07/23 [facility] Iron Supplement See Rx Instructions .Route .COMPLEX 11/13/22 12/07/23 Previous Rx's Medication Instructions Recorded clonidine HCl 0.1 mg tablet 0.1 mg PO BID PRN anxiety #180 tabs 12/08/21 gabapentin 100 mg capsule 100 mg PO BID #180 caps 12/08/21 levetiracetam 500 mg tablet 1,000 mg (2 x 500 mg) PO BID #180 12/08/21 (Keppra) tabs naltrexone 50 mg tablet 50 mg PO DAILY #90 tabs 12/08/21 rizatriptan 10 mg tablet See Rx Instructions PO .COMPLEX #9 12/08/21 tabs topiramate 50 mg tablet 50 mg PO BID #180 tabs 12/08/21 trazodone 150 mg tablet 150 mg PO BEDTIME PRN insomnia #90 12/08/21 tabs hydroxyzine pamoate 50 mg capsule 50 mg PO BID PRN anxiety #180 caps 12/12/21 venlafaxine 37.5 mg 37.5 mg PO BEDTIME #30 caps 03/30/22 capsule,extended release 24 hr fluticasone propionate 50 2 spray intranasal DAILY #16 grams 08/11/22 mcg/actuation nasal spray,suspension (Flonase Allergy Relief) cetirizine 5 mg-pseudoephedrine ER 1 tab PO Q12H #180 tabs 12/26/22 120 mg tablet,extended release,12hr folic acid 1 mg tablet 1 mg PO DAILY #15 tabs 02/18/23 multivitamin with folic acid 400 1 tab PO DAILY #30 tabs 02/18/23 mcg tablet (Tab-A-Mickey) thiamine mononitrate (vit B1) 100 100 mg PO DAILY #15 tabs 02/18/23 mg tablet miconazole nitrate 4 % (200 mg)-2 See Rx Instructions vaginal 04/12/23 % (9 gram)vaginal,prefill .COMPLEX #24 grams appl,cream (Monistat 3) Allergies Allergy/AdvReac Type Severity Reaction Status Date / Time No Known Drug Allergies Allergy Verified 12/07/23 09:37 Patient History Medical History 39 weeks gestation of Alcohol dependence in early full remission Alcohol withdrawal seizure Allergies Anxiety and depression Breast self examination education, encounter for Elevated LFTs History of alcohol abuse Insomnia Medical history unknown Migraine Normal breast exam Right foot injury SGA (small for gestational age), , affecting care of mother, antepartum Suicidal ideation TBI (traumatic brain injury) Vaginal itching Vaginal yeast infection Well woman exam Surgical History Right arm fracture Family History Mother Breast cancer in female Father CVA (cerebral vascular accident) Social History household members: spouse, children and friend(s) Smoking Status: Former smoker alcohol intake: current Smoking Status: Former smoker alcohol intake frequency: 3 or more drinks per day Alcohol type: wine Substance Use Type: does not use Exam Initial Vital Signs Initial Vital Signs: Vital Signs Temperature 97.7 F 12/18/23 01:49 Pulse Rate 106 H 12/18/23 01:49 Respiratory Rate 16 12/18/23 01:49 Blood Pressure 134/88 12/18/23 01:49 Pulse Oximetry 98 12/18/23 01:49 Oxygen Delivery Method Room Air 12/18/23 01:49 GENERAL: Well-appearing, well-nourished and in no acute distress. CARDIOVASCULAR: peripheral pulses in tact, cap refill <2 sec RESPIRATORY: No respiratory distress, speaks in full sentences without difficulty EXTREMITIES: Normal range of motion, no clubbing or edema. Neurovascularly intact Right shoulder no obvious step-off no clavicle tenderness decreased range of motion in all directions distal radial pulse intact. She is able to move it some. Sensation over deltoid NEUROLOGICAL: Cranial nerves II through XII grossly intact. Normal gait and speech. SKIN: Warm, dry, no petechiae, no rashes or lesions. Course Orders Ordered: Discontinued Medications Hydrocodone Bitart/Acetaminophen (Hydrocodone/Acet 5/325 Prepack) 1 bottle MISC DIRECTED ONE Stop: 12/18/23 02:42 Last Admin: 12/18/23 02:50 Dose: 1 bottle Documented By: BEATA Vital Signs Vital signs: Vital Signs - 8 hr 12/18/23 01:49 12/18/23 02:49 Temperature 97.7 F 98.4 F Pulse Rate 106 H 96 H Respiratory Rate 16 16 Blood Pressure 134/88 136/90 Pulse Oximetry 98 99 Oxygen Delivery Method Room Air Room Air MDM - Extremity Injury (Upper) MDM Narrative Medical decision making narrative: Patient 38-year-old female who presents with 2 weeks of ongoing right shoulder pain after dislocation after throwing a remote. She had a negative x-ray on the 1st she is with PCP in a couple of hours. Something more for pain. I will give her a Alma prepack however she needs to discuss with her PCP about further pain management and probable orthopedic referral and MRI. I have reviewed patient's chart she has a history of alcohol abuse. She is in quite a bit of pain. In his obvious decreased range of motion. Give her prepack she can discuss with primary about ongoing further pain management Discharge Plan Departure Patient Disposition: Home Clinical Impression: Acute pain of right shoulder Instructions: DI for Shoulder Dislocation Activity Restrictions/Additional Instructions: *You have been diagnosed with right shoulder pain *What to do: At this time please follow-up with PCP as scheduled. You will need to talk with her about further pain management. He will likely need outpatient MRI and possibly orthopedic referral *Continue to take medications as directed Alma 1 tablet every 6 hours if needed for pain (you were given a prepack only) *Follow up with your primary care provider in 2-3 days or call [phone] *Return to ER if you should have any new, worsening or concerning symptoms CONTROLLED SUBSTANCE DISCHARGE (Narcotoic/benzodiazepine/Flexeril/Phenergan) 1. You have been prescribed narcotic medications, it does have acetaminophen/Tylenol/paracetamol in it, DO NOT TAKE MORE THAN 4,00mg in 24 hours of Tylenol. TRAMADOL DOES NOT CONTAIN TYLENOL 2. Please understand that we cannot provide further refills of narcotics, benzodiazepines or controlled substances through the ED and her pain management will need to be through your provider. 3. While on these medications you cannot drive or operate heavy machinery. 4. You cannot sign legal documents or perform any duties such as this. 5. As long as you're taking opiate pain medications he should also be taking a stool softener such as Colace, Dulcolax, MiraLAX or prune juice, to help avoid constipation. Prescriptions: No Action hydroxyzine pamoate 50 mg capsule 50 mg PO BID PRN (Reason: anxiety) Qty: 180 3RF Rx Instructions: Take 1 tab twice daily as needed for anxiety cetirizine-pseudoephedrine 5-120 mg tablet extended release 12 hr 1 tab PO Q12H Qty: 180 3RF Rx Instructions: Take 1 tab every 12 hours for allergies miconazole nitrate [Monistat 3] 4 % (200 mg)- 2 % (9 gram) comb pack,prefill appl, cream See Rx Instructions vaginal .COMPLEX Qty: 24 0RF Rx Instructions: put 1 supp in vagina at bedtime x 3nites;use cream on area outside vagina 2X/day for up to 7days vaginal gabapentin 100 mg capsule 100 mg PO BID Qty: 180 3RF Rx Instructions: Take 1 capsule up to twice per day for muscle spasms topiramate 50 mg tablet 50 mg PO BID Qty: 180 3RF Rx Instructions: Take 1 tab twice per day for migraine prevention. trazodone 150 mg tablet 150 mg PO BEDTIME PRN (Reason: insomnia) Qty: 90 3RF Rx Instructions: Take 1 tab at bedtime daily for insomnia rizatriptan 10 mg tablet See Rx Instructions PO .COMPLEX Qty: 9 3RF Rx Instructions: take 1 tab at onset of headache; if no relief may repeat 1 tab after at least 2 hrs; max = 3 tabs/24 hr PO clonidine HCl 0.1 mg tablet 0.1 mg PO BID PRN (Reason: anxiety) Qty: 180 3RF Rx Instructions: Take 1 tab twice daily for anxiety levetiracetam [Keppra] 500 mg tablet 1,000 mg PO BID Qty: 180 3RF Rx Instructions: Take 1 tab twice daily for seizures naltrexone 50 mg tablet 50 mg PO DAILY Qty: 90 3RF Rx Instructions: Take 1 tab daily for craving suppression fluticasone propionate [Flonase Allergy Relief] 50 mcg/actuation spray,suspension 2 spray intranasal DAILY Qty: 16 5RF Rx Instructions: administer into each nostril venlafaxine 37.5 mg capsule,extended release 24hr 37.5 mg PO BEDTIME Qty: 30 3RF Rx Instructions: Take 1 capsule at bedtime daily for depression and anxiety [facility] Iron Supplement See Rx Instructions .ROUTE .COMPLEX Rx Instructions: 1-2 capsules daily for iron supplement; folic acid 1 mg Tablet 1 mg PO DAILY Qty: 15 0RF multivitamin with folic acid [Tab-A-Mickey] 400 mcg Tablet 1 tab PO DAILY Qty: 30 0RF thiamine mononitrate (vit B1) 100 mg Tablet 100 mg PO DAILY Qty: 15 0RF buspirone 15 mg tablet 15 mg PO TID Rx Instructions: Take 15mg tab 2x/day Referrals: Miscellaneous,Doctor, MD [Primary Care Provider] - Stand Alone Forms: Patient Portal/API
[2023-12-18 02:49] VITALS: BP 136/90; PULSE 96; RESP 16; TEMP 36.9; O2SAT 99
[2023-12-18] MEDS: HYDROCODONE/ACET 5/325 PREPACK 1 BOTTLE MISC (02:50)
== END 2023-12-18 02:55 | disposition home or self-care (01) ==
PROVIDERS: Emergency Provider Emergency Medicine
DX: M25.511 Pain in right shoulder (principal)
CPT/HCPCS: 99281; 99283

== ENCOUNTER 2024-02-27 09:14 | Emergency (ER) | payer OTHER, MEDICAID, SELFPAY ==
[2024-02-27] VITALS (13 sets, daily range): BP systolic 128–147; BP diastolic 71–104; PULSE 80–146; RESP 16–33; TEMP 36.6; O2SAT 90–99; BMI 21.7
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
--- NOTE | 2024-02-27 09:42 | DI.CT.S_ITS ---
PROCEDURE: CT CERVICAL SPINE WO CON INDICATIONS: head injury, +etoh history, seizure hx TECHNIQUE: Noncontrast 3 mm thick sections acquired from the skull base to the T4 level. Sagittal and coronal reformats were then constructed. For radiation dose reduction, the following was used: automated exposure control, adjustment of mA and/or kV according to patient size. COMPARISON: Located Within [facility], CT, CT CERVICAL SPINE WO CON, 01/31/2023, 9:14. FINDINGS: Image quality: Excellent. Bones: There is straightening and mild reversal of normal cervical lordosis. No acute fracture or dislocation. Loss of disc height and degenerative endplate changes with dorsal disc osteophyte complex formation at C3-4, C5-6 and C6-7 levels are seen causing mild central canal stenosis, no significant neural foraminal narrowing. Visualized superior ribs are intact. Soft tissues: Prevertebral soft tissues are normal in thickness. No paravertebral hematomas. No apical pneumothoraces. IMPRESSION: 1. displaced fracture or traumatic subluxation. 2. Mild degenerative disc disease in cervical spine as described above. Dictated by: Osito Canchola M.D. on 02/27/2024 at 11:24 Approved by: Osito Canchola M.D. on 02/27/2024 at 11:26
--- NOTE | 2024-02-27 09:42 | DI.CT.S_ITS ---
PROCEDURE: CT HEAD/BRAIN WO CON INDICATIONS: head injury, +etoh history, seizure hx TECHNIQUE: Noncontrast 4.5 mm thick angled axial sections acquired from the foramen magnum to the vertex, with coronal and sagittal reformats. For radiation dose reduction, the following was used: automated exposure control, adjustment of mA and/or kV according to patient size. COMPARISON: [facility], CT, CT HEAD/BRAIN WO CON, 04/03/2023, 16:39. FINDINGS: Image quality: Diagnostic. CSF spaces: Basal cisterns are patent. No extra-axial fluid collections. Ventricles are normal in size and shape. Brain: No midline shift. No intracranial masses or hemorrhage. Stanton-white matter interface is normal. Skull and face: Calvarium and visualized facial bones are intact, without suspicious lesions. Sinuses: Visualized sinuses and mastoids are clear. IMPRESSION: No acute intracranial pathology. Dictated by: Obed Bahena M.D. on 02/27/2024 at 11:20 Approved by: Obed Bahena M.D. on 02/27/2024 at 11:21
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
[2024-02-27] MEDS: SODIUM CHLORIDE 0.9% 1,000 ML 1000 ML IV (09:53)
[2024-02-27] MEDS: PHENobarbital 65 MG/ML VIAL 260 MG IV (09:54)
[2024-02-27] MEDS: levETIRAcetam 1,000 MG in SODIUM CHLORIDE 0.9% 100 ML 440 MG IV (09:54)
[2024-02-27 09:56] LABS: INR 1.1 (0.9-1.3); Prothrombin Time 12.5 SECONDS (9.4-12.5)
[2024-02-27 09:58] LABS: PTT Partial Thromboplastin Tim 33 SECONDS (25.1-36.5)
[2024-02-27 10:00] LABS: Add Manual Diff / Slide Review NO; Basophils Absolute Auto 100 /uL (0-100); Basophils Percent Auto 0.9 % (0-2); Eosinophils Absolute Auto 0 /uL (0-450); Eosinophils Percent Auto 0.1 % (2-4); Hematocrit 45.4 % (36-46); Hemoglobin 15.4 g/dL (12.0-16.0); Lymphocytes Absolute Auto 4100 /uL (1100-4500); Lymphocytes Percent Auto 44.2 % (25-40); Mean Corpuscular HGB Conc 33.9 % (30-36); Mean Corpuscular Hemoglobin 30.7 PG (26-34); Mean Corpuscular Volume 90.7 fL (80-100); Monocytes Absolute Auto 300 /uL (0-900); Monocytes Percent Auto 3.6 % (3-14); Neutrophils Absolute Auto 4800 /uL (1500-7000); Neutrophils Percent Auto 51.2 % (50-75); Platelet Count 354 X10^3/uL (150-400); Red Blood Cell Count 5.01 X10^6/uL (4.0-5.2); White Blood Cell Count 9.3 X10^3/uL (4.5-11.0)
[2024-02-27 10:03] LABS: Alanine Aminotransferase 55 IU/L (<35); Albumin Globulin Ratio 1.3 (1.0-2.8); Alkaline Phosphatase 101 U/L (38-126); Aspartate Aminotransferase 120 IU/L (14-36); BUN Creatinine Ratio 9.1 (6-22); Bilirubin Total 1.2 mg/dL (0.2-1.3); Blood Urea Nitrogen 4 mg/dL (7-17); Calcium 8.7 mg/dL (8.4-10.2); Carbon Dioxide 25 mmol/L (22-32); Chloride 98 mmol/L (98-107); Estimated Glomerular Filt Rate > 60 mL/min (>60); Glucose 143 mg/dL (70-100); Potassium 3.6 mmol/L (3.4-5.1); Sodium 139 mmol/L (137-145)
[2024-02-27 10:06] LABS: Pregnancy Test Serum,Qual Negative (Negative)
[2024-02-27 10:11] LABS: Ethanol (ETOH) 380 mg/dL; HEMOLYSIS 34 (0-50)
[2024-02-27] MEDS: PHENobarbital 65 MG/ML VIAL 195 MG IV (10:16)
[2024-02-27 10:56] LABS: Ur Creatinine Normal (Normal); Ur Specific Gravity Normal (Normal); Urine Tetrahydrocannabinol Negative (Negative); Urine pH Normal (Normal)
[2024-02-27 10:57] LABS: UR Morphine/Opiate cutoff 300 Negative (Negative); Urine Amphetamines Negative (Negative); Urine Barbiturates Negative (Negative); Urine Benzodiazepines Negative (Negative); Urine Cocaine Negative (Negative); Urine MDMA Negative (Negative); Urine Methadone Negative (Negative); Urine Methamphetamines Negative (Negative); Urine Oxycodone Negative (Negative); Urine Phencyclidine Negative (Negative); Urine Tricyclic Antidepressant Negative (Negative)
[2024-02-27 10:58] LABS: Urine Volume 10mL (spun)
[2024-02-27 11:02] LABS: Bacteria Urine Moderate (10-30); Culture Indicated Urine Specimen Cultured; RBC Urine None Seen (0-5/HPF); Squamous Epithelial Cell Urine 10-30 /HPF (0-5/HPF); WBC Urine 1-5/HPF (0-5/HPF)
[2024-02-27] MEDS: PHENobarbital 65 MG/ML VIAL 130 MG IV (11:31)
[2024-02-27] MEDS: ONDANSETRON 4 MG/2 ML INJ IV (11:51)
--- NOTE | 2024-02-27 11:59 | PC.NURSE ---
pt found to be leaning out of bed and trying to drink water from sink... visitors called for help and explained what pt is trying to do.
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
== END 2024-02-27 13:36 | disposition home or self-care (01) ==
PROVIDERS: Emergency Provider Emergency Medicine
DX: F10.139 Alcohol abuse with withdrawal, unspecified (principal); S00.11XA Contusion of right eyelid and periocular area, initial encounter; G40.909 Epilepsy, unspecified, not intractable, without status epilepticus; W19.XXXA Unspecified fall, initial encounter; Y90.8 Blood alcohol level of 240 mg/100 ml or more
CPT/HCPCS: 36415; 70450; 72125; 80053; 80305; 80320; 81003; 81015; 84443; 84703; 85025; 85610; 85730; 87086; 93005; 96365; 96374; 96376; 99284; J1953; J2405; J2560

== ENCOUNTER 2024-05-19 13:28 | Emergency (ER) | payer OTHER, MEDICAID, SELFPAY ==
[2024-05-19] VITALS (32 sets, daily range): BP systolic 110–165; BP diastolic 60–100; PULSE 85–133; RESP 12–26; TEMP 36.8; O2SAT 95–99; BMI 20.7
--- NOTE | 2024-05-19 13:45 | DI.CT.S_ITS ---
PROCEDURE: CT HEAD/BRAIN WO CON INDICATIONS: altered mental status TECHNIQUE: Noncontrast 4.5 mm thick angled axial sections acquired from the foramen magnum to the vertex, with coronal and sagittal reformats. For radiation dose reduction, the following was used: automated exposure control, adjustment of mA and/or kV according to patient size. COMPARISON: [facility], CT, CT HEAD/BRAIN WO CON, 02/16/2023, 9:41. [facility], CT, CT HEAD/BRAIN WO CON, 04/03/2023, 16:39. [facility], CT, CT HEAD/BRAIN WO CON, 02/27/2024, 9:50. FINDINGS: Image quality: Diagnostic. CSF spaces: Basal cisterns are patent. No extra-axial fluid collections. Ventricles are normal in size and shape. Brain: No midline shift. No intracranial masses or hemorrhage. Stanton-white matter interface is normal. Skull and face: Calvarium and visualized facial bones are intact, without suspicious lesions. Sinuses: Visualized sinuses and mastoids are clear. IMPRESSION: No imaging explanation is found for this patient's presenting symptoms. Noncontrast head CT similar to prior. Dictated by: Darron Neal M.D. on 05/19/2024 at 13:11 Approved by: Darron Neal M.D. on 05/19/2024 at 13:12
[2024-05-19] MEDS: SODIUM CHLORIDE 0.9% 1,000 ML 1000 ML IV ×2 (14:20→16:05)
[2024-05-19 14:22] LABS: Add Manual Diff / Slide Review NO; Basophils Absolute Auto 100 /uL (0-100); Basophils Percent Auto 0.9 % (0-2); Eosinophils Absolute Auto 0 /uL (0-450); Hematocrit 44.5 % (36-46); Hemoglobin 15.1 g/dL (12.0-16.0); Lymphocytes Absolute Auto 2300 /uL (1100-4500); Lymphocytes Percent Auto 25.1 % (25-40); Mean Corpuscular HGB Conc 33.9 % (30-36); Mean Corpuscular Hemoglobin 29.8 PG (26-34); Mean Corpuscular Volume 88.1 fL (80-100); Monocytes Absolute Auto 300 /uL (0-900); Monocytes Percent Auto 3.5 % (3-14); Neutrophils Absolute Auto 6500 /uL (1500-7000); Neutrophils Percent Auto 70.5 % (50-75); Platelet Count 205 X10^3/uL (150-400); Red Blood Cell Count 5.05 X10^6/uL (4.0-5.2); Red Cell Distribution Width 13.8 % (11.6-14.8); White Blood Cell Count 9.3 X10^3/uL (4.5-11.0)
[2024-05-19 14:32] LABS: Creatine Kinase 222 U/L (30-135); Lipase 197 U/L (23-300)
[2024-05-19 14:33] LABS: Acetaminophen < 10 ug/mL (10-30); Alanine Aminotransferase 154 IU/L (<35); Albumin 4.7 g/dL (3.5-5.0); Albumin Globulin Ratio 1.3 (1.0-2.8); Alkaline Phosphatase 87 U/L (38-126); Aspartate Aminotransferase 254 IU/L (14-36); BUN Creatinine Ratio 8.1 (6-22); Bilirubin Total 0.7 mg/dL (0.2-1.3); Blood Urea Nitrogen 3 mg/dL (7-17); Calcium 8.7 mg/dL (8.4-10.2); Carbon Dioxide 29 mmol/L (22-32); Chloride 92 mmol/L (98-107); Estimated Glomerular Filt Rate > 60 mL/min (>60); Globulin 3.7 g/dL (1.7-4.1); Glucose 156 mg/dL (70-100); HEMOLYSIS < 15 (0-50); Potassium 2.9 mmol/L (3.4-5.1); Salicylate < 1.0 mg/dL (<20); Sodium 139 mmol/L (137-145); Total Protein 8.4 g/dL (6.3-8.2)
[2024-05-19 14:34] LABS: Lactate (Lactic Acid) 3.2 mmol/L (0.7-2.1)
[2024-05-19 14:37] LABS: Pregnancy Test Serum,Qual Negative (Negative)
[2024-05-19 14:43] LABS: Ethanol (ETOH) 463 mg/dL
[2024-05-19 14:45] LABS: Troponin I < 0.012 ng/mL (0.01-0.034)
[2024-05-19 14:49] LABS: Procalcitonin 0.055 ng/mL (<0.5)
[2024-05-19 15:50] LABS: Reflexed Lactate in 2 Hours Y
--- NOTE | 2024-05-19 16:36 | ED_ITS ---
HPI - Alcohol <Leighann Dean, DO - Last Filed: 05/20/24 08:57> General Chief Complaint: Toxicology Problem Stated Complaint: AMS Time Seen by Provider: 05/19/24 13:44 Source: patient and EMS Mode of arrival: EMS History of Present Illness HPI narrative: Patient is a 38-year-old female history of alcohol abuse alcohol withdrawal seizures on Keppra presenting today with alcohol intoxication and altered mental status. Apparently roommate had a hard time waking her up. Patient is overall a very poor historian at this point she is sleepy. She does report that she was trying to detox herself but there were multiple bottles of alcohol by her. She apparently was very drowsy this morning which prompted EMS call. She has obvious gross bilateral eye drainage. Related Data Home Medications Medication Instructions Recorded Confirmed [facility] Iron Supplement See Rx Instructions .Route .COMPLEX 11/13/22 05/09/24 Previous Rx's Medication Instructions Recorded naltrexone 50 mg tablet 50 mg PO DAILY #90 tabs 12/08/21 rizatriptan 10 mg tablet See Rx Instructions PO .COMPLEX #9 12/08/21 tabs trazodone 150 mg tablet 150 mg PO BEDTIME PRN insomnia #90 12/08/21 tabs cetirizine 5 mg-pseudoephedrine ER 1 tab PO Q12H #180 tabs 12/26/22 120 mg tablet,extended release,12hr folic acid 1 mg tablet 1 mg PO DAILY #15 tabs 02/18/23 multivitamin with folic acid 400 1 tab PO DAILY #30 tabs 02/18/23 mcg tablet (Tab-A-Mickey) thiamine mononitrate (vit B1) 100 100 mg PO DAILY #15 tabs 02/18/23 mg tablet miconazole nitrate 4 % (200 mg)-2 See Rx Instructions vaginal 04/12/23 % (9 gram)vaginal,prefill .COMPLEX #24 grams appl,cream (Monistat 3) buspirone 15 mg tablet 15 mg PO TID #270 tabs 05/09/24 fluticasone propionate 50 2 spray intranasal DAILY #16 grams 05/09/24 mcg/actuation nasal spray,suspension (Flonase Allergy Relief) gabapentin 100 mg capsule 100 mg PO BID #180 caps 05/09/24 hydroxyzine pamoate 50 mg capsule 50 mg PO BID PRN anxiety #180 caps 05/09/24 levetiracetam 500 mg tablet 1,000 mg (2 x 500 mg) PO BID #180 05/09/24 (Keppra) tabs topiramate 50 mg tablet 50 mg PO BID #180 tabs 05/09/24 venlafaxine 37.5 mg 37.5 mg PO BEDTIME #90 caps 05/09/24 capsule,extended release 24 hr Allergies Allergy/AdvReac Type Severity Reaction Status Date / Time No Known Drug Allergies Allergy Verified 05/19/24 13:42 Patient History <Leighann Dean DO - Last Filed: 05/20/24 08:57> Medical History Fatty liver Suicidal ideation Alcohol dependence in early full remission Allergies Insomnia Migraine Anxiety and depression TBI (traumatic brain injury) History of alcohol abuse Surgical History Right arm fracture Family History Mother Breast cancer in female Father CVA (cerebral vascular accident) Alzheimer dementia Social History household members: spouse, children and friend(s) Smoking Status: Former smoker alcohol intake: current Smoking Status: Former smoker alcohol intake frequency: 3 or more drinks per day Alcohol type: wine Substance Use Type: does not use Exam <Leighann Dean DO - Last Filed: 05/20/24 08:57> Initial Vital Signs Initial Vital Signs: Vital Signs Pulse Rate 116 H 05/19/24 13:35 Pulse Oximetry 96 05/19/24 13:35 GENERAL: Sleepy but alert slurring speech moving around and in no acute distress. HEENT: Head atraumatic,EOMI, pupils reactive, bilateral gross drainage from both face symmetric, moist mucous membranes CARDIOVASCULAR: Regular rate and rhythm without murmurs, rubs or gallops. RESPIRATORY: Breath sounds equal bilaterally, no wheezes rales or rhonchi. ABDOMEN: Soft, nontender. Normoactive bowel sounds all 4 quadrants. No guarding or rebound. EXTREMITIES: Normal range of motion, no clubbing or edema. Neurovascularly intact NEUROLOGICAL: Moving all extremities slurring of speech no gross deficit no tremors SKIN: Warm, dry, no laceration, no petechiae, no rashes or lesions. <Syeda C Theo, DO - Last Filed: 05/20/24 05:12> Initial Vital Signs Initial Vital Signs: Vital Signs Pulse Rate 116 H 05/19/24 13:35 Pulse Oximetry 96 05/19/24 13:35 Course <Leighann Jermaine DO - Last Filed: 05/20/24 08:57> Orders Ordered: Discontinued Medications Erythromycin (Erythromycin Ophth 1 Gm Oint) 1 applic EYE-BOTH NOW ONE Stop: 05/19/24 19:33 Last Admin: 05/19/24 19:57 Dose: 1 applic Documented By: Sodium Chloride (Normal Saline 0.9%) 1,000 mls @ 1,000 mls/hr IV BOLUS ONE Stop: 05/19/24 15:11 Last Infusion: 05/19/24 15:04 Dose: Infused Documented By: Admin: 05/19/24 14:20 Dose: 1,000 mls/hr Documented By: ARBEN Sodium Chloride (Normal Saline 0.9%) 1,000 mls @ 1,000 mls/hr IV BOLUS ONE Stop: 05/19/24 16:56 Last Infusion: 05/19/24 17:38 Dose: Infused Documented By: Admin: 05/19/24 16:05 Dose: 1,000 mls/hr Documented By: ILENE Thiamine HCl 200 mg/ Sodium (Chloride) 102 mls @ 408 mls/hr IV NOW ONE Stop: 05/19/24 16:56 Last Infusion: 05/19/24 17:22 Dose: Infused Documented By: Admin: 05/19/24 17:07 Dose: 408 mls/hr Documented By: ILENE POTASSIUM CHLORIDE IN WATER (Potassium Cl 10 Meq/100 Ml Darline) 10 meq in 100 mls @ 100 mls/hr IV Q1H ZACARIAS Stop: 05/19/24 18:59 Last Infusion: 05/19/24 19:30 Dose: Infused Documented By: Admin: 05/19/24 18:23 Dose: 100 mls/hr Documented By: Infusion: 05/19/24 18:22 Dose: Infused Documented By: Admin: 05/19/24 17:12 Dose: 100 mls/hr Documented By: ILENE Sodium Chloride (Normal Saline 0.9%) 1,000 mls @ 100 mls/hr IV CONT ZACARIAS Last Infusion: 05/19/24 22:39 Dose: 100 mls/hr Documented By: Admin: 05/19/24 17:42 Dose: 100 mls/hr Documented By: ILENE Phenobarbital (Phenobarbital 65 Mg/Ml Vial) 260 mg IV NOW ONE Stop: 05/19/24 19:50 Last Admin: 05/19/24 19:56 Dose: 260 mg Documented By: Vital Signs Vital signs: Vital Signs - 8 hr 05/19/24 21:30 05/19/24 21:30 05/19/24 22:00 Temperature Pulse Rate 101 H Respiratory Rate Blood Pressure 131/83 126/81 Pulse Oximetry 95 95 Oxygen Delivery Method Room Air 05/19/24 22:00 05/19/24 23:08 Temperature 98.3 F Pulse Rate 85 85 Respiratory Rate 18 Blood Pressure 134/78 Pulse Oximetry 97 98 Oxygen Delivery Method Room Air <Syeda Venegas DO - Last Filed: 05/20/24 05:12> Orders Ordered: Discontinued Medications Erythromycin (Erythromycin Ophth 1 Gm Oint) 1 applic EYE-BOTH NOW ONE Stop: 05/19/24 19:33 Last Admin: 05/19/24 19:57 Dose: 1 applic Documented By: Sodium Chloride (Normal Saline 0.9%) 1,000 mls @ 1,000 mls/hr IV BOLUS ONE Stop: 05/19/24 15:11 Last Infusion: 05/19/24 15:04 Dose: Infused Documented By: Admin: 05/19/24 14:20 Dose: 1,000 mls/hr Documented By: ARBEN Sodium Chloride (Normal Saline 0.9%) 1,000 mls @ 1,000 mls/hr IV BOLUS ONE Stop: 05/19/24 16:56 Last Infusion: 05/19/24 17:38 Dose: Infused Documented By: Admin: 05/19/24 16:05 Dose: 1,000 mls/hr Documented By: ILENE Thiamine HCl 200 mg/ Sodium (Chloride) 102 mls @ 408 mls/hr IV NOW ONE Stop: 05/19/24 16:56 Last Infusion: 05/19/24 17:22 Dose: Infused Documented By: Admin: 05/19/24 17:07 Dose: 408 mls/hr Documented By: ILENE POTASSIUM CHLORIDE IN WATER (Potassium Cl 10 Meq/100 Ml Darline) 10 meq in 100 mls @ 100 mls/hr IV Q1H ZACARIAS Stop: 05/19/24 18:59 Last Infusion: 05/19/24 19:30 Dose: Infused Documented By: Admin: 05/19/24 18:23 Dose: 100 mls/hr Documented By: Infusion: 05/19/24 18:22 Dose: Infused Documented By: Admin: 05/19/24 17:12 Dose: 100 mls/hr Documented By: ILENE Sodium Chloride (Normal Saline 0.9%) 1,000 mls @ 100 mls/hr IV CONT ZACARIAS Last Infusion: 05/19/24 22:39 Dose: 100 mls/hr Documented By: Admin: 05/19/24 17:42 Dose: 100 mls/hr Documented By: ILENE Phenobarbital (Phenobarbital 65 Mg/Ml Vial) 260 mg IV NOW ONE Stop: 05/19/24 19:50 Last Admin: 05/19/24 19:56 Dose: 260 mg Documented By: Vital Signs Vital signs: Vital Signs - 8 hr 05/19/24 21:30 05/19/24 21:30 05/19/24 22:00 Temperature Pulse Rate 101 H Respiratory Rate Blood Pressure 131/83 126/81 Pulse Oximetry 95 95 Oxygen Delivery Method Room Air 05/19/24 22:00 05/19/24 23:08 Temperature 98.3 F Pulse Rate 85 85 Respiratory Rate 18 Blood Pressure 134/78 Pulse Oximetry 97 98 Oxygen Delivery Method Room Air MDM - Alcohol <Leighann Dean, DO - Last Filed: 05/20/24 08:57> Lab Data 05/19/24 14:05 05/19/24 14:05 Labs: Lab Results 05/19/24 05/19/24 05/19/24 Range/Units 11:40 14:05 16:08 WBC 9.3 (4.5-11.0) X10^3/uL RBC 5.05 (4.0-5.2) X10^6/uL Hgb 15.1 (12.0-16.0) g/dL Hct 44.5 (36-46) % MCV 88.1 (80-100) fL MCH 29.8 (26-34) PG MCHC 33.9 (30-36) % RDW 13.8 (11.6-14.8) % Plt Count 205 (150-400) X10^3/uL Neut % (Auto) 70.5 (50-75) % Lymph % (Auto) 25.1 (25-40) % [place] % (Auto) 3.5 (3-14) % Eos % (Auto) 0.0 L (2-4) % Baso % (Auto) 0.9 (0-2) % Neut # (Auto) 6500 (7186-5361) /uL Lymph # (Auto) 2300 (4230-3358) /uL [place] # (Auto) 300 (0-900) /uL Eos # (Auto) 0 (0-450) /uL Baso # (Auto) 100 (0-100) /uL Sodium 139 (137-145) mmol/L Potassium 2.9 L (3.4-5.1) mmol/L Chloride 92 L (98-107) mmol/L Carbon Dioxide 29 (22-32) mmol/L BUN 3 L (7-17) mg/dL Creatinine 0.37 L (0.52-1.04) mg/dL Estimated GFR > 60 (>60) mL/min BUN/Creatinine Ratio 8.1 (6-22) Glucose 156 H (70-100) mg/dL Lactate 3.2 H 2.7 H (0.7-2.1) mmol/L Calcium 8.7 (8.4-10.2) mg/dL Total Bilirubin 0.7 (0.2-1.3) mg/dL AST 254 H (14-36) IU/L ALT 154 H (<35) IU/L Alkaline Phosphatase 87 (38-126) U/L Total Creatine Kinase 222 H (30-135) U/L Troponin I < 0.012 (0.01-0.034) ng/mL Total Protein 8.4 H (6.3-8.2) g/dL Albumin 4.7 (3.5-5.0) g/dL Globulin 3.7 (1.7-4.1) g/dL Albumin/Globulin Ratio 1.3 (1.0-2.8) Lipase 197 (23-300) U/L Procalcitonin 0.055 (<0.5) ng/mL Serum , Qual Negative (Negative) Urine Color Urine Appearance Urine pH (4.5-8.0) Ur Specific [place] (1.000-1.035) Urine Protein (Negative) Urine Glucose (UA) (Negative) g/dL Urine Ketones (NEGATIVE) Urine Occult Blood (Negative) Urine Nitrate (Negative) Urine Bilirubin (NEGATIVE) Urine Urobilinogen (0.2) E.U./dL Ur Leukocyte Esterase (NEGATIVE) Urine RBC (0-5/HPF) Urine WBC (0-5/HPF) Ur Squamous Epith Cells (0-5/HPF) Ur Transition Epith Cell (0-5/HPF) Amorphous Sediment Urine Bacteria (None) Hyaline Casts (None) Ur Culture Indicated? Vol Urine Centrifuged Salicylates < 1.0 (<20) mg/dL U Opiates 300ng/mL cut (Negative) Ur Oxycodone Screen (Negative) Urine Methadone Screen (Negative) Acetaminophen < 10 (10-30) ug/mL Ur Barbiturates Screen (Negative) U Tricyclic Antidepress (Negative) Ur Phencyclidine Scrn (Negative) Ur Amphetamines Screen (Negative) U Methamphetamines Scrn (Negative) Ur MDMA Scrn (Ecstasy) (Negative) U Benzodiazepines Scrn (Negative) Urine Cocaine Screen (Negative) U Marijuana (THC) Screen (Negative) Urine Specific [place] (Normal) Ethyl Alcohol 463 H* ( - 10) mg/dL Ur Creatinine (Normal) 05/19/24 05/19/24 05/19/24 Range/Units 18:05 18:05 20:45 WBC (4.5-11.0) X10^3/uL RBC (4.0-5.2) X10^6/uL Hgb (12.0-16.0) g/dL Hct (36-46) % MCV (80-100) fL MCH (26-34) PG MCHC (30-36) % RDW (11.6-14.8) % Plt Count (150-400) X10^3/uL Neut % (Auto) (50-75) % Lymph % (Auto) (25-40) % [place] % (Auto) (3-14) % Eos % (Auto) (2-4) % Baso % (Auto) (0-2) % Neut # (Auto) (7820-2072) /uL Lymph # (Auto) (1920-3326) /uL [place] # (Auto) (0-900) /uL Eos # (Auto) (0-450) /uL Baso # (Auto) (0-100) /uL Sodium (137-145) mmol/L Potassium (3.4-5.1) mmol/L Chloride (98-107) mmol/L Carbon Dioxide (22-32) mmol/L BUN (7-17) mg/dL Creatinine (0.52-1.04) mg/dL Estimated GFR (>60) mL/min BUN/Creatinine Ratio (6-22) Glucose (70-100) mg/dL Lactate 2.3 H (0.7-2.1) mmol/L Calcium (8.4-10.2) mg/dL Total Bilirubin (0.2-1.3) mg/dL AST (14-36) IU/L ALT (<35) IU/L Alkaline Phosphatase (38-126) U/L Total Creatine Kinase (30-135) U/L Troponin I (0.01-0.034) ng/mL Total Protein (6.3-8.2) g/dL Albumin (3.5-5.0) g/dL Globulin (1.7-4.1) g/dL Albumin/Globulin Ratio (1.0-2.8) Lipase (23-300) U/L Procalcitonin (<0.5) ng/mL Serum , Qual (Negative) Urine Color Yellow Urine Appearance Clear Urine pH 5.5 Normal (4.5-8.0) Ur Specific [place] 1.020 (1.000-1.035) Urine Protein 2+ H (Negative) Urine Glucose (UA) Negative (Negative) g/dL Urine Ketones 1+ H (NEGATIVE) Urine Occult Blood 1+ H (Negative) Urine Nitrate Negative (Negative) Urine Bilirubin Negative (NEGATIVE) Urine Urobilinogen 0.2 (0.2) E.U./dL Ur Leukocyte Esterase Negative (NEGATIVE) Urine RBC 5-10/hpf H (0-5/HPF) Urine WBC 0-1/hpf (0-5/HPF) Ur Squamous Epith Cells 0-1 /hpf D (0-5/HPF) Ur Transition Epith Cell 1-5/hpf (0-5/HPF) Amorphous Sediment 2+ Urine Bacteria Occasional (0-1) (None) Hyaline Casts 1-5/lpf (None) Ur Culture Indicated? Cult not indicated Vol Urine Centrifuged 10ml (spun) Salicylates (<20) mg/dL U Opiates 300ng/mL cut Negative (Negative) Ur Oxycodone Screen Negative (Negative) Urine Methadone Screen Negative (Negative) Acetaminophen (10-30) ug/mL Ur Barbiturates Screen Negative (Negative) U Tricyclic Antidepress Negative (Negative) Ur Phencyclidine Scrn Negative (Negative) Ur Amphetamines Screen Negative (Negative) U Methamphetamines Scrn Negative (Negative) Ur MDMA Scrn (Ecstasy) Negative (Negative) U Benzodiazepines Scrn Negative (Negative) Urine Cocaine Screen Negative (Negative) U Marijuana (THC) Screen Negative (Negative) Urine Specific [place] Normal (Normal) Ethyl Alcohol ( - 10) mg/dL Ur Creatinine Normal (Normal) 05/19/24 05/19/24 Range/Units 20:47 22:53 WBC (4.5-11.0) X10^3/uL RBC (4.0-5.2) X10^6/uL Hgb (12.0-16.0) g/dL Hct (36-46) % MCV (80-100) fL MCH (26-34) PG MCHC (30-36) % RDW (11.6-14.8) % Plt Count (150-400) X10^3/uL Neut % (Auto) (50-75) % Lymph % (Auto) (25-40) % [place] % (Auto) (3-14) % Eos % (Auto) (2-4) % Baso % (Auto) (0-2) % Neut # (Auto) (2970-9178) /uL Lymph # (Auto) (9073-2336) /uL [place] # (Auto) (0-900) /uL Eos # (Auto) (0-450) /uL Baso # (Auto) (0-100) /uL Sodium (137-145) mmol/L Potassium (3.4-5.1) mmol/L Chloride (98-107) mmol/L Carbon Dioxide (22-32) mmol/L BUN (7-17) mg/dL Creatinine (0.52-1.04) mg/dL Estimated GFR (>60) mL/min BUN/Creatinine Ratio (6-22) Glucose (70-100) mg/dL Lactate 1.9 (0.7-2.1) mmol/L Calcium (8.4-10.2) mg/dL Total Bilirubin (0.2-1.3) mg/dL AST (14-36) IU/L ALT (<35) IU/L Alkaline Phosphatase (38-126) U/L Total Creatine Kinase (30-135) U/L Troponin I (0.01-0.034) ng/mL Total Protein (6.3-8.2) g/dL Albumin (3.5-5.0) g/dL Globulin (1.7-4.1) g/dL Albumin/Globulin Ratio (1.0-2.8) Lipase 225 (23-300) U/L Procalcitonin (<0.5) ng/mL Serum , Qual (Negative) Urine Color Urine Appearance Urine pH (4.5-8.0) Ur Specific [place] (1.000-1.035) Urine Protein (Negative) Urine Glucose (UA) (Negative) g/dL Urine Ketones (NEGATIVE) Urine Occult Blood (Negative) Urine Nitrate (Negative) Urine Bilirubin (NEGATIVE) Urine Urobilinogen (0.2) E.U./dL Ur Leukocyte Esterase (NEGATIVE) Urine RBC (0-5/HPF) Urine WBC (0-5/HPF) Ur Squamous Epith Cells (0-5/HPF) Ur Transition Epith Cell (0-5/HPF) Amorphous Sediment Urine Bacteria (None) Hyaline Casts (None) Ur Culture Indicated? Vol Urine Centrifuged Salicylates (<20) mg/dL U Opiates 300ng/mL cut (Negative) Ur Oxycodone Screen (Negative) Urine Methadone Screen (Negative) Acetaminophen (10-30) ug/mL Ur Barbiturates Screen (Negative) U Tricyclic Antidepress (Negative) Ur Phencyclidine Scrn (Negative) Ur Amphetamines Screen (Negative) U Methamphetamines Scrn (Negative) Ur MDMA Scrn (Ecstasy) (Negative) U Benzodiazepines Scrn (Negative) Urine Cocaine Screen (Negative) U Marijuana (THC) Screen (Negative) Urine Specific [place] (Normal) Ethyl Alcohol ( - 10) mg/dL Ur Creatinine (Normal) Point of Care Testing Glucose POC [address] scan - head: Radiologist's Impressoin: PROCEDURE: CT HEAD/BRAIN WO CON INDICATIONS: altered mental status TECHNIQUE: Noncontrast 4.5 mm thick angled axial sections acquired from the foramen magnum to the vertex, with coronal and sagittal reformats. For radiation dose reduction, the following was used: automated exposure control, adjustment of mA and/or kV according to patient size. COMPARISON: [facility], CT, CT HEAD/BRAIN WO CON, 02/16/2023, 9:41. [facility], CT, CT HEAD/BRAIN WO CON, 04/03/2023, 16:39. [facility], CT, CT HEAD/BRAIN WO CON, 02/27/2024, 9:50. FINDINGS: Image quality: Diagnostic. CSF spaces: Basal cisterns are patent. No extra-axial fluid collections. Ventricles are normal in size and shape. Brain: No midline shift. No intracranial masses or hemorrhage. Stanton-white matter interface is normal. Skull and face: Calvarium and visualized facial bones are intact, without suspicious lesions. Sinuses: Visualized sinuses and mastoids are clear. IMPRESSION: No imaging explanation is found for this patient's presenting symptoms. Noncontrast head CT similar to prior. Dictated by: Darron Neal M.D. on 05/19/2024 at 13:11 [facility] Narrative Medical decision making narrative: [facility] CC: Alcohol intoxication altered mental status Complicating co-morbidities: Seizure disorder, on Keppra, alcoholism for the migraines, insomnia Corroborating data: [ ] Data collected from: [ ] Medical records reviewed: PCP note May 09 reports that seizure disorder happened sporadically typically stress and anxiety induced panic attacks turned into seizures mostly seizures or well-controlled she does have history of anxiety depression as well along with a TBI Differential considered: Overdose intracranial hemorrhage intoxication electrolyte abnormality sepsis Exam documented above, pertinent findings include: Gross bilateral eye drainage moving all extremities Lab Test results independently reviewed as above. Pertinent findings: Alcohol level 463 WBC 9.3 hemoglobin 15.1 hematocrit 44.5 platelets 205, sodium 139 potassium 2.9 chloride 92 carbon dioxide 29 BUN 3 creatinine 0.3 glucose 156 lactate 3.2 with repeat 2.7, AST 254 ALT 154 bilirubin Independently reviewed EKG as above Imaging studies independently reviewed: Head CT no intracranial hemorrhage Consultations: [ ] Treatments: Thiamine potassium erythromycin ophthalmic ointment Re-evaluations: [ ] Discussion: Patient remains sleepy with extremely high level alcohol. She does have mildly elevated liver enzymes thought to be secondary to alcohol she is normal bilirubin. No evidence of infection or sepsis. She has not urinated. Patient signed out to Dr. Bernardo <Syeda Venegas, - Last Filed: 05/20/24 05:12> Lab Data Labs: Lab Results 05/19/24 05/19/24 05/19/24 Range/Units 11:40 14:05 16:08 WBC 9.3 (4.5-11.0) X10^3/uL RBC 5.05 (4.0-5.2) X10^6/uL Hgb 15.1 (12.0-16.0) g/dL Hct 44.5 (36-46) % MCV 88.1 (80-100) fL MCH 29.8 (26-34) PG MCHC 33.9 (30-36) % RDW 13.8 (11.6-14.8) % Plt Count 205 (150-400) X10^3/uL Neut % (Auto) 70.5 (50-75) % Lymph % (Auto) 25.1 (25-40) % [place] % (Auto) 3.5 (3-14) % Eos % (Auto) 0.0 L (2-4) % Baso % (Auto) 0.9 (0-2) % Neut # (Auto) 6500 (0479-8628) /uL Lymph # (Auto) 2300 (2402-5193) /uL [place] # (Auto) 300 (0-900) /uL Eos # (Auto) 0 (0-450) /uL Baso # (Auto) 100 (0-100) /uL Sodium 139 (137-145) mmol/L Potassium 2.9 L (3.4-5.1) mmol/L Chloride 92 L (98-107) mmol/L Carbon Dioxide 29 (22-32) mmol/L BUN 3 L (7-17) mg/dL Creatinine 0.37 L (0.52-1.04) mg/dL Estimated GFR > 60 (>60) mL/min BUN/Creatinine Ratio 8.1 (6-22) Glucose 156 H (70-100) mg/dL Lactate 3.2 H 2.7 H (0.7-2.1) mmol/L Calcium 8.7 (8.4-10.2) mg/dL Total Bilirubin 0.7 (0.2-1.3) mg/dL AST 254 H (14-36) IU/L ALT 154 H (<35) IU/L Alkaline Phosphatase 87 (38-126) U/L Total Creatine Kinase 222 H (30-135) U/L Troponin I < 0.012 (0.01-0.034) ng/mL Total Protein 8.4 H (6.3-8.2) g/dL Albumin 4.7 (3.5-5.0) g/dL Globulin 3.7 (1.7-4.1) g/dL Albumin/Globulin Ratio 1.3 (1.0-2.8) Lipase 197 (23-300) U/L Procalcitonin 0.055 (<0.5) ng/mL Serum , Qual Negative (Negative) Urine Color Urine Appearance Urine pH (4.5-8.0) Ur Specific [place] (1.000-1.035) Urine Protein (Negative) Urine Glucose (UA) (Negative) g/dL Urine Ketones (NEGATIVE) Urine Occult Blood (Negative) Urine Nitrate (Negative) Urine Bilirubin (NEGATIVE) Urine Urobilinogen (0.2) E.U./dL Ur Leukocyte Esterase (NEGATIVE) Urine RBC (0-5/HPF) Urine WBC (0-5/HPF) Ur Squamous Epith Cells (0-5/HPF) Ur Transition Epith Cell (0-5/HPF) Amorphous Sediment Urine Bacteria (None) Hyaline Casts (None) Ur Culture Indicated? Vol Urine Centrifuged Salicylates < 1.0 (<20) mg/dL U Opiates 300ng/mL cut (Negative) Ur Oxycodone Screen (Negative) Urine Methadone Screen (Negative) Acetaminophen < 10 (10-30) ug/mL Ur Barbiturates Screen (Negative) U Tricyclic Antidepress (Negative) Ur Phencyclidine Scrn (Negative) Ur Amphetamines Screen (Negative) U Methamphetamines Scrn (Negative) Ur MDMA Scrn (Ecstasy) (Negative) U Benzodiazepines Scrn (Negative) Urine Cocaine Screen (Negative) U Marijuana (THC) Screen (Negative) Urine Specific [place] (Normal) Ethyl Alcohol 463 H* ( - 10) mg/dL Ur Creatinine (Normal) 05/19/24 05/19/24 05/19/24 Range/Units 18:05 18:05 20:45 WBC (4.5-11.0) X10^3/uL RBC (4.0-5.2) X10^6/uL Hgb (12.0-16.0) g/dL Hct (36-46) % MCV (80-100) fL MCH (26-34) PG MCHC (30-36) % RDW (11.6-14.8) % Plt Count (150-400) X10^3/uL Neut % (Auto) (50-75) % Lymph % (Auto) (25-40) % [place] % (Auto) (3-14) % Eos % (Auto) (2-4) % Baso % (Auto) (0-2) % Neut # (Auto) (8290-5585) /uL Lymph # (Auto) (1294-6234) /uL [place] # (Auto) (0-900) /uL Eos # (Auto) (0-450) /uL Baso # (Auto) (0-100) /uL Sodium (137-145) mmol/L Potassium (3.4-5.1) mmol/L Chloride (98-107) mmol/L Carbon Dioxide (22-32) mmol/L BUN (7-17) mg/dL Creatinine (0.52-1.04) mg/dL Estimated GFR (>60) mL/min BUN/Creatinine Ratio (6-22) Glucose (70-100) mg/dL Lactate 2.3 H (0.7-2.1) mmol/L Calcium (8.4-10.2) mg/dL Total Bilirubin (0.2-1.3) mg/dL AST (14-36) IU/L ALT (<35) IU/L Alkaline Phosphatase (38-126) U/L Total Creatine Kinase (30-135) U/L Troponin I (0.01-0.034) ng/mL Total Protein (6.3-8.2) g/dL Albumin (3.5-5.0) g/dL Globulin (1.7-4.1) g/dL Albumin/Globulin Ratio (1.0-2.8) Lipase (23-300) U/L Procalcitonin (<0.5) ng/mL Serum , Qual (Negative) Urine Color Yellow Urine Appearance Clear Urine pH 5.5 Normal (4.5-8.0) Ur Specific [place] 1.020 (1.000-1.035) Urine Protein 2+ H (Negative) Urine Glucose (UA) Negative (Negative) g/dL Urine Ketones 1+ H (NEGATIVE) Urine Occult Blood 1+ H (Negative) Urine Nitrate Negative (Negative) Urine Bilirubin Negative (NEGATIVE) Urine Urobilinogen 0.2 (0.2) E.U./dL Ur Leukocyte Esterase Negative (NEGATIVE) Urine RBC 5-10/hpf H (0-5/HPF) Urine WBC 0-1/hpf (0-5/HPF) Ur Squamous Epith Cells 0-1 /hpf D (0-5/HPF) Ur Transition Epith Cell 1-5/hpf (0-5/HPF) Amorphous Sediment 2+ Urine Bacteria Occasional (0-1) (None) Hyaline Casts 1-5/lpf (None) Ur Culture Indicated? Cult not indicated Vol Urine Centrifuged 10ml (spun) Salicylates (<20) mg/dL U Opiates 300ng/mL cut Negative (Negative) Ur Oxycodone Screen Negative (Negative) Urine Methadone Screen Negative (Negative) Acetaminophen (10-30) ug/mL Ur Barbiturates Screen Negative (Negative) U Tricyclic Antidepress Negative (Negative) Ur Phencyclidine Scrn Negative (Negative) Ur Amphetamines Screen Negative (Negative) U Methamphetamines Scrn Negative (Negative) Ur MDMA Scrn (Ecstasy) Negative (Negative) U Benzodiazepines Scrn Negative (Negative) Urine Cocaine Screen Negative (Negative) U Marijuana (THC) Screen Negative (Negative) Urine Specific [place] Normal (Normal) Ethyl Alcohol ( - 10) mg/dL Ur Creatinine Normal (Normal) 05/19/24 05/19/24 Range/Units 20:47 22:53 WBC (4.5-11.0) X10^3/uL RBC (4.0-5.2) X10^6/uL Hgb (12.0-16.0) g/dL Hct (36-46) % MCV (80-100) fL MCH (26-34) PG MCHC (30-36) % RDW (11.6-14.8) % Plt Count (150-400) X10^3/uL Neut % (Auto) (50-75) % Lymph % (Auto) (25-40) % [place] % (Auto) (3-14) % Eos % (Auto) (2-4) % Baso % (Auto) (0-2) % Neut # (Auto) (6944-3817) /uL Lymph # (Auto) (9635-6917) /uL [place] # (Auto) (0-900) /uL Eos # (Auto) (0-450) /uL Baso # (Auto) (0-100) /uL Sodium (137-145) mmol/L Potassium (3.4-5.1) mmol/L Chloride (98-107) mmol/L Carbon Dioxide (22-32) mmol/L BUN (7-17) mg/dL Creatinine (0.52-1.04) mg/dL Estimated GFR (>60) mL/min BUN/Creatinine Ratio (6-22) Glucose (70-100) mg/dL Lactate 1.9 (0.7-2.1) mmol/L Calcium (8.4-10.2) mg/dL Total Bilirubin (0.2-1.3) mg/dL AST (14-36) IU/L ALT (<35) IU/L Alkaline Phosphatase (38-126) U/L Total Creatine Kinase (30-135) U/L Troponin I (0.01-0.034) ng/mL Total Protein (6.3-8.2) g/dL Albumin (3.5-5.0) g/dL Globulin (1.7-4.1) g/dL Albumin/Globulin Ratio (1.0-2.8) Lipase 225 (23-300) U/L Procalcitonin (<0.5) ng/mL Serum , Qual (Negative) Urine Color Urine Appearance Urine pH (4.5-8.0) Ur Specific [place] (1.000-1.035) Urine Protein (Negative) Urine Glucose (UA) (Negative) g/dL Urine Ketones (NEGATIVE) Urine Occult Blood (Negative) Urine Nitrate (Negative) Urine Bilirubin (NEGATIVE) Urine Urobilinogen (0.2) E.U./dL Ur Leukocyte Esterase (NEGATIVE) Urine RBC (0-5/HPF) Urine WBC (0-5/HPF) Ur Squamous Epith Cells (0-5/HPF) Ur Transition Epith Cell (0-5/HPF) Amorphous Sediment Urine Bacteria (None) Hyaline Casts (None) Ur Culture Indicated? Vol Urine Centrifuged Salicylates (<20) mg/dL U Opiates 300ng/mL cut (Negative) Ur Oxycodone Screen (Negative) Urine Methadone Screen (Negative) Acetaminophen (10-30) ug/mL Ur Barbiturates Screen (Negative) U Tricyclic Antidepress (Negative) Ur Phencyclidine Scrn (Negative) Ur Amphetamines Screen (Negative) U Methamphetamines Scrn (Negative) Ur MDMA Scrn (Ecstasy) (Negative) U Benzodiazepines Scrn (Negative) Urine Cocaine Screen (Negative) U Marijuana (THC) Screen (Negative) Urine Specific [place] (Normal) Ethyl Alcohol ( - 10) mg/dL Ur Creatinine (Normal) Point of Care Testing Glucose POC 142 MDM Narrative Medical decision making narrative: MDM CC: Alcohol intoxication altered mental status Complicating co-morbidities: Seizure disorder, on Keppra, alcoholism for the migraines, insomnia Corroborating data: [ ] Data collected from: [ ] Medical records reviewed: PCP note May 09 reports that seizure disorder happened sporadically typically stress and anxiety induced panic attacks turned into seizures mostly seizures or well-controlled she does have history of anxiety depression as well along with a TBI Differential considered: Overdose intracranial hemorrhage intoxication electrolyte abnormality sepsis Exam documented above, pertinent findings include: Gross bilateral eye drainage moving all extremities Lab Test results independently reviewed as above. Pertinent findings: Alcohol level 463 WBC 9.3 hemoglobin 15.1 hematocrit 44.5 platelets 205, sodium 139 potassium 2.9 chloride 92 carbon dioxide 29 BUN 3 creatinine 0.3 glucose 156 lactate 3.2 with repeat 2.7, AST 254 ALT 154 bilirubin Independently reviewed EKG as above Imaging studies independently reviewed: Head CT no intracranial hemorrhage Consultations: [ ] Treatments: Thiamine potassium erythromycin ophthalmic ointment Re-evaluations: [ ] Discussion: Patient remains sleepy with extremely high level alcohol. She does have mildly elevated liver enzymes thought to be secondary to alcohol she is normal bilirubin. No evidence of infection or sepsis. She has not urinated. Patient signed out to Dr. Venegas 05/19/2024 Dr. Venegas: Patient seen and evaluated by myself. Patient was quite alert and conversant initially, but failed ambulation trial. She is received her potassium, I have reviewed her imaging, labs from today. Patient would like to return home but not felt to be safe at that point. She does state she is feeling like she was having a little bit of withdrawal she has had significantly high alcohol in the past and likely withdrawals at a fairly high level so was given a dose of phenobarbital here in the department. Patient's symptoms have improved after that. After some additional monitoring patient is able to ambulate safely she has been eating and drinking without issue. Discussed with patient she would like to return home she seems appropriate she is conversant, she seems able to make appropriate decisions. Reviewed all of patient's findings with her. Did offer detox or medical detox but patient politely defers. Discharge Plan Departure Patient Disposition: Home Clinical Impression: Alcohol intoxication, Hypokalemia Activity Restrictions/Additional Instructions: Your potassium was low, I do recommend you follow up to have it rechecked in the next week to make sure it does not drop again. If you are interested in detox or alcohol cessation at any time you can reach out to our social workers at [phone] for resources. Please return for any new or worsening symptoms. Prescriptions: No Action buspirone 15 mg tablet 15 mg PO TID Qty: 270 3RF Rx Instructions: Take 15mg tab 2x/day fluticasone propionate [Flonase Allergy Relief] 50 mcg/actuation spray,suspension 2 spray intranasal DAILY Qty: 16 5RF Rx Instructions: administer into each nostril gabapentin 100 mg capsule 100 mg PO BID Qty: 180 3RF Rx Instructions: Take 1 capsule up to twice per day for muscle spasms hydroxyzine pamoate 50 mg capsule 50 mg PO BID PRN (Reason: anxiety) Qty: 180 3RF Rx Instructions: Take 1 tab twice daily as needed for anxiety levetiracetam [Keppra] 500 mg tablet 1,000 mg PO BID Qty: 180 3RF Rx Instructions: Take 1 tab twice daily for seizures topiramate 50 mg tablet 50 mg PO BID Qty: 180 3RF Rx Instructions: Take 1 tab twice per day for migraine prevention. venlafaxine 37.5 mg capsule,extended release 24hr 37.5 mg PO BEDTIME Qty: 90 3RF Rx Instructions: Take 1 capsule at bedtime daily for depression and anxiety cetirizine-pseudoephedrine 5-120 mg tablet extended release 12 hr 1 tab PO Q12H Qty: 180 3RF Rx Instructions: Take 1 tab every 12 hours for allergies miconazole nitrate [Monistat 3] 4 % (200 mg)- 2 % (9 gram) comb pack,prefill appl, cream See Rx Instructions vaginal .COMPLEX Qty: 24 0RF Rx Instructions: put 1 supp in vagina at bedtime x 3nites;use cream on area outside vagina 2X/day for up to 7days vaginal trazodone 150 mg tablet 150 mg PO BEDTIME PRN (Reason: insomnia) Qty: 90 3RF Rx Instructions: Take 1 tab at bedtime daily for insomnia rizatriptan 10 mg tablet See Rx Instructions PO .COMPLEX Qty: 9 3RF Rx Instructions: take 1 tab at onset of headache; if no relief may repeat 1 tab after at least 2 hrs; max = 3 tabs/24 hr PO naltrexone 50 mg tablet 50 mg PO DAILY Qty: 90 3RF Rx Instructions: Take 1 tab daily for craving suppression [facility] Iron Supplement See Rx Instructions .ROUTE .COMPLEX Rx Instructions: 1-2 capsules daily for iron supplement; folic acid 1 mg Tablet 1 mg PO DAILY Qty: 15 0RF multivitamin with folic acid [Tab-A-Mickey] 400 mcg Tablet 1 tab PO DAILY Qty: 30 0RF thiamine mononitrate (vit B1) 100 mg Tablet 100 mg PO DAILY Qty: 15 0RF Referrals: Carli Lucia MD [Primary Care Provider] - Stand Alone Forms: Patient Portal/API
[2024-05-19 16:39] LABS: Lactate 2HR (Lactic Acid Rflx) 2.7 mmol/L (0.7-2.1)
[2024-05-19] MEDS: THIAMINE 200 MG in SODIUM CHLORIDE 0.9% 100 ML 408 MG IV (17:07)
[2024-05-19] MEDS: POTASSIUM CHLORIDE IN WATER 10 MEQ/100 ML PIGGYBACK 100 MEQ IV ×2 (17:12→18:23)
[2024-05-19] MEDS: SODIUM CHLORIDE 0.9% 1,000 ML 100 ML IV (17:42)
[2024-05-19 18:12] LABS: Appearance Urine UA CLEAR; Bilirubin Urine UA NEGATIVE (NEGATIVE); Color Urine UA YELLOW; Glucose Urine UA NEGATIVE (Negative); Ketones Urine UA 1+ (NEGATIVE); Leukocyte Esterase Urine UA NEGATIVE (NEGATIVE); Nitrite Urine UA NEGATIVE (Negative); Occult Blood Urine UA 1+ (Negative); Protein Urine UA 2+ (Negative); Urobilinogen Urine UA 0.2 E.U./dL (0.2)
[2024-05-19 18:17] LABS: UR Morphine/Opiate cutoff 300 Negative (Negative); Ur Creatinine Normal (Normal); Ur Specific Gravity Normal (Normal); Urine Amphetamines Negative (Negative); Urine Barbiturates Negative (Negative); Urine Benzodiazepines Negative (Negative); Urine Cocaine Negative (Negative); Urine MDMA Negative (Negative); Urine Methadone Negative (Negative); Urine Methamphetamines Negative (Negative); Urine Oxycodone Negative (Negative); Urine Phencyclidine Negative (Negative); Urine Tetrahydrocannabinol Negative (Negative); Urine Tricyclic Antidepressant Negative (Negative); Urine pH Normal (Normal)
[2024-05-19 18:24] LABS: pH Urine UA 5.5 (4.5-8.0)
[2024-05-19 18:25] LABS: Bacteria Urine Occasional (0-1); RBC Urine 5-10/HPF (0-5/HPF); Squamous Epithelial Cell Urine 0-1 /HPF (0-5/HPF); Transitional Epi Cells Urine 1-5/HPF (0-5/HPF); Urine Volume 10mL (spun); WBC Urine 0-1/HPF (0-5/HPF)
[2024-05-19 18:26] LABS: Amorphous Sediment Urine 2+; Culture Indicated Urine Cult Not Indicated; Hyaline Casts Urine 1-5/LPF
--- NOTE | 2024-05-19 19:30 | PC.NURSE ---
Pt awake and alert. Reports feeling like crap. Organized lines and dc'd potassium IV that was completed.
[2024-05-19] MEDS: PHENobarbital 65 MG/ML VIAL 260 MG IV (19:56)
[2024-05-19] MEDS: ERYTHROMYCIN OPHTH 1 GM OINT 1 APPLIC EYE-BOTH (19:57)
--- NOTE | 2024-05-19 20:57 | PC.NURSE ---
Pt up in [place] with SBA/1 Assist. Pt unsteady on feet, nearly falling. MD notified.
[2024-05-19 21:17] LABS: Lipase 225 U/L (23-300)
[2024-05-19 21:17] LABS: Lactate (Lactic Acid) 2.3 mmol/L (0.7-2.1)
[2024-05-19 22:30] LABS: Reflexed Lactate in 2 Hours Y
--- NOTE | 2024-05-19 22:58 | PC.NURSE ---
Pt up in room ambulating. Steady gait noted. aware. Pt says that she can call cab and pay when she gets home.
--- NOTE | 2024-05-19 23:09 | PC.NURSE ---
Taxi cab called for pt.
[2024-05-19 23:23] LABS: Lactate 2HR (Lactic Acid Rflx) 1.9 mmol/L (0.7-2.1)
[2024-05-21 14:43] LABS: Osmolality, Serum 407 mOsmol/kg (275-295)
== END 2024-05-19 23:09 | disposition home or self-care (01) ==
PROVIDERS: Emergency Medicine; Emergency Provider Emergency Medicine; PCP Family Medicine
DX: F10.129 Alcohol abuse with intoxication, unspecified (principal); Y90.8 Blood alcohol level of 240 mg/100 ml or more; E87.6 Hypokalemia
CPT/HCPCS: 36415; 51798; 70450; 80053; 80305; 80320; 80329; 81001; 82550; 82962; 83605; 83690; 83930; 84145; 84484; 84703; 85025; 96361; 96365; 96366; 96375; 99284; G0480; J2560

== ENCOUNTER 2024-05-29 11:55 | Emergency (ER) | payer OTHER, MEDICAID, SELFPAY ==
[2024-05-29] VITALS (16 sets, daily range): BP systolic 113–146; BP diastolic 61–86; PULSE 79–116; RESP 14–31; TEMP 36.4; O2SAT 97–100
--- NOTE | 2024-05-29 12:01 | ED.OVERDOSE ---
HPI - Overdose <Leighann Jermaine DO - Last Filed: 05/30/24 13:02> General Chief Complaint: Psychiatric Symptoms Stated Complaint: SI-took a bunch of trazadone,ETOH on board Time Seen by Provider: 05/29/24 12:00 History of Present Illness HPI Narrative: Patient 38-year-old female history of alcohol abuse withdrawal seizures on Keppra presenting today with altered mental status. Apparently roommate called out of concern. Concern that she took multiple trazodone. Patient reports that she only took 2 she was just trying to get some sleep. She denies suicidal or homicidal ideation. She is denying any other symptoms. She was previously here May 19 for alcohol intoxication. Related Data Home Medications Medication Instructions Recorded Confirmed [facility] Iron Supplement See Rx Instructions .Route .COMPLEX 11/13/22 05/09/24 Previous Rx's Medication Instructions Recorded naltrexone 50 mg tablet 50 mg PO DAILY #90 tabs 12/08/21 rizatriptan 10 mg tablet See Rx Instructions PO .COMPLEX #9 12/08/21 tabs trazodone 150 mg tablet 150 mg PO BEDTIME PRN insomnia #90 12/08/21 tabs folic acid 1 mg tablet 1 mg PO DAILY #15 tabs 02/18/23 multivitamin with folic acid 400 1 tab PO DAILY #30 tabs 02/18/23 mcg tablet (Tab-A-Mickey) thiamine mononitrate (vit B1) 100 100 mg PO DAILY #15 tabs 02/18/23 mg tablet miconazole nitrate 4 % (200 mg)-2 See Rx Instructions vaginal 04/12/23 % (9 gram)vaginal,prefill .COMPLEX #24 grams appl,cream (Monistat 3) buspirone 15 mg tablet 15 mg PO TID #270 tabs 05/09/24 fluticasone propionate 50 2 spray intranasal DAILY #16 grams 05/09/24 mcg/actuation nasal spray,suspension (Flonase Allergy Relief) gabapentin 100 mg capsule 100 mg PO BID #180 caps 05/09/24 hydroxyzine pamoate 50 mg capsule 50 mg PO BID PRN anxiety #180 caps 05/09/24 levetiracetam 500 mg tablet 1,000 mg (2 x 500 mg) PO BID #180 05/09/24 (Keppra) tabs topiramate 50 mg tablet 50 mg PO BID #180 tabs 05/09/24 venlafaxine 37.5 mg 37.5 mg PO BEDTIME #90 caps 05/09/24 capsule,extended release 24 hr cetirizine 5 mg-pseudoephedrine ER 1 tab PO Q12H #180 tabs 05/26/24 120 mg tablet,extended release,12hr Allergies Allergy/AdvReac Type Severity Reaction Status Date / Time No Known Drug Allergies Allergy Verified 05/29/24 11:56 Patient History <Leighann Dean DO - Last Filed: 05/30/24 13:02> Medical History Fatty liver Suicidal ideation Alcohol dependence in early full remission Allergies Insomnia Migraine Anxiety and depression TBI (traumatic brain injury) History of alcohol abuse Surgical History Right arm fracture Family History Mother Breast cancer in female Father CVA (cerebral vascular accident) Alzheimer dementia Social History household members: spouse, children and friend(s) Smoking Status: Former smoker alcohol intake: current Smoking Status: Former smoker alcohol intake frequency: 3 or more drinks per day Alcohol type: wine Substance Use Type: does not use Exam <Leighann Dean DO - Last Filed: 05/30/24 13:02> Initial Vital Signs Initial Vital Signs: Vital Signs Temperature 97.5 F L 05/29/24 11:55 Pulse Rate 111 H 05/29/24 11:55 Respiratory Rate 14 05/29/24 11:55 Blood Pressure 130/77 05/29/24 11:55 Pulse Oximetry 97 05/29/24 11:55 Oxygen Delivery Method Room Air 05/29/24 11:55 GENERAL: Sleepy but arousable 38-year-old HEENT: Head atraumatic,EOMI, pupils reactive, face symmetric, moist mucous membranes CARDIOVASCULAR: Regular rate and rhythm without murmurs, rubs or gallops. RESPIRATORY: Breath sounds equal bilaterally, no wheezes rales or rhonchi. ABDOMEN: Soft, nontender. Normoactive bowel sounds all 4 quadrants. No guarding or rebound. EXTREMITIES: Normal range of motion, no clubbing or edema. Neurovascularly intact NEUROLOGICAL: Moving all extremities slurring of speech SKIN: Warm, dry, no laceration, no petechiae, no rashes or lesions. <Boston Lyn MD - Last Filed: 06/06/24 07:26> Initial Vital Signs Initial Vital Signs: Vital Signs Temperature 97.5 F L 05/29/24 11:55 Pulse Rate 111 H 05/29/24 11:55 Respiratory Rate 14 05/29/24 11:55 Blood Pressure 130/77 05/29/24 11:55 Pulse Oximetry 97 05/29/24 11:55 Oxygen Delivery Method Room Air 05/29/24 11:55 <Jose Chase DO - Last Filed: 06/03/24 18:11> Initial Vital Signs Initial Vital Signs: Vital Signs Temperature 97.5 F L 05/29/24 11:55 Pulse Rate 111 H 05/29/24 11:55 Respiratory Rate 14 05/29/24 11:55 Blood Pressure 130/77 05/29/24 11:55 Pulse Oximetry 97 05/29/24 11:55 Oxygen Delivery Method Room Air 05/29/24 11:55 Course <Leighann Dean DO - Last Filed: 05/30/24 13:02> Orders Ordered: Discontinued Medications Chlordiazepoxide HCl (Chlordiazepoxide 25 Mg Capsule) 25 mg PO NOW ONE Stop: 05/30/24 06:04 Last Admin: 05/30/24 06:09 Dose: 25 mg Documented By: VANDANA Thiamine HCl 200 mg/ Sodium (Chloride) 102 mls @ 408 mls/hr IV NOW ONE Stop: 05/29/24 13:07 Last Infusion: 05/29/24 14:14 Dose: Infused Documented By: Admin: 05/29/24 13:56 Dose: 408 mls/hr Documented By: ONOFRE Dextrose/Sodium Chloride (Dextrose 5%-0.45% Ns) 1,000 mls @ 100 mls/hr IV CONT ZACARIAS Last Infusion: 05/29/24 23:47 Dose: Infused Documented By: Admin: 05/29/24 13:56 Dose: 100 mls/hr Documented By: ONOFRE Sodium Chloride (Normal Saline 0.9%) 1,000 mls @ 1,000 mls/hr IV BOLUS ONE Stop: 05/29/24 15:09 Last Infusion: 05/29/24 15:44 Dose: Infused Documented By: Admin: 05/29/24 14:15 Dose: 1,000 mls/hr Documented By: ONOFRE Levetiracetam (Levetiracetam 250 Mg Tablet) 1,000 mg PO NOW ONE Stop: 05/30/24 08:25 Last Admin: 05/30/24 08:33 Dose: 1,000 mg Documented By: AUGUSTA Lorazepam (Lorazepam 2 Mg/Ml Inj) 1 mg IV NOW ONE Stop: 05/30/24 08:25 Last Admin: 05/30/24 08:32 Dose: 1 mg Documented By: AUGUSTA Ondansetron HCl (Ondansetron 4 Mg/2 Ml Inj) 4 mg IV NOW ONE Stop: 05/29/24 15:30 Last Admin: 05/29/24 15:45 Dose: 4 mg Documented By: ONOFRE Phenobarbital (Phenobarbital 65 Mg/Ml Vial) 130 mg IV NOW ONE Stop: 05/30/24 08:25 Last Admin: 05/30/24 08:32 Dose: 130 mg Documented By: AUGUSTA Vital Signs Vital signs: Vital Signs - 8 hr 05/30/24 05:30 05/30/24 05:30 05/30/24 06:00 Temperature Pulse Rate 90 88 Respiratory Rate 19 Blood Pressure 144/97 H Pulse Oximetry 99 99 Oxygen Delivery Method 05/30/24 06:00 05/30/24 06:30 05/30/24 06:30 Temperature Pulse Rate 71 Respiratory Rate 16 Blood Pressure 123/85 139/89 Pulse Oximetry 99 Oxygen Delivery Method 05/30/24 07:00 05/30/24 07:00 05/30/24 07:30 Temperature Pulse Rate 101 H 84 Respiratory Rate 19 17 Blood Pressure 130/80 Pulse Oximetry 100 99 Oxygen Delivery Method 05/30/24 07:30 05/30/24 08:00 05/30/24 08:00 Temperature Pulse Rate 81 Respiratory Rate 18 Blood Pressure 139/82 132/78 Pulse Oximetry 98 Oxygen Delivery Method 05/30/24 08:30 05/30/24 08:30 05/30/24 09:00 Temperature Pulse Rate 73 74 Respiratory Rate 15 16 Blood Pressure 163/88 H Pulse Oximetry 100 100 Oxygen Delivery Method 05/30/24 09:00 05/30/24 09:30 05/30/24 09:30 Temperature Pulse Rate 74 Respiratory Rate 19 Blood Pressure 145/93 H 134/85 Pulse Oximetry 97 Oxygen Delivery Method 05/30/24 10:00 05/30/24 10:00 05/30/24 10:30 Temperature Pulse Rate 87 72 Respiratory Rate 19 18 Blood Pressure 156/88 H Pulse Oximetry 98 99 Oxygen Delivery Method 05/30/24 10:30 05/30/24 11:00 05/30/24 11:00 Temperature Pulse Rate 77 Respiratory Rate 18 Blood Pressure 130/84 145/85 H Pulse Oximetry 100 Oxygen Delivery Method 05/30/24 12:36 Temperature 98.6 F Pulse Rate 77 Respiratory Rate 20 Blood Pressure 134/89 Pulse Oximetry 100 Oxygen Delivery Method Room Air <Boston Lyn MD - Last Filed: 06/06/24 07:26> Orders Ordered: Discontinued Medications Chlordiazepoxide HCl (Chlordiazepoxide 25 Mg Capsule) 25 mg PO NOW ONE Stop: 05/30/24 06:04 Last Admin: 05/30/24 06:09 Dose: 25 mg Documented By: VANDANA Thiamine HCl 200 mg/ Sodium (Chloride) 102 mls @ 408 mls/hr IV NOW ONE Stop: 05/29/24 13:07 Last Infusion: 05/29/24 14:14 Dose: Infused Documented By: Admin: 05/29/24 13:56 Dose: 408 mls/hr Documented By: ONOFRE Dextrose/Sodium Chloride (Dextrose 5%-0.45% Ns) 1,000 mls @ 100 mls/hr IV CONT ZACARIAS Last Infusion: 05/29/24 23:47 Dose: Infused Documented By: Admin: 05/29/24 13:56 Dose: 100 mls/hr Documented By: ONOFRE Sodium Chloride (Normal Saline 0.9%) 1,000 mls @ 1,000 mls/hr IV BOLUS ONE Stop: 05/29/24 15:09 Last Infusion: 05/29/24 15:44 Dose: Infused Documented By: Admin: 05/29/24 14:15 Dose: 1,000 mls/hr Documented By: ONOFRE Levetiracetam (Levetiracetam 250 Mg Tablet) 1,000 mg PO NOW ONE Stop: 05/30/24 08:25 Last Admin: 05/30/24 08:33 Dose: 1,000 mg Documented By: AUGUSTA Lorazepam (Lorazepam 2 Mg/Ml Inj) 1 mg IV NOW ONE Stop: 05/30/24 08:25 Last Admin: 05/30/24 08:32 Dose: 1 mg Documented By: AUGUSTA Ondansetron HCl (Ondansetron 4 Mg/2 Ml Inj) 4 mg IV NOW ONE Stop: 05/29/24 15:30 Last Admin: 05/29/24 15:45 Dose: 4 mg Documented By: ONOFRE Phenobarbital (Phenobarbital 65 Mg/Ml Vial) 130 mg IV NOW ONE Stop: 05/30/24 08:25 Last Admin: 05/30/24 08:32 Dose: 130 mg Documented By: AUGUSTA Vital Signs Vital signs: Vital Signs - 8 hr 05/30/24 05:30 05/30/24 05:30 05/30/24 06:00 Temperature Pulse Rate 90 88 Respiratory Rate 19 Blood Pressure 144/97 H Pulse Oximetry 99 99 Oxygen Delivery Method 05/30/24 06:00 05/30/24 06:30 05/30/24 06:30 Temperature Pulse Rate 71 Respiratory Rate 16 Blood Pressure 123/85 139/89 Pulse Oximetry 99 Oxygen Delivery Method 05/30/24 07:00 05/30/24 07:00 05/30/24 07:30 Temperature Pulse Rate 101 H 84 Respiratory Rate 19 17 Blood Pressure 130/80 Pulse Oximetry 100 99 Oxygen Delivery Method 05/30/24 07:30 05/30/24 08:00 05/30/24 08:00 Temperature Pulse Rate 81 Respiratory Rate 18 Blood Pressure 139/82 132/78 Pulse Oximetry 98 Oxygen Delivery Method 05/30/24 08:30 05/30/24 08:30 05/30/24 09:00 Temperature Pulse Rate 73 74 Respiratory Rate 15 16 Blood Pressure 163/88 H Pulse Oximetry 100 100 Oxygen Delivery Method 05/30/24 09:00 05/30/24 09:30 05/30/24 09:30 Temperature Pulse Rate 74 Respiratory Rate 19 Blood Pressure 145/93 H 134/85 Pulse Oximetry 97 Oxygen Delivery Method 05/30/24 10:00 05/30/24 10:00 05/30/24 10:30 Temperature Pulse Rate 87 72 Respiratory Rate 19 18 Blood Pressure 156/88 H Pulse Oximetry 98 99 Oxygen Delivery Method 05/30/24 10:30 05/30/24 11:00 05/30/24 11:00 Temperature Pulse Rate 77 Respiratory Rate 18 Blood Pressure 130/84 145/85 H Pulse Oximetry 100 Oxygen Delivery Method 05/30/24 12:36 Temperature 98.6 F Pulse Rate 77 Respiratory Rate 20 Blood Pressure 134/89 Pulse Oximetry 100 Oxygen Delivery Method Room Air <Jose Chase - Last Filed: 06/03/24 18:11> Orders Ordered: Discontinued Medications Chlordiazepoxide HCl (Chlordiazepoxide 25 Mg Capsule) 25 mg PO NOW ONE Stop: 05/30/24 06:04 Last Admin: 05/30/24 06:09 Dose: 25 mg Documented By: VANDANA Thiamine HCl 200 mg/ Sodium (Chloride) 102 mls @ 408 mls/hr IV NOW ONE Stop: 05/29/24 13:07 Last Infusion: 05/29/24 14:14 Dose: Infused Documented By: Admin: 05/29/24 13:56 Dose: 408 mls/hr Documented By: ONOFRE Dextrose/Sodium Chloride (Dextrose 5%-0.45% Ns) 1,000 mls @ 100 mls/hr IV CONT ZACARIAS Last Infusion: 05/29/24 23:47 Dose: Infused Documented By: Admin: 05/29/24 13:56 Dose: 100 mls/hr Documented By: ONOFRE Sodium Chloride (Normal Saline 0.9%) 1,000 mls @ 1,000 mls/hr IV BOLUS ONE Stop: 05/29/24 15:09 Last Infusion: 05/29/24 15:44 Dose: Infused Documented By: Admin: 05/29/24 14:15 Dose: 1,000 mls/hr Documented By: ONOFRE Levetiracetam (Levetiracetam 250 Mg Tablet) 1,000 mg PO NOW ONE Stop: 05/30/24 08:25 Last Admin: 05/30/24 08:33 Dose: 1,000 mg Documented By: AUGUSTA Lorazepam (Lorazepam 2 Mg/Ml Inj) 1 mg IV NOW ONE Stop: 05/30/24 08:25 Last Admin: 05/30/24 08:32 Dose: 1 mg Documented By: AUGUSTA Ondansetron HCl (Ondansetron 4 Mg/2 Ml Inj) 4 mg IV NOW ONE Stop: 05/29/24 15:30 Last Admin: 05/29/24 15:45 Dose: 4 mg Documented By: ONOFRE Phenobarbital (Phenobarbital 65 Mg/Ml Vial) 130 mg IV NOW ONE Stop: 05/30/24 08:25 Last Admin: 05/30/24 08:32 Dose: 130 mg Documented By: AUGUSTA Vital Signs Vital signs: Vital Signs - 8 hr 05/30/24 05:30 05/30/24 05:30 05/30/24 06:00 Temperature Pulse Rate 90 88 Respiratory Rate 19 Blood Pressure 144/97 H Pulse Oximetry 99 99 Oxygen Delivery Method 05/30/24 06:00 05/30/24 06:30 05/30/24 06:30 Temperature Pulse Rate 71 Respiratory Rate 16 Blood Pressure 123/85 139/89 Pulse Oximetry 99 Oxygen Delivery Method 05/30/24 07:00 05/30/24 07:00 05/30/24 07:30 Temperature Pulse Rate 101 H 84 Respiratory Rate 19 17 Blood Pressure 130/80 Pulse Oximetry 100 99 Oxygen Delivery Method 05/30/24 07:30 05/30/24 08:00 05/30/24 08:00 Temperature Pulse Rate 81 Respiratory Rate 18 Blood Pressure 139/82 132/78 Pulse Oximetry 98 Oxygen Delivery Method 05/30/24 08:30 05/30/24 08:30 05/30/24 09:00 Temperature Pulse Rate 73 74 Respiratory Rate 15 16 Blood Pressure 163/88 H Pulse Oximetry 100 100 Oxygen Delivery Method 05/30/24 09:00 05/30/24 09:30 05/30/24 09:30 Temperature Pulse Rate 74 Respiratory Rate 19 Blood Pressure 145/93 H 134/85 Pulse Oximetry 97 Oxygen Delivery Method 05/30/24 10:00 05/30/24 10:00 05/30/24 10:30 Temperature Pulse Rate 87 72 Respiratory Rate 19 18 Blood Pressure 156/88 H Pulse Oximetry 98 99 Oxygen Delivery Method 05/30/24 10:30 05/30/24 11:00 05/30/24 11:00 Temperature Pulse Rate 77 Respiratory Rate 18 Blood Pressure 130/84 145/85 H Pulse Oximetry 100 Oxygen Delivery Method 05/30/24 12:36 Temperature 98.6 F Pulse Rate 77 Respiratory Rate 20 Blood Pressure 134/89 Pulse Oximetry 100 Oxygen Delivery Method Room Air MDM - Overdose <Leighann Dean DO - Last Filed: 05/30/24 13:02> Lab Data 05/30/24 09:33 05/30/24 09:33 Labs: Lab Results 05/29/24 05/29/24 05/29/24 Range/Units 11:50 13:22 14:20 WBC 4.7 (4.5-11.0) X10^3/uL RBC 4.49 (4.0-5.2) X10^6/uL Hgb 13.3 (12.0-16.0) g/dL Hct 39.9 (36-46) % MCV 89.0 (80-100) fL MCH 29.7 (26-34) PG MCHC 33.4 (30-36) % RDW 14.7 (11.6-14.8) % Plt Count 543 H (150-400) X10^3/uL Neut % (Auto) 36.8 L (50-75) % Lymph % (Auto) 59.1 H (25-40) % [place] % (Auto) 2.9 L (3-14) % Eos % (Auto) 0.0 L (2-4) % Baso % (Auto) 1.2 (0-2) % Neut # (Auto) 1700 (6287-5920) /uL Lymph # (Auto) 2800 (4161-3204) /uL [place] # (Auto) 100 (0-900) /uL Eos # (Auto) 0 (0-450) /uL Baso # (Auto) 100 (0-100) /uL Sodium 143 (137-145) mmol/L Potassium 3.3 L (3.4-5.1) mmol/L Chloride 106 (98-107) mmol/L Carbon Dioxide 13 L (22-32) mmol/L BUN 9 (7-17) mg/dL Creatinine 0.55 (0.52-1.04) mg/dL Estimated GFR > 60 (>60) mL/min BUN/Creatinine Ratio 16.4 (6-22) Glucose 65 L (70-100) mg/dL Lactate 3.0 H 2.9 H (0.7-2.1) mmol/L Calcium 8.4 (8.4-10.2) mg/dL Total Bilirubin 0.5 (0.2-1.3) mg/dL AST 92 H (14-36) IU/L ALT 131 H (<35) IU/L Alkaline Phosphatase 122 (38-126) U/L Total Creatine Kinase 89 (30-135) U/L Troponin I < 0.012 (0.01-0.034) ng/mL Total Protein 8.3 H (6.3-8.2) g/dL Albumin 4.7 (3.5-5.0) g/dL Globulin 3.6 (1.7-4.1) g/dL Albumin/Globulin Ratio 1.3 (1.0-2.8) Serum , Qual Negative (Negative) Urine RBC None seen (0-5/HPF) Urine WBC 0-1/hpf (0-5/HPF) Ur Squamous Epith Cells 1-5 /hpf (0-5/HPF) Urine Bacteria None seen (None) Hyaline Casts 1-5/lpf (None) Vol Urine Centrifuged 10ml (spun) Salicylates < 1.0 (<20) mg/dL U Opiates 300ng/mL cut Negative (Negative) Ur Oxycodone Screen Negative (Negative) Urine Methadone Screen Negative (Negative) Acetaminophen < 10 (10-30) ug/mL Ur Barbiturates Screen Negative (Negative) U Tricyclic Antidepress Positive H (Negative) Ur Phencyclidine Scrn Negative (Negative) Ur Amphetamines Screen Negative (Negative) U Methamphetamines Scrn Negative (Negative) Ur MDMA Scrn (Ecstasy) Negative (Negative) U Benzodiazepines Scrn Negative (Negative) Urine Cocaine Screen Negative (Negative) U Marijuana (THC) Screen Negative (Negative) Urine pH Normal (Normal) Urine Specific [place] Normal (Normal) Ethyl Alcohol 489 H* ( - 10) mg/dL Ur Creatinine Normal (Normal) SARS-CoV-2 (PCR) (Negative) 05/29/24 05/29/24 05/29/24 Range/Units 14:27 16:27 21:44 WBC (4.5-11.0) X10^3/uL RBC (4.0-5.2) X10^6/uL Hgb (12.0-16.0) g/dL Hct (36-46) % MCV (80-100) fL MCH (26-34) PG MCHC (30-36) % RDW (11.6-14.8) % Plt Count (150-400) X10^3/uL Neut % (Auto) (50-75) % Lymph % (Auto) (25-40) % [place] % (Auto) (3-14) % Eos % (Auto) (2-4) % Baso % (Auto) (0-2) % Neut # (Auto) (4933-3788) /uL Lymph # (Auto) (0820-7353) /uL [place] # (Auto) (0-900) /uL Eos # (Auto) (0-450) /uL Baso # (Auto) (0-100) /uL Sodium (137-145) mmol/L Potassium (3.4-5.1) mmol/L Chloride (98-107) mmol/L Carbon Dioxide (22-32) mmol/L BUN (7-17) mg/dL Creatinine (0.52-1.04) mg/dL Estimated GFR (>60) mL/min BUN/Creatinine Ratio (6-22) Glucose (70-100) mg/dL Lactate 2.1 (0.7-2.1) mmol/L Calcium (8.4-10.2) mg/dL Total Bilirubin (0.2-1.3) mg/dL AST (14-36) IU/L ALT (<35) IU/L Alkaline Phosphatase (38-126) U/L Total Creatine Kinase (30-135) U/L Troponin I (0.01-0.034) ng/mL Total Protein (6.3-8.2) g/dL Albumin (3.5-5.0) g/dL Globulin (1.7-4.1) g/dL Albumin/Globulin Ratio (1.0-2.8) Serum , Qual (Negative) Urine RBC (0-5/HPF) Urine WBC (0-5/HPF) Ur Squamous Epith Cells (0-5/HPF) Urine Bacteria (None) Hyaline Casts (None) Vol Urine Centrifuged Salicylates (<20) mg/dL U Opiates 300ng/mL cut (Negative) Ur Oxycodone Screen (Negative) Urine Methadone Screen (Negative) Acetaminophen (10-30) ug/mL Ur Barbiturates Screen (Negative) U Tricyclic Antidepress (Negative) Ur Phencyclidine Scrn (Negative) Ur Amphetamines Screen (Negative) U Methamphetamines Scrn (Negative) Ur MDMA Scrn (Ecstasy) (Negative) U Benzodiazepines Scrn (Negative) Urine Cocaine Screen (Negative) U Marijuana (THC) Screen (Negative) Urine pH (Normal) Urine Specific [place] (Normal) Ethyl Alcohol 195 H ( - 10) mg/dL Ur Creatinine (Normal) SARS-CoV-2 (PCR) Negative (Negative) 05/30/24 Range/Units 09:33 WBC 4.9 (4.5-11.0) X10^3/uL RBC 3.63 L (4.0-5.2) X10^6/uL Hgb 10.9 L (12.0-16.0) g/dL Hct 31.8 L (36-46) % MCV 87.4 (80-100) fL MCH 30.1 (26-34) PG MCHC 34.5 (30-36) % RDW 14.2 (11.6-14.8) % Plt Count 384 (150-400) X10^3/uL Neut % (Auto) 64.8 D (50-75) % Lymph % (Auto) 24.7 L D (25-40) % [place] % (Auto) 9.9 (3-14) % Eos % (Auto) 0.0 L (2-4) % Baso % (Auto) 0.6 (0-2) % Neut # (Auto) 3200 (9849-8869) /uL Lymph # (Auto) 1200 (0389-5766) /uL [place] # (Auto) 500 (0-900) /uL Eos # (Auto) 0 (0-450) /uL Baso # (Auto) 0 (0-100) /uL Sodium 131 L D (137-145) mmol/L Potassium 3.3 L (3.4-5.1) mmol/L Chloride 98 (98-107) mmol/L Carbon Dioxide 23 (22-32) mmol/L BUN < 2 L (7-17) mg/dL Creatinine 0.39 L (0.52-1.04) mg/dL Estimated GFR > 60 (>60) mL/min BUN/Creatinine Ratio 5.1 L (6-22) Glucose 111 H (70-100) mg/dL Lactate (0.7-2.1) mmol/L Calcium 7.8 L (8.4-10.2) mg/dL Total Bilirubin 0.8 (0.2-1.3) mg/dL AST 51 H (14-36) IU/L ALT 87 H (<35) IU/L Alkaline Phosphatase 76 (38-126) U/L Total Creatine Kinase (30-135) U/L Troponin I (0.01-0.034) ng/mL Total Protein 6.8 (6.3-8.2) g/dL Albumin 3.9 (3.5-5.0) g/dL Globulin 2.9 (1.7-4.1) g/dL Albumin/Globulin Ratio 1.3 (1.0-2.8) Serum , Qual (Negative) Urine RBC (0-5/HPF) Urine WBC (0-5/HPF) Ur Squamous Epith Cells (0-5/HPF) Urine Bacteria (None) Hyaline Casts (None) Vol Urine Centrifuged Salicylates (<20) mg/dL U Opiates 300ng/mL cut (Negative) Ur Oxycodone Screen (Negative) Urine Methadone Screen (Negative) Acetaminophen (10-30) ug/mL Ur Barbiturates Screen (Negative) U Tricyclic Antidepress (Negative) Ur Phencyclidine Scrn (Negative) Ur Amphetamines Screen (Negative) U Methamphetamines Scrn (Negative) Ur MDMA Scrn (Ecstasy) (Negative) U Benzodiazepines Scrn (Negative) Urine Cocaine Screen (Negative) U Marijuana (THC) Screen (Negative) Urine pH (Normal) Urine Specific [place] (Normal) Ethyl Alcohol ( - 10) mg/dL Ur Creatinine (Normal) SARS-CoV-2 (PCR) (Negative) Point of Care Testing Test Results Negative Urine Dip Bedside Urine Glucose Negative Bedside Urine Bilirubin - Negative Bedside Urine Ketone +++ 80 Urine Specific [place] 1.030 Bedside Urine Occult Blood - Negative Bedside Urine pH 5.5 Bedside Urine Protein +/- 15 Bedside Urine Urobilinogen - Negative Bedside Urine Nitrite - Negative Bedside Urine Leukocytes - Negative Esterase MDM Narrative Medical decision making narrative: MDM CC: Overdose Complicating co-morbidities: Alcohol abuse with alcohol withdrawal seizures on Keppra Medical records reviewed: Multiple previous admissions and ED visits Differential considered: [ ] Exam documented above, pertinent findings include: Slurring of speech sleepy arousable Lab Test results independently reviewed as above. Pertinent findings: ETOH 489, sodium 143 potassium 3.3 chloride 106 carbon dioxide 13 BUN 9 creatinine 0.55 glucose 65, lactate 3.0 bilirubin 0.5 AST 92 ALT 131 alk-phos 122 troponin negative negative Tylenol salicylate negative Independently reviewed EKG as above Imaging studies independently reviewed: Consultations: [ ] Treatments: Thiamine dextrose Re-evaluations: [ ] Discussion: Patient 38-year-old female with history of alcohol abuse and current alcohol intoxication. It does not sound like she is suicidal or homicidal. She does have mild hypoglycemia of 65 placed on dextrose. She is also given high-dose thiamine. Liver enzymes mildly elevated secondary to alcohol use but normal bilirubin. Patient signed out to Dr. Lyn May 29, 2024 at 2:00 p.m..[place]boni: ?sign out from Dr Dean, transition social worker, Nasreen has been involved patient case. Possible Bryce's law to be started. However may need to observe for withdrawal symptoms as well. 5:05 p.m.. DCR has arrived and evaluated the patient, Marie, patient is voluntary. Not detainable. No Bryce's law. insulation worker Nasreen has been involved. Patient is interested in detox. However alcohol needs to be less than 250 which will be re-evaluated in 2 hours. She does have accepting facility, [facility] 6:00 p.m. [place]i: Sign out to Dr Chase, social work is following patient. Needs repeat alcohol level for voluntary detox. Patient has been cooperative. Dr chase : overnight 05/29-05/30: Received turned over. Review patient's history and physical. Blood alcohol level now less than 250. Patient has been calm. At 1 point she wanted to leave home however friend of hers was in the room and patient was convinced to stay. She was tolerating oral intake. We are awaiting call back from detox facility. Patient did start to have some shaking. CIWA score was 9. She was given Librium. Care turned over to day provider to observe until disposition can be met. 05/30/24 8:15 Dr. Dean-patient signed out to me by Dr. Chase I have seen evaluated patient myself morning. She is starting to feel shaky. She was given Librium earlier this morning but still feeling a little bit sweaty. Heart rate remains under 100. She is awake alert in bed eating breakfast. Waiting for voluntary detox centers to accept her. She has done outpatient detox in the past but has also been hospitalized for withdrawals. This morning fluids have been stopped she continues to get IV thiamine she is awake and alert still agreeable to go to detox. She is given phenobarb and Ativan to help currently. She also is getting her regular dose of Keppra, she missed her dose last night accepted at [facility] Naloxone at Discharge Meets criteria for naloxone at discharge?: No <Boston Lyn MD - Last Filed: 06/06/24 07:26> Lab Data Labs: Lab Results 05/29/24 05/29/24 05/29/24 Range/Units 11:50 13:22 14:20 WBC 4.7 (4.5-11.0) X10^3/uL RBC 4.49 (4.0-5.2) X10^6/uL Hgb 13.3 (12.0-16.0) g/dL Hct 39.9 (36-46) % MCV 89.0 (80-100) fL MCH 29.7 (26-34) PG MCHC 33.4 (30-36) % RDW 14.7 (11.6-14.8) % Plt Count 543 H (150-400) X10^3/uL Neut % (Auto) 36.8 L (50-75) % Lymph % (Auto) 59.1 H (25-40) % [place] % (Auto) 2.9 L (3-14) % Eos % (Auto) 0.0 L (2-4) % Baso % (Auto) 1.2 (0-2) % Neut # (Auto) 1700 (7444-5937) /uL Lymph # (Auto) 2800 (8653-9387) /uL [place] # (Auto) 100 (0-900) /uL Eos # (Auto) 0 (0-450) /uL Baso # (Auto) 100 (0-100) /uL Sodium 143 (137-145) mmol/L Potassium 3.3 L (3.4-5.1) mmol/L Chloride 106 (98-107) mmol/L Carbon Dioxide 13 L (22-32) mmol/L BUN 9 (7-17) mg/dL Creatinine 0.55 (0.52-1.04) mg/dL Estimated GFR > 60 (>60) mL/min BUN/Creatinine Ratio 16.4 (6-22) Glucose 65 L (70-100) mg/dL Lactate 3.0 H 2.9 H (0.7-2.1) mmol/L Calcium 8.4 (8.4-10.2) mg/dL Total Bilirubin 0.5 (0.2-1.3) mg/dL AST 92 H (14-36) IU/L ALT 131 H (<35) IU/L Alkaline Phosphatase 122 (38-126) U/L Total Creatine Kinase 89 (30-135) U/L Troponin I < 0.012 (0.01-0.034) ng/mL Total Protein 8.3 H (6.3-8.2) g/dL Albumin 4.7 (3.5-5.0) g/dL Globulin 3.6 (1.7-4.1) g/dL Albumin/Globulin Ratio 1.3 (1.0-2.8) Serum , Qual Negative (Negative) Urine RBC None seen (0-5/HPF) Urine WBC 0-1/hpf (0-5/HPF) Ur Squamous Epith Cells 1-5 /hpf (0-5/HPF) Urine Bacteria None seen (None) Hyaline Casts 1-5/lpf (None) Vol Urine Centrifuged 10ml (spun) Salicylates < 1.0 (<20) mg/dL U Opiates 300ng/mL cut Negative (Negative) Ur Oxycodone Screen Negative (Negative) Urine Methadone Screen Negative (Negative) Acetaminophen < 10 (10-30) ug/mL Ur Barbiturates Screen Negative (Negative) U Tricyclic Antidepress Positive H (Negative) Ur Phencyclidine Scrn Negative (Negative) Ur Amphetamines Screen Negative (Negative) U Methamphetamines Scrn Negative (Negative) Ur MDMA Scrn (Ecstasy) Negative (Negative) U Benzodiazepines Scrn Negative (Negative) Urine Cocaine Screen Negative (Negative) U Marijuana (THC) Screen Negative (Negative) Urine pH Normal (Normal) Urine Specific [place] Normal (Normal) Ethyl Alcohol 489 H* ( - 10) mg/dL Ur Creatinine Normal (Normal) SARS-CoV-2 (PCR) (Negative) 05/29/24 05/29/24 05/29/24 Range/Units 14:27 16:27 21:44 WBC (4.5-11.0) X10^3/uL RBC (4.0-5.2) X10^6/uL Hgb (12.0-16.0) g/dL Hct (36-46) % MCV (80-100) fL MCH (26-34) PG MCHC (30-36) % RDW (11.6-14.8) % Plt Count (150-400) X10^3/uL Neut % (Auto) (50-75) % Lymph % (Auto) (25-40) % [place] % (Auto) (3-14) % Eos % (Auto) (2-4) % Baso % (Auto) (0-2) % Neut # (Auto) (4152-3562) /uL Lymph # (Auto) (6015-6720) /uL [place] # (Auto) (0-900) /uL Eos # (Auto) (0-450) /uL Baso # (Auto) (0-100) /uL Sodium (137-145) mmol/L Potassium (3.4-5.1) mmol/L Chloride (98-107) mmol/L Carbon Dioxide (22-32) mmol/L BUN (7-17) mg/dL Creatinine (0.52-1.04) mg/dL Estimated GFR (>60) mL/min BUN/Creatinine Ratio (6-22) Glucose (70-100) mg/dL Lactate 2.1 (0.7-2.1) mmol/L Calcium (8.4-10.2) mg/dL Total Bilirubin (0.2-1.3) mg/dL AST (14-36) IU/L ALT (<35) IU/L Alkaline Phosphatase (38-126) U/L Total Creatine Kinase (30-135) U/L Troponin I (0.01-0.034) ng/mL Total Protein (6.3-8.2) g/dL Albumin (3.5-5.0) g/dL Globulin (1.7-4.1) g/dL Albumin/Globulin Ratio (1.0-2.8) Serum , Qual (Negative) Urine RBC (0-5/HPF) Urine WBC (0-5/HPF) Ur Squamous Epith Cells (0-5/HPF) Urine Bacteria (None) Hyaline Casts (None) Vol Urine Centrifuged Salicylates (<20) mg/dL U Opiates 300ng/mL cut (Negative) Ur Oxycodone Screen (Negative) Urine Methadone Screen (Negative) Acetaminophen (10-30) ug/mL Ur Barbiturates Screen (Negative) U Tricyclic Antidepress (Negative) Ur Phencyclidine Scrn (Negative) Ur Amphetamines Screen (Negative) U Methamphetamines Scrn (Negative) Ur MDMA Scrn (Ecstasy) (Negative) U Benzodiazepines Scrn (Negative) Urine Cocaine Screen (Negative) U Marijuana (THC) Screen (Negative) Urine pH (Normal) Urine Specific [place] (Normal) Ethyl Alcohol 195 H ( - 10) mg/dL Ur Creatinine (Normal) SARS-CoV-2 (PCR) Negative (Negative) 05/30/24 Range/Units 09:33 WBC 4.9 (4.5-11.0) X10^3/uL RBC 3.63 L (4.0-5.2) X10^6/uL Hgb 10.9 L (12.0-16.0) g/dL Hct 31.8 L (36-46) % MCV 87.4 (80-100) fL MCH 30.1 (26-34) PG MCHC 34.5 (30-36) % RDW 14.2 (11.6-14.8) % Plt Count 384 (150-400) X10^3/uL Neut % (Auto) 64.8 D (50-75) % Lymph % (Auto) 24.7 L D (25-40) % [place] % (Auto) 9.9 (3-14) % Eos % (Auto) 0.0 L (2-4) % Baso % (Auto) 0.6 (0-2) % Neut # (Auto) 3200 (1718-8647) /uL Lymph # (Auto) 1200 (9936-8063) /uL [place] # (Auto) 500 (0-900) /uL Eos # (Auto) 0 (0-450) /uL Baso # (Auto) 0 (0-100) /uL Sodium 131 L D (137-145) mmol/L Potassium 3.3 L (3.4-5.1) mmol/L Chloride 98 (98-107) mmol/L Carbon Dioxide 23 (22-32) mmol/L BUN < 2 L (7-17) mg/dL Creatinine 0.39 L (0.52-1.04) mg/dL Estimated GFR > 60 (>60) mL/min BUN/Creatinine Ratio 5.1 L (6-22) Glucose 111 H (70-100) mg/dL Lactate (0.7-2.1) mmol/L Calcium 7.8 L (8.4-10.2) mg/dL Total Bilirubin 0.8 (0.2-1.3) mg/dL AST 51 H (14-36) IU/L ALT 87 H (<35) IU/L Alkaline Phosphatase 76 (38-126) U/L Total Creatine Kinase (30-135) U/L Troponin I (0.01-0.034) ng/mL Total Protein 6.8 (6.3-8.2) g/dL Albumin 3.9 (3.5-5.0) g/dL Globulin 2.9 (1.7-4.1) g/dL Albumin/Globulin Ratio 1.3 (1.0-2.8) Serum , Qual (Negative) Urine RBC (0-5/HPF) Urine WBC (0-5/HPF) Ur Squamous Epith Cells (0-5/HPF) Urine Bacteria (None) Hyaline Casts (None) Vol Urine Centrifuged Salicylates (<20) mg/dL U Opiates 300ng/mL cut (Negative) Ur Oxycodone Screen (Negative) Urine Methadone Screen (Negative) Acetaminophen (10-30) ug/mL Ur Barbiturates Screen (Negative) U Tricyclic Antidepress (Negative) Ur Phencyclidine Scrn (Negative) Ur Amphetamines Screen (Negative) U Methamphetamines Scrn (Negative) Ur MDMA Scrn (Ecstasy) (Negative) U Benzodiazepines Scrn (Negative) Urine Cocaine Screen (Negative) U Marijuana (THC) Screen (Negative) Urine pH (Normal) Urine Specific [place] (Normal) Ethyl Alcohol ( - 10) mg/dL Ur Creatinine (Normal) SARS-CoV-2 (PCR) (Negative) Point of Care Testing Test Results Negative Urine Dip Bedside Urine Glucose Negative Bedside Urine Bilirubin - Negative Bedside Urine Ketone +++ 80 Urine Specific [place] 1.030 Bedside Urine Occult Blood - Negative Bedside Urine pH 5.5 Bedside Urine Protein +/- 15 Bedside Urine Urobilinogen - Negative Bedside Urine Nitrite - Negative Bedside Urine Leukocytes - Negative Esterase CHERYL Narrative Medical decision making narrative: CHERYL CC: Overdose Complicating co-morbidities: Alcohol abuse with alcohol withdrawal seizures on Kepp[facility] Medical records reviewed: Multiple previous admissions and ED visits Differential considered: [ ] Exam documented above, pertinent findings include: Slurring of speech sleepy arousable Lab Test results independently reviewed as above. Pertinent findings: ETOH 489, sodium 143 potassium 3.3 chloride 106 carbon dioxide 13 BUN 9 creatinine 0.55 glucose 65, lactate 3.0 bilirubin 0.5 AST 92 ALT 131 alk-phos 122 troponin negative negative Tylenol salicylate negative Independently reviewed EKG as above Imaging studies independently reviewed: Consultations: [ ] Treatments: Thiamine dextrose Re-evaluations: [ ] Discussion: Patient 38-year-old female with history of alcohol abuse and current alcohol intoxication. It does not sound like she is suicidal or homicidal. She does have mild hypoglycemia of 65 placed on dextrose. She is also given high-dose thiamine. Liver enzymes mildly elevated secondary to alcohol use but normal bilirubin. Patient signed out to Dr. Lyn May 29, 2024 at 2:00 p.m..Eboni: ?sign out from Dr Dean, transition social worker, Nasreen has been involved patient case. Possible Bryce's law to be started. However may need to observe for withdrawal symptoms as well. 5:05 p.m.. DCR has arrived and evaluated the patient, Marie, patient is voluntary. Not detainable. No Bryce's law. insulation worker Nasreen has been involved. Patient is interested in detox. However alcohol needs to be less than 250 which will be re-evaluated in 2 hours. She does have accepting facility, [facility] 6:00 p.m. Eboni: Sign out to Dr Chase, social work is following patient. Needs repeat alcohol level for voluntary detox. Patient has been cooperative. <Jose Chase, - Last Filed: 06/03/24 18:11> Lab Data Labs: Lab Results 05/29/24 05/29/24 05/29/24 Range/Units 11:50 13:22 14:20 WBC 4.7 (4.5-11.0) X10^3/uL RBC 4.49 (4.0-5.2) X10^6/uL Hgb 13.3 (12.0-16.0) g/dL Hct 39.9 (36-46) % MCV 89.0 (80-100) fL MCH 29.7 (26-34) PG MCHC 33.4 (30-36) % RDW 14.7 (11.6-14.8) % Plt Count 543 H (150-400) X10^3/uL Neut % (Auto) 36.8 L (50-75) % Lymph % (Auto) 59.1 H (25-40) % [place] % (Auto) 2.9 L (3-14) % Eos % (Auto) 0.0 L (2-4) % Baso % (Auto) 1.2 (0-2) % Neut # (Auto) 1700 (8149-8838) /uL Lymph # (Auto) 2800 (5300-9636) /uL [place] # (Auto) 100 (0-900) /uL Eos # (Auto) 0 (0-450) /uL Baso # (Auto) 100 (0-100) /uL Sodium 143 (137-145) mmol/L Potassium 3.3 L (3.4-5.1) mmol/L Chloride 106 (98-107) mmol/L Carbon Dioxide 13 L (22-32) mmol/L BUN 9 (7-17) mg/dL Creatinine 0.55 (0.52-1.04) mg/dL Estimated GFR > 60 (>60) mL/min BUN/Creatinine Ratio 16.4 (6-22) Glucose 65 L (70-100) mg/dL Lactate 3.0 H 2.9 H (0.7-2.1) mmol/L Calcium 8.4 (8.4-10.2) mg/dL Total Bilirubin 0.5 (0.2-1.3) mg/dL AST 92 H (14-36) IU/L ALT 131 H (<35) IU/L Alkaline Phosphatase 122 (38-126) U/L Total Creatine Kinase 89 (30-135) U/L Troponin I < 0.012 (0.01-0.034) ng/mL Total Protein 8.3 H (6.3-8.2) g/dL Albumin 4.7 (3.5-5.0) g/dL Globulin 3.6 (1.7-4.1) g/dL Albumin/Globulin Ratio 1.3 (1.0-2.8) Serum , Qual Negative (Negative) Urine RBC None seen (0-5/HPF) Urine WBC 0-1/hpf (0-5/HPF) Ur Squamous Epith Cells 1-5 /hpf (0-5/HPF) Urine Bacteria None seen (None) Hyaline Casts 1-5/lpf (None) Vol Urine Centrifuged 10ml (spun) Salicylates < 1.0 (<20) mg/dL U Opiates 300ng/mL cut Negative (Negative) Ur Oxycodone Screen Negative (Negative) Urine Methadone Screen Negative (Negative) Acetaminophen < 10 (10-30) ug/mL Ur Barbiturates Screen Negative (Negative) U Tricyclic Antidepress Positive H (Negative) Ur Phencyclidine Scrn Negative (Negative) Ur Amphetamines Screen Negative (Negative) U Methamphetamines Scrn Negative (Negative) Ur MDMA Scrn (Ecstasy) Negative (Negative) U Benzodiazepines Scrn Negative (Negative) Urine Cocaine Screen Negative (Negative) U Marijuana (THC) Screen Negative (Negative) Urine pH Normal (Normal) Urine Specific [place] Normal (Normal) Ethyl Alcohol 489 H* ( - 10) mg/dL Ur Creatinine Normal (Normal) SARS-CoV-2 (PCR) (Negative) 05/29/24 05/29/24 05/29/24 Range/Units 14:27 16:27 21:44 WBC (4.5-11.0) X10^3/uL RBC (4.0-5.2) X10^6/uL Hgb (12.0-16.0) g/dL Hct (36-46) % MCV (80-100) fL MCH (26-34) PG MCHC (30-36) % RDW (11.6-14.8) % Plt Count (150-400) X10^3/uL Neut % (Auto) (50-75) % Lymph % (Auto) (25-40) % [place] % (Auto) (3-14) % Eos % (Auto) (2-4) % Baso % (Auto) (0-2) % Neut # (Auto) (5864-5744) /uL Lymph # (Auto) (8542-5708) /uL [place] # (Auto) (0-900) /uL Eos # (Auto) (0-450) /uL Baso # (Auto) (0-100) /uL Sodium (137-145) mmol/L Potassium (3.4-5.1) mmol/L Chloride (98-107) mmol/L Carbon Dioxide (22-32) mmol/L BUN (7-17) mg/dL Creatinine (0.52-1.04) mg/dL Estimated GFR (>60) mL/min BUN/Creatinine Ratio (6-22) Glucose (70-100) mg/dL Lactate 2.1 (0.7-2.1) mmol/L Calcium (8.4-10.2) mg/dL Total Bilirubin (0.2-1.3) mg/dL AST (14-36) IU/L ALT (<35) IU/L Alkaline Phosphatase (38-126) U/L Total Creatine Kinase (30-135) U/L Troponin I (0.01-0.034) ng/mL Total Protein (6.3-8.2) g/dL Albumin (3.5-5.0) g/dL Globulin (1.7-4.1) g/dL Albumin/Globulin Ratio (1.0-2.8) Serum , Qual (Negative) Urine RBC (0-5/HPF) Urine WBC (0-5/HPF) Ur Squamous Epith Cells (0-5/HPF) Urine Bacteria (None) Hyaline Casts (None) Vol Urine Centrifuged Salicylates (<20) mg/dL U Opiates 300ng/mL cut (Negative) Ur Oxycodone Screen (Negative) Urine Methadone Screen (Negative) Acetaminophen (10-30) ug/mL Ur Barbiturates Screen (Negative) U Tricyclic Antidepress (Negative) Ur Phencyclidine Scrn (Negative) Ur Amphetamines Screen (Negative) U Methamphetamines Scrn (Negative) Ur MDMA Scrn (Ecstasy) (Negative) U Benzodiazepines Scrn (Negative) Urine Cocaine Screen (Negative) U Marijuana (THC) Screen (Negative) Urine pH (Normal) Urine Specific [place] (Normal) Ethyl Alcohol 195 H ( - 10) mg/dL Ur Creatinine (Normal) SARS-CoV-2 (PCR) Negative (Negative) 05/30/24 Range/Units 09:33 WBC 4.9 (4.5-11.0) X10^3/uL RBC 3.63 L (4.0-5.2) X10^6/uL Hgb 10.9 L (12.0-16.0) g/dL Hct 31.8 L (36-46) % MCV 87.4 (80-100) fL MCH 30.1 (26-34) PG MCHC 34.5 (30-36) % RDW 14.2 (11.6-14.8) % Plt Count 384 (150-400) X10^3/uL Neut % (Auto) 64.8 D (50-75) % Lymph % (Auto) 24.7 L D (25-40) % [place] % (Auto) 9.9 (3-14) % Eos % (Auto) 0.0 L (2-4) % Baso % (Auto) 0.6 (0-2) % Neut # (Auto) 3200 (4531-4882) /uL Lymph # (Auto) 1200 (1549-0265) /uL [place] # (Auto) 500 (0-900) /uL Eos # (Auto) 0 (0-450) /uL Baso # (Auto) 0 (0-100) /uL Sodium 131 L D (137-145) mmol/L Potassium 3.3 L (3.4-5.1) mmol/L Chloride 98 (98-107) mmol/L Carbon Dioxide 23 (22-32) mmol/L BUN < 2 L (7-17) mg/dL Creatinine 0.39 L (0.52-1.04) mg/dL Estimated GFR > 60 (>60) mL/min BUN/Creatinine Ratio 5.1 L (6-22) Glucose 111 H (70-100) mg/dL Lactate (0.7-2.1) mmol/L Calcium 7.8 L (8.4-10.2) mg/dL Total Bilirubin 0.8 (0.2-1.3) mg/dL AST 51 H (14-36) IU/L ALT 87 H (<35) IU/L Alkaline Phosphatase 76 (38-126) U/L Total Creatine Kinase (30-135) U/L Troponin I (0.01-0.034) ng/mL Total Protein 6.8 (6.3-8.2) g/dL Albumin 3.9 (3.5-5.0) g/dL Globulin 2.9 (1.7-4.1) g/dL Albumin/Globulin Ratio 1.3 (1.0-2.8) Serum , Qual (Negative) Urine RBC (0-5/HPF) Urine WBC (0-5/HPF) Ur Squamous Epith Cells (0-5/HPF) Urine Bacteria (None) Hyaline Casts (None) Vol Urine Centrifuged Salicylates (<20) mg/dL U Opiates 300ng/mL cut (Negative) Ur Oxycodone Screen (Negative) Urine Methadone Screen (Negative) Acetaminophen (10-30) ug/mL Ur Barbiturates Screen (Negative) U Tricyclic Antidepress (Negative) Ur Phencyclidine Scrn (Negative) Ur Amphetamines Screen (Negative) U Methamphetamines Scrn (Negative) Ur MDMA Scrn (Ecstasy) (Negative) U Benzodiazepines Scrn (Negative) Urine Cocaine Screen (Negative) U Marijuana (THC) Screen (Negative) Urine pH (Normal) Urine Specific [place] (Normal) Ethyl Alcohol ( - 10) mg/dL Ur Creatinine (Normal) SARS-CoV-2 (PCR) (Negative) Point of Care Testing Test Results Negative Urine Dip Bedside Urine Glucose Negative Bedside Urine Bilirubin - Negative Bedside Urine Ketone +++ 80 Urine Specific [place] 1.030 Bedside Urine Occult Blood - Negative Bedside Urine pH 5.5 Bedside Urine Protein +/- 15 Bedside Urine Urobilinogen - Negative Bedside Urine Nitrite - Negative Bedside Urine Leukocytes - Negative Esterase MDM Narrative Medical decision making narrative: MDM CC: Overdose Complicating co-morbidities: Alcohol abuse with alcohol withdrawal seizures on [facility] Medical records reviewed: Multiple previous admissions and ED visits Differential considered: [ ] Exam documented above, pertinent findings include: Slurring of speech sleepy arousable Lab Test results independently reviewed as above. Pertinent findings: ETOH 489, sodium 143 potassium 3.3 chloride 106 carbon dioxide 13 BUN 9 creatinine 0.55 glucose 65, lactate 3.0 bilirubin 0.5 AST 92 ALT 131 alk-phos 122 troponin negative negative Tylenol salicylate negative Independently reviewed EKG as above Imaging studies independently reviewed: Consultations: [ ] Treatments: Thiamine dextrose Re-evaluations: [ ] Discussion: Patient 38-year-old female with history of alcohol abuse and current alcohol intoxication. It does not sound like she is suicidal or homicidal. She does have mild hypoglycemia of 65 placed on dextrose. She is also given high-dose thiamine. Liver enzymes mildly elevated secondary to alcohol use but normal bilirubin. Patient signed out to Dr. Lyn May 29, 2024 at 2:00 p.m..Eboni: ?sign out from Dr Dean, transition social worker, Nasreen has been involved patient case. Possible Bryce's law to be started. However may need to observe for withdrawal symptoms as well. 5:05 p.m.. DCR has arrived and evaluated the patient, Marie, patient is voluntary. Not detainable. No Bryce's law. insulation worker Nasreen has been involved. Patient is interested in detox. However alcohol needs to be less than 250 which will be re-evaluated in 2 hours. She does have accepting facility, [facility] 6:00 p.m. Eboni: Sign out to Dr Chase, social work is following patient. Needs repeat alcohol level for voluntary detox. Patient has been cooperative. Dr chase : overnight 05/29-05/30: Received turned over. Review patient's history and physical. Blood alcohol level now less than 250. Patient has been calm. At 1 point she wanted to leave home however friend of hers was in the room and patient was convinced to stay. She was tolerating oral intake. We are awaiting call back from detox facility. Patient did start to have some shaking. CIWA score was 9. She was given Librium. Care turned over to day provider to observe until disposition can be met. Discharge Plan Departure Patient Disposition: Home Clinical Impression: Alcohol use with withdrawal Activity Restrictions/Additional Instructions: Go directly to rehab Follow-up with primary care I do recommend intensive outpatient therapy and rehab for You potentially a 28 day rehab. Prescriptions: No Action buspirone 15 mg tablet 15 mg PO TID Qty: 270 3RF Rx Instructions: Take 15mg tab 2x/day fluticasone propionate [Flonase Allergy Relief] 50 mcg/actuation spray,suspension 2 spray intranasal DAILY Qty: 16 5RF Rx Instructions: administer into each nostril gabapentin 100 mg capsule 100 mg PO BID Qty: 180 3RF Rx Instructions: Take 1 capsule up to twice per day for muscle spasms hydroxyzine pamoate 50 mg capsule 50 mg PO BID PRN (Reason: anxiety) Qty: 180 3RF Rx Instructions: Take 1 tab twice daily as needed for anxiety levetiracetam [Keppra] 500 mg tablet 1,000 mg PO BID Qty: 180 3RF Rx Instructions: Take 1 tab twice daily for seizures topiramate 50 mg tablet 50 mg PO BID Qty: 180 3RF Rx Instructions: Take 1 tab twice per day for migraine prevention. venlafaxine 37.5 mg capsule,extended release 24hr 37.5 mg PO BEDTIME Qty: 90 3RF Rx Instructions: Take 1 capsule at bedtime daily for depression and anxiety miconazole nitrate [Monistat 3] 4 % (200 mg)- 2 % (9 gram) comb pack,prefill appl, cream See Rx Instructions vaginal .COMPLEX Qty: 24 0RF Rx Instructions: put 1 supp in vagina at bedtime x 3nites;use cream on area outside vagina 2X/day for up to 7days vaginal cetirizine-pseudoephedrine 5-120 mg tablet extended release 12 hr 1 tab PO Q12H Qty: 180 3RF Rx Instructions: Take 1 tab every 12 hours for allergies trazodone 150 mg tablet 150 mg PO BEDTIME PRN (Reason: insomnia) Qty: 90 3RF Rx Instructions: Take 1 tab at bedtime daily for insomnia rizatriptan 10 mg tablet See Rx Instructions PO .COMPLEX Qty: 9 3RF Rx Instructions: take 1 tab at onset of headache; if no relief may repeat 1 tab after at least 2 hrs; max = 3 tabs/24 hr PO naltrexone 50 mg tablet 50 mg PO DAILY Qty: 90 3RF Rx Instructions: Take 1 tab daily for craving suppression [facility] Iron Supplement See Rx Instructions .ROUTE .COMPLEX Rx Instructions: 1-2 capsules daily for iron supplement; folic acid 1 mg Tablet 1 mg PO DAILY Qty: 15 0RF multivitamin with folic acid [Tab-A-Mickey] 400 mcg Tablet 1 tab PO DAILY Qty: 30 0RF thiamine mononitrate (vit B1) 100 mg Tablet 100 mg PO DAILY Qty: 15 0RF Referrals: Carli Lucia MD [Primary Care Provider] - Stand Alone Forms: Patient Portal/API
[2024-05-29 12:20] LABS: Add Manual Diff / Slide Review NO; Basophils Absolute Auto 100 /uL (0-100); Basophils Percent Auto 1.2 % (0-2); Eosinophils Absolute Auto 0 /uL (0-450); Hematocrit 39.9 % (36-46); Hemoglobin 13.3 g/dL (12.0-16.0); Lymphocytes Absolute Auto 2800 /uL (1100-4500); Lymphocytes Percent Auto 59.1 % (25-40); Mean Corpuscular HGB Conc 33.4 % (30-36); Mean Corpuscular Hemoglobin 29.7 PG (26-34); Monocytes Absolute Auto 100 /uL (0-900); Monocytes Percent Auto 2.9 % (3-14); Neutrophils Absolute Auto 1700 /uL (1500-7000); Neutrophils Percent Auto 36.8 % (50-75); Platelet Count 543 X10^3/uL (150-400); Red Blood Cell Count 4.49 X10^6/uL (4.0-5.2); Red Cell Distribution Width 14.7 % (11.6-14.8); White Blood Cell Count 4.7 X10^3/uL (4.5-11.0)
[2024-05-29 12:33] LABS: Acetaminophen < 10 ug/mL (10-30); Alanine Aminotransferase 131 IU/L (<35); Albumin 4.7 g/dL (3.5-5.0); Albumin Globulin Ratio 1.3 (1.0-2.8); Alkaline Phosphatase 122 U/L (38-126); Aspartate Aminotransferase 92 IU/L (14-36); BUN Creatinine Ratio 16.4 (6-22); Bilirubin Total 0.5 mg/dL (0.2-1.3); Blood Urea Nitrogen 9 mg/dL (7-17); Calcium 8.4 mg/dL (8.4-10.2); Carbon Dioxide 13 mmol/L (22-32); Chloride 106 mmol/L (98-107); Creatine Kinase 89 U/L (30-135); Estimated Glomerular Filt Rate > 60 mL/min (>60); Globulin 3.6 g/dL (1.7-4.1); Glucose 65 mg/dL (70-100); HEMOLYSIS < 15 (0-50); Potassium 3.3 mmol/L (3.4-5.1); Salicylate < 1.0 mg/dL (<20); Sodium 143 mmol/L (137-145); Total Protein 8.3 g/dL (6.3-8.2)
[2024-05-29 12:42] LABS: Ethanol (ETOH) 489 mg/dL
[2024-05-29 12:44] LABS: Troponin I < 0.012 ng/mL (0.01-0.034)
[2024-05-29 12:50] LABS: Pregnancy Test Serum,Qual Negative (Negative)
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
[2024-05-29 13:51] LABS: Reflexed Lactate in 2 Hours Y
[2024-05-29 13:54] LABS: Bacteria Urine None Seen; Hyaline Casts Urine 1-5/LPF; RBC Urine None Seen (0-5/HPF); Squamous Epithelial Cell Urine 1-5 /HPF (0-5/HPF); Urine Volume 10mL (spun); WBC Urine 0-1/HPF (0-5/HPF)
[2024-05-29] MEDS: DEXTROSE 5%-0.45% NS 1,000 ML 100 ML IV (13:56)
[2024-05-29] MEDS: THIAMINE 200 MG in SODIUM CHLORIDE 0.9% 100 ML 408 MG IV (13:56)
[2024-05-29] MEDS: SODIUM CHLORIDE 0.9% 1,000 ML 1000 ML IV (14:15)
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
[2024-05-29 14:44] LABS: Lactate 2HR (Lactic Acid Rflx) 2.9 mmol/L (0.7-2.1)
[2024-05-29 14:45] LABS: COVID19 -Nasal RAPID Negative (Negative)
[2024-05-29 15:19] LABS: UR Morphine/Opiate cutoff 300 Negative (Negative); Ur Creatinine Normal (Normal); Ur Specific Gravity Normal (Normal); Urine Amphetamines Negative (Negative); Urine Barbiturates Negative (Negative); Urine Benzodiazepines Negative (Negative); Urine Cocaine Negative (Negative); Urine MDMA Negative (Negative); Urine Methadone Negative (Negative); Urine Methamphetamines Negative (Negative); Urine Oxycodone Negative (Negative); Urine Phencyclidine Negative (Negative); Urine Tetrahydrocannabinol Negative (Negative); Urine Tricyclic Antidepressant Positive (Negative); Urine pH Normal (Normal)
[2024-05-29] MEDS: ONDANSETRON 4 MG/2 ML INJ IV (15:45)
--- NOTE | 2024-05-29 16:31 | PC.NURSE ---
CERAMIC PAINTER Note: Roomate Nola at bedside visiting with patient.
[2024-05-29 16:46] LABS: Lactate (Lactic Acid) 2.1 mmol/L (0.7-2.1)
--- NOTE | 2024-05-29 17:55 | CM.SWNOTE ---
Addendum entered by Nasreen Bob 05/29/24 19:14: RN informs OCEAN EXPORT AGENT of patient's preference to d/c to home first to see son before going to detox and inpatient rehab. OCEAN EXPORT AGENT calls patient's roommate regarding this and leaves VM. Still awaiting roommate to return to ED. Nasreen Bob, [facility] Original Note: ED OCEAN EXPORT AGENT Note Patient's roommate Nola arrives to ED and fills witness declaration form, and meets with patient in room. JOEL Salazar presents to ED and evaluates patient. Marie determines that patient is voluntary for detox. Patient's roommate states that she will stay with patient in ED until she secures detox placement. It is reported that patient has an ongoing custody stafford with her child's father and if patient were to be detained that would interfere with patient's custody of her child. It is reported that child is safe in the custody of the child's father at this time. Patient reports recent hx of 6 months of sobriety but states that there are a lot of life stressors that have contributed to patient's recent ETOH consumption. Patient presents with motivation to stop drinking and maintain sobriety for her child. OCEAN EXPORT AGENT discusses that patient's BAL will need to be at 250 or below in order to transfer to detox facility. Patient indicates agreement and understanding. Patient's roommate/friend Nola leaves ED to gather patient's belongings with plans to return to stay with patient. Nola calls back and reports that patient is afraid of senior care time or being committed due to her hx of mandated treatment and her hx of DUIs. Nola reported that patient is on board for detox and inpatient rehab afterwards, motivated by maintaining custody of son. 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 OCEAN EXPORT AGENT calls [facility], it is reported that they have beds for tomorrow morning and cannot do intake screening until later tonight/boring machine set up operator hours. Plan: ED to re-draw patient's BAL later this evening and assist patient in conducting phone screening at [facility], patient's roommate to support patient while in ED. OCEAN EXPORT AGENT to provide [facility] resources to patient and roommate. Nasreen Bob, PLASTICS FABRICATION SUPERVISOR
[2024-05-29 18:08] LABS: Reflexed Lactate in 2 Hours Y
--- NOTE | 2024-05-29 19:00 | PC.NURSE ---
patient stated that she wants to go home to see her son. She was offered to have her son come here and she stated that she doesn't want her son to see her here. She wants to go home and get some clothes. She was informed that her room mate Nola would bring her clothes here. STORE COORDINATOR was updated at the changes in the pt. state.
--- NOTE | 2024-05-29 20:14 | PC.NURSE ---
Nola called in to check. She was updated about the patient wanting to go home and she stated that her will not let her see her son. Nola is afraid that if the pt comes home then she will not go to get treatment.
--- NOTE | 2024-05-29 21:52 | PC.NURSE ---
The pts room mate encouraged the pt to stay and get help in treatment straight from the ED.
[2024-05-29 22:08] LABS: Ethanol (ETOH) 195 mg/dL
[2024-05-30] VITALS (24 sets, daily range): BP systolic 115–163; BP diastolic 71–97; PULSE 70–101; RESP 14–23; TEMP 37; O2SAT 96–100
--- NOTE | 2024-05-30 00:59 | PC.NURSE ---
Addendum entered by Jackie Azevedo CNA 05/30/24 06:00: [facility] note: [facility] called and said they could not accept. Stated patient needs medical detox. Suggested [facility]. Thanked them for their help. We have a packet sent to [facility] for review. Original Note: C[facility] note: [facility], and [facility]. Called Sh[facility] at approximately 0045. Patient had a phone screening with the [facility] intake person. Waiting for a call back.
[2024-05-30] MEDS: chlordiazePOXIDE 25 MG CAPSULE PO (06:09)
--- NOTE | 2024-05-30 07:42 | PC.NURSE ---
Assumed care of pt at 0700. Pt resting in bed. Observed chest rise and fall. Skin pink warm and dry.
[2024-05-30] MEDS: LORazepam 2 MG/ML INJ 1 MG IV (08:32)
[2024-05-30] MEDS: PHENobarbital 65 MG/ML VIAL 130 MG IV (08:32)
[2024-05-30] MEDS: levETIRAcetam 250 MG TABLET 1000 MG PO (08:33)
--- NOTE | 2024-05-30 08:53 | PC.NURSE ---
Pt up and awake. A&Ox4. Visible tremors and pt states that she is feeling anxious, shakey and having some numbness in her extremities. Pt denies SI/HI and states that she just wants to get better for her child. Dr Dean updated on pt status.
[2024-05-30 09:44] LABS: Add Manual Diff / Slide Review NO; Basophils Absolute Auto 0 /uL (0-100); Basophils Percent Auto 0.6 % (0-2); Eosinophils Absolute Auto 0 /uL (0-450); Hematocrit 31.8 % (36-46); Hemoglobin 10.9 g/dL (12.0-16.0); Lymphocytes Absolute Auto 1200 /uL (1100-4500); Lymphocytes Percent Auto 24.7 % (25-40); Mean Corpuscular HGB Conc 34.5 % (30-36); Mean Corpuscular Hemoglobin 30.1 PG (26-34); Mean Corpuscular Volume 87.4 fL (80-100); Monocytes Absolute Auto 500 /uL (0-900); Monocytes Percent Auto 9.9 % (3-14); Neutrophils Absolute Auto 3200 /uL (1500-7000); Neutrophils Percent Auto 64.8 % (50-75); Platelet Count 384 X10^3/uL (150-400); Red Blood Cell Count 3.63 X10^6/uL (4.0-5.2); Red Cell Distribution Width 14.2 % (11.6-14.8); White Blood Cell Count 4.9 X10^3/uL (4.5-11.0)
[2024-05-30 09:54] LABS: Alanine Aminotransferase 87 IU/L (<35); Albumin 3.9 g/dL (3.5-5.0); Albumin Globulin Ratio 1.3 (1.0-2.8); Alkaline Phosphatase 76 U/L (38-126); Aspartate Aminotransferase 51 IU/L (14-36); Bilirubin Total 0.8 mg/dL (0.2-1.3); Calcium 7.8 mg/dL (8.4-10.2); Carbon Dioxide 23 mmol/L (22-32); Chloride 98 mmol/L (98-107); Estimated Glomerular Filt Rate > 60 mL/min (>60); Globulin 2.9 g/dL (1.7-4.1); Glucose 111 mg/dL (70-100); HEMOLYSIS < 15 (0-50); Potassium 3.3 mmol/L (3.4-5.1); Sodium 131 mmol/L (137-145); Total Protein 6.8 g/dL (6.3-8.2)
[2024-05-30 09:55] LABS: BUN Creatinine Ratio 5.1 (6-22); Blood Urea Nitrogen < 2 mg/dL (7-17)
--- NOTE | 2024-05-30 11:52 | CM.SWNOTE ---
ED SPRAYER OPERATOR Note SPRAYER OPERATOR calls [facility] and [facility] this AM and it is reported that they are still reviewing patient. SPRAYER OPERATOR receives calls from [facility] and it is reported that patient is accepted with arrival time of 1330. SPRAYER OPERATOR calls patient's friend/roommate who agrees to bring patient to [facility] for detox and pick her up at 1230, with plans to drive straight there. RN and SPRAYER OPERATOR wake patient up to inform her of this and she indicates agreement and understanding. SPRAYER OPERATOR calls [facility] and withdraws referral. Plan: patient to d/c [facility] for detox bed placement this afternoon via friend upon medical clearance. Nasreen Bob, PRECIPITATION EQUIPMENT TENDER
--- NOTE | 2024-05-30 12:25 | PC.NURSE ---
Pt a&ox4. Given lunch safety tray from dietary. Visible tremor, but pt states that medications helped. Pt to d/c with friend and plans to go to [facility] facility for detox with check-in @ 6653
== END 2024-05-30 12:51 | disposition home or self-care (01) ==
PROVIDERS: Emergency Medicine; Emergency Provider Emergency Medicine; PCP Family Medicine
DX: F10.139 Alcohol abuse with withdrawal, unspecified (principal); Y90.8 Blood alcohol level of 240 mg/100 ml or more; Z11.52 Encounter for screening for COVID-19
CPT/HCPCS: 36415; 80053; 80305; 80320; 80329; 81003; 81015; 81025; 82550; 83605; 84484; 84703; 85025; 87086; 87635; 96361; 96365; 96375; 99284; G0480; J2060; J2405; J2560

== ENCOUNTER → 2024-08-27 12:11 | Outpatient (CLI) | payer OTHER, MEDICAID, SELFPAY ==
[2024-08-27 13:14] LABS: Alanine Aminotransferase 31 IU/L (<35); Albumin 4.2 g/dL (3.5-5.0); Albumin Globulin Ratio 1.4 (1.0-2.8); Alkaline Phosphatase 69 U/L (38-126); Aspartate Aminotransferase 26 IU/L (14-36); BUN Creatinine Ratio 21.3 (6-22); Bilirubin Total 0.4 mg/dL (0.2-1.3); Blood Urea Nitrogen 10 mg/dL (7-17); Calcium 9.5 mg/dL (8.4-10.2); Carbon Dioxide 25 mmol/L (22-32); Chloride 103 mmol/L (98-107); Cholesterol 226 mg/dL (140-199); Estimated Glomerular Filt Rate > 60 mL/min (>60); Glucose 82 mg/dL (70-100); HEMOLYSIS < 15 (0-50); Potassium 4.2 mmol/L (3.4-5.1); Sodium 135 mmol/L (137-145); Total Protein 7.2 g/dL (6.3-8.2); Triglycerides 43 mg/dL (35-150)
[2024-08-27 13:22] LABS: HDL Cholesterol 115 mg/dL (40-60); LDL Cholesterol Calculated 102 mg/dL (<100)
[2024-08-27 13:45] LABS: Thyroid Stimulating Hormone 1.43 uIU/mL (0.47-4.68)
[2024-08-27 14:21] LABS: Folate 10.7 ng/mL (2.76-20.0); Vitamin B12 522 pg/mL (239-931)
[2024-08-27 15:35] LABS: Add Manual Diff / Slide Review NO; Basophils Absolute Auto 100 /uL (0-100); Eosinophils Absolute Auto 0 /uL (0-450); Eosinophils Percent Auto 0.4 % (2-4); Hematocrit 33.3 % (36-46); Hemoglobin 10.9 g/dL (12.0-16.0); Lymphocytes Absolute Auto 1600 /uL (1100-4500); Lymphocytes Percent Auto 30.4 % (25-40); Mean Corpuscular HGB Conc 32.6 % (30-36); Mean Corpuscular Volume 92.1 fL (80-100); Monocytes Absolute Auto 400 /uL (0-900); Monocytes Percent Auto 7.4 % (3-14); Neutrophils Absolute Auto 3300 /uL (1500-7000); Neutrophils Percent Auto 60.8 % (50-75); Platelet Count 573 X10^3/uL (150-400); Red Blood Cell Count 3.61 X10^6/uL (4.0-5.2); Red Cell Distribution Width 15.2 % (11.6-14.8); White Blood Cell Count 5.4 X10^3/uL (4.5-11.0)
[2024-08-27 15:43] LABS: Hemoglobin A1C% w Est Avg Glu 5.3 % (4.0-6.0)
[2024-08-29 04:37] LABS: RPR Screen Non Reactive (Non Reactive)
== END ==
PROVIDERS: PCP Family Medicine; Referring Provider Family Medicine; Visit Provider Family Medicine
DX: G62.9 Polyneuropathy, unspecified (principal); R56.9 Unspecified convulsions; F10.21 Alcohol dependence, in remission
CPT/HCPCS: 36415; 80053; 80061; 80177; 82607; 82746; 83036; 84443; 85025; 86592

== ENCOUNTER 2025-04-19 07:03 | Emergency (ER) | payer OTHER, SELFPAY ==
[2025-04-19] VITALS (29 sets, daily range): BP systolic 126–154; BP diastolic 84–104; PULSE 82–125; RESP 14–24; TEMP 36.7; O2SAT 94–99; BMI 22.6
--- NOTE | 2025-04-19 07:40 | DI.CT.S_ITS ---
PROCEDURE: CT HEAD/BRAIN WO CON INDICATIONS: seizure TECHNIQUE: Noncontrast 4.5 mm thick angled axial sections acquired from the foramen magnum to the vertex, with coronal and sagittal reformats. For radiation dose reduction, the following was used: automated exposure control, adjustment of mA and/or kV according to patient size. COMPARISON: [facility], CT, CT HEAD/BRAIN WO CON, 05/19/2024, 13:49. FINDINGS: Image quality: Diagnostic. CSF spaces: Basal cisterns are patent. No extra-axial fluid collections. Ventricles are normal in size and shape. Brain: No midline shift. No intracranial mass effect or hemorrhage. Stanton- white matter interface is normal. Right virchow space, unchanged. Skull and face: Calvarium and visualized facial bones are intact, without suspicious lesions. Sinuses: Visualized sinuses and mastoids are clear. IMPRESSION: No acute intracranial pathology. Dictated by: Marshall Lucero M.D. on 04/19/2025 at 8:42 Approved by: Marshall Lucero M.D. on 04/19/2025 at 8:44
[2025-04-19] MEDS: SODIUM CHLORIDE 0.9% IV (07:55)
[2025-04-19] MEDS: LEVETIRACETAM IV (07:55)
[2025-04-19 08:09] LABS: INR 1.1 (0.9-1.3); Prothrombin Time 12.0 SECONDS (9.4-12.5)
[2025-04-19 08:12] LABS: Add Manual Diff / Slide Review NO; Hematocrit 39.3 % (36-46); Hemoglobin 13.2 g/dL (12.0-16.0); Lymphocytes Absolute Auto 2400 /uL (1100-4500); Mean Corpuscular HGB Conc 33.6 % (30-36); Mean Corpuscular Hemoglobin 27.9 PG (26-34); Mean Corpuscular Volume 83.1 fL (80-100); Platelet Count 521 X10^3/uL (150-400)
[2025-04-19 08:16] LABS: Alanine Aminotransferase 60 IU/L (<35); Albumin 4.9 g/dL (3.5-5.0); Albumin Globulin Ratio 1.2 (1.0-2.8); Alkaline Phosphatase 101 U/L (38-126); Calcium 8.8 mg/dL (8.4-10.2); Carbon Dioxide 25 mmol/L (22-32); Chloride 97 mmol/L (98-107); Estimated Glomerular Filt Rate > 60 mL/min (>60); Globulin 4.1 g/dL (1.7-4.1); Glucose 146 mg/dL (70-99); HEMOLYSIS 39 (0-50); Potassium 3.8 mmol/L (3.4-5.1); Sodium 136 mmol/L (137-145); Total Protein 9.0 g/dL (6.3-8.2)
[2025-04-19 08:17] LABS: Acetaminophen < 10 ug/mL (10-30); Salicylate < 1.0 mg/dL (<20)
[2025-04-19 08:20] LABS: Blood Urea Nitrogen < 2 mg/dL (7-17); PTT Partial Thromboplastin Tim 28 SECONDS (25.1-36.5)
[2025-04-19 08:22] LABS: Ammonia (NH3) < 9 umol/L (9-30)
[2025-04-19 08:24] LABS: Anisocytosis 2+; Poikilocytosis 1+
[2025-04-19 08:26] LABS: Pregnancy Test Serum,Qual Negative (Negative)
[2025-04-19 08:31] LABS: Ethanol (ETOH) 383 mg/dL (<10)
[2025-04-19 08:53] LABS: TSH w/ Reflex to FT4 2.07 uIU/mL (0.47-4.68)
--- NOTE | 2025-04-19 09:05 | EKG_ITS ---
[facility] [address] [place] [address] Test Date: 2025-04-19 Pat Name: Amalia Khalil Department: [facility] Room: Gender: Female Yarn Handler: EBENEZER : 1985 Requested By: Order Number: [id number] Reading MD: Rajiv Diop Measurements Intervals [place] Rate: 106 P: 45 SD: 126 QRS: 71 QRSD: 78 T: 5 QT: 342 QTc: 454 Interpretive Statements Poor data quality, interpretation may be adversely affected Sinus tachycardia Electronically Signed On 04-22-2025 13:05:38 PDT by Rajiv Diop
[2025-04-19] MEDS: ONDANSETRON 4 MG/2 ML INJ IV (11:52)
[2025-04-19 12:16] LABS: Appearance Urine UA CLEAR; Bilirubin Urine UA NEGATIVE (NEGATIVE); Color Urine UA YELLOW; Glucose Urine UA NEGATIVE (Negative); Ketones Urine UA NEGATIVE (NEGATIVE); Leukocyte Esterase Urine UA NEGATIVE (NEGATIVE); Nitrite Urine UA NEGATIVE (Negative); Occult Blood Urine UA NEGATIVE (Negative); Protein Urine UA NEGATIVE (Negative); Specific Gravity Urine UA <=1.005 (1.000-1.035); Urobilinogen Urine UA 0.2 E.U./dL (0.2)
[2025-04-19 12:21] LABS: Culture Indicated Urine Cult Not Indicated; UR Morphine/Opiate cutoff 300 Negative (Negative); Urine MDMA Negative (Negative); Urine Methamphetamines Negative (Negative); Urine THC Negative (Negative); Urine Tricyclic Antidepressant Negative (Negative); pH Urine UA 6.5 (4.5-8.0)
--- NOTE | 2025-04-19 12:57 | DI.CT.S_ITS ---
PROCEDURE: CT ABDOMEN PELVIS W CON INDICATIONS: ?infection TECHNIQUE: After the administration of intravenous contrast, axial sections acquired from the lung bases to the pubic symphysis. Coronal and sagittal reformats were performed. For radiation dose reduction, the following was used: automated exposure control, adjustment of mA and/or kV according to patient size. COMPARISON: None. FINDINGS: Image quality: Diagnostic. Lower Chest: No pleural effusion. Breast implants. Pectus excavatum. ABDOMEN: Liver: No solid mass. Hepatic steatosis. Focal fatty infiltration at the falciform ligament. Gallbladder: No radiopaque gallstones or wall thickening. Biliary ducts: No biliary dilation. Pancreas: No ductal dilation. Spleen: Size is within normal limits. Adrenal Glands: No adrenal nodules. Kidneys and Ureters: No hydronephrosis. No solid mass. No complex renal cystic lesion which requires follow up. Stomach and Bowel: Normal colonic caliber, without significant wall thickening. The appendix is not seen. Peritoneum: No abnormal intraperitoneal fluid. No free air. Ventral Wall: No significant ventral hernia. Abdominal Nodes: No retroperitoneal or mesenteric adenopathy by size criteria. Vessels: Aorta and inferior vena cava are normal in size. PELVIS: Pelvic Organs: Anteverted uterus. Bladder: No bladder wall thickening. No stone. Pelvic Nodes: No enlarged lymph nodes. Miscellaneous: No inguinal hernias are seen. Bones: No aggressive osseous abnormality. IMPRESSION: No acute abnormality is seen. Hepatic steatosis. Dictated by: Marshall Lucero M.D. on 04/19/2025 at 12:42 Approved by: Marshall Lucero M.D. on 04/19/2025 at 12:49
[2025-04-19] MEDS: GABAPENTIN 600 MG TABLET PO (18:22)
--- NOTE | 2025-04-19 18:49 | ED_ITS ---
HPI - Seizure General Chief Complaint: Seizure Stated Complaint: Nausea, Siezures Time Seen by Provider: 04/19/25 07:39 Source: patient Mode of arrival: Wheelchair Limitations: no limitations History of Present Illness HPI Narrative: Pleasant 39-year-old woman with a history of seizure disorder and alcohol use disorder comes to the ER because of having a seizure at home. She states that her seizures are triggered by extreme stress and lately her has gone to senior living and her parent is very ill and she is also having to care for both of her children on her own. She states that she usually has 1 seizure a month at baseline and it has been about 3 weeks since her last seizure. She denies any fever, chills, sweats, headache. She denies any changes in vision hearing speech or swallowing. She denies any new onset numbness tingling or weakness of any part of her body. She denies falling or injuring herself during her seizure today. She was sitting on the couch when it happened. Related Data Home Medications ?Medication ?Instructions ?Recorded ?Confirmed [facility] Iron Supplement See Rx Instructions . Route .COMPLEX 11/13/22 08/27/24 Previous Rx's ?Medication ?Instructions ?Recorded naltrexone 50 mg tablet 50 mg PO DAILY #90 tabs 12/27 rizatriptan 10 mg tablet See Rx Instructions PO .COMP LEWIS #9 12/08/21 tabs trazodone 150 mg tablet 150 mg PO BEDTIME PRN insomn ia #90 12/08/21 tabs folic acid 1 mg tablet 1 mg PO DAILY #15 tabs 02/18 multivitamin with folic acid 400 1 tab PO DAILY #30 ta bs 02/18/23 mcg tablet (Tab-A-Mickey) thiamine mononitrate (vit B1) 100 100 mg PO DAILY #15 tabs 02/18/23 mg tablet miconazole nitrate 4 % (200 mg)-2 See Rx Instructions vaginal 04/12/23 % (9 gram)vaginal,prefill .COMPLEX #24 grams appl,cream (Monistat 3) buspirone 15 mg tablet 15 mg PO TID #270 tabs 05/09 fluticasone propionate 50 2 spray intranasal DAILY #16 grams 05/09/24 mcg/actuation nasal spray,suspension (Flonase Allergy Relief) hydroxyzine pamoate 50 mg capsule 50 mg PO BID PRN anx iety #180 caps 05/09/24 levetiracetam 500 mg tablet 1,000 mg (2 x 500 mg) PO B ID #180 05/09/24 (Keppra) tabs topiramate 50 mg tablet 50 mg PO BID #180 tabs 05/09 venlafaxine 37.5 mg 37.5 mg PO BEDTIME #90 caps 05/09/24 capsule,extended release 24 hr cetirizine 5 mg-pseudoephedrine ER 1 tab PO Q12H #180 tabs 07/02/24 120 mg tablet,extended release,12hr gabapentin 300 mg capsule 300 mg PO BID #60 caps 01/21 levetiracetam 500 mg tablet 1,500 mg (3 x 500 mg) PO B ID #180 04/19/25 (Keppra) tabs Allergies Allergy/AdvReac Type Severity Reaction Status Date / Time No Known Drug Allergies Allergy Verified 08/27/24 11:56 Patient History Medical History Fatty liver Suicidal ideation Alcohol dependence in early full remission Allergies Insomnia Migraine Anxiety and depression TBI (traumatic brain injury) History of alcohol abuse Surgical History Right arm fracture Family History Mother Breast cancer in female Father CVA (cerebral vascular accident) Alzheimer dementia Social History household members: spouse, children and friend(s) Smoking Status: Never smoker alcohol intake: current Smoking Status: Never smoker alcohol intake frequency: 3 or more drinks per day Alcohol type: beer and wine Exam Initial Vital Signs Initial Vital Signs: Vital Signs Pulse Rate 125 H 04/19/25 07:29 Respiratory Rate 20 04/19/25 07:29 Blood Pressure 154/90 H 04/19/25 07:29 Pulse Oximetry 97 04/19/25 07:29 Oxygen Delivery Method Room Air 04/19/25 07:29 Const General: in distress and intoxicated appearing HENVT Head: normal to inspection, normocephalic and atraumatic Ears: TM's normal bilaterally Mouth: No mouth trauma Eyes General: Yes appearance normal, both eyes and all related structures Neck Neck: normal visual inspection and No tender Carotids: no bruits Resp Effort & Inspection: normal respiratory effort Auscultation: clear to auscultation bilaterally Cardio Rate: regular rate Rhythm: regular rhythm Heart Sounds: S1 normal and S2 normal GI Inspection: normal to inspection Palpation: soft and No tender Auscultation: normal bowel sounds Back/Spine/Pelvis Back: No CVA tenderness Neuro General: patient alert, patient awake, patient oriented x3 and no meningeal signs Cranial Nerves: CN's II-XI intact bilaterally Course Course Course Narrative: Patient seen and examined by myself upon arrival in the ER. She did have 1 more seizure after she was roomed in the ER. She was subsequently loaded with Keppra and IV Valium as her IV Ativan shortage and she did not have any more seizures in the ER. Her alcohol level was almost 400 upon presentation so she was allowed to clinically sober up in the ER for many hours. She did receive an additional dose of Valium. Eventually, I discussed the case with Dr. Mena of Neurology from [facility]. She advised usual seizure safety precautions, increasing the Keppra to 1500 b.i.d., and having the patient follow up with neuro as an outpatient. The patient was advised of these recommendations. She was counseled on seizure safety precautions, and advised to return to the ER for any further seizures or any other change or worsening in her condition. She was in agreement with this plan. Orders Ordered: ED Orders 04/19/25 11:59 Urinalysis and Microscopic Stat Urine Culture Stat Urine Drug Screen, Rapid Stat 04/19/25 12:57 CT abdomen pelvis w con Stat Discontinued Medications Diazepam (Diazepam 10 Mg/2 Ml Syringe) 10 mg IV NOW ONE Stop: 04/19/25 07:47 Last Admin: 04/19/25 07:55 Dose: 10 mg Documented By: BEATA Diazepam (Diazepam 10 Mg/2 Ml Syringe) 10 mg IV NOW ONE Stop: 04/19/25 16:34 Last Admin: 04/19/25 16:37 Dose: 10 mg Documented By: CHAD Gabapentin (Gabapentin 600 Mg Tablet) 600 mg PO NOW ONE Stop: 04/19/25 18:15 Last Admin: 04/19/25 18:22 Dose: 600 mg Documented By: CHAD Levetiracetam 1,900 mg/ Sodium (Chloride) 119 mls @ 476 mls/hr IV NOW ONE Stop: 04/19/25 07:40 Last Infusion: 04/19/25 08:31 Dose: Infused Documented By: Admin: 04/19/25 07:55 Dose: 476 mls/hr Documented By: BEATA Ondansetron HCl (Ondansetron 4 Mg/2 Ml Inj) 4 mg IV NOW ONE Stop: 04/19/25 11:51 Last Admin: 04/19/25 11:52 Dose: 4 mg Documented By: ALEJO Vital Signs Vital signs: Vital Signs - 8 hr 04/19/25 11:00 04/19/25 11:00 04/19/25 11:30 Pulse Rate 104 H 98 H Respiratory Rate 22 21 Blood Pressure 133/87 Pulse Oximetry 94 96 04/19/25 11:30 04/19/25 12:00 04/19/25 12:00 Pulse Rate 108 H Respiratory Rate 14 Blood Pressure 137/92 H 152/104 H Pulse Oximetry 99 04/19/25 12:30 04/19/25 12:30 04/19/25 13:00 Pulse Rate 92 H 98 H Respiratory Rate 15 Blood Pressure 139/91 H Pulse Oximetry 98 97 04/19/25 13:00 04/19/25 13:16 04/19/25 13:16 Pulse Rate 101 H Respiratory Rate 17 Blood Pressure 143/97 H 143/99 H Pulse Oximetry 98 04/19/25 13:30 04/19/25 13:30 04/19/25 14:00 Pulse Rate 82 Respiratory Rate 18 Blood Pressure 135/84 126/85 Pulse Oximetry 94 04/19/25 14:00 04/19/25 14:30 04/19/25 14:30 Pulse Rate 103 H 107 H Respiratory Rate 22 19 Blood Pressure 138/95 H Pulse Oximetry 97 96 04/19/25 15:00 04/19/25 15:00 04/19/25 15:30 Pulse Rate 109 H Respiratory Rate Blood Pressure 138/88 138/92 H Pulse Oximetry 97 04/19/25 15:30 04/19/25 15:59 04/19/25 16:00 Pulse Rate 94 H 91 H Respiratory Rate 17 Blood Pressure 134/87 Pulse Oximetry 99 97 04/19/25 16:00 04/19/25 16:30 04/19/25 16:30 Pulse Rate 94 H 111 H Respiratory Rate 19 Blood Pressure 142/98 H Pulse Oximetry 97 99 04/19/25 17:00 04/19/25 17:00 04/19/25 17:30 Pulse Rate 94 H Respiratory Rate 17 Blood Pressure 131/85 135/99 H Pulse Oximetry 99 04/19/25 17:30 04/19/25 18:00 04/19/25 18:00 Pulse Rate 109 H 97 H Respiratory Rate 24 15 Blood Pressure 129/85 Pulse Oximetry 98 99 04/19/25 18:30 Pulse Rate 98 H Respiratory Rate 22 Blood Pressure Pulse Oximetry MDM - Seizure Lab Data 04/19/25 07:19 04/19/25 07:19 Labs: Lab Results 04/19/25 04/19/25 04/19/25 Range/Units 07:19 07:19 08:03 WBC 5.1 (4.5-11.0) X10^3/uL RBC 4.73 (4.0-5.2) X10^6/uL Hgb 13.2 (12.0-16.0) g/dL Hct 39.3 (36-46) % MCV 83.1 (80-100) fL MCH 27.9 (26-34) PG MCHC 33.6 (30-36) % RDW 20.5 H (11.6-14.8) % Plt Count 521 H (150-400) X10^3/uL Neut % (Auto) 46.2 L (50-75) % Lymph % (Auto) 46.3 H (25-40) % Moffat % (Auto) 5.8 (3-14) % Eos % (Auto) 0.3 L (2-4) % Baso % (Auto) 1.4 (0-2) % Neut # (Auto) 2400 (4248-9446) /uL Lymph # (Auto) 2400 (2254-4657) /uL Moffat # (Auto) 300 (0-900) /uL Eos # (Auto) 0 (0-450) /uL Baso # (Auto) 100 (0-100) /uL RBC Morphology Not Reportable Poikilocytosis 1+ H Anisocytosis 2+ H PT 12.0 (9.4-12.5) SECONDS INR 1.1 (0.9-1.3) APTT 28 (25.1-36.5) SECONDS Sodium 136 L (137-145) mmol/L Potassium 3.8 (3.4-5.1) mmol/L Chloride 97 L (98-107) mmol/L Carbon Dioxide 25 (22-32) mmol/L BUN < 2 L (7-17) mg/dL Creatinine 0.56 (0.52-1.04) mg/dL Estimated GFR > 60 (>60) mL/min BUN/Creatinine Ratio 3.6 L (6-22) Glucose 146 H (70-99) mg/dL Calcium 8.8 (8.4-10.2) mg/dL Total Bilirubin 0.6 (0.2-1.3) mg/dL AST 108 H (14-36) IU/L ALT 60 H (<35) IU/L Alkaline Phosphatase 101 (38-126) U/L Ammonia < 9 L (9-30) umol/L Total Protein 9.0 H (6.3-8.2) g/dL Albumin 4.9 (3.5-5.0) g/dL Globulin 4.1 (1.7-4.1) g/dL Albumin/Globulin Ratio 1.2 (1.0-2.8) Procalcitonin Cancelled TSH 2.07 Cancelled (0.47-4.68) uIU/mL Prolactin 43.2 H (3.0-18.6) ng/mL Serum , Qual Negative (Negative) Urine Color Urine Appearance Urine pH (4.5-8.0) Ur Specific [place] (1.000-1.035) Urine Protein (Negative) Urine Glucose (UA) (Negative) g/dL Urine Ketones (NEGATIVE) Urine Occult Blood (Negative) Urine Nitrate (Negative) Urine Bilirubin (NEGATIVE) Urine Urobilinogen (0.2) E.U./dL Ur Leukocyte Esterase (NEGATIVE) Urine RBC (0-5/HPF) Urine WBC (0-5/HPF) Ur Squamous Epith Cells (0-5/HPF) Urine Bacteria (None) Ur Culture Indicated? Vol Urine Centrifuged Salicylates < 1.0 (<20) mg/dL U Opiates 300ng/mL cut (Negative) Ur Oxycodone Screen (Negative) Urine Methadone Screen (Negative) Acetaminophen < 10 (10-30) ug/mL Ur Barbiturates Screen (Negative) U Tricyclic Antidepress (Negative) Ur Phencyclidine Scrn (Negative) Ur Amphetamines Screen (Negative) U Methamphetamines Scrn (Negative) Ur MDMA Scrn (Ecstasy) (Negative) U Benzodiazepines Scrn (Negative) Urine Cocaine Screen (Negative) U Marijuana (THC) Screen (Negative) Urine Specific [place] Ethyl Alcohol 383 H (<10) mg/dL Ur Creatinine 04/19/25 04/19/25 Range/Units 11:59 11:59 WBC (4.5-11.0) X10^3/uL RBC (4.0-5.2) X10^6/uL Hgb (12.0-16.0) g/dL Hct (36-46) % MCV (80-100) fL MCH (26-34) PG MCHC (30-36) % RDW (11.6-14.8) % Plt Count (150-400) X10^3/uL Neut % (Auto) (50-75) % Lymph % (Auto) (25-40) % Moffat % (Auto) (3-14) % Eos % (Auto) (2-4) % Baso % (Auto) (0-2) % Neut # (Auto) (0610-8506) /uL Lymph # (Auto) (4702-7109) /uL Moffat # (Auto) (0-900) /uL Eos # (Auto) (0-450) /uL Baso # (Auto) (0-100) /uL RBC Morphology Poikilocytosis Anisocytosis PT (9.4-12.5) SECONDS INR (0.9-1.3) APTT (25.1-36.5) SECONDS Sodium (137-145) mmol/L Potassium (3.4-5.1) mmol/L Chloride (98-107) mmol/L Carbon Dioxide (22-32) mmol/L BUN (7-17) mg/dL Creatinine (0.52-1.04) mg/dL Estimated GFR (>60) mL/min BUN/Creatinine Ratio (6-22) Glucose (70-99) mg/dL Calcium (8.4-10.2) mg/dL Total Bilirubin (0.2-1.3) mg/dL AST (14-36) IU/L ALT (<35) IU/L Alkaline Phosphatase (38-126) U/L Ammonia (9-30) umol/L Total Protein (6.3-8.2) g/dL Albumin (3.5-5.0) g/dL Globulin (1.7-4.1) g/dL Albumin/Globulin Ratio (1.0-2.8) Procalcitonin TSH (0.47-4.68) uIU/mL Prolactin (3.0-18.6) ng/mL Serum , Qual (Negative) Urine Color Yellow Urine Appearance Clear Urine pH 6.5 Not Reportable (4.5-8.0) Ur Specific [place] <=1.005 (1.000-1.035) Urine Protein Negative (Negative) Urine Glucose (UA) Negative (Negative) g/dL Urine Ketones Negative (NEGATIVE) Urine Occult Blood Negative (Negative) Urine Nitrate Negative (Negative) Urine Bilirubin Negative (NEGATIVE) Urine Urobilinogen 0.2 (0.2) E.U./dL Ur Leukocyte Esterase Negative (NEGATIVE) Urine RBC None seen (0-5/HPF) Urine WBC None seen (0-5/HPF) Ur Squamous Epith Cells 1-5 /hpf (0-5/HPF) Urine Bacteria None seen (None) Ur Culture Indicated? Cult not indicated Vol Urine Centrifuged 10ml (spun) Salicylates (<20) mg/dL U Opiates 300ng/mL cut Negative (Negative) Ur Oxycodone Screen Negative (Negative) Urine Methadone Screen Negative (Negative) Acetaminophen (10-30) ug/mL Ur Barbiturates Screen Negative (Negative) U Tricyclic Antidepress Negative (Negative) Ur Phencyclidine Scrn Negative (Negative) Ur Amphetamines Screen Negative (Negative) U Methamphetamines Scrn Negative (Negative) Ur MDMA Scrn (Ecstasy) Negative (Negative) U Benzodiazepines Scrn Positive H (Negative) Urine Cocaine Screen Negative (Negative) U Marijuana (THC) Screen Negative (Negative) Urine Specific [place] Not Reportable Ethyl Alcohol (<10) mg/dL Ur Creatinine Not Reportable Discharge Plan Departure Patient Disposition: Home Clinical Impression: Seizure Instructions: DI for Seizure Disorder -- Adult Activity Restrictions/Additional Instructions: If you have any further seizures please call 911 or return to the ER right away for further evaluation. Do not put herself in any situation where you could put cause harm to herself or others by losing consciousness such as driving, riding a bike, swimming alone, bathing in a bathtub alone etcetera. I have increased the dose of your Keppra to 1500 mg twice daily and provided you with a neurology referral for [facility]. Please return to the ER for any other concerns or complaints. Prescriptions: New levetiracetam [Keppra] 500 mg tablet 1,500 mg PO BID Qty: 180 2RF No Action buspirone 15 mg tablet 15 mg PO TID Qty: 270 3RF Rx Instructions: Take 15mg tab 2x/day fluticasone propionate [Flonase Allergy Relief] 50 mcg/actuation spray,suspension 2 spray intranasal DAILY Qty: 16 5RF Rx Instructions: administer into each nostril hydroxyzine pamoate 50 mg capsule 50 mg PO BID PRN (Reason: anxiety) Qty: 180 3RF Rx Instructions: Take 1 tab twice daily as needed for anxiety levetiracetam [Keppra] 500 mg tablet 1,000 mg PO BID Qty: 180 3RF Rx Instructions: Take 1 tab twice daily for seizures topiramate 50 mg tablet 50 mg PO BID Qty: 180 3RF Rx Instructions: Take 1 tab twice per day for migraine prevention. venlafaxine 37.5 mg capsule,extended release 24hr 37.5 mg PO BEDTIME Qty: 90 3RF Rx Instructions: Take 1 capsule at bedtime daily for depression and anxiety miconazole nitrate [Monistat 3] 4 % (200 mg)- 2 % (9 gram) comb pack,prefill appl, cream See Rx Instructions vaginal .COMPLEX Qty: 24 0RF Rx Instructions: put 1 supp in vagina at bedtime x 3nites;use cream on area outside vagina 2X/day for up to 7days vaginal cetirizine-pseudoephedrine 5-120 mg tablet extended release 12 hr 1 tab PO Q12H Qty: 180 3RF Rx Instructions: Take 1 tab every 12 hours for allergies gabapentin 300 mg capsule 300 mg PO BID Qty: 60 3RF trazodone 150 mg tablet 150 mg PO BEDTIME PRN (Reason: insomnia) Qty: 90 3RF Rx Instructions: Take 1 tab at bedtime daily for insomnia rizatriptan 10 mg tablet See Rx Instructions PO .COMPLEX Qty: 9 3RF Rx Instructions: take 1 tab at onset of headache; if no relief may repeat 1 tab after at least 2 hrs; max = 3 tabs/24 hr PO naltrexone 50 mg tablet 50 mg PO DAILY Qty: 90 3RF Rx Instructions: Take 1 tab daily for craving suppression [facility] Iron Supplement See Rx Instructions .ROUTE .COMPLEX Rx Instructions: 1-2 capsules daily for iron supplement; folic acid 1 mg Tablet 1 mg PO DAILY Qty: 15 0RF multivitamin with folic acid [Tab-A-Mickey] 400 mcg Tablet 1 tab PO DAILY Qty: 30 0RF thiamine mononitrate (vit B1) 100 mg Tablet 100 mg PO DAILY Qty: 15 0RF Referrals: Carli Lucia MD [Primary Care Provider, Family Practice] Bronson Gomez MD [Non-Staff, Internal Medicine] - As soon as possible Referral Note: poorly controlled sz disorder. Stand Alone Forms: Patient Portal/API
[2025-04-20 15:41] LABS: Osmolality, Serum 371 mOsmol/kg (275-295)
[2025-04-22 13:10] LABS: Levetiracetam Keppra 38.5 ug/mL (10.0-40.0)
== END 2025-04-19 19:03 | disposition home or self-care (01) ==
PROVIDERS: Emergency Provider Emergency Medicine; PCP Family Medicine
DX: G40.909 Epilepsy, unspecified, not intractable, without status epilepticus (principal); F10.90 Alcohol use, unspecified, uncomplicated; Y90.8 Blood alcohol level of 240 mg/100 ml or more
CPT/HCPCS: 36415; 70450; 74177; 80053; 80177; 80305; 80320; 80329; 81001; 82140; 83930; 84146; 84443; 84703; 85025; 85610; 85730; 87086; 93005; 96365; 96375; 96376; 99284; G0480; J1953; J2405; J3360; Q9967

== ENCOUNTER 2025-05-09 17:48 | Emergency (ER) | payer OTHER, SELFPAY ==
[2025-05-09] VITALS (15 sets, daily range): BP systolic 116–141; BP diastolic 77–87; PULSE 77–120; RESP 13–22; TEMP 36.3; O2SAT 94–100; BMI 21.7
--- NOTE | 2025-05-09 17:50 | EKG_ITS ---
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
[2025-05-09 18:09] LABS: Add Manual Diff / Slide Review NO; Hematocrit 39.5 % (36-46); Hemoglobin 13.0 g/dL (12.0-16.0); Lymphocytes Absolute Auto 2600 /uL (1100-4500); Mean Corpuscular HGB Conc 33.0 % (30-36); Mean Corpuscular Hemoglobin 27.0 PG (26-34); Mean Corpuscular Volume 81.8 fL (80-100); Platelet Count 540 X10^3/uL (150-400)
--- NOTE | 2025-05-09 18:09 | ED_ITS ---
HPI - Seizure General Chief Complaint: Seizure Stated Complaint: Seizure Time Seen by Provider: 05/09/25 17:48 Source: patient and EMS Mode of arrival: EMS Limitations: no limitations History of Present Illness HPI Narrative: 39-year-old female reports history of known seizures for which he takes Keppra, also regular ongoing alcohol use, last drink earlier today. She believes that she had 4 seizures today, when she was shaking all over, all brief, unclear if she had any loss of consciousness, some incontinence of urine. She seems recovered. No focal weakness to face arm or leg. No focal numbness to face arm or leg. She has not believe she had any trauma to her head face back trunk extremities. She has some periumbilical supraumbilical discomfort. She has nausea and vomiting without black or red color. No diarrhea. She does not believe she has missed any doses of her Keppra, no prescribed dose changes of her Keppra. Related Data Home Medications ?Medication ?Instructions ?Recorded ?Confirmed [facility] Iron Supplement See Rx Instructions . Route .COMPLEX 11/13/22 05/09/25 cetirizine 5 mg-pseudoephedrine ER 1 tab PO DAILY 12/0205/09/25 120 mg tablet,extended release,12hr fluticasone propionate 50 2 spray intranasal DAILY PRN 05/09/25 05/09/25 mcg/actuation nasal allergy symptoms spray,suspension (Flonase Allergy Relief) gabapentin 300 mg capsule 600 mg PO BID 05/09/2505/09 naltrexone 50 mg tablet 50 mg PO DAILY PRN ETOH Crav ings 05/09/25 05/09/25 topiramate 50 mg tablet 50 mg PO BEDTIME 05/09/25 Previous Rx's ?Medication ?Instructions ?Recorded rizatriptan 10 mg tablet See Rx Instructions PO .COMP LEWIS #9 12/08/21 tabs trazodone 150 mg tablet 150 mg PO BEDTIME PRN insomn ia #90 12/08/21 tabs buspirone 15 mg tablet 15 mg PO TID #270 tabs 05/09 hydroxyzine pamoate 50 mg capsule 50 mg PO BID PRN anx iety #180 caps 05/09/24 levetiracetam 500 mg tablet 1,000 mg (2 x 500 mg) PO B ID #180 05/09/24 (Carly) tabs venlafaxine 37.5 mg 37.5 mg PO BEDTIME #90 caps 05/09/24 capsule,extended release 24 hr Allergies Allergy/AdvReac Type Severity Reaction Status Date / Time No Known Drug Allergies Allergy Verified 05/09/25 17:48 Patient History Medical History Fatty liver Suicidal ideation Alcohol dependence in early full remission Allergies Insomnia Migraine Anxiety and depression TBI (traumatic brain injury) History of alcohol abuse Surgical History Right arm fracture Family History Mother Breast cancer in female Father CVA (cerebral vascular accident) Alzheimer dementia Social History household members: spouse, children and friend(s) Smoking Status: Unknown if ever smoked alcohol intake: current Smoking Status: Unknown if ever smoked alcohol intake frequency: 3 or more drinks per day Alcohol type: beer and wine Exam Narrative Exam Narrative: GENERAL: Well-developed patient, in mild distress. Alcohol on breath. HEAD: Atraumatic. Normocephalic. EYES: Pupils equal round and reactive. Extraocular motions intact. No scleral icterus. No injection or drainage. ENT: Nose without bleeding, purulent drainage. Throat without erythema, tonsillar hypertrophy or exudate. Airway patent. NECK: Trachea midline. Non tender CARDIOVASCULAR: Regular rate and rhythm without murmurs, gallops, or rubs. RESPIRATORY: Clear to auscultation. Breath sounds equal bilaterally. No wheezes, rales, or rhonchi. GASTROINTESTINAL: Abdomen soft, non-tender, nondistended. EXTREMITIES: No edema or joint tenderness. BACK: Nontender without deformity or crepitance. No flank tenderness. NEURO: AOx3. Slight slurred speech with alcohol on breath. Motor functions grossly nonfocal. No tremulousness. SKIN: No rash or erythema of visible areas Initial Vital Signs Initial Vital Signs: Vital Signs Temperature 97.3 F L 05/09/25 17:48 Pulse Rate 97 H 05/09/25 17:48 Respiratory Rate 13 05/09/25 17:48 Blood Pressure 130/85 05/09/25 17:48 Pulse Oximetry 95 05/09/25 17:48 Oxygen Delivery Method Room Air 05/09/25 17:48 Course Orders Ordered: ED Orders 05/10/25 05:55 Ethanol (ETOH) Stat Discontinued Medications Buspirone HCl (Buspirone 5 Mg Tablet) 15 mg PO NOW ONE Stop: 05/09/25 23:40 Last Admin: 05/09/25 23:57 Dose: 15 mg Documented By: Gabapentin (Gabapentin 600 Mg Tablet) 600 mg PO NOW ONE Stop: 05/09/25 23:40 Last Admin: 05/09/25 23:59 Dose: 600 mg Documented By: Gabapentin (Gabapentin 600 Mg Tablet) 600 mg PO NOW ONE Stop: 05/10/25 06:45 Last Admin: 05/10/25 06:52 Dose: 600 mg Documented By: Hydroxyzine HCl (Hydroxyzine Hcl 25 Mg Tablet) 50 mg PO NOW ONE Stop: 05/09/25 23:40 Last Admin: 05/09/25 23:58 Dose: 50 mg Documented By: Levetiracetam 500 mg/ Sodium (Chloride) 105 mls @ 420 mls/hr IV NOW ONE Stop: 05/09/25 18:18 Last Infusion: 05/09/25 19:11 Dose: Infused Documented By: Admin: 05/09/25 18:31 Dose: 420 mls/hr Documented By: GALINA Sodium Chloride (Normal Saline 0.9%) 1,000 mls @ 1,000 mls/hr IV BOLUS ONE Stop: 05/09/25 19:16 Last Infusion: 05/09/25 19:46 Dose: Infused Documented By: Admin: 05/09/25 18:31 Dose: 1,000 mls/hr Documented By: GALINA Thiamine HCl 200 mg/ Sodium (Chloride) 102 mls @ 408 mls/hr IV DAILY ZACARIAS Thiamine HCl 200 mg/ Sodium (Chloride) 102 mls @ 408 mls/hr IV NOW ONE Stop: 05/09/25 18:36 Last Infusion: 05/09/25 19:46 Dose: Infused Documented By: Admin: 05/09/25 19:10 Dose: 408 mls/hr Documented By: GALINA Levetiracetam (Levetiracetam 250 Mg Tablet) 1,000 mg PO NOW ONE Stop: 05/09/25 23:40 Last Admin: 05/09/25 23:59 Dose: 1,000 mg Documented By: Levetiracetam (Levetiracetam 250 Mg Tablet) 1,000 mg PO NOW ONE Stop: 05/10/25 06:45 Last Admin: 05/10/25 06:52 Dose: 1,000 mg Documented By: Topiramate (Topiramate 25 Mg Tablet) 50 mg PO NOW ONE Stop: 05/09/25 23:42 Last Admin: 05/09/25 23:58 Dose: 50 mg Documented By: Venlafaxine HCl (Venlafaxine 37.5 Mg Tablet) 37.5 mg PO NOW ONE Stop: 05/09/25 23:42 Last Admin: 05/09/25 23:57 Dose: 37.5 mg Documented By: Vital Signs Vital signs: Vital Signs - 8 hr 05/09/25 20:00 05/09/25 20:30 05/09/25 21:00 Pulse Rate 99 H 81 109 H Respiratory Rate 20 22 Blood Pressure 136/80 141/84 H Pulse Oximetry 97 95 99 Oxygen Delivery Method Room Air Room Air Room Air 05/09/25 21:30 05/09/25 22:00 05/09/25 22:30 Pulse Rate 103 H 83 110 H Respiratory Rate Blood Pressure Pulse Oximetry 99 97 97 Oxygen Delivery Method 05/09/25 23:00 05/09/25 23:30 05/10/25 00:00 Pulse Rate 77 120 H 109 H Respiratory Rate Blood Pressure Pulse Oximetry 94 95 95 Oxygen Delivery Method Room Air 05/10/25 00:04 05/10/25 00:04 Pulse Rate 106 H Respiratory Rate Blood Pressure 152/106 H Pulse Oximetry 96 Oxygen Delivery Method Room Air MDM - Seizure Lab Data Attestation: I reviewed the patient's lab results. Lab results narrative: White blood cell count 5100, hemoglobin 13.0, platelets 540,000. Glucose 156. BUN and creatinine normal, normal serum CO2, normal electrolytes. Mild transaminitis, T bili and alkaline phosphatase normal. UA negative. 05/09/25 17:50 05/09/25 17:50 Labs: Lab Results 05/09/25 05/09/25 05/09/25 Range/Units 17:50 18:18 18:18 WBC 5.1 (4.5-11.0) X10^3/uL RBC 4.82 (4.0-5.2) X10^6/uL Hgb 13.0 (12.0-16.0) g/dL Hct 39.5 (36-46) % MCV 81.8 (80-100) fL MCH 27.0 (26-34) PG MCHC 33.0 (30-36) % RDW 20.3 H (11.6-14.8) % Plt Count 540 H (150-400) X10^3/uL Neut % (Auto) 42.6 L (50-75) % Lymph % (Auto) 50.7 H (25-40) % [place] % (Auto) 4.1 (3-14) % Eos % (Auto) 0.2 L (2-4) % Baso % (Auto) 2.4 H (0-2) % Neut # (Auto) 2200 (4329-3454) /uL Lymph # (Auto) 2600 (4403-7329) /uL [place] # (Auto) 200 (0-900) /uL Eos # (Auto) 0 (0-450) /uL Baso # (Auto) 100 (0-100) /uL Nucleated RBCs Cancelled Hypersegmented Neuts Cancelled Hypogranular Neuts Cancelled Reactive Lymphocytes Cancelled Smudge Cells Cancelled Other Cell Type Cancelled Toxic Granulation Cancelled Toxic Vacuolation Cancelled Dohle Bodies Cancelled Alek Rods Cancelled WBC Morphology Comment Cancelled Platelet Estimate Cancelled Clumped Platelets Cancelled Plt Morphology Comment Cancelled RBC Morphology Cancelled Dimorphic RBCs Cancelled Polychromasia Cancelled Hypochromasia Cancelled Poikilocytosis Cancelled Basophilic Stippling Cancelled Anisocytosis Cancelled Microcytosis Cancelled Macrocytosis Cancelled Spherocytes Cancelled Pappenheimer Bodies Cancelled Sickle Cells Cancelled Target Cells Cancelled Tear Drop Cells Cancelled Ovalocytes Cancelled Stomatocytes Cancelled Helmet Cells Cancelled Apple[place] Bodies Cancelled Mclean Rings Cancelled Thomas Cells Cancelled Acanthocytes (Spur) Cancelled Rouleaux Cancelled Schistocytes Cancelled Sodium 142 (137-145) mmol/L Potassium 3.7 (3.4-5.1) mmol/L Chloride 101 (98-107) mmol/L Carbon Dioxide 24 (22-32) mmol/L BUN < 2 L (7-17) mg/dL Creatinine 0.52 (0.52-1.04) mg/dL Estimated GFR > 60 (>60) mL/min BUN/Creatinine Ratio 3.8 L (6-22) Glucose 156 H (70-99) mg/dL Calcium 8.9 (8.4-10.2) mg/dL Total Bilirubin 0.4 (0.2-1.3) mg/dL AST 65 H (14-36) IU/L ALT 45 H (<35) IU/L Alkaline Phosphatase 91 (38-126) U/L Total Protein 9.1 H (6.3-8.2) g/dL Albumin 5.0 (3.5-5.0) g/dL Globulin 4.1 (1.7-4.1) g/dL Albumin/Globulin Ratio 1.2 (1.0-2.8) TSH 1.86 (0.47-4.68) uIU/mL Urine Color Yellow Urine Appearance Clear Urine pH 6.5 Not Reportable (4.5-8.0) Ur Specific [place] <=1.005 (1.000-1.035) Urine Protein Negative (Negative) Urine Glucose (UA) Negative (Negative) g/dL Urine Ketones Negative (NEGATIVE) Urine Occult Blood 1+ H (Negative) Urine Nitrate Negative (Negative) Urine Bilirubin Negative (NEGATIVE) Urine Urobilinogen 0.2 (0.2) E.U./dL Ur Leukocyte Esterase Trace H (NEGATIVE) Urine RBC 0-1/hpf (0-5/HPF) Urine WBC 0-1/hpf (0-5/HPF) Ur Squamous Epith Cells 1-5 /hpf (0-5/HPF) Amorphous Sediment 1+ Urine Bacteria Few (2-10) H (None) Ur Culture Indicated? Cult not indicated Vol Urine Centrifuged 10ml (spun) Salicylates < 1.0 (<20) mg/dL U Opiates 300ng/mL cut Negative (Negative) Ur Oxycodone Screen Negative (Negative) Urine Methadone Screen Negative (Negative) Acetaminophen < 10 (10-30) ug/mL Ur Barbiturates Screen Negative (Negative) U Tricyclic Antidepress Negative (Negative) Ur Phencyclidine Scrn Negative (Negative) Ur Amphetamines Screen Negative (Negative) U Methamphetamines Scrn Negative (Negative) Ur MDMA Scrn (Ecstasy) Negative (Negative) U Benzodiazepines Scrn Negative (Negative) Urine Cocaine Screen Negative (Negative) U Marijuana (THC) Screen Negative (Negative) Urine Specific [place] Not Reportable Ethyl Alcohol 447 H* (<10) mg/dL Ur Creatinine Not Reportable 05/09/25 05/10/25 Range/Units 21:43 05:55 WBC (4.5-11.0) X10^3/uL RBC (4.0-5.2) X10^6/uL Hgb (12.0-16.0) g/dL Hct (36-46) % MCV (80-100) fL MCH (26-34) PG MCHC (30-36) % RDW (11.6-14.8) % Plt Count (150-400) X10^3/uL Neut % (Auto) (50-75) % Lymph % (Auto) (25-40) % [place] % (Auto) (3-14) % Eos % (Auto) (2-4) % Baso % (Auto) (0-2) % Neut # (Auto) (8208-3431) /uL Lymph # (Auto) (4472-1179) /uL [place] # (Auto) (0-900) /uL Eos # (Auto) (0-450) /uL Baso # (Auto) (0-100) /uL Nucleated RBCs Hypersegmented Neuts Hypogranular Neuts Reactive Lymphocytes Smudge Cells Other Cell Type Toxic Granulation Toxic Vacuolation Dohle Bodies Alek Rods WBC Morphology Comment Platelet Estimate Clumped Platelets Plt Morphology Comment RBC Morphology Dimorphic RBCs Polychromasia Hypochromasia Poikilocytosis Basophilic Stippling Anisocytosis Microcytosis Macrocytosis Spherocytes Pappenheimer Bodies Sickle Cells Target Cells Tear Drop Cells Ovalocytes Stomatocytes Helmet Cells Apple-[place] Bodies Mclean Rings [place] Cells Acanthocytes (Spur) Rouleaux Schistocytes Sodium (137-145) mmol/L Potassium (3.4-5.1) mmol/L Chloride (98-107) mmol/L Carbon Dioxide (22-32) mmol/L BUN (7-17) mg/dL Creatinine (0.52-1.04) mg/dL Estimated GFR (>60) mL/min BUN/Creatinine Ratio (6-22) Glucose (70-99) mg/dL Calcium (8.4-10.2) mg/dL Total Bilirubin (0.2-1.3) mg/dL AST (14-36) IU/L ALT (<35) IU/L Alkaline Phosphatase (38-126) U/L Total Protein (6.3-8.2) g/dL Albumin (3.5-5.0) g/dL Globulin (1.7-4.1) g/dL Albumin/Globulin Ratio (1.0-2.8) TSH (0.47-4.68) uIU/mL Urine Color Urine Appearance Urine pH (4.5-8.0) Ur Specific [place] (1.000-1.035) Urine Protein (Negative) Urine Glucose (UA) (Negative) g/dL Urine Ketones (NEGATIVE) Urine Occult Blood (Negative) Urine Nitrate (Negative) Urine Bilirubin (NEGATIVE) Urine Urobilinogen (0.2) E.U./dL Ur Leukocyte Esterase (NEGATIVE) Urine RBC 1-5/hpf (0-5/HPF) Urine WBC 1-5/hpf (0-5/HPF) Ur Squamous Epith Cells 5-10 /hpf H (0-5/HPF) Amorphous Sediment Urine Bacteria Many (>30) H D (None) Ur Culture Indicated? Vol Urine Centrifuged 10ml (spun) Salicylates (<20) mg/dL U Opiates 300ng/mL cut (Negative) Ur Oxycodone Screen (Negative) Urine Methadone Screen (Negative) Acetaminophen (10-30) ug/mL Ur Barbiturates Screen (Negative) U Tricyclic Antidepress (Negative) Ur Phencyclidine Scrn (Negative) Ur Amphetamines Screen (Negative) U Methamphetamines Scrn (Negative) Ur MDMA Scrn (Ecstasy) (Negative) U Benzodiazepines Scrn (Negative) Urine Cocaine Screen (Negative) U Marijuana (THC) Screen (Negative) Urine Specific [place] Ethyl Alcohol 118 H (<10) mg/dL Ur Creatinine Point of Care Testing Test Results Negative Urine Dip Bedside Urine Glucose Negative Bedside Urine Bilirubin - Negative Bedside Urine Ketone - Negative Urine Specific [place] 1.010 Bedside Urine Occult Blood + Bedside Urine pH 6.0 Bedside Urine Protein - Negative Bedside Urine Urobilinogen - Negative Bedside Urine Nitrite - Negative Bedside Urine Leukocytes +++ [address] scan - head: Radiologist's Impression: [address] [address] [address] Scan Report Signed Patient: Amalia Khalil MR#: [id number] : 1985 Acct:[id number] Age/Sex: 39 / F Date of Service: 05/09/25 Loc: ED Accession Number: [id number] Procedure: CT head/brain wo con Ordering Provider: Estiven Anderson MD PROCEDURE: CT HEAD/BRAIN WO CON INDICATIONS: seizures, ?trauma TECHNIQUE: Noncontrast 4.5 mm thick angled axial sections acquired from the foramen magnum to the vertex, with coronal and sagittal reformats. For radiation dose reduction, the following was used: automated exposure control, adjustment of mA and/or kV according to patient size. COMPARISON: [facility], CT, CT HEAD/BRAIN WO CON, 04/19/2025, 8:02. FINDINGS: Image quality: Diagnostic. CSF spaces: Basal cisterns are patent. No extra-axial fluid collections. Ventricles are normal in size and shape. Brain: No midline shift. No intracranial mass effect or hemorrhage. Stanton- white matter interface is normal. Skull and face: Calvarium and visualized facial bones are intact, without suspicious lesions. Sinuses: Visualized sinuses and mastoids are clear. IMPRESSION: No acute intracranial pathology. Dictated by: Osito Canchola M.D. on 05/09/2025 at 19:11 Approved by: Osito Canchola M.D. on 05/09/2025 at 19:12 ECG Data Attestation: I personally reviewed and interpreted this ECG as follows: Interpretation: 1750, sinus tachycardia with rate of 110, no obvious ST segment elevation or depression changes. CA 134, QRS 84, QTC 473. [facility] Narrative Medical decision making narrative: 39-year-old female with reported seizure disorder for which she takes Keppra, had 4 seizures earlier today she believes, unclear type or duration, states that she has aching all over, unclear if she has any loss of consciousness, did have loss of urine. Did not recall hurting herself, hitting her head. No focal weakness to face arm or leg. No focal numbness face arm or leg. No changes in dose of Keppra medication, believes she has been taking her medications. Pupils equal round reactive to light, slight increased size left compared to right but reactive. CT head noncontrast ordered. IV Keppra 500 mg given. CIWA score low. Blood alcohol level 447 at 5:50 p.m. noted. IV fluids, IV thiamine. CT head noncontrast, no acute intracranial findings. See radiology report. Lab data: White blood cell count 5100, hemoglobin 13.0, platelets 540,000. Glucose 156. BUN and creatinine normal, normal serum CO2, normal electrolytes. Mild transaminitis, T bili and alkaline phosphatase normal. UA negative. 0600, repeat BAL 118, clear speech, no s/sx withdrawal, declines detox social work coordinator consult, wants to go home. Given her morning doses oral Keppra and Gabapentin. She will call for ride home. Advised alcohol cessation, compliance with Keppra and other chronic medications, FU with neurology. DC home per patient request. Discharge Plan Departure Patient Disposition: Home Clinical Impression: Seizure, Alcohol intoxication Activity Restrictions/Additional Instructions: History of reported seizures, taking Keppra and gabapentin medications. Ongoing alcohol abuse with very high alcohol level 450+ last night, observed overnight for sobriety. CT head noncontrast study showed no acute changes last night. No obvious signs of withdrawal this morning. You were given IV Keppra last night, and given your morning doses of oral Keppra and gabapentin this morning. You were offered social work coordinator consultation for detox resources but declined to stay for any consultation here today. Encouraged to stop drinking. Encouraged to take your Keppra and gabapentin and other chronic medications regularly as scheduled. Follow up with your regular provider advised this week. Return to this/nearest emergency department for any change worsening symptoms or any concerns prior. Prescriptions: No Action buspirone 15 mg tablet 15 mg PO TID Qty: 270 3RF Rx Instructions: Take 15mg tab 2x/day hydroxyzine pamoate 50 mg capsule 50 mg PO BID PRN (Reason: anxiety) Qty: 180 3RF Rx Instructions: Take 1 tab twice daily as needed for anxiety levetiracetam [Keppra] 500 mg tablet 1,000 mg PO BID Qty: 180 3RF Rx Instructions: Take 1 tab twice daily for seizures venlafaxine 37.5 mg capsule,extended release 24hr 37.5 mg PO BEDTIME Qty: 90 3RF Rx Instructions: Take 1 capsule at bedtime daily for depression and anxiety trazodone 150 mg tablet 150 mg PO BEDTIME PRN (Reason: insomnia) Qty: 90 3RF Rx Instructions: Take 1 tab at bedtime daily for insomnia rizatriptan 10 mg tablet See Rx Instructions PO .COMPLEX Qty: 9 3RF Rx Instructions: take 1 tab at onset of headache; if no relief may repeat 1 tab after at least 2 hrs; max = 3 tabs/24 hr PO [facility] Iron Supplement See Rx Instructions .ROUTE .COMPLEX Rx Instructions: 1-2 capsules daily for iron supplement; cetirizine-pseudoephedrine 5-120 mg tablet extended release 12 hr 1 tab PO DAILY Rx Instructions: Take 1 tab every 12 hours for allergies naltrexone 50 mg tablet 50 mg PO DAILY PRN (Reason: ETOH Cravings) Rx Instructions: Take 1 tab daily for craving suppression gabapentin 300 mg capsule 600 mg PO BID fluticasone propionate [Flonase Allergy Relief] 50 mcg/actuation spray,suspension 2 spray intranasal DAILY PRN (Reason: allergy symptoms) Rx Instructions: administer into each nostril topiramate 50 mg tablet 50 mg PO BEDTIME Rx Instructions: Take 1 tab twice per day for migraine prevention. Referrals: Carli Lucia MD [Primary Care Provider, Family Practice] Stand Alone Forms: Patient Portal/API
--- NOTE | 2025-05-09 18:09 | PC.NURSE ---
Pt is resting in bed sleeping at this time with equal rise and fall of chest. attached to cardiac monitoring 97% RA. seizure pads in place and suction set up. NAD.
[2025-05-09 18:13] LABS: Acetaminophen < 10 ug/mL (10-30); Alanine Aminotransferase 45 IU/L (<35); Albumin 5.0 g/dL (3.5-5.0); Albumin Globulin Ratio 1.2 (1.0-2.8); Alkaline Phosphatase 91 U/L (38-126); Blood Urea Nitrogen < 2 mg/dL (7-17); Calcium 8.9 mg/dL (8.4-10.2); Carbon Dioxide 24 mmol/L (22-32); Chloride 101 mmol/L (98-107); Estimated Glomerular Filt Rate > 60 mL/min (>60); Globulin 4.1 g/dL (1.7-4.1); Glucose 156 mg/dL (70-99); HEMOLYSIS < 15 (0-50); Potassium 3.7 mmol/L (3.4-5.1); Salicylate < 1.0 mg/dL (<20); Sodium 142 mmol/L (137-145); Total Protein 9.1 g/dL (6.3-8.2)
--- NOTE | 2025-05-09 18:21 | DI.CT.S_ITS ---
PROCEDURE: CT HEAD/BRAIN WO CON INDICATIONS: seizures, ?trauma TECHNIQUE: Noncontrast 4.5 mm thick angled axial sections acquired from the foramen magnum to the vertex, with coronal and sagittal reformats. For radiation dose reduction, the following was used: automated exposure control, adjustment of mA and/or kV according to patient size. COMPARISON: [facility], CT, CT HEAD/BRAIN WO CON, 04/19/2025, 8:02. FINDINGS: Image quality: Diagnostic. CSF spaces: Basal cisterns are patent. No extra-axial fluid collections. Ventricles are normal in size and shape. Brain: No midline shift. No intracranial mass effect or hemorrhage. Stanton- white matter interface is normal. Skull and face: Calvarium and visualized facial bones are intact, without suspicious lesions. Sinuses: Visualized sinuses and mastoids are clear. IMPRESSION: No acute intracranial pathology. Dictated by: Osito Canchola M.D. on 05/09/2025 at 19:11 Approved by: Osito Canchola M.D. on 05/09/2025 at 19:12
[2025-05-09 18:25] LABS: Appearance Urine UA CLEAR; Bilirubin Urine UA NEGATIVE (NEGATIVE); Color Urine UA YELLOW; Glucose Urine UA NEGATIVE (Negative); Ketones Urine UA NEGATIVE (NEGATIVE); Leukocyte Esterase Urine UA TRACE (NEGATIVE); Nitrite Urine UA NEGATIVE (Negative); Occult Blood Urine UA 1+ (Negative); Protein Urine UA NEGATIVE (Negative); Specific Gravity Urine UA <=1.005 (1.000-1.035); Urobilinogen Urine UA 0.2 E.U./dL (0.2)
[2025-05-09 18:26] LABS: Ethanol (ETOH) 447 mg/dL (<10)
[2025-05-09 18:27] LABS: pH Urine UA 6.5 (4.5-8.0)
[2025-05-09 18:31] LABS: UR Morphine/Opiate cutoff 300 Negative (Negative); Urine MDMA Negative (Negative); Urine Methamphetamines Negative (Negative); Urine Tetrahydrocannabinol Negative (Negative); Urine Tricyclic Antidepressant Negative (Negative)
[2025-05-09] MEDS: SODIUM CHLORIDE 0.9% 1,000 ML 1000 ML IV (18:31)
[2025-05-09 18:32] LABS: Culture Indicated Urine Cult Not Indicated
--- NOTE | 2025-05-09 18:51 | PC.NURSE ---
Pt awake and arousable to voice. answering questions slow but appropriately. noted to have unequal pupils with L larger than R. L pupil is reactive. R pupil is sluggishly reactive. MD at bedside. order for head CT. Kejuan albertora completed and thiamine infusing.
[2025-05-09 18:58] LABS: TSH w/ Reflex to FT4 1.86 uIU/mL (0.47-4.68)
[2025-05-09] MEDS: THIAMINE 200 MG in SODIUM CHLORIDE 0.9% 100 ML 408 MG IV (19:10)
--- NOTE | 2025-05-09 20:35 | PC.NURSE ---
Pt is restless lying in ED stretcher, eating ice chips at this time. Pt is tearful and repeatedly stating I just want to go home! Pt states she does have someone to drive her home. Explained to patient that she needed to stay for a while longer until blood alcohol level is lower.
--- NOTE | 2025-05-09 20:46 | CM.DPNOTE ---
ED PAPER COATING SUPERVISOR Note: Reviewed chart and discussed with multidisciplinary team pt's medical status and initial discharge needs. Per MD, pt BAL is 447 at 1750 and not medically cleared at this time. It is reported pt had 3 seizures prior to arrival. Plan: Anticipating inpatient detox when medically cleared. ED staff to coordinate disposition. CHACORTA Mcintosh
[2025-05-09] MEDS: VENLAFAXINE 37.5 MG TABLET PO (23:57)
[2025-05-09] MEDS: TOPIRAMATE 25 MG TABLET 50 MG PO (23:58)
[2025-05-09] MEDS: GABAPENTIN 600 MG TABLET PO (23:59)
[2025-05-10] VITALS (11 sets, daily range): BP systolic 130–152; BP diastolic 84–106; PULSE 76–111; RESP 15; O2SAT 93–97
--- NOTE | 2025-05-10 00:01 | PC.NURSE ---
Pt appears to be sleeping intermittently. Seizure precautions in place
--- NOTE | 2025-05-10 06:03 | PC.NURSE ---
Pt has been sleeping intermittently throughout shift. Ambulates independently to bedside commode. VS intermittently due to pt ETOH level decreasing, allowing her to sleep.
[2025-05-10 06:22] LABS: Ethanol (ETOH) 118 mg/dL (<10)
[2025-05-10] MEDS: GABAPENTIN 600 MG TABLET PO (06:52)
== END 2025-05-10 06:57 | disposition home or self-care (01) ==
PROVIDERS: Emergency Provider Emergency Medicine; PCP Family Medicine
DX: G40.909 Epilepsy, unspecified, not intractable, without status epilepticus (principal); F10.129 Alcohol abuse with intoxication, unspecified; Y90.5 Blood alcohol level of 100-119 mg/100 ml
CPT/HCPCS: 70450; 80053; 80305; 80320; 80329; 81001; 81003; 81015; 81025; 84443; 85025; 87077; 87086; 87186; 93005; 96365; 96367; 99284; A9270; G0480; J1953

== ENCOUNTER → 2025-07-16 16:23 | Outpatient (CLI) | payer OTHER, SELFPAY ==
--- NOTE | 2025-07-16 16:25 | DI.MG.S_ITS ---
MM screening mammo implant BI: 07/16/2025. BI-RADS: 0 CLINICAL: 39-year old female for bilateral screening mammogram. Tyrer-Cuzick lifetime risk of 32.3%. Current reported family history of breast cancer: mother. The patient has bilateral implants. PRIOR EXAMS: None. This is a baseline mammogram. MAMMOGRAPHY TECHNIQUE: 2D and 3D (tomosynthesis) digital mammographic views obtained, with additional images as needed for full coverage. Current study was also evaluated with a Computer Aided Detection (CAD) system. DENSITY D. The breasts are extremely dense, which lowers the sensitivity of mammography. IMPLANTS Right: Breast implant present on the right. Left: Breast implant present on the left. MAMMOGRAPHY FINDINGS Right: Axillary Tail Outer, Middle depth: Calcifications needing additional imaging evaluation. Left: There are no suspicious masses, calcifications, or other findings in the breast. IMPRESSION: Right (Calcification): Axillary Tail Outer, Middle depth * Incomplete - calcification needing additional imaging evaluation. Left * No evidence of malignancy with benign findings. RECOMMENDATIONS Right: Axillary Tail Outer, Middle depth * Further evaluation with diagnostic mammography. OVERALL ASSESSMENT CATEGORY BI-RADS-0: Incomplete - Need Additional Imaging Evaluation. ELECTRONICALLY SIGNED: Francisco Dale M.D. on 07/17/2025 at 07:24:49 AM PT Interpreting Station ID: [id number]
== END ==
PROVIDERS: PCP Family Medicine; Referring Provider Family Medicine; Visit Provider Family Medicine
DX: Z12.31 Encounter for screening mammogram for malignant neoplasm of breast (principal); R92.1 Mammographic calcification found on diagnostic imaging of breast; R92.333 Mammographic heterogeneous density, bilateral breasts; Z98.82 Breast implant status; Z80.3 Family history of malignant neoplasm of breast
CPT/HCPCS: 77063; 77067

== ENCOUNTER → 2025-08-12 13:16 | Outpatient (CLI) | payer OTHER, SELFPAY ==
--- NOTE | 2025-08-12 13:17 | DI.MG.S_ITS ---
MM diagnostic mammo implant RT: 08/12/2025. BI-RADS: 3
== END ==
LOC: MAMMO 13:17
PROVIDERS: Family Provider Family Medicine; PCP Family Medicine; Referring Provider Family Medicine; Visit Provider Family Medicine
DX: R92.8 Other abnormal and inconclusive findings on diagnostic imaging of breast (principal); R92.1 Mammographic calcification found on diagnostic imaging of breast; R92.341 Mammographic extreme density, right breast; Z91.89 Other specified personal risk factors, not elsewhere classified; Z80.3 Family history of malignant neoplasm of breast; Z98.82 Breast implant status
CPT/HCPCS: 77065; G0279

== ENCOUNTER → 2025-08-27 08:41 | Outpatient (CLI) | payer OTHER, SELFPAY | PROVIDERS: Family Provider Family Medicine; PCP Family Medicine; Referring Provider Family Medicine; Visit Provider Family Medicine | DX: G62.9 Polyneuropathy, unspecified (principal) | CPT/HCPCS: 95886; 95911 ==